=== PATIENT | female | born 1955 | race Caucasian/White ===

== ENCOUNTER 2016-11-09 08:40 | Emergency (ER) | payer MEDICARE ==
[2016-11-09] MEDS ORDERED: Sodium Chloride 0.9% 1000 ML 1,000 ML IV STA (09:06)
[2016-11-09] MEDS ORDERED: Zofran 4 MG/2 ML VIAL IV ONE (09:14)
--- NOTE | 2016-11-09 09:23 | ERPHSYRPT ---
- History of Present Illness Time Seen by Provider: 11/09/16 09:03 Source: patient Exam Limitations: no limitations Patient Subjective Stated Complaint: pt co nausea, cough procuductive yellow, runny nose,headache for one week now, dizzy at times. pt is able to drink and eat Triage Nursing Assessment: pt arrived alert and in no distress, resp easy, skin w/d Physician History: This is a 61-year-old white female with history of chronic back pain CVA TIA diabetes COPD emphysema depression She arrives with complaint of a nausea vomiting symptoms for one week sore throat cough productive of yellow sputum intermittent headache no fevers. Past medical history includes chronic back pain, CVA, TIA, diabetes, COPD, emphysema, depression Past surgical history includes appendectomy, cholecystectomy, , hysterectomy Social history positive tobacco use Timing/Duration: week(s) (symptoms for a week) Severity: moderate Modifying Factors: Improves With: nothing Associated Symptoms: nausea, vomiting, cough, headaches, No abdominal pain, No shortness of breath, No heartburn, No diaphoresis, No chills, No chest pain, No fever, No loss of appetite, No malaise, No rash, No syncope, No seizure, No weakness Allergies/Adverse Reactions: citalopram hydrobromide [From Celexa] Allergy (Mild, Verified 11/09/16 09:03) Hives escitalopram oxalate [From Lexapro] Allergy (Mild, Verified 11/09/16 09:03) Hives morphine Allergy (Mild, Verified 11/09/16 09:03) itching N&V Sulfa (Sulfonamide Antibiotics) [Sulfa(Sulfonamide Antibiotics)] Allergy (Mild, Verified 11/09/16 09:03) Hives codeine [Codeine] Allergy (Unknown, Verified 11/09/16 09:03) Home Medications: Aspirin/Dipyridamole [Aggrenox Capsules] 1 tab PO BID 03/28/12 [History] Levothyroxine Sodium [Synthroid] 50 mcg PO DAILY 03/28/12 [History] Loratadine [Claritin] 1 tab PO DAILY 03/28/12 [History] Omeprazole 20 MG [Prilosec 20 mg] 40 mg PO DAILY 03/29/12 [History] Desvenlafaxine Succinate [Pristiq ER] 50 mg PO HS 05/06/15 [History] Diazepam [Valium] 5 mg PO TID 05/06/15 [History] Oxybutynin Chloride [Ditropan Xl] 5 mg PO DAILY 05/06/15 [History] Albuterol Common Canister [Proventil Common Canister] 2 puff IH QID [History] Ezetimibe 10 mg [Zetia 10 MG] 10 mg PO DAILY 12/06/15 [History] Quetiapine Fumarate [Seroquel] 300 mg PO HS 12/06/15 [History] Albuterol 2.5 mg/3 ml Neb [Proventil 2.5 mg/3 ml Neb] 1 neb IH TID [History] Cyclobenzaprine HCl 10 mg [Flexeril 10 MG] 10 mg PO DAILY 03/13/16 [ History] Fluticasone/Salmeterol Disc [Advair 250-50 Diskus 14 Dose] 1 puff IH BID 03/13/16 [History] Gemfibrozil 600 mg [Lopid 600 mg] 600 mg PO BID 03/13/16 [History] Linagliptin [Tradjenta] 5 mg PO DAILY 03/13/16 [History] Metformin HCl 1000 mg [Glucophage 1000 MG] 1,000 mg PO BID 03/13/16 [History] Methyl Salicylate/Menthol [Pain Relieving Rub Cream] 1 applic TOP QID 03/13/16 [ History] Morphine Sulfate Cr 15 mg [Ms Contin 15 MG] 15 mg PO BID 03/13/16 [History ] Pioglitazone 30 mg [Actos 30 MG] 30 mg PO DAILY 03/13/16 [History] Fenofibrate,Micronized 145 mg* [Tricor 145 MG] 145 mg DAILY 11/09/16 [History ] Hx Tetanus, Diphtheria Vaccination/Date Given: Yes Hx Influenza Vaccination/Date Given: Yes Hx Pneumococcal Vaccination/Date Given: Yes - Review of Systems Constitutional: No Fever, No Chills Eyes: No Symptoms, No Discharge, No Eye Pain, No Eye Redness, No Itchy, No Photophobia, No Tearing, No Vision Changes, No Double Vision Ears, Nose, & Throat: Nose Congestion, Sinus Drainage, Throat Pain, No Ear Pain , No Ear Discharge, No Hearing Changes, No Tinnitus, No Nose Pain, No Nose Discharge, No Epistaxis, No Mouth Pain, No Mouth Swelling, No Loose Teeth, No Throat Swelling, No Hoarse, No Painful Swallowing, No Snoring, No Stridor Respiratory: Cough, No Cyanosis, No Dyspnea, No Dyspnea on Exertion (ACEVEDO), No Stridor, No Wheezing Cardiac: No Chest Pain, No Edema, No Syncope Abdominal/Gastrointestinal: Nausea, Vomiting, Diarrhea, No Abdominal Pain, No Constipation, No Hematemesis, No Hematochezia, No Melena, No Dysphagia, No Appetite Changes Genitourinary Symptoms: No Dysuria Musculoskeletal: No Back Pain, No Neck Pain Skin: No Rash Neurological: Dizziness, Headache, No Focal Weakness, No Gait Changes, No Irritability, No Lethargy, No Paralysis, No Parasthesia, No Seizure, No Sensory Changes, No Speech Changes, No Tics, No Tremors, No Vertigo Psychological: No Symptoms Endocrine: No Symptoms All Other Systems: Reviewed and Negative - Past Medical History Pertinent Past Medical History: No Neurological History: TIA ENT History: No Pertinent History Cardiac History: No Pertinent History Respiratory History: COPD, Emphysema Endocrine Medical History: Diabetes Type II Musculoskeletal History: No Pertinent History GI Medical History: GERD History: Other Psycho-Social History: Anxiety, Depression Female Reproductive Disorders: No Pertinent History Other Medical History: CHRONIC LBP, CHRONIC SINUSITIS, DEPRESSION, ANXIETY - Past Surgical History Past Surgical History: Yes Neuro Surgical History: No Pertinent History Cardiac: No Pertinent History Respiratory: No Pertinent History Gastrointestinal: Appendectomy, Cholecystectomy Genitourinary: No Pertinent History Musculoskeletal: No Pertinent History Female Surgical History: Section, Hysterectomy Other Surgical History: appy, - Social History Smoking Status: Current some day smoker How long have you smoked: 1/4 Exposure to second hand smoke: Yes Alcohol Use: None Drug Use: none Patient Lives Alone: No Significant Family History: diabetes, hypertension - Female History Hx Last Menstrual Period: post Hx Now: No - Nursing Vital Signs Nursing Vital Signs: Initial Vital Signs Temperature 97.5 F Temperature Source Oral Pulse Rate 84 Respiratory Rate 16 Blood Pressure [] 118/72 Pain Intensity 0 - Physical Exam General Appearance: no apparent distress, alert Eye Exam: PERRL/EOMI, eyes nml inspection Ears, Nose, Throat Exam: normal ENT inspection, TMs normal, pharynx normal, moist mucous membranes Neck Exam: normal inspection, non-tender, supple, full range of motion Respiratory Exam: normal breath sounds, lungs clear, No respiratory distress Cardiovascular Exam: regular rate/rhythm, normal heart sounds, normal peripheral pulses Gastrointestinal/Abdomen Exam: soft, normal bowel sounds, No tenderness, No mass Back Exam: normal inspection, normal range of motion, No CVA tenderness, No vertebral tenderness Extremity Exam: normal inspection, normal range of motion, pelvis stable Neurologic Exam: alert, oriented x 3, cooperative, normal mood/affect, nml cerebellar function, nml station & gait, sensation nml, No motor deficits Skin Exam: normal color, warm, dry, No rash SpO2 Interpretation: normal SpO2: 127 Oxygen Delivery: Room Air - Course Nursing assessment & vital signs reviewed: Yes EKG Interpreted by Me: RATE (82 bpm), Sinus Rhythm, Other (EKG: Normal sinus rhythm, 82 bpm, no acute ST or T wave changes, normal axis) - Radiology Exams Chest X-ray Interpretation: Discussed w/ radiologist, Other (chest x-ray, new subtle left base infiltrate/atelectasis/ effusion, remaining right lung and heart normal, stable left base calcified granulloma, osteopenia, degenerative changes , and mild thoracic kyphoplasty) Ordered Tests: Active Orders 24 hr Category Date Time Status Accucheck STAT Care 11/09/16 09:07 Active IV Insertion STAT Care 11/09/16 09:06 Active Orthostatic Vital Signs STAT Care 11/09/16 09:07 Active CHEST 1 VIEW (PORTABLE) Stat Exams 11/09/16 10:29 Completed CBC W DIFF Stat Lab 11/09/16 09:22 Completed CMP Stat Lab 11/09/16 09:22 Completed CULTURE, THROAT Stat Lab 11/09/16 09:22 Received STREP SCREEN-BETA A Stat Lab 11/09/16 09:22 Completed Medication Summary Generic Name Dose Route Start Last Admin Trade Name Freq PRN Reason Stop Dose Admin Ceftriaxone Sodium/Dextrose 50 mls @ 100 mls/hr 11/09/16 11:01 Rocephin 1 Gm-D5w 50 Ml Bag IV 11/09/16 11:30 STAT ONE Discontinued Medications Generic Name Dose Route Start Last Admin Trade Name Judy PRN Reason Stop Dose Admin Sodium Chloride 1,000 mls @ 999 mls/hr 11/09/16 09:06 11/09/16 09:39 Sodium Chloride 0.9% 1000 Ml IV 11/09/16 10:06 999 mls/hr .Q1H1M STA Administration Sodium Chloride Confirm 11/09/16 09:24 Sodium Chloride 0.9% 1000 Ml Administered 11/09/16 09:25 Dose 1,000 mls @ ud .ROUTE .STK-MED ONE Ondansetron HCl 4 mg 11/09/16 09:14 11/09/16 09:40 Zofran 4 Mg/2 Ml Vial IV 11/09/16 09:15 4 mg STAT ONE Administration Ondansetron HCl Confirm 11/09/16 09:24 Zofran 4 Mg/2 Ml Vial Administered 11/09/16 09:25 Dose 4 mg .ROUTE .STK-MED ONE Lab/Rad Data: Laboratory Result Diagrams 11/09/16 09:22 11/09/16 09:22 Laboratory Results 11/09/16 11/09/16 11/09/16 Range/Units 09:22 09:22 09:22 WBC 8.4 (4.0-10.5) K/mm3 RBC 4.53 (4.1-5.4) M/mm3 Hgb 13.4 (12.0-16.0) gm/dl Hct 41.5 (35-47) % MCV 91.6 (78-100) fl MCH 29.6 (26-32) pg MCHC 32.3 (32-36) g/dl RDW 12.9 (11.5-14.0) % Plt Count 101 L (150-450) K/mm3 MPV 12.0 H (6-9.5) fl Gran % 65.7 (36.0-66.0) % Lymphocytes % 26.2 (24.0-44.0) % Monocytes % 6.1 (0.0-12.0) % Eosinophils % 1.8 (0.00-5.0) % Basophils % 0.2 (0.0-0.4) % Basophils # 0.02 (0-0.4) Sodium 143 (136-145) mEq/L Potassium 3.4 L (3.5-5.1) mEq/L Chloride 105 (98-107) mEq/L Carbon Dioxide 30.6 (21-32) mEq/L Anion Gap 10.4 (5-15) MEQ/L BUN 5 L (9-20) mg/dL Creatinine 0.64 (0.55-1.30) mg/dl Estimated GFR > 60 ML/MIN Glucose 187 H (70-110) MG/DL Calcium 8.6 (8.5-10.1) mg/dL Total Bilirubin 0.2 (0.2-1.0) mg/dL AST 34 (15-37) U/L ALT 58 (12-78) U/L Alkaline Phosphatase 87 (46-116) U/L Serum Total Protein 6.6 (6.4-8.2) gm/dL Albumin 3.2 L (3.4-5.0) g/dL Streptococcus Screen NEGATIVE (Negative) - Progress Progress: improved Progress Note: 11/09/16 11:02 Patient's chest x-ray remarkable for a new subtle left base infiltrate/ atelectasis/effusion. Remaining right lung and heart normal. There is stable left base calcified granuloma, osteopenia, degenerative changes , and mid thoracic kyphoplasty. Patient really does not appear to be in acute distress. Will give Rocephin 1 g IV. Plan home on Zithromax Phenergan, Lomotil. - Departure Time of Disposition: 11:03 Departure Disposition: Home Clinical Impression: Vomiting Qualifiers: Vomiting type: unspecified Vomiting Intractability: non-intractable Nausea presence: with nausea Qualified Code(s): R11.2 - Nausea with vomiting, unspecified Diarrhea Qualifiers: Diarrhea type: unspecified type Qualified Code(s): R19.7 - Diarrhea, unspecified Pneumonia Qualifiers: Pneumonia type: due to unspecified organism Laterality: left Lung location: lower lobe of lung Qualified Code(s): J18.1 - Lobar pneumonia, unspecified organism Condition: Fair Critical Care Time: No Instructions: Pneumonia -- Adult, Diarrhea and Traveler's Diarrhea -- Adult, Vomiting -- Adult Additional Instructions: Return home. Zithromax Z-LISANDRO as directed. Lomotil one orally 4 times a day as needed for loose stools #12. Phenergan 25 mg one orally every 4-6 hours as needed for nausea and vomiting. Follow-up with your family doctor. Return for acute distress or for severe symptoms. Prescriptions: Azithromycin 250 mg [Zithromax 250 MG TABLET] 0 mg PO ZPACK #6 tablet Diphenoxylate HCl/Atropine [Lomotil] 1 tab PO QIDPRN PRN #12 tablet PRN Reason: Diarrhea Promethazine HCl 25 mg [Phenergan 25 mg] 25 mg PO Q4-6HPRN PRN #12 tablet PRN Reason: nausea and vomiting
[2016-11-09] MEDS ORDERED: Zofran 4 MG/2 ML VIAL ONE (09:24)
[2016-11-09] MEDS ORDERED: Sodium Chloride 0.9% 1000 ML 1,000 ML ONE (09:24)
[2016-11-09 09:32] LABS: Mean Cell Volume 91.6 fl (78-100); Red Blood Count 4.53 M/mm3 (4.1-5.4); White Blood Count 8.4 K/mm3 (4.0-10.5)
[2016-11-09 09:33] LABS: BASOPHIL % 0.2 % (0.0-0.4); Eosinophil % 1.8 % (0.00-5.0); Granulocytes % 65.7 % (36.0-66.0); Lymphocytes % 26.2 % (24.0-44.0); Mean Corpuscular Hemoglobin 29.6 pg (26-32); Monocytes % 6.1 % (0.0-12.0); Platelet Count 101 K/mm3 (150-450); Red Cell Distribution Width 12.9 % (11.5-14.0)
[2016-11-09 09:55] LABS: ALBUMIN 3.2 g/dL (3.4-5.0); ALKALINE PHOSPHATASE 87 U/L (46-116); ANION GAP 10.4 MEQ/L (5-15); BILIRUBIN,TOTAL 0.2 mg/dL (0.2-1.0); BLOOD UREA NITROGEN 5 mg/dL (9-20); CHLORIDE 105 mEq/L (98-107); Carbon Dioxide 30.6 mEq/L (21-32); Glucose 187 MG/DL (70-110); Potassium 3.4 mEq/L (3.5-5.1); SGOT/AST 34 U/L (15-37); SGPT/ALT 58 U/L (12-78); SODIUM 143 mEq/L (136-145); Total Protein 6.6 gm/dL (6.4-8.2)
--- NOTE | 2016-11-09 10:50 | XRAY ---
Indication: Cough. Comparison: March 13, 2016 Portable chest demonstrates new subtle left base infiltrate/atelectasis/effusion. Remaining right lung and heart normal. Stable left base calcified granuloma, osteopenia, degenerative changes, and mid thoracic kyphoplasty.
[2016-11-09] MEDS ORDERED: ROCEPHIN 1 Gm-D5w 50 ml Bag** 50 ML IV ONE ×2 (11:01→11:08)
[2016-11-09 12:04] VITALS: BP 123/76; PULSE 88; O2SAT 90
== END 2016-11-09 12:04 | disposition home or self-care (01) ==
LOC: ED 08:40
DX: R11.2 Nausea with vomiting, unspecified (principal); R19.7 Diarrhea, unspecified; J18.1 Lobar pneumonia, unspecified organism; E11.9 Type 2 diabetes mellitus without complications; I10 Essential (primary) hypertension
CPT/HCPCS: 36000; 36415; 71010; 80053; 82962; 85025; 87070; 87430; 93005; 96374; 99283; J0696; J2405

== ENCOUNTER 2016-11-23 15:38 | Emergency (ER) | payer MEDICAID, MEDICARE ==
[2016-11-23] MEDS ORDERED: DUONEB 0.5-3 MG/3 ml Neb IH ONE ×2 (15:56→16:08)
[2016-11-23] MEDS ORDERED: solu-MEDROL 125 MG IV ONE (15:59)
[2016-11-23] MEDS ORDERED: TYLENOL 325 MG PO ONE (16:00)
--- NOTE | 2016-11-23 16:02 | ERPHSYRPT ---
- History of Present Illness Time Seen by Provider: 11/23/16 15:56 Source: patient Patient Subjective Stated Complaint: pt co cough, sob, and pain with deep breath since 11/09/16, was dx with pnuemonia, has finished antibotic and feels like shes not any better Triage Nursing Assessment: pt alert, resp easy, pt able to walk in without difficulty, no edema noted, skin w/d Physician History: CC: cough Hx: 61 y/o patient of Dr Sandra Christian with hx of COPD. She had a pneumonia in September. She is a smoker. She has increased shortness of breath and coughing. No fever. She has some phlegm. She is worried she has return of pneumonia. Timing/Duration: day(s) (few) Cough Quality/Degree: moderate Allergies/Adverse Reactions: citalopram hydrobromide [From Celexa] Allergy (Mild, Verified 11/23/16 15:49) Hives escitalopram oxalate [From Lexapro] Allergy (Mild, Verified 11/23/16 15:49) Hives morphine Allergy (Mild, Verified 11/23/16 15:49) itching N&V Sulfa (Sulfonamide Antibiotics) [Sulfa(Sulfonamide Antibiotics)] Allergy (Mild, Verified 11/23/16 15:49) Hives codeine [Codeine] Allergy (Unknown, Verified 11/23/16 15:49) Home Medications: Aspirin/Dipyridamole [Aggrenox Capsules] 1 tab PO BID 03/28/12 [History] Levothyroxine Sodium [Synthroid] 50 mcg PO DAILY 03/28/12 [History] Loratadine [Claritin] 1 tab PO DAILY 03/28/12 [History] Omeprazole 20 MG [Prilosec 20 mg] 40 mg PO DAILY 03/29/12 [History] Desvenlafaxine Succinate [Pristiq ER] 50 mg PO HS 05/06/15 [History] Diazepam [Valium] 5 mg PO TID 05/06/15 [History] Oxybutynin Chloride [Ditropan Xl] 5 mg PO DAILY 05/06/15 [History] Albuterol Common Canister [Proventil Common Canister] 2 puff IH QID [History] Ezetimibe 10 mg [Zetia 10 MG] 10 mg PO DAILY 12/06/15 [History] Quetiapine Fumarate [Seroquel] 300 mg PO HS 12/06/15 [History] Albuterol 2.5 mg/3 ml Neb [Proventil 2.5 mg/3 ml Neb] 1 neb IH TID [History] Cyclobenzaprine HCl 10 mg [Cyclobenzaprine 10 MG] 10 mg PO DAILY 03/13/16 [History] Fluticasone/Salmeterol Disc [Advair 250-50 Diskus 14 Dose] 1 puff IH BID 03/13/16 [History] Gemfibrozil 600 mg [Lopid 600 mg] 600 mg PO BID 03/13/16 [History] Linagliptin [Tradjenta] 5 mg PO DAILY 03/13/16 [History] Metformin HCl 1000 mg [Glucophage 1000 MG] 1,000 mg PO BID 03/13/16 [History] Methyl Salicylate/Menthol [Pain Relieving Rub Cream] 1 applic TOP QID 03/13/16 [ History] Morphine Sulfate Cr 15 mg [Ms Contin 15 MG] 15 mg PO BID 03/13/16 [History ] Pioglitazone 30 mg [Actos 30 MG] 30 mg PO DAILY 03/13/16 [History] Fenofibrate,Micronized 145 mg* [Tricor 145 MG] 145 mg DAILY 11/09/16 [History ] Hx Tetanus, Diphtheria Vaccination/Date Given: Yes Hx Influenza Vaccination/Date Given: Yes Hx Pneumococcal Vaccination/Date Given: Yes Immunizations Up to Date: Yes - Review of Systems Constitutional: Malaise, No Fever, No Chills Eyes: No Symptoms Ears, Nose, & Throat: Nose Congestion Respiratory: Cough, Wheezing Cardiac: No Chest Pain Abdominal/Gastrointestinal: No Abdominal Pain, No Nausea, No Vomiting, No Diarrhea Skin: No Rash Neurological: No Headache All Other Systems: Reviewed and Negative - Past Medical History Pertinent Past Medical History: No Neurological History: TIA ENT History: No Pertinent History Cardiac History: No Pertinent History Respiratory History: COPD, Emphysema Endocrine Medical History: Diabetes Type II Musculoskeletal History: No Pertinent History GI Medical History: GERD History: Other Psycho-Social History: Anxiety, Depression Female Reproductive Disorders: No Pertinent History Other Medical History: CHRONIC LBP, CHRONIC SINUSITIS, DEPRESSION, ANXIETY - Past Surgical History Past Surgical History: Yes Neuro Surgical History: No Pertinent History Cardiac: No Pertinent History Respiratory: No Pertinent History Gastrointestinal: Appendectomy, Cholecystectomy Genitourinary: No Pertinent History Musculoskeletal: No Pertinent History Female Surgical History: Section, Hysterectomy Other Surgical History: appy, - Social History Smoking Status: Current some day smoker How long have you smoked: 1/4 Exposure to second hand smoke: Yes Alcohol Use: None Drug Use: none Patient Lives Alone: No Significant Family History: diabetes, hypertension - Female History Hx Last Menstrual Period: post Hx Now: No - Nursing Vital Signs Nursing Vital Signs: Initial Vital Signs Temperature 97.9 F Temperature Source Oral Pulse Rate 96 Respiratory Rate 18 Blood Pressure [Left Arm] 146/81 Pain Intensity 5 - Physical Exam General Appearance: alert Eye Exam: PERRL/EOMI Ears, Nose, Throat Exam: normal ENT inspection, moist mucous membranes Neck Exam: normal inspection, non-tender, supple Respiratory Exam: diminished breath sounds, wheezing Cardiovascular Exam: regular rate/rhythm, No murmur Gastrointestinal/Abdomen Exam: soft, No tenderness, No distention Extremity Exam: normal inspection, normal range of motion, No calf tenderness Neurologic Exam: alert, oriented x 3, cooperative, sensation nml, No motor deficits Skin Exam: warm, dry, No rash SpO2 Interpretation: normal SpO2: 97 Oxygen Delivery: Room Air - Course Nursing assessment & vital signs reviewed: Yes - Radiology Exams cxr X-ray Interpretation: Discussed w/ radiologist, No Pneumonia Ordered Tests: Active Orders 24 hr Category Date Time Status IV Insertion STAT Care 11/23/16 15:56 Active Pulse Oximetry (ED) STAT Care 11/23/16 15:56 Active CHEST 2 VIEWS (PA AND LAT) Stat Exams 11/23/16 15:56 Completed BLOOD CULTURE Stat Lab 11/23/16 16:30 Ordered CBC W DIFF Stat Lab 11/23/16 16:15 Completed CMP Stat Lab 11/23/16 15:56 Completed Lactic Acid Urgent Lab 11/23/16 16:18 Completed VENOUS BLOOD GAS Urgent Lab 11/23/16 16:18 Completed Respiratory Nebulizer STAT RT 11/23/16 15:56 Active Medication Summary Discontinued Medications Generic Name Dose Route Start Last Admin Trade Name Judy PRIsha Reason Stop Dose Admin Acetaminophen 650 mg 11/23/16 16:00 11/23/16 16:14 Tylenol 325 Mg PO 11/23/16 16:01 650 mg STAT ONE Administration Acetaminophen Confirm 11/23/16 16:13 Tylenol 325 Mg Administered 11/23/16 16:14 Dose 650 mg .ROUTE .STK-MED ONE Albuterol/Ipratropium 3 ml 11/23/16 15:56 11/23/16 16:11 Duoneb 0.5-3 Mg/3 Ml Neb IH 11/23/16 15:57 3 ml STAT ONE Administration Albuterol/Ipratropium Confirm 11/23/16 16:08 Duoneb 0.5-3 Mg/3 Ml Neb Administered 11/23/16 16:09 Dose 3 ml IH .STK-MED ONE Methylprednisolone Sodium Succinate 125 mg 11/23/16 15:59 11/23/16 16:14 Solu-Medrol 125 Mg IV 11/23/16 16:00 125 mg STAT ONE Administration Methylprednisolone Sodium Succinate Confirm 11/23/16 16:13 Solu-Medrol 125 Mg Administered 11/23/16 16:14 Dose 125 mg .ROUTE .STK-MED ONE Lab/Rad Data: Laboratory Result Diagrams 11/23/16 16:15 11/23/16 15:56 Laboratory Results 11/23/16 11/23/16 11/23/16 Range/Units 16:18 16:15 15:56 WBC 8.1 (4.0-10.5) K/mm3 RBC 5.18 (4.1-5.4) M/mm3 Hgb 15.4 (12.0-16.0) gm/dl Hct 46.2 (35-47) % MCV 89.2 (78-100) fl MCH 29.7 (26-32) pg MCHC 33.3 (32-36) g/dl RDW 13.5 (11.5-14.0) % Plt Count 153 (150-450) K/mm3 MPV 11.5 H (6-9.5) fl Gran % 57.1 (36.0-66.0) % Lymphocytes % 34.2 (24.0-44.0) % Monocytes % 7.4 (0.0-12.0) % Eosinophils % 1.1 (0.00-5.0) % Basophils % 0.2 (0.0-0.4) % Basophils # 0.02 (0-0.4) VBG pH 7.44 H (7.32-7.42) VBG pCO2 at Pat Temp 40 L (42-55) mm/Hg VBG pO2 at Pat Temp 39 (25-40) mm/Hg VBG HCO3 27.2 (22-28) meq/L VBG O2 Sat (Augustina) 78.5 L (95-100) VBG Base Excess 2.8 H (-2.0-2.0) VBG Hemoglobin 15.7 VBG Carboxyhemoglobin 7.3 H* (0.0-6.9) % T HGB POC Potassium 4.0 (3.5-5.1) Sodium 139 (136-145) mEq/L Potassium 3.8 (3.5-5.1) mEq/L Chloride 102 (98-107) mEq/L Carbon Dioxide 24.3 (21-32) mEq/L Anion Gap 16.0 H (5-15) MEQ/L BUN 11 (9-20) mg/dL Creatinine 0.73 (0.55-1.30) mg/dl Estimated GFR > 60 ML/MIN Glucose 173 H (70-110) MG/DL Lactic Acid 1.7 (0.4-2.0) Calcium 9.2 (8.5-10.1) mg/dL Total Bilirubin 0.4 (0.2-1.0) mg/dL AST 89 H (15-37) U/L ALT 69 (12-78) U/L Alkaline Phosphatase 80 (46-116) U/L Serum Total Protein 7.8 (6.4-8.2) gm/dL Albumin 3.8 (3.4-5.0) g/dL - Progress Progress Note: 11/23/16 17:06 Testing is reassuring. She is on home oxygen. RA saturation here 86% so placed on her normal 2 L. Will Rx prednisone and doxy. Will release with instructions. Counseled pt/family regarding: lab results, diagnosis, need for follow-up, rad results, smoking cessation - Departure Time of Disposition: :06 Departure Disposition: Home Clinical Impression: COPD with exacerbation Condition: Stable Critical Care Time: No Referrals: CRISTHIAN CHRISTIAN [Primary Care Provider] - Instructions: Chronic Obstructive Pulmonary Disease, Bronchitis Additional Instructions: Rx doxycycline. Rx prednisone. Use your oxygen and nebs as already directed. Follow up this week with Dr Christian. Return for trouble breathing or concerns. Prescriptions: Doxycycline Hyclate 100 mg [Vibramycin 100 MG] 1 tab PO BID #20 tab Prednisone 20 mg [Deltasone 20 mg] 2 tab PO DAILY #10 tablet
[2016-11-23] MEDS ORDERED: TYLENOL 325 MG ONE (16:13)
[2016-11-23] MEDS ORDERED: solu-MEDROL 125 MG ONE (16:13)
[2016-11-23 16:20] LABS: Lactic Acid 1.7 (0.4-2.0); VBG BASE EXCESS 2.8 (-2.0-2.0); VBG CARBOXYHEMOGLOBIN 7.3 % T HGB (0.0-6.9); VBG HCO3- 27.2 meq/L (22-28); VBG HEMOGLOBIN 15.7; VBG O2 SATURATION 78.5 (95-100); VBG pH 7.44 (7.32-7.42)
[2016-11-23 16:24] LABS: BASOPHIL % 0.2 % (0.0-0.4); Eosinophil % 1.1 % (0.00-5.0); Granulocytes % 57.1 % (36.0-66.0); Lymphocytes % 34.2 % (24.0-44.0); Mean Cell Volume 89.2 fl (78-100); Mean Corpuscular Hemoglobin 29.7 pg (26-32); Mean Platelet Volume 11.5 fl (6-9.5); Monocytes % 7.4 % (0.0-12.0); Platelet Count 153 K/mm3 (150-450); Red Blood Count 5.18 M/mm3 (4.1-5.4); Red Cell Distribution Width 13.5 % (11.5-14.0); White Blood Count 8.1 K/mm3 (4.0-10.5)
--- NOTE | 2016-11-23 16:39 | XRAY ---
Indication: Cough and congestion. Comparison: November 09, 2016 PA/lateral chest again hyperinflated and now clear with stable lingular calcified granuloma. Heart is not enlarged. No new/acute cardiopulmonary findings. Impression: Nonacute hyperinflated chest.
[2016-11-23 16:46] LABS: ALBUMIN 3.8 g/dL (3.4-5.0); ALKALINE PHOSPHATASE 80 U/L (46-116); BILIRUBIN,TOTAL 0.4 mg/dL (0.2-1.0); BLOOD UREA NITROGEN 11 mg/dL (9-20); CHLORIDE 102 mEq/L (98-107); Carbon Dioxide 24.3 mEq/L (21-32); Glucose 173 MG/DL (70-110); Potassium 3.8 mEq/L (3.5-5.1); SGOT/AST 89 U/L (15-37); SGPT/ALT 69 U/L (12-78); SODIUM 139 mEq/L (136-145); Total Protein 7.8 gm/dL (6.4-8.2)
[2016-11-23 17:23] VITALS: BP 140/68; PULSE 78; O2SAT 98
== END 2016-11-23 17:23 | disposition home or self-care (01) ==
LOC: ED 15:38
DX: J44.1 Chronic obstructive pulmonary disease with (acute) exacerbation (principal); Z87.01 Personal history of pneumonia (recurrent); R06.02 Shortness of breath; R05 Cough; E11.9 Type 2 diabetes mellitus without complications; Z79.84 Long term (current) use of oral hypoglycemic drugs; Z79.899 Other long term (current) drug therapy
CPT/HCPCS: 36000; 36415; 71020; 80053; 82805; 83605; 85025; 87040; 87631; 94640; 96374; 99283; 99285; J2930

== ENCOUNTER 2017-01-20 16:46 | Observation (INO) | payer MEDICARE ==
[2017-01-20] MEDS ORDERED: Zofran 4 MG/2 ML VIAL IV PRN (17:10)
[2017-01-20] MEDS ORDERED: IMODIUM 2 MG PO PRN (17:11)
[2017-01-20] MEDS ORDERED: PROTONIX 40 MG IV IV SCH (17:30)
[2017-01-20 17:40] LABS: Mean Corpuscular Hemoglobin 30.2 pg (26-32); Mean Platelet Volume 11.9 fl (6-9.5); Platelet Count 172 K/mm3 (150-450)
[2017-01-20] MEDS: ROCEPHIN 1 Gm-D5w 50 ml Bag** 1 G/50 ML IVPB IV SCH (17:56)
[2017-01-20] MEDS ORDERED: PHENERGAN 25 MG PO ONE (17:59)
[2017-01-20 18:02] LABS: ALBUMIN 3.7 g/dL (3.4-5.0); ALKALINE PHOSPHATASE 90 U/L (46-116); ANION GAP 16.4 MEQ/L (5-15); BILIRUBIN,TOTAL 0.4 mg/dL (0.2-1.0); BLOOD UREA NITROGEN 11 mg/dL (9-20); CHLORIDE 105 mEq/L (98-107); Carbon Dioxide 24.2 mEq/L (21-32); Glucose 306 MG/DL (70-110); Potassium 3.4 mEq/L (3.5-5.1); SGOT/AST 136 U/L (15-37); SGPT/ALT 84 U/L (12-78); SODIUM 142 mEq/L (136-145); Total Protein 7.6 gm/dL (6.4-8.2)
[2017-01-20] MEDS: Sodium Chloride 0.9% 1000 ML 1,000 ML IV SCH (18:06)
[2017-01-20 18:14] LABS: TROPONIN < 0.017 ng/ml (0.000-0.056)
[2017-01-20] MEDS: TYLENOL 325 MG PO PRN (20:14)
[2017-01-20] MEDS: Valium 5 MG PO SCH (21:35)
[2017-01-20] MEDS: ZOCOR 20MG PO SCH (21:35)
[2017-01-20] MEDS: Ms Contin 15 MG PO SCH (21:35)
[2017-01-20] MEDS: AGGRENOX PO SCH (21:36)
[2017-01-20] MEDS: Seroquel 100 MG PO SCH (21:36)
[2017-01-20] MEDS: CLARITIN 10 MG PO SCH (21:37)
[2017-01-20] MEDS ORDERED: Voltaren GEL TOP SCH (22:00)
[2017-01-20] MEDS: NovoLOG Insulin SQ PRN (22:34)
[2017-01-21] MEDS: Sodium Chloride 0.9% 1000 ML 1,000 ML IV SCH (04:27)
[2017-01-21 04:43] LABS: ADD URINE CULTURE? NO (NO); COMPLETE URINE MICROSCOPIC? NO; Collection Type CLEAN CATCH; Ph 5.5 (5-6)
[2017-01-21] MEDS: TYLENOL 325 MG PO PRN (04:47)
[2017-01-21] MEDS ORDERED: PHENERGAN 25 MG PO PRN (07:03)
--- NOTE | 2017-01-21 08:34 | XRAY ---
Indication: Cough. URI. Comparison: November 23, 2016. PA/lateral chest again hyperinflated with lingular calcified granuloma. No focal infiltrate, consolidation, or large effusion. Heart is not enlarged. Vascularity normal. Bony thorax intact again with mild osteopenia, degenerative changes, and previous T7 kyphoplasty. Impression: Stable nonacute chest with chronic features.
--- NOTE | 2017-01-21 08:54 | PCM.NOTE ---
Date and Time: 01/21/17 0852 Subjective Assessment: doing ok, c/o abdominal pain and cough but is improving, denies any fever - Review of Systems Constitutional: No Fever, No Chills Eyes: No Symptoms Ears, Nose, & Throat: No Symptoms Respiratory: Cough, No Short Of Breath Cardiac: No Chest Pain, No Edema, No Syncope Abdominal/Gastrointestinal: Abdominal Pain, Diarrhea, No Nausea, No Vomiting Genitourinary Symptoms: No Dysuria Musculoskeletal: No Back Pain, No Neck Pain Skin: No Rash Neurological: No Dizziness, No Focal Weakness, No Sensory Changes Psychological: No Symptoms Endocrine: No Symptoms Hematologic/Lymphatic: No Symptoms Immunological/Allergic: No Symptoms Objective Exam General Appearance: no apparent distress, alert Neurologic Exam: alert, oriented x 3, cooperative, normal mood/affect, nml cerebellar function, sensation nml, No motor deficits Skin Exam: normal color, warm, dry Eye Exam: PERRL, EOMI, eyes nml inspection Ears, Nose, Throat Exam: normal ENT inspection, pharynx normal, moist mucous membranes Neck Exam: normal inspection, non-tender, supple, full range of motion Respiratory Exam: normal breath sounds, lungs clear, No respiratory distress Cardiovascular Exam: regular rate/rhythm, normal heart sounds Gastrointestinal/Abdomen Exam: soft, No tenderness, No mass Extremity Exam: normal inspection, normal range of motion Back Exam: normal inspection, normal range of motion, No CVA tenderness, No vertebral tenderness Pelvic Exam: deferred Rectal Exam: deferred OBJECTIVE DATA Vital Signs: Vital Signs - 24 hr Temp Pulse Resp BP Pulse Ox 01/21/17 07:47 97.6 F 85 20 131/70 93 L 01/21/17 04:00 97.8 F 81 20 123/72 95 01/21/17 00:00 98.6 F 104 H 20 140/73 96 01/20/17 20:00 98.0 F 98 H 21 135/65 97 01/20/17 17:46 98.3 F 105 H 20 162/80 97 01/20/17 16:54 98.3 F 105 H 20 162/80 97 Pain Assessment - Last Documented Pain Intensity 0 Pain Scale Used 0-10 Pain Scale Intake and Output: Intake & Output 01/18/17 01/19/17 01/20/17 01/21/17 11:59 11:59 11:59 11:59 Intake Total 1828 Output Total 1400 Balance 428 Weight 65.317 kg Lab Results: Accuchecks Accucheck Value: 192 Accucheck Value: 298 Lab Results-Last 24 Hours 01/20/17 01/20/17 01/20/17 Range/Units 17:28 17:28 17:28 WBC 9.0 (4.0-10.5) K/mm3 RBC 4.90 (4.1-5.4) M/mm3 Hgb 14.8 (12.0-16.0) gm/dl Hct 43.1 (35-47) % MCV 88.0 (78-100) fl MCH 30.2 (26-32) pg MCHC 34.3 (32-36) g/dl RDW 13.0 (11.5-14.0) % Plt Count 172 (150-450) K/mm3 MPV 11.9 H (6-9.5) fl Sodium 142 (136-145) mEq/L Potassium 3.4 L (3.5-5.1) mEq/L Chloride 105 (98-107) mEq/L Carbon Dioxide 24.2 (21-32) mEq/L Anion Gap 16.4 H (5-15) MEQ/L BUN 11 (9-20) mg/dL Creatinine 0.82 (0.55-1.30) mg/dl Estimated GFR > 60 ML/MIN Glucose 306 H (70-110) MG/DL Hemoglobin A1c (4.5-6.2) Calcium 9.1 (8.5-10.1) mg/dL Total Bilirubin 0.4 (0.2-1.0) mg/dL AST 136 H (15-37) U/L ALT 84 H (12-78) U/L Alkaline Phosphatase 90 (46-116) U/L Troponin I < 0.017 (0.000-0.056) ng/ml Serum Total Protein 7.6 (6.4-8.2) gm/dL Albumin 3.7 (3.4-5.0) g/dL Ur Collection Type Urine Color (YELLOW) Urine Appearance (CLEAR) Urine pH (5-6) Ur Specific [place] (1.005-1.025) Urine Protein (Negative) Urine Glucose (UA) (NEGATIVE) mg/dL Urine Ketones (NEGATIVE) Urine Nitrite (NEGATIVE) Urine Bilirubin (NEGATIVE) Urine Urobilinogen (0-1) mg/dL Urine WBC (Auto) (NEGATIVE) Urine RBC (Auto) (0-5) Jossue/ul Influenza Type A Ag NEGATIVE (NEGATIVE) Influenza Type B Ag NEGATIVE (NEGATIVE) RSV (PCR) NEGATIVE (Negative) Specimen Received 01/20/17 01/21/17 Range/Units 17:28 04:38 WBC (4.0-10.5) K/mm3 RBC (4.1-5.4) M/mm3 Hgb (12.0-16.0) gm/dl Hct (35-47) % MCV (78-100) fl MCH (26-32) pg MCHC (32-36) g/dl RDW (11.5-14.0) % Plt Count (150-450) K/mm3 MPV (6-9.5) fl Sodium (136-145) mEq/L Potassium (3.5-5.1) mEq/L Chloride (98-107) mEq/L Carbon Dioxide (21-32) mEq/L Anion Gap (5-15) MEQ/L BUN (9-20) mg/dL Creatinine (0.55-1.30) mg/dl Estimated GFR ML/MIN Glucose (70-110) MG/DL Hemoglobin A1c 9.9 H (4.5-6.2) Calcium (8.5-10.1) mg/dL Total Bilirubin (0.2-1.0) mg/dL AST (15-37) U/L ALT (12-78) U/L Alkaline Phosphatase (46-116) U/L Troponin I (0.000-0.056) ng/ml Serum Total Protein (6.4-8.2) gm/dL Albumin (3.4-5.0) g/dL Ur Collection Type CLEAN CATCH Urine Color YELLOW (YELLOW) Urine Appearance CLEAR (CLEAR) Urine pH 5.5 (5-6) Ur Specific [place] 1.015 (1.005-1.025) Urine Protein NEGATIVE (Negative) Urine Glucose (UA) 500 (NEGATIVE) mg/dL Urine Ketones NEGATIVE (NEGATIVE) Urine Nitrite NEGATIVE (NEGATIVE) Urine Bilirubin NEGATIVE (NEGATIVE) Urine Urobilinogen 0.2 (0-1) mg/dL Urine WBC (Auto) NEGATIVE (NEGATIVE) Urine RBC (Auto) NEGATIVE (0-5) Jossue/ul Influenza Type A Ag (NEGATIVE) Influenza Type B Ag (NEGATIVE) RSV (PCR) (Negative) Specimen Received 01/21/17:0430 Radiology Exams: Radiology Procedures Category Date Time Status CHEST 2 VIEWS (PA AND LAT) Urgent Exams 01/20/17 17:15 Completed Assessment/Plan (1) Acute bronchitis Current Visit: Yes Status: Acute Qualifiers: Bronchitis organism: unspecified organism Qualified Code(s): J20.9 - Acute bronchitis, unspecified Assessment & Plan: continue bronchodilaters, IV antibiotics Code(s): J20.9 - ACUTE BRONCHITIS, UNSPECIFIED (2) Colitis Current Visit: Yes Status: Acute Assessment & Plan: continue IV fluids, diet advance as tolerated Code(s): K52.9 - NONINFECTIVE GASTROENTERITIS AND COLITIS, UNSPECIFIED
[2017-01-21] MEDS: AGGRENOX PO SCH ×2 (09:48→22:59)
[2017-01-21] MEDS: Tricor 145 MG PO SCH (09:49)
[2017-01-21] MEDS: Valium 5 MG PO SCH ×3 (09:49→22:59)
[2017-01-21] MEDS: Protonix 40MG Tablet PO SCH (09:49)
[2017-01-21] MEDS: Zetia 10 MG PO SCH (09:49)
[2017-01-21] MEDS: Ms Contin 15 MG PO SCH ×2 (09:49→22:59)
[2017-01-21] MEDS: PRISTIQ ER PO SCH (09:49)
[2017-01-21] MEDS: SYNTHROID 50 MCG PO SCH (09:49)
[2017-01-21] MEDS ORDERED: ADVAIR 250-50 DISKUS 14 DOSE IH SCH (10:00)
[2017-01-21] MEDS ORDERED: FLUZONE QUAD 2016-2017 SYRINGE 36MO-64YO IM ONE (10:00)
[2017-01-21] MEDS: Advair Hfa 115/21 Common canister IH SCH ×2 (13:00→19:33)
[2017-01-21] MEDS: NovoLOG Insulin SQ PRN ×2 (16:49→23:08)
[2017-01-21] MEDS: ROCEPHIN 1 Gm-D5w 50 ml Bag** 1 G/50 ML IVPB IV SCH (16:50)
[2017-01-21] MEDS ORDERED: PROVENTIL 2.5 MG/3 ML NEB IH PRN (17:44)
[2017-01-21] MEDS ORDERED: PROVENTIL COMMON CANISTER IH PRN (17:49)
[2017-01-21] MEDS: CLARITIN 10 MG PO SCH (22:59)
[2017-01-21] MEDS: Seroquel 100 MG PO SCH (22:59)
[2017-01-21] MEDS: ZOCOR 20MG PO SCH (22:59)
[2017-01-22] MEDS: Sodium Chloride 0.9% 1000 ML 1,000 ML IV SCH (00:46)
[2017-01-22] MEDS: Advair Hfa 115/21 Common canister IH SCH (07:16)
[2017-01-22 07:43] VITALS: BP 123/60; PULSE 85; O2SAT 93
[2017-01-22] MEDS: PRISTIQ ER PO SCH (08:26)
[2017-01-22] MEDS: AGGRENOX PO SCH (08:26)
[2017-01-22] MEDS: Ms Contin 15 MG PO SCH (08:26)
[2017-01-22] MEDS: Tricor 145 MG PO SCH (08:26)
[2017-01-22] MEDS: NovoLOG Insulin SQ PRN (08:26)
[2017-01-22] MEDS: Valium 5 MG PO SCH (08:26)
[2017-01-22] MEDS: Protonix 40MG Tablet PO SCH (08:26)
[2017-01-22] MEDS: SYNTHROID 50 MCG PO SCH (08:26)
[2017-01-22] MEDS: Zetia 10 MG PO SCH (08:26)
[2017-01-22] MEDS: PROVENTIL 2.5 MG/3 ML NEB IH SCH (10:25)
[2017-01-22] MEDS: PROVENTIL COMMON CANISTER IH SCH (10:26)
== END 2017-01-22 10:50 | disposition home or self-care (01) ==
LOC: MED SURG 16:46
PROVIDERS: ADMIT General Practice; ATTEND General Practice
DX: J20.9 Acute bronchitis, unspecified (principal); K52.9 Noninfective gastroenteritis and colitis, unspecified; J44.9 Chronic obstructive pulmonary disease, unspecified; F41.8 Other specified anxiety disorders; K21.9 Gastro-esophageal reflux disease without esophagitis; E03.9 Hypothyroidism, unspecified; E11.65 Type 2 diabetes mellitus with hyperglycemia; G89.4 Chronic pain syndrome; J45.909 Unspecified asthma, uncomplicated; Z79.899 Other long term (current) drug therapy; Z23 Encounter for immunization
CPT/HCPCS: 36415; 71020; 80053; 81002; 82962; 83036; 84484; 85027; 87040; 87631; 90686; 93005; 94640; 94760; G0008; G0378; J0696; J2405; A9270-GY

== ENCOUNTER 2018-11-30 07:26 | Emergency (ER) | payer MEDICARE ==
[2018-11-30 07:42] VITALS: O2SAT 98
--- NOTE | 2018-11-30 07:54 | ERPHSYRPT ---
- History of Present Illness Time Seen by Provider: 11/30/18 07:40 Source: patient Exam Limitations: no limitations Patient Subjective Stated Complaint: tripped over dog and fell in the bathroom and injured left wrist/hand Triage Nursing Assessment: Pt c/o of left wrist/hand pain due to tripping and falling in her bathroom, wrist and hand are swollen and bruising, tingling in fingers, able to move fingers, rates pain 7/10, normal pulses felt, doesn't appear to be in any distress Physician History: 63 y/o right handed white female presents with left wrist pain. pt fell onto left wrist last night. pt tripped over dog. no head or neck injury. Occurred: yesterday Method of Injury: fell Quality: constant, aching Severity of Pain-Max: mild Severity of Pain-Current: mild Extremities Pain Location: wrist: left Modifying Factors: Improves With: movement Associated Symptoms: none Allergies/Adverse Reactions: citalopram hydrobromide [From Celexa] Allergy (Mild, Verified 11/30/18 07:41) Hives escitalopram oxalate [From Lexapro] Allergy (Mild, Verified 11/30/18 07:41) Hives morphine Allergy (Mild, Verified 11/30/18 07:41) itching N&V Allergy to IV only Sulfa (Sulfonamide Antibiotics) [Sulfa(Sulfonamide Antibiotics)] Allergy (Mild, Verified 11/30/18 07:41) Hives codeine [Codeine] Allergy (Unknown, Verified 11/30/18 07:41) hallucinations Home Medications: Loratadine [Claritin] 10 mg PO HS 03/28/12 [History] Desvenlafaxine Succinate [Pristiq ER] 50 mg PO DAILY 05/06/15 [History] Diazepam [Valium] 5 mg PO TID 05/06/15 [History] Albuterol Common Canister [Proventil Common Canister] 2 puff IH QID [History] Fluticasone/Salmeterol Disc [Advair 250-50 Diskus 14 Dose] 1 puff IH BID 03/13/16 [History] Gabapentin [Neurontin] 600 mg PO QID 02/21/18 [History] Oxybutynin [Oxytrol] 1 each PO DAILY 02/21/18 [History] Pioglitazone 30 mg [Actos 30 MG] 30 mg PO DAILY 11/30/18 [History] glyBURIDE [Glyburide] 2.5 mg PO DAILY 11/30/18 [History] Hx Tetanus, Diphtheria Vaccination/Date Given: Yes Hx Influenza Vaccination/Date Given: Yes Hx Pneumococcal Vaccination/Date Given: Yes - Review of Systems Constitutional: No Symptoms Eyes: No Symptoms Ears, Nose, & Throat: No Symptoms Respiratory: No Symptoms Cardiac: No Symptoms Abdominal/Gastrointestinal: No Symptoms Genitourinary Symptoms: No Symptoms Musculoskeletal: Fall, Injury, Joint Pain (left wrist), Joint Swelling (left wrist) Skin: No Symptoms Neurological: No Symptoms Psychological: No Symptoms Endocrine: No Symptoms Hematologic/Lymphatic: No Symptoms Immunological/Allergic: No Symptoms All Other Systems: Reviewed and Negative - Past Medical History Pertinent Past Medical History: Yes Neurological History: TIA ENT History: No Pertinent History Cardiac History: No Pertinent History Respiratory History: COPD, Emphysema Endocrine Medical History: Diabetes Type II Musculoskeletal History: No Pertinent History GI Medical History: GERD History: Other Psycho-Social History: Anxiety, Depression Female Reproductive Disorders: No Pertinent History Other Medical History: CHRONIC LBP, CHRONIC SINUSITIS, DEPRESSION, ANXIETY - Past Surgical History Past Surgical History: Yes Neuro Surgical History: No Pertinent History Cardiac: No Pertinent History Respiratory: No Pertinent History Gastrointestinal: Appendectomy, Cholecystectomy Genitourinary: No Pertinent History Musculoskeletal: No Pertinent History Female Surgical History: Section, Hysterectomy Other Surgical History: c section x3 - Social History Smoking Status: Current every day smoker How long have you smoked: 47 years Exposure to second hand smoke: Yes Alcohol Use: None Drug Use: none Patient Lives Alone: No Significant Family History: diabetes, hypertension - Female History Hx Now: No - Nursing Vital Signs Nursing Vital Signs: Initial Vital Signs Temperature 98.7 F 11/30/18 07:32 Pulse Rate 91 H 11/30/18 07:32 Respiratory Rate 16 11/30/18 07:32 Blood Pressure 167/84 11/30/18 07:32 O2 Sat by Pulse Oximetry 98 11/30/18 07:32 Pain Scale Pain Intensity 7 - Physical Exam General Appearance: no apparent distress, alert, anxiety Eyes, Ears, Nose, Throat Exam: normal ENT inspection, moist mucous membranes Neck Exam: normal inspection, non-tender, supple, full range of motion Cardiovascular/Respiratory Exam: chest non-tender Abdominal Exam: non-tender Back Exam: normal inspection, normal range of motion, No CVA tenderness, No vertebral tenderness Shoulder Exam: normal inspection, non-tender, no evidence of injury, normal ROM Elbow/Forearm Exam: normal inspection, non-tender, no evidence of injury, normal ROM Wrist Exam: soft tissue tenderness, swelling (left) Hand Exam: normal inspection, non-tender, no evidence of injury, normal ROM Neuro/Tendon Exam: normal sensation, normal motor functions, normal tendon functions Mental Status Exam: alert, oriented x 3, cooperative Skin Exam: normal color, warm SpO2 Interpretation: normal SpO2: 98 O2 Delivery: Room Air Procedures - Splinting Location of Splint: Left, Wrist Type of Splint: Orthoglass Short Arm Splint Splint Applied By: ED Nurse Pre-Proc Neuro Vasc Exam: normal Post-Proc Neuro Vasc Exam: neurovascular intact - Course Nursing assessment & vital signs reviewed: Yes Ordered Tests: Active Orders 24 hr Category Date Time Status WRIST (MIN 3 VIEWS) Stat Exams 11/30/18 07:56 Completed - Progress Progress: improved Progress Note: 11/30/18 08:56 xray left wrist-nondisplaced cortical fx distal radius ant and post Counseled pt/family regarding: diagnosis, need for follow-up, rad results - Departure Time of Disposition: 08:57 Departure Disposition: Home Clinical Impression: Fracture of left distal radius Condition: Stable Critical Care Time: No Referrals: CRISTHIAN CHRISTIAN [Primary Care Provider] - Additional Instructions: ice pack to area 3 times daily for 2 days. follow up today with orthopedic surgeon for further management. Prescriptions: Hydrocodone/APAP 5-325 Tab^^^ [[place] 5-325 Tablet^^^] 1 tab PO Q8H PRN PRN #9 tablet MDD 3 PRN Reason: Pain
--- NOTE | 2018-11-30 08:53 | XRAY ---
Indication: Pain following fall. Comparison: None 3 views of the left wrist demonstrates nondisplaced cortical fractures involving the distal radius anteriorly and posteriorly. Elsewhere osteopenia, tiny lunate bone island, old 5th metacarpal fracture, and mild degenerative changes base of the 1st metacarpal.
[2018-11-30] MEDS ORDERED: NORCO 5/325 MG PO ONE (09:10)
[2018-11-30] MEDS ORDERED: NORCO 5/325 MG ONE (09:11)
[2018-11-30 09:19] VITALS: BP 178/96; PULSE 92
== END 2018-11-30 09:26 | disposition home or self-care (01) ==
LOC: ED 07:26
DX: S52.592A Other fractures of lower end of left radius, initial encounter for closed fracture (principal); W01.0XXA Fall on same level from slipping, tripping and stumbling without subsequent striking against object, initial encounter; Z79.899 Other long term (current) drug therapy
CPT/HCPCS: 29126; 73110; 99284; A9270-GY

== ENCOUNTER 2018-12-07 07:52 | Day surgery (SDC) | payer MEDICARE ==
[2018-12-07] MEDS ORDERED: Xylocaine 1% Vial 30 ML PF IJ ONE (07:53)
[2018-12-07] MEDS ORDERED: Depo-Medrol 40 MG/ML IM ONE (07:53)
[2018-12-07] MEDS ORDERED: Ketamine HCl 50 MG/ML IJ ONE (07:53)
[2018-12-07] MEDS ORDERED: DIPRIVAN 200 MG/20 ML IV ONE (07:53)
[2018-12-07] MEDS ORDERED: Marcaine 0.5% SDV 10 ML IJ ONE (07:53)
--- NOTE | 2018-12-07 11:48 | XRAY ---
Indication: Right hip injection. Intraoperative fluoroscopy was provided for 7 seconds. Single digital spot image submitted for interpretation demonstrates needle tip projecting over lateral femur neck. Small amount of contrast injected for needle tip placement. Correlate with intraoperative findings/report.
--- NOTE | 2018-12-07 11:57 | XRAY ---
7 seconds fluoroscopy time in surgery for left hip injection.
--- NOTE | 2018-12-07 12:07 | XRAY ---
7 seconds fluoroscopy time in surgery for right hip injection.
[2018-12-07] MEDS ORDERED: Lactated Ringers 1,000 ML IV ONE (14:25)
== END 2018-12-07 09:45 | disposition home or self-care (01) ==
LOC: SDC-PAIN 07:52
PROVIDERS: ATTEND Psychiatry & Neurology Pain Medicine
DX: M16.0 Bilateral primary osteoarthritis of hip (principal); M25.551 Pain in right hip; E11.9 Type 2 diabetes mellitus without complications; J44.9 Chronic obstructive pulmonary disease, unspecified; E03.9 Hypothyroidism, unspecified; G47.30 Sleep apnea, unspecified; Z79.899 Other long term (current) drug therapy
CPT/HCPCS: 20611; 73501; 77002; 82962; J1030; J2001; J2704; Q9966

== ENCOUNTER 2019-01-04 09:27 | Day surgery (SDC) | payer MEDICARE ==
[2019-01-04] MEDS ORDERED: Xylocaine-Mpf 2% 5 Ml Vial IJ ONE (09:28)
[2019-01-04] MEDS ORDERED: Ketamine HCl 50 MG/ML IJ ONE (09:28)
[2019-01-04] MEDS ORDERED: LIDOCAINE HCL 2% 100 MG/5 ML IJ ONE (09:28)
[2019-01-04] MEDS ORDERED: DIPRIVAN 200 MG/20 ML IV ONE (09:28)
[2019-01-04] MEDS ORDERED: Depo-Medrol 40 MG/ML IM ONE (09:28)
[2019-01-04] MEDS ORDERED: Xylocaine 1% Vial 30 ML PF IJ ONE (09:28)
[2019-01-04] MEDS ORDERED: Lactated Ringers 1,000 ML IV ONE (14:24)
--- NOTE | 2019-01-04 16:12 | XRAY ---
Indication: Bilateral L3-S1 MBB. Intraoperative fluoroscopy was provided for 6 seconds. Single digital spot image submitted for interpretation demonstrates posterior needle tips in the expected region of the left and right L3-S1 nerve roots. Correlate with intraoperative findings/report.
--- NOTE | 2019-01-04 16:15 | XRAY ---
6 seconds of fluoroscopy was used in surgery for bilateral L3-L4, L4-L5, L5-S1 MBB.
== END 2019-01-04 11:24 | disposition home or self-care (01) ==
LOC: SDC-PAIN 09:27
PROVIDERS: ATTEND Psychiatry & Neurology Pain Medicine
DX: M47.816 Spondylosis without myelopathy or radiculopathy, lumbar region (principal); E11.9 Type 2 diabetes mellitus without complications; J44.9 Chronic obstructive pulmonary disease, unspecified; E03.9 Hypothyroidism, unspecified; G47.30 Sleep apnea, unspecified; K21.9 Gastro-esophageal reflux disease without esophagitis; Z79.899 Other long term (current) drug therapy
CPT/HCPCS: 64493; 64494; 64495; 72020; 77003; 82962; 99100; J1030; J2001; J2704

== ENCOUNTER 2019-02-08 08:56 | Day surgery (SDC) | payer MEDICARE ==
[2019-02-08] MEDS ORDERED: Depo-Medrol 40 MG/ML IM ONE (08:57)
[2019-02-08] MEDS ORDERED: DIPRIVAN 200 MG/20 ML IV ONE (08:57)
[2019-02-08] MEDS ORDERED: Ketamine HCl 50 MG/ML IV ONE (08:57)
[2019-02-08] MEDS ORDERED: Xylocaine-Mpf 2 ML IJ ONE (08:57)
[2019-02-08] MEDS ORDERED: Sodium Chloride 0.9(Preservative Free) 10 ML IJ ONE (08:57)
--- NOTE | 2019-02-08 13:59 | XRAY ---
Indication: Right L4-S1 DARÍO. Intraoperative fluoroscopy was provided for 30 seconds. 2 digital spot images submitted for interpretation demonstrates posterior needle tips in the expected region of the right L4 and L5 nerve roots. Small amount of contrast injected for needle tip placement. Correlate with intraoperative findings/report.
[2019-02-08] MEDS ORDERED: Lactated Ringers 1,000 ML IV ONE (15:37)
== END 2019-02-08 10:45 | disposition home or self-care (01) ==
LOC: SDC-PAIN 08:56
PROVIDERS: ATTEND Psychiatry & Neurology Pain Medicine
DX: M54.16 Radiculopathy, lumbar region (principal); Z79.899 Other long term (current) drug therapy; E11.9 Type 2 diabetes mellitus without complications; J44.9 Chronic obstructive pulmonary disease, unspecified; G47.30 Sleep apnea, unspecified; E03.9 Hypothyroidism, unspecified; K21.9 Gastro-esophageal reflux disease without esophagitis; F32.9 Major depressive disorder, single episode, unspecified
CPT/HCPCS: 64483; 64484; 72020; 77003; 82962; J1030; J2704; Q9966

== ENCOUNTER 2019-03-01 07:33 | Day surgery (SDC) | payer MEDICARE ==
[2019-03-01] MEDS ORDERED: Marcaine 0.5% SDV 10 ML IJ ONE (07:34)
[2019-03-01] MEDS ORDERED: DIPRIVAN 200 MG/20 ML IV ONE (07:34)
[2019-03-01] MEDS ORDERED: Ketamine HCl 50 MG/ML IJ ONE (07:34)
[2019-03-01] MEDS ORDERED: Depo-Medrol 40 MG/ML IM ONE (07:34)
--- NOTE | 2019-03-01 11:41 | XRAY ---
Indication: Bilateral L3-S1 MBB. Intraoperative fluoroscopy was provided for 8 seconds. Single digital spot image submitted for interpretation demonstrates posterior needle tips projecting over the expected course of the left and right L3-S1 nerve roots. Correlate with intraoperative finding/report.
--- NOTE | 2019-03-01 11:53 | XRAY ---
8 seconds fluoroscopy time in surgery for bilateral L3-S1 MBB.
[2019-03-01] MEDS ORDERED: Lactated Ringers 1,000 ML IV ONE (12:44)
== END 2019-03-01 10:56 | disposition home or self-care (01) ==
LOC: SDC-PAIN 07:33
PROVIDERS: ATTEND Psychiatry & Neurology Pain Medicine
DX: M47.816 Spondylosis without myelopathy or radiculopathy, lumbar region (principal); J44.9 Chronic obstructive pulmonary disease, unspecified; E11.9 Type 2 diabetes mellitus without complications; E03.9 Hypothyroidism, unspecified; K21.9 Gastro-esophageal reflux disease without esophagitis; Z79.899 Other long term (current) drug therapy; F32.9 Major depressive disorder, single episode, unspecified
CPT/HCPCS: 64493; 64494; 64495; 72020; 77002; 82962; J1030; J2704

== ENCOUNTER 2019-03-08 21:38 | Emergency (ER) | payer MEDICARE ==
[2019-03-08] MEDS ORDERED: XYLOCAINE 1% HCL 20 ML MDV IJ ONE (21:43)
[2019-03-08] MEDS ORDERED: Adacel Vial IM ONE ×2 (21:46→22:12)
[2019-03-08] MEDS ORDERED: NORCO 5/325 MG PO ONE ×2 (21:47→23:18)
--- NOTE | 2019-03-08 21:52 | ERPHSYRPT ---
- History of Present Illness Time Seen by Provider: 03/08/19 21:43 Source: patient Exam Limitations: no limitations Physician History: Pt states, she was walking out side, where her daughter was mowing the lawn, accidentally stepped to close and it cut her left 1st and 2nd toes. She denies fall, other injury. Occurred: just prior to arrival Quality: constant Severity of Pain-Max: severe Severity of Pain-Current: severe Lower Extremities Pain: 1st toe: right (laceration), 2nd toe: right (laceration) Modifying Factors: Improves With: immobilization, movement Associated Symptoms: none Allergies/Adverse Reactions: citalopram hydrobromide [From Celexa] Allergy (Mild, Verified 03/08/19 21:43) Hives escitalopram oxalate [From Lexapro] Allergy (Mild, Verified 03/08/19 21:43) Hives morphine Allergy (Mild, Verified 03/08/19 21:43) itching N&V Allergy to IV only Sulfa (Sulfonamide Antibiotics) [Sulfa(Sulfonamide Antibiotics)] Allergy (Mild, Verified 03/08/19 21:43) Hives codeine [Codeine] Allergy (Unknown, Verified 03/08/19 21:43) hallucinations Home Medications: Loratadine [Claritin] 10 mg PO HS 03/28/12 [History] Desvenlafaxine Succinate [Pristiq ER] 50 mg PO DAILY 05/06/15 [History] Diazepam [Valium] 5 mg PO TID 05/06/15 [History] Albuterol Common Canister [Proventil Common Canister] 2 puff IH QID [History] Fluticasone/Salmeterol Disc [Advair 250-50 Diskus 14 Dose] 1 puff IH BID 03/13/16 [History] Gabapentin [Neurontin] 600 mg PO QID 02/21/18 [History] Oxybutynin [Oxytrol] 1 each PO DAILY 02/21/18 [History] Pioglitazone 30 mg [Actos 30 MG] 30 mg PO DAILY 11/30/18 [History] glyBURIDE [Glyburide] 2.5 mg PO DAILY 11/30/18 [History] Hx Tetanus, Diphtheria Vaccination/Date Given: Yes Hx Influenza Vaccination/Date Given: Yes Hx Pneumococcal Vaccination/Date Given: Yes - Review of Systems Constitutional: No Symptoms Cardiac: No Symptoms Musculoskeletal: Other (complex laceration to right 1st and 2nd toes) All Other Systems: Reviewed and Negative - Past Medical History Pertinent Past Medical History: Yes Neurological History: TIA ENT History: No Pertinent History Cardiac History: No Pertinent History Respiratory History: COPD, Emphysema Endocrine Medical History: Diabetes Type II Musculoskeletal History: No Pertinent History GI Medical History: GERD History: Other Psycho-Social History: Anxiety, Depression Female Reproductive Disorders: No Pertinent History Other Medical History: CHRONIC LBP, CHRONIC SINUSITIS, DEPRESSION, ANXIETY - Past Surgical History Past Surgical History: Yes Neuro Surgical History: No Pertinent History Cardiac: No Pertinent History Respiratory: No Pertinent History Gastrointestinal: Appendectomy, Cholecystectomy Genitourinary: No Pertinent History Musculoskeletal: No Pertinent History Female Surgical History: Section, Hysterectomy Other Surgical History: c section x3 - Social History Smoking Status: Current every day smoker How long have you smoked: 47 years Exposure to second hand smoke: Yes Alcohol Use: None Drug Use: none Patient Lives Alone: No Significant Family History: diabetes, hypertension - Nursing Vital Signs Nursing Vital Signs: Initial Vital Signs Temperature 98.5 F 03/08/19 21:45 Pulse Rate 115 H 03/08/19 21:45 Respiratory Rate 22 03/08/19 21:45 Blood Pressure 179/102 03/08/19 21:45 O2 Sat by Pulse Oximetry 96 03/08/19 21:45 Pain Scale Pain Intensity 10 - Physical Exam General Appearance: no apparent distress Eyes, Ears, Nose, Throat Exam: moist mucous membranes Neck Exam: normal inspection, non-tender Cardiovascular/Respiratory Exam: chest non-tender, normal breath sounds, regular rate/rhythm Gastrointestinal/Abdominal Exam: non-tender, soft Back Exam: normal inspection Hips Exam: bilateral: non-tender Foot Exam: left foot: other (1st toe: tip and plantar aspect: 3 cm complex, thin flap ( 5-6 mm wide) laceration with the stem of the flap is to the lateral aspect of the plantar toe, 2nd toe: 1 cm deep, transverse laceration to the plantar aspect of the toe, no severe bleeding or deformity.) Neuro/Tendon Exam: normal motor functions Mental Status Exam: alert, oriented x 3, cooperative Skin Exam: normal color, warm, dry SpO2 Interpretation: normal O2 Delivery: Room Air Procedures - Laceration/Wound Repair Left Toe Wound Location: Left Wound Length (cm): 3 Wound's Depth, Shape: into muscle, irregular, flap, contused tissue Wound Explored: heavily contaminated Irrigated: Yes Santaiclens Prep: No Anesthesia: digital block, 1% Lidocaine Volume Anesthetic (ccs): 9 Wound Debrided: moderate Wound Repaired With: sutures Suture Size/Type: 4-0, 3-0, ethilon Number of Sutures: 14 Layer Closure?: No Sterile Dressing Applied?: Yes Splint Applied?: No Sling Applied?: No Progress: 03/08/19 23:08 7X 3.0 Ethilon and 4x 4.0 Ethilon placed to the great toe wound and 1x3.0 and 2x4.0 Ethilon to the 2nd toe wound, the 1st toe laceration was not possible to completely close, due to severe tissue damage, had to debride extensively, bleeding not noted due to debridement due to poor circulation to the toes. - Course Nursing assessment & vital signs reviewed: Yes - Radiology Exams Left Foot X-ray Interpretation: Interpreted by me, Other (1 st toe end phalanx nondisplaced fracture to the base, 2nd toe in intact.) Ordered Tests: Active Orders 24 hr Category Date Time Status Wound Care STAT Care 03/08/19 21:43 Active FOOT (MINIMUM 3 VIEWS) Stat Exams 03/08/19 21:46 Taken Medication Summary Discontinued Medications Generic Name Dose Route Start Last Admin Trade Name Saleemq PRN Reason Stop Dose Admin Hydrocodone Bitart/Acetaminophen 1 tab 03/08/19 21:47 03/08/19 22:15 [place] 5/325 Mg PO 03/08/19 21:48 1 tab STAT ONE Administration Hydrocodone Bitart/Acetaminophen Confirm 03/08/19 22:12 [place] 5/325 Mg Administered 03/08/19 22:13 Dose 1 tab .ROUTE .STK-MED ONE Hydrocodone Bitart/Acetaminophen 1 tab 03/08/19 23:18 [place] 5/325 Mg PO 03/08/19 23:19 STAT ONE Cephalexin HCl 500 mg 03/08/19 22:07 03/08/19 22:16 Keflex 500 Mg PO 03/08/19 22:08 500 mg STAT ONE Administration Cephalexin HCl Confirm 03/08/19 22:11 Keflex 500 Mg Administered 03/08/19 22:12 Dose 500 mg .ROUTE .STK-MED ONE Diphtheria/Tetanus/Acell Pertussis 0.5 ml 03/08/19 21:46 03/08/19 22:18 Adacel Vial IM 03/08/19 21:47 0.5 ml .ONCE ONE Administration Diphtheria/Tetanus/Acell Pertussis Confirm 03/08/19 22:12 Adacel Vial Administered 03/08/19 22:13 Dose 0.5 ml IM .STK-MED ONE Lidocaine HCl 5 ml 03/08/19 21:43 03/08/19 22:19 Xylocaine 1% Hcl 20 Ml Mdv IJ 03/08/19 21:44 5 ml STAT ONE Administration Lidocaine HCl Confirm 03/08/19 22:12 Xylocaine 1% Hcl 20 Ml Mdv Administered 03/08/19 22:13 Dose 1 ml .ROUTE .STK-MED ONE - Progress Progress: improved Progress Note: 03/08/19 23:12 Pt tolerated suturing well, stable, we discussed out X ray findings, she was started on PO Keflex, and given [place] for pain, provided with Postop Shoe, discharged to rest with elevated leg, change dressing daily and cleanse wound with antiseptic solutions, return after 2 days to recheck wound, suture removal after 10 days. Counseled pt/family regarding: diagnosis, need for follow-up, rad results - Departure Departure Disposition: Home Clinical Impression: Toe laceration with complication Toe fracture, left Qualifiers: Encounter type: initial encounter Toe: great toe Fracture type: open Phalanx: distal Fracture alignment: nondisplaced Qualified Code(s): S92.425B - Nondisplaced fracture of distal phalanx of left great toe, initial encounter for open fracture Condition: Stable Critical Care Time: No Referrals: CRISTHIAN CHRISTIAN [Primary Care Provider] - Instructions: Wound Care (DC), Foot Fracture (DC), Laceration Repair With Stitches (DC) Additional Instructions: Rest with elevated leg, change dressing and cleanse wound daily with antiseptic solutions, return after 2 days to recheck wound or follow up with your physician in 2 days removal of the sutures after 10 days, return if severe pain , swelling, purulent discoloration of the toe or fever> 101 F! Prescriptions: Hydrocodone/APAP 5-325 Tab^^^ [[place] 5-325 Tablet^^^] 1 tab PO Q6HPRN PRN #10 tablet MDD 6 PRN Reason: Pain Cephalexin Mh 500 mg [Keflex 500 mg] 500 mg PO Q6H 10 Days #40 capsule
[2019-03-08] MEDS ORDERED: KEFLEX 500 MG PO ONE (22:07)
[2019-03-08] MEDS ORDERED: KEFLEX 500 MG ONE (22:11)
[2019-03-08] MEDS ORDERED: NORCO 5/325 MG ONE ×3 (22:12→23:25)
[2019-03-08] MEDS ORDERED: XYLOCAINE 1% HCL 20 ML MDV ONE (22:12)
[2019-03-08 23:43] VITALS: BP 130/88; PULSE 90; O2SAT 97
--- NOTE | 2019-03-09 08:47 | XRAY ---
Indication: 1st/2nd toe laceration. Comparison: None 3 nonweightbearing views of the left foot demonstrates distal 1st/2nd toe laceration and nondisplaced distal 1st phalanx fracture with intra-articular extension. Elsewhere osteopenia, mild 1st IP degenerative changes, and small posterior heel spur. No other bony, articular, or soft tissue abnormalities.
== END 2019-03-08 23:45 | disposition home or self-care (01) ==
LOC: ED 21:38
DX: S91.112A Laceration without foreign body of left great toe without damage to nail, initial encounter (principal); S92.425B Nondisplaced fracture of distal phalanx of left great toe, initial encounter for open fracture; W31.89XA Contact with other specified machinery, initial encounter; Y93.01 Activity, walking, marching and hiking; Y92.096 Garden or yard of other non-institutional residence as the place of occurrence of the external cause; S91.115A Laceration without foreign body of left lesser toe(s) without damage to nail, initial encounter
CPT/HCPCS: 12001; 13132; 73630; 90471; 90715; 96372; 99284; A9270-GY

== ENCOUNTER 2019-03-10 13:47 | Inpatient (IN) | payer MEDICARE ==
[2019-03-10] MEDS ORDERED: PEROXIDE 3% ONE (14:10)
--- NOTE | 2019-03-10 14:17 | ERPHSYRPT ---
- History of Present Illness Time Seen by Provider: 03/10/19 14:00 Source: patient Exam Limitations: no limitations Patient Subjective Stated Complaint: cut left foot/toes Wednesday evening and came in today for a wound check due to unable to get into family doc Triage Nursing Assessment: Pt brought into the ER by a wheel chair, here to check wound on left foot that was stitched up in our ER on Wednesday night, second toe red, third toe black/blue, stitches in big toe and second toe Physician History: 63 y/o diabetic white female who continues to smoke cigarettes, presents with left foot 1st, 2nd, and 3rd toe laceration site pain. occurred 2 days ago lawnmower accident. here for follow up wound check. pt was placed on keflex and given rx for pain medication. pt states she cannot take morphine but may take other intravenous narcotics. Method of Injury: other (lawnmowing accident) Occurred: days ago (2) Quality: aching, throbbing Severity of Pain-Max: moderate Severity of Pain-Current: moderate Lower Extremities Pain: foot: left, 1st toe: left, 2nd toe: left, 3rd toe: left Modifying Factors: Improves With: movement Associated Symptoms: other (hurts to bearweight) Allergies/Adverse Reactions: citalopram hydrobromide [From Celexa] Allergy (Mild, Verified 03/10/19 14:01) Hives escitalopram oxalate [From Lexapro] Allergy (Mild, Verified 03/10/19 14:01) Hives morphine Allergy (Mild, Verified 03/10/19 14:01) itching N&V Allergy to IV only Sulfa (Sulfonamide Antibiotics) [Sulfa(Sulfonamide Antibiotics)] Allergy (Mild, Verified 03/10/19 14:01) Hives codeine [Codeine] Allergy (Unknown, Verified 03/10/19 14:01) hallucinations Home Medications: Loratadine [Claritin] 10 mg PO HS 03/28/12 [History] Desvenlafaxine Succinate [Pristiq ER] 50 mg PO DAILY 05/06/15 [History] Diazepam [Valium] 5 mg PO TID 05/06/15 [History] Albuterol Common Canister [Proventil Common Canister] 2 puff IH QID [History] Fluticasone/Salmeterol Disc [Advair 250-50 Diskus 14 Dose] 1 puff IH BID 03/13/16 [History] Gabapentin [Neurontin] 600 mg PO QID 02/21/18 [History] Oxybutynin [Oxytrol] 1 each PO DAILY 02/21/18 [History] Pioglitazone 30 mg [Actos 30 MG] 30 mg PO DAILY 11/30/18 [History] glyBURIDE [Glyburide] 2.5 mg PO DAILY 11/30/18 [History] Hx Tetanus, Diphtheria Vaccination/Date Given: Yes Hx Influenza Vaccination/Date Given: Yes Hx Pneumococcal Vaccination/Date Given: Yes - Review of Systems Constitutional: No Symptoms Eyes: No Symptoms Ears, Nose, & Throat: No Symptoms Respiratory: No Symptoms Cardiac: No Symptoms Abdominal/Gastrointestinal: Constipation Genitourinary Symptoms: No Symptoms Musculoskeletal: Joint Redness, Joint Pain, Joint Swelling Skin: Cellulitis (left foot) Neurological: No Symptoms Psychological: No Symptoms Endocrine: No Symptoms Hematologic/Lymphatic: No Symptoms Immunological/Allergic: No Symptoms All Other Systems: Reviewed and Negative - Past Medical History Pertinent Past Medical History: Yes Neurological History: TIA ENT History: No Pertinent History Cardiac History: No Pertinent History Respiratory History: COPD, Emphysema Endocrine Medical History: Diabetes Type II Musculoskeletal History: No Pertinent History GI Medical History: GERD History: Other Psycho-Social History: Anxiety, Depression Female Reproductive Disorders: No Pertinent History Other Medical History: CHRONIC LBP, CHRONIC SINUSITIS, DEPRESSION, ANXIETY - Past Surgical History Past Surgical History: Yes Neuro Surgical History: No Pertinent History Cardiac: No Pertinent History Respiratory: No Pertinent History Gastrointestinal: Appendectomy, Cholecystectomy Genitourinary: No Pertinent History Musculoskeletal: No Pertinent History Female Surgical History: Section, Hysterectomy Other Surgical History: c section x3 - Social History Smoking Status: Current every day smoker How long have you smoked: 47 years Exposure to second hand smoke: Yes Alcohol Use: None Drug Use: none Patient Lives Alone: No Significant Family History: diabetes, hypertension - Female History Hx Now: No - Nursing Vital Signs Nursing Vital Signs: Initial Vital Signs Temperature 98.9 F 03/10/19 13:53 Pulse Rate 124 H 03/10/19 13:53 Blood Pressure 128/87 03/10/19 13:53 O2 Sat by Pulse Oximetry 94 L 03/10/19 13:53 Pain Scale Pain Intensity 8 - Physical Exam General Appearance: mild distress, alert, anxiety Eyes, Ears, Nose, Throat Exam: normal ENT inspection, moist mucous membranes Neck Exam: normal inspection, non-tender, supple, full range of motion Cardiovascular/Respiratory Exam: chest non-tender Gastrointestinal/Abdominal Exam: non-tender Back Exam: normal inspection, normal range of motion, No CVA tenderness, No vertebral tenderness Hips Exam: bilateral: non-tender, normal inspection, normal range of motion, no evidence of injury Legs Exam: bilateral leg: non-tender, normal inspection, normal range of motion , no evidence of injury Knees Exam: bilateral knee: non-tender, normal inspection, normal range of motion, no evidence of injury Ankle Exam: bilateral ankle: non-tender, normal inspection, normal range of motion, no evidence of injury Foot Exam: bilateral foot: bone tenderness, limited range of motion (secondary to pain), pain, soft tissue tenderness, swelling Neuro/Tendon Exam: responds to pain, no evidence tendon injury Mental Status Exam: alert, oriented x 3, cooperative Skin Exam: warm, laceration, other (cellulitis) SpO2 Interpretation: borderline oxygenation SpO2: 94 O2 Delivery: Room Air - Course Nursing assessment & vital signs reviewed: Yes Ordered Tests: Active Orders 24 hr Category Date Time Status IV Insertion STAT Care 03/10/19 14:24 Active CBC W DIFF Stat Lab 03/10/19 14:46 Received CMP Stat Lab 03/10/19 14:46 Received Transfer Order Routine Transfer 03/10/19 Ordered Medication Summary Generic Name Dose Route Start Last Admin Trade Name Freq PRN Reason Stop Dose Admin Ceftriaxone Sodium/Dextrose 1 g in 50 mls @ 100 mls/hr 03/10/19 14:33 Rocephin 1 Gm-D5w 50 Ml Bag IV 03/10/19 15:02 STAT STA Discontinued Medications Generic Name Dose Route Start Last Admin Trade Name Freq PRN Reason Stop Dose Admin Ciprofloxacin Confirm 03/10/19 14:22 Cipro 500 Mg Administered 03/10/19 14:23 Dose 500 mg .ROUTE .STK-MED ONE Ciprofloxacin 500 mg 03/10/19 14:28 Cipro 500 Mg PO 03/10/19 14:29 STAT ONE Hydrogen Peroxide Confirm 03/10/19 14:10 Peroxide 3% Administered 03/10/19 14:11 Dose 237 ml .ROUTE .STK-MED ONE Ceftriaxone Sodium/Dextrose Confirm 03/10/19 14:22 Rocephin 1 Gm-D5w 50 Ml Bag Administered 03/10/19 14:23 Dose 1 g in 50 mls @ ud IV .STK-MED ONE Meperidine HCl 25 mg 03/10/19 14:26 Demerol 75 Mg IV 03/10/19 14:27 STAT ONE Meperidine HCl Confirm 03/10/19 14:37 Demerol 50 Mg Administered 03/10/19 14:38 Dose 50 mg .ROUTE .STK-MED ONE Ondansetron HCl 4 mg 03/10/19 14:24 Zofran 4 Mg/2 Ml Vial IV 03/10/19 14:25 STAT ONE Ondansetron HCl Confirm 03/10/19 14:36 Zofran 4 Mg/2 Ml Vial Administered 03/10/19 14:37 Dose 4 mg .ROUTE .STK-MED ONE - Progress Progress: pain not gone completely Progress Note: 03/10/19 14:[address] nuñez. i reviewed pt hx and condition. he accepts pt for observation. Counseled pt/family regarding: lab results, diagnosis - Departure Departure Disposition: Observation Clinical Impression: Cellulitis of left foot Condition: Stable Critical Care Time: No Referrals: CRISTHIAN CHRISTIAN [Primary Care Provider] -
[2019-03-10] MEDS ORDERED: ROCEPHIN 1 Gm-D5w 50 ml Bag** 1 G/50 ML IVPB IV ONE (14:22)
[2019-03-10] MEDS ORDERED: Cipro 500 MG ONE (14:22)
[2019-03-10] MEDS ORDERED: Zofran 4 MG/2 ML VIAL IV ONE (14:24)
[2019-03-10] MEDS ORDERED: DEMEROL 75 MG IV ONE (14:26)
[2019-03-10] MEDS ORDERED: Cipro 500 MG PO ONE (14:28)
[2019-03-10] MEDS ORDERED: ROCEPHIN 1 Gm-D5w 50 ml Bag** 1 G/50 ML IVPB IV STA (14:33)
[2019-03-10] MEDS ORDERED: Zofran 4 MG/2 ML VIAL ONE (14:36)
[2019-03-10] MEDS ORDERED: DEMEROL 50 MG ONE (14:37)
[2019-03-10 15:02] LABS: BASOPHIL % 0.3 % (0.0-0.4); Basophil (Absolute #) 0.04 (0-0.4); Eosinophil % 1.4 % (0.00-5.0); Eosinophil (Absolute #) 0.17 (0-0.5); Granulocyte Absolute (ANC) 7.91 (1.4-6.9); Granulocytes % 65.2 % (36.0-66.0); Hematocrit 47.8 % (35-47); Hemoglobin 15.8 gm/dl (12.0-16.0); Lymphocyte (Absolute #) 2.92 (1.0-4.6); Mean Cell Volume 92.1 fl (78-100); Mean Corpuscular Hemoglobin 30.4 pg (26-32); Mean Corpuscular Hgb Concent. 33.1 g/dl (32-36); Mean Platelet Volume 12.6 fl (6-9.5); Monocyte (Absolute #) 1.11 (0.0-1.3); Monocytes % 9.1 % (0.0-12.0); Platelet Count 124 K/mm3 (150-450); Red Blood Count 5.19 M/mm3 (4.1-5.4); Red Cell Distribution Width 13.2 % (11.5-14.0); White Blood Count 12.2 K/mm3 (4.0-10.5)
[2019-03-10 15:05] LABS: ALBUMIN 4.4 g/dL (3.5-5.0); ALKALINE PHOSPHATASE 128 U/L (38-126); ANION GAP 17.5 MEQ/L (5-15); BLOOD UREA NITROGEN 15 mg/dL (7-17); CHLORIDE 97 mmol/L (98-107); Calcium 9.8 mg/dL (8.4-10.2); Carbon Dioxide 26 mmol/L (22-30); Creatinine 1 0.54 mg/dL (0.52-1.04); Glucose 465 mg/dL (74-106); Potassium 4.3 mmol/L (3.5-5.1); SGOT/AST 36 U/L (14-36); SGPT/ALT 84 U/L (0-35); SODIUM 137 mmol/L (137-145); Total Protein 8.2 g/dL (6.3-8.2)
[2019-03-10] MEDS ORDERED: Ativan 2 MG/1 ML VIAL IV PRN (15:10)
[2019-03-10] MEDS ORDERED: Hydromorphone 1 mg/ml Ampule IV PRN (15:10)
[2019-03-10] MEDS ORDERED: Sodium Chloride 0.9% 1000 ML 1,000 ML IV SCH (15:10)
[2019-03-10] MEDS ORDERED: TYLENOL 325 MG PO PRN (15:10)
[2019-03-10] MEDS ORDERED: Dilaudid 4 MG Tab PO PRN (16:50)
[2019-03-10] MEDS ORDERED: PHARMACY DOSING REQUIRED: VANCOMYCIN IV ONE (16:53)
[2019-03-10] MEDS ORDERED: PHARMACY DOSING REQUEST MC ONE (16:54)
[2019-03-10] MEDS: NovoLOG Insulin SQ PRN (17:01)
[2019-03-10] MEDS: ENOXAPARIN SODIUM SQ SCH (17:01)
[2019-03-10] MEDS ORDERED: PROVENTIL COMMON CANISTER IH PRN (17:12)
[2019-03-10] MEDS ORDERED: Valium 5 MG PO PRN (17:20)
[2019-03-10] MEDS ORDERED: NON-FORMULARY ITEM (Hydrocodone/Apap 5-325 Tab^^^ 1 TAB) PO PRN (17:20)
[2019-03-10] MEDS: NEURONTIN 300 MG PO SCH ×2 (17:38→21:36)
[2019-03-10] MEDS: VANCOCIN 500 MG VIAL*** 500 MG in Sodium Chloride 100ML MINI-BAG PLUS 100 ML IV SCH (17:38)
[2019-03-10] MEDS: Advair Hfa 115/21 Common canister IH SCH (19:12)
[2019-03-10] MEDS: NORCO 5/325 MG PO PRN (19:41)
[2019-03-10] MEDS: Cyclobenzaprine 10 MG PO SCH (21:36)
[2019-03-10] MEDS: DOXEPIN HCL PO SCH (21:36)
[2019-03-10] MEDS: Ditropan XL 5 MG PO SCH (21:37)
[2019-03-11] MEDS: VANCOCIN 500 MG VIAL*** 500 MG in Sodium Chloride 100ML MINI-BAG PLUS 100 ML IV SCH ×3 (02:48→17:21)
[2019-03-11 05:53] LABS: BASOPHIL % 0.1 % (0.0-0.4); Basophil (Absolute #) 0.01 (0-0.4); Eosinophil % 0.9 % (0.00-5.0); Eosinophil (Absolute #) 0.07 (0-0.5); Granulocyte Absolute (ANC) 4.97 (1.4-6.9); Granulocytes % 61.7 % (36.0-66.0); Hematocrit 40.5 % (35-47); Hemoglobin 13.2 gm/dl (12.0-16.0); Lymphocyte (Absolute #) 2.17 (1.0-4.6); Lymphocytes % 26.9 % (24.0-44.0); Mean Cell Volume 93.8 fl (78-100); Mean Corpuscular Hemoglobin 30.6 pg (26-32); Mean Corpuscular Hgb Concent. 32.6 g/dl (32-36); Mean Platelet Volume 12.3 fl (6-9.5); Monocyte (Absolute #) 0.84 (0.0-1.3); Monocytes % 10.4 % (0.0-12.0); Platelet Count 114 K/mm3 (150-450); Red Blood Count 4.32 M/mm3 (4.1-5.4); Red Cell Distribution Width 12.9 % (11.5-14.0); White Blood Count 8.1 K/mm3 (4.0-10.5)
[2019-03-11 06:38] LABS: ANION GAP 14.8 MEQ/L (5-15); BLOOD UREA NITROGEN 18 mg/dL (7-17); CHLORIDE 96 mmol/L (98-107); Calcium 9.4 mg/dL (8.4-10.2); Carbon Dioxide 28 mmol/L (22-30); Creatinine 1 0.66 mg/dL (0.52-1.04); Glucose 466 mg/dL (74-106); Potassium 4.5 mmol/L (3.5-5.1); SODIUM 135 mmol/L (137-145)
[2019-03-11] MEDS: Advair Hfa 115/21 Common canister IH SCH ×2 (07:50→19:18)
[2019-03-11] MEDS: Micronase 5 MG PO SCH (08:02)
[2019-03-11] MEDS: NORCO 5/325 MG PO PRN (08:05)
[2019-03-11] MEDS: NovoLOG Insulin SQ PRN ×3 (08:06→16:22)
[2019-03-11] MEDS: ROCEPHIN 2 Gm-D5w 50ML BAG** 2 G/50 ML IVPB IV SCH (09:44)
[2019-03-11] MEDS: ENOXAPARIN SODIUM SQ SCH (09:45)
[2019-03-11] MEDS: Actos 30 MG PO SCH (09:45)
[2019-03-11] MEDS: Protonix 40MG Tablet PO SCH (09:46)
[2019-03-11] MEDS: PRISTIQ ER PO SCH (09:46)
[2019-03-11] MEDS: NEURONTIN 300 MG PO SCH ×4 (09:46→21:28)
[2019-03-11] MEDS: Zocor 10MG PO SCH (09:46)
[2019-03-11] MEDS: SYNTHROID 25 MCG PO SCH (09:46)
[2019-03-11] MEDS: Miralax Powder 17GM PACKET PO SCH (09:52)
[2019-03-11] MEDS ORDERED: DESVENLAFAXINE SUCCINATE 100 MG PO SCH (10:00)
[2019-03-11] MEDS ORDERED: ROCEPHIN 1 Gm-D5w 50 ml Bag** 1 G/50 ML IVPB IV SCH (10:00)
[2019-03-11] MEDS ORDERED: NON-FORMULARY ITEM (Esomeprazole Magnesium [Nexium] 40 MG) PO SCH (10:00)
[2019-03-11] MEDS: Dilaudid 4 MG Tab PO PRN ×2 (10:27→16:29)
[2019-03-11] MEDS: Zofran 4 MG/2 ML VIAL IV PRN (16:22)
[2019-03-11] MEDS: Ditropan XL 5 MG PO SCH (21:21)
[2019-03-11] MEDS: Cyclobenzaprine 10 MG PO SCH (21:27)
[2019-03-11] MEDS: DOXEPIN HCL PO SCH (21:28)
[2019-03-12 00:42] LABS: A-aADO2 77; ABG HEMOGLOBIN 13.7; ABG POTASSIUM 4.2 (3.5-5.1); ARTERIAL BLD GAS O2 SATURATION 94.4 % (95-100); ARTERIAL BLOOD GAS BASE EXCESS 1.6 (-2.0-2.0); ARTERIAL BLOOD GAS FIO2 36 %; ARTERIAL BLOOD GAS PO2 80 mmHg (75-100); ARTERIAL BLOOD GAS pH 7.21 (7.35-7.45); CARBOXYHEMOGLOBIN 1.1 % THgb (0.0-6.9); HGB O2 SAT 93.4 g/dF (94-100); paO2 pAO1 0.51
[2019-03-12 00:43] LABS: ARTERIAL BLOOD GAS PCO2 80 mmHg (35-45)
[2019-03-12] MEDS: VANCOCIN 500 MG VIAL*** 500 MG in Sodium Chloride 100ML MINI-BAG PLUS 100 ML IV SCH ×2 (03:25→10:59)
[2019-03-12] MEDS: Zofran 4 MG/2 ML VIAL IV PRN (05:41)
[2019-03-12 05:54] LABS: Hemoglobin 12.9 gm/dl (12.0-16.0); Mean Cell Volume 96.2 fl (78-100); Mean Corpuscular Hemoglobin 30.3 pg (26-32); Mean Corpuscular Hgb Concent. 31.5 g/dl (32-36); Mean Platelet Volume 12.1 fl (6-9.5); Platelet Count 130 K/mm3 (150-450); Red Blood Count 4.26 M/mm3 (4.1-5.4); Red Cell Distribution Width 13.1 % (11.5-14.0); White Blood Count 10.7 K/mm3 (4.0-10.5)
[2019-03-12 06:09] LABS: Appearance SLIGHTLY CLOUDY (CLEAR); Bilirubin NEGATIVE (NEGATIVE); Blood NEGATIVE Ery/ul (0-5); Epithelial Cells RARE /HPF (FEW); Glucose >=500 mg/dL (NEGATIVE); Hyaline Casts 0-2 /LPF (0-2); Ketones NEGATIVE (NEGATIVE); Leukocyte Esterase NEGATIVE (NEGATIVE); Mucus SLIGHT /HPF (NEGATIVE); Nitrite NEGATIVE (NEGATIVE); Protein,Urine Dip NEGATIVE (Negative); Specific Gravity 1.032 (1.005-1.025); Urobilinogen NEGATIVE mg/dL (0-1)
[2019-03-12 06:23] LABS: ANION GAP 12.6 MEQ/L (5-15); BLOOD UREA NITROGEN 23 mg/dL (7-17); CHLORIDE 98 mmol/L (98-107); Calcium 9.9 mg/dL (8.4-10.2); Carbon Dioxide 31 mmol/L (22-30); Creatinine 1 0.61 mg/dL (0.52-1.04); Glucose 360 mg/dL (74-106); SODIUM 137 mmol/L (137-145)
[2019-03-12] MEDS: NovoLOG Insulin SQ PRN ×4 (07:51→22:55)
[2019-03-12] MEDS: Micronase 5 MG PO SCH (07:51)
[2019-03-12] MEDS: NORCO 5/325 MG PO PRN ×3 (08:05→17:03)
[2019-03-12 09:09] LABS: Basophilic Stippling 1+; Lymphocytes 23 % (24-44); Monocyte 5 % (0.0-12.0); Neutrophils 72 % (36.0-66.0); Total Cells Counted 100
[2019-03-12 09:10] LABS: Platelet Estimate NORMAL (NORMAL); Polychromasia 1+
[2019-03-12] MEDS: Advair Hfa 115/21 Common canister IH SCH ×2 (09:20→20:42)
[2019-03-12] MEDS: Miralax Powder 17GM PACKET PO SCH (09:21)
[2019-03-12] MEDS: ROCEPHIN 2 Gm-D5w 50ML BAG** 2 G/50 ML IVPB IV SCH (09:21)
[2019-03-12] MEDS: ENOXAPARIN SODIUM SQ SCH (09:22)
[2019-03-12] MEDS: PRISTIQ ER PO SCH (09:22)
[2019-03-12] MEDS: SYNTHROID 25 MCG PO SCH (09:22)
[2019-03-12] MEDS: Protonix 40MG Tablet PO SCH (09:23)
[2019-03-12] MEDS: Actos 30 MG PO SCH (09:23)
[2019-03-12] MEDS: Zocor 10MG PO SCH (09:23)
[2019-03-12] MEDS: NEURONTIN 300 MG PO SCH ×4 (09:23→22:54)
[2019-03-12] MEDS ORDERED: TROUGH DRUG LEVELS IJ ONE (09:30)
[2019-03-12] MEDS: TORAdol 30 mg Injection IV PRN (10:31)
[2019-03-12] MEDS: DOXEPIN HCL PO SCH (22:54)
[2019-03-12] MEDS: Ditropan XL 5 MG PO SCH (22:54)
[2019-03-12] MEDS: Cyclobenzaprine 10 MG PO SCH (22:55)
[2019-03-12] MEDS: VANCOCIN 1 GM VIAL*** 1 GM in Sodium Chloride 0.9% 250 ML 250 ML IV SCH (22:57)
[2019-03-13] MEDS: TORAdol 30 mg Injection IV PRN (04:38)
[2019-03-13] MEDS: Sodium Chloride 0.9% 10 ML FLUSH Syringe IV SCH ×3 (04:38→21:24)
[2019-03-13] MEDS: Micronase 5 MG PO SCH (08:49)
[2019-03-13] MEDS: Advair Hfa 115/21 Common canister IH SCH ×2 (08:55→20:05)
[2019-03-13] MEDS: ROCEPHIN 2 Gm-D5w 50ML BAG** 2 G/50 ML IVPB IV SCH (09:49)
[2019-03-13] MEDS: Miralax Powder 17GM PACKET PO SCH (09:58)
[2019-03-13] MEDS: ENOXAPARIN SODIUM SQ SCH (09:59)
[2019-03-13] MEDS: NEURONTIN 300 MG PO SCH ×4 (10:04→21:23)
[2019-03-13] MEDS: SYNTHROID 25 MCG PO SCH (10:04)
[2019-03-13] MEDS: Protonix 40MG Tablet PO SCH (10:05)
[2019-03-13] MEDS: Actos 30 MG PO SCH (10:05)
[2019-03-13] MEDS: Zocor 10MG PO SCH (10:05)
[2019-03-13] MEDS: PRISTIQ ER PO SCH (10:05)
[2019-03-13] MEDS: VANCOCIN 1 GM VIAL*** 1 GM in Sodium Chloride 0.9% 250 ML 250 ML IV SCH ×2 (10:29→21:26)
--- NOTE | 2019-03-13 12:16 | PCM.NOTE ---
Date and Time: 03/13/19 1210 Subjective Assessment: Pt having pain in the L toes, 4-6/10. Otherwise denies pain. Mallika po well. - Review of Systems Constitutional: No Fever Musculoskeletal: Injury Objective Exam General Appearance: no apparent distress, alert Neurologic Exam: oriented x 3, cooperative Skin Exam: normal color, warm, dry, No rash Wound Assessment: L great toe with V shaped wound, sutured, at distal aspect. Color is good. No active bleeding and no exudate. L 2nd toe with scabbing distally. There is some purple discoloration to the toe throughout. No active bleeding and no exudate. L 3rd toe with purple discoloration throughout. No wound. Eye Exam: eyes nml inspection Ears, Nose, Throat Exam: moist mucous membranes Respiratory Exam: normal breath sounds, lungs clear, No crackles/rales, No rhonchi, No wheezing Cardiovascular Exam: regular rate/rhythm, normal heart sounds, No murmur Gastrointestinal/Abdomen Exam: soft, normal bowel sounds, No tenderness OBJECTIVE DATA Vital Signs: Vital Signs - 24 hr Temp Pulse Resp BP Pulse Ox 03/13/19 11:27 78 18 92 L 03/13/19 08:00 98.3 F 85 16 110/59 95 03/13/19 04:10 98.7 F 87 20 113/56 97 03/13/19 00:15 98.6 F 91 H 20 120/57 96 03/12/19 20:43 85 20 94 L 03/12/19 20:00 98.4 F 95 H 20 130/63 95 03/12/19 16:00 98.1 F 89 20 125/63 95 Oxygen-Last 24 hours O2 Percentage 2 Liters = 28% O2 Percentage 2 Liters = 28% O2 Percentage 2 Liters = 28% O2 Percentage 2 Liters = 28% O2 Percentage 4 Liters = 36% Pain Assessment - Last Documented Pain Intensity 6 Pain Scale Used [facility] Intake and Output: Intake & Output 03/11/19 03/12/19 03/13/19 03/14/19 11:59 11:59 11:59 11:59 Intake Total 1880 1360 800 Output Total 5276 798 4478 Balance 130 1060 -350 Weight 66.5 kg 69.9 kg Lab Results: Accuchecks Date 03/13/19 Date 03/12/19 Time 07:30 Time 16:08 Accucheck Value: 153 Accucheck Value: 318 Accucheck Value: 314 Assessment/Plan (1) Cellulitis of left foot Current Visit: Yes Status: Acute Assessment & Plan: On day #4 of vancomycin and rocephin (2g IV daily). On toradol and norco 5/325 for pain medication. I asked which medications she was oversedated on initially , because her pain is still only moderately well controlled. She apparently had gotten Ativan, demerol 25mg, and dilaudid 2mg q6h. She is alert and oriented. Will increase her norco from 5/325 to 7.5/325 I think without any danger of increased somnolence. Code(s): L03.116 - CELLULITIS OF LEFT LOWER LIMB (2) Toe laceration with complication Current Visit: No Status: Acute Code(s): S91.119A - LACERATION W/O FB OF UNSP TOE W/O DAMAGE TO NAIL, INIT (3) Toe fracture, left Current Visit: No Status: Acute Qualifiers: Encounter type: subsequent encounter Toe: great toe Fracture type: open Phalanx: distal Fracture alignment: nondisplaced Fracture healing: with routine healing Qualified Code(s): S92.425D - Nondisplaced fracture of distal phalanx of left great toe, subsequent encounter for fracture with routine healing Assessment & Plan: Discussed risk of osteomyelitis with open fx. Code(s): S92.912A - UNSP FRACTURE OF LEFT TOE(S), INIT FOR CLOS FX (4) COPD (chronic obstructive pulmonary disease) Current Visit: Yes Status: Chronic Qualifiers: COPD type: unspecified COPD Qualified Code(s): J44.9 - Chronic obstructive pulmonary disease, unspecified Assessment & Plan: stable here. 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 Code(s): E11.9 - TYPE 2 DIABETES MELLITUS WITHOUT COMPLICATIONS (6) DVT prophylaxis Current Visit: Yes Status: Acute Assessment & Plan: On lovenox 30mg SQ daily. Code(s): Z29.9 - ENCOUNTER FOR PROPHYLACTIC MEASURES, UNSPECIFIED
[2019-03-13] MEDS: NovoLOG Insulin SQ PRN ×3 (12:41→21:27)
[2019-03-13] MEDS: NORCO 7.5/325 MG TAB PO PRN (17:25)
[2019-03-13] MEDS: DOXEPIN HCL PO SCH (21:23)
[2019-03-13] MEDS: Cyclobenzaprine 10 MG PO SCH (21:23)
[2019-03-13] MEDS: Ditropan XL 5 MG PO SCH (21:23)
[2019-03-14] MEDS: NORCO 7.5/325 MG TAB PO PRN (04:41)
[2019-03-14 05:53] LABS: BASOPHIL % 0.4 % (0.0-0.4); Basophil (Absolute #) 0.02 (0-0.4); Eosinophil % 1.1 % (0.00-5.0); Eosinophil (Absolute #) 0.06 (0-0.5); Granulocyte Absolute (ANC) 3.51 (1.4-6.9); Granulocytes % 63.5 % (36.0-66.0); Hematocrit 37.2 % (35-47); Hemoglobin 11.6 gm/dl (12.0-16.0); Lymphocyte (Absolute #) 1.44 (1.0-4.6); Lymphocytes % 26.1 % (24.0-44.0); Mean Cell Volume 96.1 fl (78-100); Mean Corpuscular Hgb Concent. 31.2 g/dl (32-36); Mean Platelet Volume 11.7 fl (6-9.5); Monocyte (Absolute #) 0.49 (0.0-1.3); Monocytes % 8.9 % (0.0-12.0); Platelet Count 124 K/mm3 (150-450); Red Blood Count 3.87 M/mm3 (4.1-5.4); Red Cell Distribution Width 13.2 % (11.5-14.0); White Blood Count 5.5 K/mm3 (4.0-10.5)
[2019-03-14 05:55] LABS: Mean Corpuscular Hemoglobin 29.9 pg (26-32)
[2019-03-14 06:03] LABS: ANION GAP 10.4 MEQ/L (5-15); BLOOD UREA NITROGEN 12 mg/dL (7-17); CHLORIDE 101 mmol/L (98-107); Carbon Dioxide 33 mmol/L (22-30); Creatinine 1 0.44 mg/dL (0.52-1.04); Glucose 211 mg/dL (74-106); Potassium 4.4 mmol/L (3.5-5.1); SODIUM 139 mmol/L (137-145)
[2019-03-14] MEDS ORDERED: Colace 100 MG PO PRN (07:37)
[2019-03-14] MEDS: Advair Hfa 115/21 Common canister IH SCH (07:40)
[2019-03-14 07:43] VITALS: BP 102/62
--- NOTE | 2019-03-14 07:55 | HP ---
CHIEF COMPLAINT: Cellulitis in the left foot status post laceration of toes from lawnmower injury with osseous repair and diabetes mellitus type 2. HISTORY OF PRESENT ILLNESS: The patient is a 63 year-old white female who apparently had injury from a lawnmower accident. She got a little too close to the lawnmower her daughter was driving and sustained a laceration of her great toe and second toe of the left foot. The lacerations had been repaired in the emergency room. She came back in for a wound check in the emergency room and was found to have cellulitis with lymphangitis with red streaks going up the foot. She was felt the need to be admitted to the hospital for IV antibiotic treatment. PAST MEDICAL HISTORY: Otherwise significant for diabetes mellitus type 2, gastroesophageal reflux disease, previous transient ischemic attack, depression, anxiety. PAST SURGICAL HISTORY: The patient previously had appendectomy, cholecystectomy, hysterectomy, section x3. HOME MEDICATIONS: Claritin 10 mg a day, Pristiq Extended Release 50 mg a day, diazepam 5 mg t.i.d., Proventil PRN, inhalers, fluticasone, Salmeterol 250/50 Discus 1 puff b.i.d., Neurontin 600 mg four times a day, oxybutynin 5 mg a day, Lactose 30 mg a day, Glyburide 2.5 mg a day. ALLERGIES: SULFA, IV DYE, CODEINE, CITALOPRAM, LEXAPRO, MORPHINE. SOCIAL HISTORY: The patient is also still a smoker. PHYSICAL EXAMINATION: The patient's vital signs on admission showed a temperature 98.9F, pulse 124, blood pressure 128/87. O2 saturation 94%. HEENT: Normocephalic, atraumatic. Pupils equal round reactive to light. Extraocular movements intact. Oropharynx is pink and moist. NECK: Supple without lymphadenopathy, thyromegaly or JVD. CHEST: Clear to auscultation. HEART: Regular rate and rhythm without murmurs, rubs or gallops. ABDOMEN: Soft. No palpable masses. EXTREMITIES: Without cyanosis, clubbing or edema. She does have the laceration with stitches in the left toe with bruising over the third toe. Stitches in the first and second with red streaks up the dorsum of the foot. There is no cyanosis, clubbing or edema otherwise present. NEUROLOGIC: The patient is alert and oriented x3. LAB DATA AND TESTS: White blood cell count 12,200, hemoglobin 15.8, PLT count 124,000. Metabolic panel sugar 465, BUN 15, creatinine 0.54. Electrolytes were normal. Liver enzymes were normal. ASSESSMENT: A patient with cellulitis of the foot secondary to laceration, diabetes mellitus. She has been admitted for IV Rocephin and Vancomycin. At this time she has been admitted with the foot being elevated otherwise and sliding scale coverage for her diabetes.
[2019-03-14] MEDS: NovoLOG Insulin SQ PRN (08:04)
[2019-03-14 08:19] VITALS: PULSE 78; O2SAT 98
[2019-03-14] MEDS: ROCEPHIN 2 Gm-D5w 50ML BAG** 2 G/50 ML IVPB IV SCH (09:30)
[2019-03-14] MEDS: Miralax Powder 17GM PACKET PO SCH (09:38)
[2019-03-14] MEDS: ENOXAPARIN SODIUM SQ SCH (09:39)
[2019-03-14] MEDS: Actos 30 MG PO SCH (09:40)
[2019-03-14] MEDS: Micronase 5 MG PO SCH (09:40)
[2019-03-14] MEDS: NEURONTIN 300 MG PO SCH (09:41)
[2019-03-14] MEDS: Protonix 40MG Tablet PO SCH (09:41)
[2019-03-14] MEDS: PRISTIQ ER PO SCH (09:41)
[2019-03-14] MEDS: Zocor 10MG PO SCH (09:41)
[2019-03-14] MEDS: SYNTHROID 25 MCG PO SCH (09:41)
[2019-03-14] MEDS: VANCOCIN 1 GM VIAL*** 1 GM in Sodium Chloride 0.9% 250 ML 250 ML IV SCH (10:12)
== END 2019-03-14 11:00 | disposition swing bed (61) | DRG 603 ==
LOC: ED 13:47 → MED SURG 15:06 → OBSVTOIN 03-11 15:06 → MED SURG 03-11 20:42
PROVIDERS: ADMIT Family Medicine; ATTEND Family Medicine
DX: L03.032 Cellulitis of left toe (principal); S91.112D Laceration without foreign body of left great toe without damage to nail, subsequent encounter; S91.115D Laceration without foreign body of left lesser toe(s) without damage to nail, subsequent encounter; S92.425D Nondisplaced fracture of distal phalanx of left great toe, subsequent encounter for fracture with routine healing; E11.9 Type 2 diabetes mellitus without complications; J44.9 Chronic obstructive pulmonary disease, unspecified; Z79.899 Other long term (current) drug therapy; Z79.01 Long term (current) use of anticoagulants; F17.200 Nicotine dependence, unspecified, uncomplicated
CPT/HCPCS: 36000; 36415; 36600; 80048; 80053; 80202; 81001; 82375; 82803; 82962; 83036; 83605; 85025; 87040; 93268; 94002; 94003; 94640; 94760; 94762; 96365; 96374; 96375; 99285; G0378; J0696; J1650; J1885; J2175; J2405; J3370; A9270-GY

== ENCOUNTER 2019-03-14 09:42 | Inpatient (IN) | payer MEDICARE ==
[2019-03-14] MEDS ORDERED: TYLENOL 325 MG PO PRN (11:06)
[2019-03-14] MEDS ORDERED: TORAdol 30 mg Injection IV PRN (11:06)
[2019-03-14] MEDS ORDERED: PROVENTIL COMMON CANISTER IH PRN (11:06)
[2019-03-14] MEDS ORDERED: Aplisol ID ONE (11:06)
[2019-03-14] MEDS ORDERED: Valium 5 MG PO PRN (11:06)
[2019-03-14] MEDS ORDERED: Zofran 4 MG/2 ML VIAL IV PRN (11:06)
[2019-03-14] MEDS: NovoLOG Insulin SQ PRN ×2 (12:17→21:27)
[2019-03-14] MEDS: NEURONTIN 300 MG PO SCH ×3 (13:58→21:27)
[2019-03-14] MEDS: Sodium Chloride 0.9% 10 ML FLUSH Syringe IV SCH ×2 (14:07→21:27)
[2019-03-14] MEDS: NORCO 7.5/325 MG TAB PO PRN ×2 (17:24→21:25)
[2019-03-14] MEDS: Advair Hfa 115/21 Common canister IH SCH (20:28)
[2019-03-14] MEDS: DOXEPIN HCL PO SCH (21:25)
[2019-03-14] MEDS: Ditropan XL 5 MG PO SCH (21:25)
[2019-03-14] MEDS: Cyclobenzaprine 10 MG PO SCH (21:25)
[2019-03-14] MEDS: VANCOCIN 1 GM VIAL*** 1 GM in Sodium Chloride 0.9% 250 ML 250 ML IV SCH (21:27)
[2019-03-15] MEDS: NovoLOG Insulin SQ PRN ×4 (00:33→21:59)
[2019-03-15] MEDS: Advair Hfa 115/21 Common canister IH SCH ×2 (06:48→20:13)
[2019-03-15] MEDS: Sodium Chloride 0.9% 10 ML FLUSH Syringe IV SCH ×3 (07:01→21:59)
[2019-03-15] MEDS: NORCO 7.5/325 MG TAB PO PRN ×2 (08:01→22:17)
[2019-03-15] MEDS: Micronase 5 MG PO SCH (08:02)
[2019-03-15] MEDS: Zocor 10MG PO SCH (09:49)
[2019-03-15] MEDS: PRISTIQ ER PO SCH (09:49)
[2019-03-15] MEDS: Miralax Powder 17GM PACKET PO SCH (09:49)
[2019-03-15] MEDS: ROCEPHIN 2 Gm-D5w 50ML BAG** 2 G/50 ML IVPB IV SCH (09:49)
[2019-03-15] MEDS: Actos 30 MG PO SCH (09:49)
[2019-03-15] MEDS: SYNTHROID 25 MCG PO SCH (09:50)
[2019-03-15] MEDS: Protonix 40MG Tablet PO SCH (09:50)
[2019-03-15] MEDS: NEURONTIN 300 MG PO SCH ×4 (09:50→21:58)
[2019-03-15] MEDS: ENOXAPARIN SODIUM SQ SCH (09:50)
[2019-03-15] MEDS ORDERED: Aplisol ID SCH (10:00)
[2019-03-15] MEDS ORDERED: DULCOLAX 5 MG PO ONE (10:30)
[2019-03-15] MEDS: VANCOCIN 1 GM VIAL*** 1 GM in Sodium Chloride 0.9% 250 ML 250 ML IV SCH (10:50)
[2019-03-15] MEDS: DOXEPIN HCL PO SCH (21:57)
[2019-03-15] MEDS: Cyclobenzaprine 10 MG PO SCH (21:57)
[2019-03-15] MEDS: Ditropan XL 5 MG PO SCH (21:58)
[2019-03-15] MEDS: VANCOCIN 1 GM VIAL*** 1.25 GM in Sodium Chloride 0.9% 250 ML 250 ML IV SCH (21:58)
[2019-03-15] MEDS: Colace 100 MG PO PRN (22:18)
[2019-03-16] MEDS: Sodium Chloride 0.9% 10 ML FLUSH Syringe IV SCH ×3 (05:29→20:12)
[2019-03-16] MEDS: Advair Hfa 115/21 Common canister IH SCH ×2 (07:10→19:43)
[2019-03-16] MEDS: Micronase 5 MG PO SCH (07:54)
[2019-03-16] MEDS: NORCO 7.5/325 MG TAB PO PRN ×3 (07:54→20:12)
[2019-03-16] MEDS: Protonix 40MG Tablet PO SCH (10:49)
[2019-03-16] MEDS: NEURONTIN 300 MG PO SCH ×4 (10:49→21:15)
[2019-03-16] MEDS: PRISTIQ ER PO SCH (10:49)
[2019-03-16] MEDS: Zocor 10MG PO SCH (10:49)
[2019-03-16] MEDS: SYNTHROID 25 MCG PO SCH (10:49)
[2019-03-16] MEDS: Actos 30 MG PO SCH (10:49)
[2019-03-16] MEDS: Miralax Powder 17GM PACKET PO SCH (10:51)
[2019-03-16] MEDS: ROCEPHIN 2 Gm-D5w 50ML BAG** 2 G/50 ML IVPB IV SCH (10:54)
[2019-03-16] MEDS: ENOXAPARIN SODIUM SQ SCH (11:05)
[2019-03-16] MEDS: NovoLOG Insulin SQ PRN ×3 (11:40→21:20)
[2019-03-16] MEDS: VANCOCIN 1 GM VIAL*** 1.25 GM in Sodium Chloride 0.9% 250 ML 250 ML IV SCH ×2 (11:45→21:15)
[2019-03-16] MEDS: Ditropan XL 5 MG PO SCH (21:15)
[2019-03-16] MEDS: Cyclobenzaprine 10 MG PO SCH (21:15)
[2019-03-16] MEDS: DOXEPIN HCL PO SCH (21:15)
[2019-03-17] MEDS: NORCO 7.5/325 MG TAB PO PRN ×5 (00:12→20:41)
[2019-03-17] MEDS: Sodium Chloride 0.9% 10 ML FLUSH Syringe IV SCH ×3 (04:38→20:46)
[2019-03-17] MEDS: Micronase 5 MG PO SCH (08:21)
[2019-03-17] MEDS: NovoLOG Insulin SQ PRN ×4 (08:22→22:46)
[2019-03-17] MEDS: Miralax Powder 17GM PACKET PO SCH (09:38)
[2019-03-17] MEDS: NEURONTIN 300 MG PO SCH ×4 (09:39→22:46)
[2019-03-17] MEDS: SYNTHROID 25 MCG PO SCH (09:39)
[2019-03-17] MEDS: PRISTIQ ER PO SCH (09:39)
[2019-03-17] MEDS: Actos 30 MG PO SCH (09:39)
[2019-03-17] MEDS: Protonix 40MG Tablet PO SCH (09:39)
[2019-03-17] MEDS: Zocor 10MG PO SCH (09:39)
[2019-03-17] MEDS: ROCEPHIN 2 Gm-D5w 50ML BAG** 2 G/50 ML IVPB IV SCH (09:40)
[2019-03-17] MEDS: ENOXAPARIN SODIUM SQ SCH (09:51)
[2019-03-17] MEDS: Colace 100 MG PO PRN (09:55)
[2019-03-17] MEDS: VANCOCIN 1 GM VIAL*** 1.25 GM in Sodium Chloride 0.9% 250 ML 250 ML IV SCH ×2 (10:23→22:46)
[2019-03-17] MEDS: Advair Hfa 115/21 Common canister IH SCH (19:37)
[2019-03-17] MEDS: Ditropan XL 5 MG PO SCH (22:46)
[2019-03-17] MEDS: DOXEPIN HCL PO SCH (22:46)
[2019-03-17] MEDS: Cyclobenzaprine 10 MG PO SCH (22:46)
[2019-03-18] MEDS: NORCO 7.5/325 MG TAB PO PRN ×5 (00:49→21:23)
[2019-03-18] MEDS ORDERED: DIFLUCAN PO ONE (01:22)
[2019-03-18] MEDS ORDERED: Diflucan 100 MG ONE (01:24)
[2019-03-18] MEDS: Sodium Chloride 0.9% 10 ML FLUSH Syringe IV SCH ×3 (05:25→21:24)
[2019-03-18] MEDS ORDERED: Diflucan 100 MG PO SCH (07:45)
[2019-03-18] MEDS: Advair Hfa 115/21 Common canister IH SCH ×3 (08:57→20:47)
[2019-03-18] MEDS: ROCEPHIN 2 Gm-D5w 50ML BAG** 2 G/50 ML IVPB IV SCH (09:02)
[2019-03-18] MEDS: NEURONTIN 300 MG PO SCH ×4 (09:02→21:20)
[2019-03-18] MEDS: Miralax Powder 17GM PACKET PO SCH (09:02)
[2019-03-18] MEDS: SYNTHROID 25 MCG PO SCH (09:03)
[2019-03-18] MEDS: Protonix 40MG Tablet PO SCH (09:03)
[2019-03-18] MEDS: ENOXAPARIN SODIUM SQ SCH (09:03)
[2019-03-18] MEDS: Zocor 10MG PO SCH (09:03)
[2019-03-18] MEDS: PRISTIQ ER PO SCH (09:03)
[2019-03-18] MEDS: Micronase 5 MG PO SCH (09:03)
[2019-03-18] MEDS: Colace 100 MG PO PRN (09:03)
[2019-03-18] MEDS: Actos 30 MG PO SCH (09:03)
[2019-03-18] MEDS: VANCOCIN 1 GM VIAL*** 1.25 GM in Sodium Chloride 0.9% 250 ML 250 ML IV SCH ×2 (09:21→21:25)
[2019-03-18] MEDS: NovoLOG Insulin SQ PRN ×2 (12:28→21:21)
[2019-03-18] MEDS ORDERED: Dulcolax 10 MG SUPP PR ONE (12:37)
[2019-03-18] MEDS ORDERED: CITROMA 296 ML PO ONE (13:15)
[2019-03-18] MEDS: Cyclobenzaprine 10 MG PO SCH (21:18)
[2019-03-18] MEDS: Ditropan XL 5 MG PO SCH (21:19)
[2019-03-18] MEDS: DOXEPIN HCL PO SCH (21:20)
[2019-03-19] MEDS: NORCO 7.5/325 MG TAB PO PRN ×4 (01:53→20:52)
[2019-03-19] MEDS: NovoLOG Insulin SQ PRN ×2 (07:36→16:35)
[2019-03-19] MEDS: Micronase 5 MG PO SCH (07:36)
[2019-03-19] MEDS: Advair Hfa 115/21 Common canister IH SCH ×2 (07:56→18:58)
[2019-03-19] MEDS: Miralax Powder 17GM PACKET PO SCH (09:38)
[2019-03-19] MEDS: ENOXAPARIN SODIUM SQ SCH (09:39)
[2019-03-19] MEDS: Protonix 40MG Tablet PO SCH (09:40)
[2019-03-19] MEDS: NEURONTIN 300 MG PO SCH ×4 (09:40→21:50)
[2019-03-19] MEDS: PRISTIQ ER PO SCH (09:40)
[2019-03-19] MEDS: Actos 30 MG PO SCH (09:40)
[2019-03-19] MEDS: SYNTHROID 25 MCG PO SCH (09:41)
[2019-03-19] MEDS: ROCEPHIN 2 Gm-D5w 50ML BAG** 2 G/50 ML IVPB IV SCH (09:41)
[2019-03-19] MEDS: Zocor 10MG PO SCH (09:41)
[2019-03-19] MEDS: VANCOCIN 1 GM VIAL*** 1.25 GM in Sodium Chloride 0.9% 250 ML 250 ML IV SCH ×2 (10:45→21:50)
[2019-03-19] MEDS: Sodium Chloride 0.9% 10 ML FLUSH Syringe IV SCH ×3 (12:40→21:50)
--- NOTE | 2019-03-19 14:31 | PCM.NOTE ---
Date and Time: 03/19/19 1427 Subjective Assessment: She c/o not having BM x 8d; when I went to see her however she says she had just had a small BM. She has taken miralax, colace, an enema, dulcolax, and mag citrate. Mallika po fine. no fever. Foot pain controlled with meds. - Review of Systems Constitutional: No Fever Abdominal/Gastrointestinal: Constipation Musculoskeletal: Injury Objective Exam General Appearance: no apparent distress, alert, obese Neurologic Exam: oriented x 3, cooperative Skin Exam: normal color, warm, dry, No rash Wound Assessment: L foot wtih very mild erythema distally. first two digits are wrapped. 3rd digit without discoloration. Respiratory Exam: normal breath sounds, lungs clear, No crackles/rales, No rhonchi, No wheezing Cardiovascular Exam: regular rate/rhythm, normal heart sounds, No murmur Gastrointestinal/Abdomen Exam: soft, normal bowel sounds, No tenderness, No distention, No mass, No guarding, No rebound OBJECTIVE DATA Vital Signs: Vital Signs - 24 hr Temp Pulse Resp BP Pulse Ox 03/19/19 07:56 80 18 90 L 03/19/19 07:00 98.4 F 82 18 122/58 90 L 03/18/19 20:48 77 18 93 L 03/18/19 19:59 98.5 F 81 18 108/54 94 L Pain Assessment - Last Documented Pain Intensity 8 Pain Scale Used 0-10 Pain Scale Intake and Output: Intake & Output 03/17/19 03/18/19 03/19/19 03/20/19 11:59 11:59 11:59 11:59 Intake Total 2100 2587 960 Output Total 3075 900 800 Balance -975 1687 160 Weight 69 kg Lab Results: Accuchecks Date 03/19/19 Date 03/19/19 Date 03/18/19 Date 03/18/19 Time 12:42 Time 07:30 Time 21:00 Time 16:34 Accucheck Value: 176 Accucheck Value: 290 Accucheck Value: 248 Accucheck Value: 133 Radiology Exams: Radiology Procedures Category Date Time Status KUB Routine Exams 03/19/19 10:49 Taken Assessment/Plan (1) Constipation Current Visit: Yes Status: Acute Qualifiers: Constipation type: slow transit constipation Qualified Code(s): K59.01 - Slow transit constipation Assessment & Plan: Will give more miralax today and start senna scheduled. Code(s): K59.00 - CONSTIPATION, UNSPECIFIED (2) Cellulitis of left foot Current Visit: No Status: Acute Assessment & Plan: on IV abd and pain meds. The foot and surrounding tissue look improved to me. Await PT to remove wrap tomorrow. Code(s): L03.116 - CELLULITIS OF LEFT LOWER LIMB (3) Toe fracture, left Current Visit: No Status: Acute Qualifiers: Encounter type: subsequent encounter Toe: great toe Fracture type: open Phalanx: unspecified phalanx Fracture alignment: nondisplaced Fracture healing: with routine healing Qualified Code(s): S92.405D - Nondisplaced unspecified fracture of left great toe, subsequent encounter for fracture with routine healing Code(s): S92.912A - UNSP FRACTURE OF LEFT TOE(S), INIT FOR CLOS FX
[2019-03-19] MEDS ORDERED: Miralax Powder 17GM PACKET PO ONE (15:00)
[2019-03-19] MEDS: Colace 100 MG PO PRN (15:34)
--- NOTE | 2019-03-19 20:11 | XRAY ---
Indication: Abdominal pain. Bloating and constipation. Comparison: None KUB demonstrates moderate diffuse scattered colonic fecal debris throughout. No focal bowel dilatation or free air. Cholecystectomy clips, hepatic/splenic calcified granulomas, and mild vascular calcifications. Osseous structures intact with mild osteopenia, mild multilevel degenerative spondylosis, and mild right hip degenerative arthropathy. Impression: Fecal stasis. Chronic bony findings. Comment: Preliminary interpretation was made by [facility]. No discrepancy.
[2019-03-19] MEDS: Cyclobenzaprine 10 MG PO SCH (21:49)
[2019-03-19] MEDS: Ditropan XL 5 MG PO SCH (21:49)
[2019-03-19] MEDS: DOXEPIN HCL PO SCH (21:49)
[2019-03-20] MEDS: NORCO 7.5/325 MG TAB PO PRN ×5 (01:21→21:46)
[2019-03-20] MEDS: NovoLOG Insulin SQ PRN ×4 (06:13→23:09)
[2019-03-20] MEDS: Sodium Chloride 0.9% 10 ML FLUSH Syringe IV SCH ×3 (06:25→21:45)
[2019-03-20] MEDS: Advair Hfa 115/21 Common canister IH SCH ×2 (06:53→19:31)
[2019-03-20] MEDS: Colace 100 MG PO PRN (08:13)
[2019-03-20] MEDS: ENOXAPARIN SODIUM SQ SCH (08:13)
[2019-03-20] MEDS: Miralax Powder 17GM PACKET PO SCH (08:13)
[2019-03-20] MEDS: Protonix 40MG Tablet PO SCH (08:14)
[2019-03-20] MEDS: SENOKOT 8.6 MG PO SCH (08:14)
[2019-03-20] MEDS: NEURONTIN 300 MG PO SCH ×4 (08:14→21:45)
[2019-03-20] MEDS: Actos 30 MG PO SCH (08:14)
[2019-03-20] MEDS: Micronase 5 MG PO SCH (08:14)
[2019-03-20] MEDS: PRISTIQ ER PO SCH (08:14)
[2019-03-20] MEDS: Zocor 10MG PO SCH (08:14)
[2019-03-20] MEDS: SYNTHROID 25 MCG PO SCH (08:14)
[2019-03-20] MEDS: ROCEPHIN 2 Gm-D5w 50ML BAG** 2 G/50 ML IVPB IV SCH (08:15)
[2019-03-20] MEDS ORDERED: TROUGH DRUG LEVELS IJ ONE (09:30)
[2019-03-20] MEDS: VANCOCIN 1 GM VIAL*** 1.25 GM in Sodium Chloride 0.9% 250 ML 250 ML IV SCH ×2 (10:24→21:46)
[2019-03-20] MEDS: Cyclobenzaprine 10 MG PO SCH (21:39)
[2019-03-20] MEDS: DOXEPIN HCL PO SCH (21:44)
[2019-03-20] MEDS: Ditropan XL 5 MG PO SCH (22:23)
[2019-03-21] MEDS: NORCO 7.5/325 MG TAB PO PRN ×5 (02:42→21:15)
[2019-03-21] MEDS: Sodium Chloride 0.9% 10 ML FLUSH Syringe IV SCH ×3 (05:17→21:15)
[2019-03-21] MEDS: Advair Hfa 115/21 Common canister IH SCH ×2 (07:27→19:25)
[2019-03-21] MEDS: Micronase 5 MG PO SCH (07:58)
[2019-03-21] MEDS: NovoLOG Insulin SQ PRN ×3 (07:59→21:27)
--- NOTE | 2019-03-21 08:25 | PCM.NOTE ---
Date and Time: 03/20/19 1200 Subjective Assessment: Patient states her injured foot/toes only hurt when the pain med wears off,"not bad". Has been walking with surgery boot on, Nursing says she was up alot this weekend and goes outside to smoke.PT is here to tend to her wound. We discussed the regular Pepsi that she drinks all day needs to be replaced with water and a low sugar beverage and she knows the sugar and smoking will impede her foot injury from healing. - Review of Systems Constitutional: Other (no new symptoms), No Fever, No Chills Objective Exam General Appearance: no apparent distress, alert Neurologic Exam: alert, oriented x 3, cooperative Wound Assessment: left great toe red and edematous 1st MTP joint and distally,wound dehisced, stringy tissue debrided by wound care PT and culture of deep tissue taken. 2nd toe appears to be healing without inflammation,sutures in place. Respiratory Exam: diminished breath sounds, other (Overnight Oximetery reviewed - O2 desats mid 80s and Respiratory walked patient with O2 sats droping to 87. Continuous O2 qualified.) OBJECTIVE DATA Vital Signs: Vital Signs - 24 hr Temp Pulse Resp BP Pulse Ox 03/21/19 07:28 94 L 03/21/19 07:00 97.7 F 64 16 98/56 95 03/20/19 19:31 82 20 92 L 03/20/19 19:00 97.4 F 84 20 115/58 94 L Pain Assessment - Last Documented Pain Intensity 7 Pain Scale Used 0-10 Pain Scale Intake and Output: Intake & Output 03/18/19 03/19/19 03/20/19 03/21/19 11:59 11:59 11:59 11:59 Intake Total 2587 923 973 3371 Output Total 900 800 Balance 1687 324 425 9340 Weight 69 kg 73.5 kg Lab Results: Accuchecks Date 03/20/19 Date 03/20/19 Date 03/20/19 Time 21:00 Time 16:30 Time 11:30 Accucheck Value: 316 Accucheck Value: 124 Accucheck Value: 211 Lab Results-Last 24 Hours 03/20/19 Range/Units 09:30 Vancomycin Trough 13.49 (10-20) ug/mL Radiology Exams: Radiology Procedures Category Date Time Status KUB Routine Exams 03/19/19 10:49 Completed Multi-Disciplinary Progress Notes: Multi-Disciplinary Progress Notes 03/20/19 14:37 Physical Therapy Note by Vesna Weston SEE WOUND PICTURE DOCUMENTATION IN HARD CHART THIS DATE AFTER SUTURE REMOVAL AND MECHANICAL DEBRIDEMENT OF LEFT GREAT TOE. Initialized on 03/20/19 14:37 - END OF NOTE 03/20/19 11:35 Case Management Note by Romelia Davey Pt. chose [facility] [place] for home O2. S/W Cristy at [facility] [place] re: home O2 set up when patient is ready to go home, but did not fax any information b/c patient is not going home today. Will cont. to follow. Initialized on 03/20/19 11:35 - END OF NOTE 03/20/19 10:04 Respiratory Note by Beth Gill ROOM AIR RESTING SPO2 92%. ROOM AIR AMBULATION SPO2 DEC TO 87%. PLACED ON N/C 2LPM SPO2 INC TO 94% DURING AMBULATION. ROOM AIR RESTING ON N/C 2LPM 95%. 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
[2019-03-21] MEDS: ENOXAPARIN SODIUM SQ SCH (09:40)
[2019-03-21] MEDS: ROCEPHIN 2 Gm-D5w 50ML BAG** 2 G/50 ML IVPB IV SCH (09:40)
[2019-03-21] MEDS: Protonix 40MG Tablet PO SCH (09:41)
[2019-03-21] MEDS: PRISTIQ ER PO SCH (09:41)
[2019-03-21] MEDS: SYNTHROID 25 MCG PO SCH (09:41)
[2019-03-21] MEDS: Zocor 10MG PO SCH (09:41)
[2019-03-21] MEDS: NEURONTIN 300 MG PO SCH ×4 (09:41→21:14)
[2019-03-21] MEDS: SENOKOT 8.6 MG PO SCH (09:41)
[2019-03-21] MEDS: Actos 30 MG PO SCH (09:41)
[2019-03-21] MEDS: Miralax Powder 17GM PACKET PO SCH (09:42)
[2019-03-21] MEDS ORDERED: DIFLUCAN PO ONE (10:00)
[2019-03-21] MEDS: VANCOCIN 1 GM VIAL*** 1.25 GM in Sodium Chloride 0.9% 250 ML 250 ML IV SCH ×2 (10:25→21:15)
[2019-03-21] MEDS: Cyclobenzaprine 10 MG PO SCH (21:12)
[2019-03-21] MEDS: Ditropan XL 5 MG PO SCH (21:12)
[2019-03-21] MEDS: DOXEPIN HCL PO SCH (21:32)
[2019-03-22] MEDS: NORCO 7.5/325 MG TAB PO PRN ×6 (01:21→21:47)
[2019-03-22] MEDS: Sodium Chloride 0.9% 10 ML FLUSH Syringe IV SCH ×3 (05:11→21:48)
[2019-03-22] MEDS: Advair Hfa 115/21 Common canister IH SCH ×2 (06:47→20:18)
[2019-03-22] MEDS: Micronase 5 MG PO SCH (08:18)
[2019-03-22] MEDS: Zocor 10MG PO SCH (09:45)
[2019-03-22] MEDS: Protonix 40MG Tablet PO SCH (09:45)
[2019-03-22] MEDS: Actos 30 MG PO SCH (09:45)
[2019-03-22] MEDS: SENOKOT 8.6 MG PO SCH (09:45)
[2019-03-22] MEDS: ROCEPHIN 2 Gm-D5w 50ML BAG** 2 G/50 ML IVPB IV SCH (09:45)
[2019-03-22] MEDS: PRISTIQ ER PO SCH (09:46)
[2019-03-22] MEDS: ENOXAPARIN SODIUM SQ SCH (09:46)
[2019-03-22] MEDS: SYNTHROID 25 MCG PO SCH (09:46)
[2019-03-22] MEDS: NEURONTIN 300 MG PO SCH ×4 (09:46→21:47)
[2019-03-22] MEDS: Miralax Powder 17GM PACKET PO SCH (09:47)
[2019-03-22] MEDS: VANCOCIN 1 GM VIAL*** 1.25 GM in Sodium Chloride 0.9% 250 ML 250 ML IV SCH ×2 (10:36→21:47)
[2019-03-22] MEDS: NovoLOG Insulin SQ PRN ×3 (11:33→21:48)
[2019-03-22] MEDS: DOXEPIN HCL PO SCH (21:47)
[2019-03-22] MEDS: Cyclobenzaprine 10 MG PO SCH (21:47)
[2019-03-22] MEDS: Ditropan XL 5 MG PO SCH (21:47)
[2019-03-23] MEDS: NORCO 7.5/325 MG TAB PO PRN ×4 (03:49→20:51)
[2019-03-23] MEDS: Sodium Chloride 0.9% 10 ML FLUSH Syringe IV SCH ×3 (03:50→22:39)
[2019-03-23] MEDS: Advair Hfa 115/21 Common canister IH SCH ×2 (07:06→19:46)
[2019-03-23] MEDS: Micronase 5 MG PO SCH (08:34)
[2019-03-23] MEDS: NovoLOG Insulin SQ PRN ×3 (10:00→22:39)
[2019-03-23] MEDS: ENOXAPARIN SODIUM SQ SCH (10:27)
[2019-03-23] MEDS: NEURONTIN 300 MG PO SCH ×4 (10:27→22:39)
[2019-03-23] MEDS: Miralax Powder 17GM PACKET PO SCH (10:27)
[2019-03-23] MEDS: Actos 30 MG PO SCH (10:27)
[2019-03-23] MEDS: SENOKOT 8.6 MG PO SCH (10:28)
[2019-03-23] MEDS: SYNTHROID 25 MCG PO SCH (10:28)
[2019-03-23] MEDS: Protonix 40MG Tablet PO SCH (10:28)
[2019-03-23] MEDS: PRISTIQ ER PO SCH (10:28)
[2019-03-23] MEDS: Zocor 10MG PO SCH (10:28)
[2019-03-23] MEDS: VANCOCIN 1 GM VIAL*** 1.25 GM in Sodium Chloride 0.9% 250 ML 250 ML IV SCH ×2 (10:31→22:37)
[2019-03-23] MEDS ORDERED: ADVAIR 250-50 DISKUS 14 DOSE IH SCH (19:00)
[2019-03-23] MEDS: Ditropan XL 5 MG PO SCH (22:38)
[2019-03-23] MEDS: Cyclobenzaprine 10 MG PO SCH (22:38)
[2019-03-23] MEDS: DOXEPIN HCL PO SCH (22:38)
[2019-03-24] MEDS: NORCO 7.5/325 MG TAB PO PRN ×4 (00:59→20:34)
[2019-03-24] MEDS: Sodium Chloride 0.9% 10 ML FLUSH Syringe IV SCH ×3 (05:29→22:17)
[2019-03-24] MEDS: Advair Hfa 115/21 Common canister IH SCH ×2 (07:08→20:03)
[2019-03-24] MEDS: Actos 30 MG PO SCH (09:09)
[2019-03-24] MEDS: Miralax Powder 17GM PACKET PO SCH (09:09)
[2019-03-24] MEDS: Protonix 40MG Tablet PO SCH (09:09)
[2019-03-24] MEDS: SYNTHROID 25 MCG PO SCH (09:09)
[2019-03-24] MEDS: PRISTIQ ER PO SCH (09:09)
[2019-03-24] MEDS: NEURONTIN 300 MG PO SCH ×4 (09:10→22:17)
[2019-03-24] MEDS: SENOKOT 8.6 MG PO SCH (09:10)
[2019-03-24] MEDS: NovoLOG Insulin SQ PRN ×3 (09:10→22:17)
[2019-03-24] MEDS: Zocor 10MG PO SCH (09:10)
[2019-03-24] MEDS: VANCOCIN 1 GM VIAL*** 1.25 GM in Sodium Chloride 0.9% 250 ML 250 ML IV SCH ×2 (09:10→22:17)
[2019-03-24] MEDS: ENOXAPARIN SODIUM SQ SCH (09:10)
[2019-03-24] MEDS: Micronase 5 MG PO SCH (09:10)
[2019-03-24] MEDS: Cyclobenzaprine 10 MG PO SCH (22:15)
[2019-03-24] MEDS: DOXEPIN HCL PO SCH (22:16)
[2019-03-24] MEDS: Ditropan XL 5 MG PO SCH (22:16)
[2019-03-25] MEDS: NORCO 7.5/325 MG TAB PO PRN ×5 (00:44→21:03)
[2019-03-25] MEDS: Sodium Chloride 0.9% 10 ML FLUSH Syringe IV SCH ×3 (06:10→21:03)
[2019-03-25] MEDS: NovoLOG Insulin SQ PRN ×3 (08:21→22:52)
[2019-03-25] MEDS: Micronase 5 MG PO SCH (08:21)
[2019-03-25] MEDS: SENOKOT 8.6 MG PO SCH (09:01)
[2019-03-25] MEDS: PRISTIQ ER PO SCH (09:01)
[2019-03-25] MEDS: Actos 30 MG PO SCH (09:01)
[2019-03-25] MEDS: Protonix 40MG Tablet PO SCH (09:01)
[2019-03-25] MEDS: NEURONTIN 300 MG PO SCH ×4 (09:01→21:03)
[2019-03-25] MEDS: SYNTHROID 25 MCG PO SCH (09:01)
[2019-03-25] MEDS: VANCOCIN 1 GM VIAL*** 1.25 GM in Sodium Chloride 0.9% 250 ML 250 ML IV SCH ×3 (09:02→22:20)
[2019-03-25] MEDS: ENOXAPARIN SODIUM SQ SCH (09:02)
[2019-03-25] MEDS: Zocor 10MG PO SCH (09:02)
[2019-03-25] MEDS: Miralax Powder 17GM PACKET PO SCH (09:09)
[2019-03-25] MEDS: Advair Hfa 115/21 Common canister IH SCH ×2 (09:30→21:04)
[2019-03-25] MEDS: Cyclobenzaprine 10 MG PO SCH (21:01)
[2019-03-25] MEDS: Ditropan XL 5 MG PO SCH (21:02)
[2019-03-25] MEDS: DOXEPIN HCL PO SCH (21:03)
[2019-03-26] MEDS: NORCO 7.5/325 MG TAB PO PRN ×4 (05:52→21:20)
[2019-03-26] MEDS: Sodium Chloride 0.9% 10 ML FLUSH Syringe IV SCH ×3 (06:01→21:20)
[2019-03-26] MEDS: Micronase 5 MG PO SCH (08:21)
[2019-03-26] MEDS: Protonix 40MG Tablet PO SCH (08:29)
[2019-03-26] MEDS: Miralax Powder 17GM PACKET PO SCH (08:29)
[2019-03-26] MEDS: ENOXAPARIN SODIUM SQ SCH (08:29)
[2019-03-26] MEDS: Actos 30 MG PO SCH (08:29)
[2019-03-26] MEDS: Zocor 10MG PO SCH (08:30)
[2019-03-26] MEDS: SENOKOT 8.6 MG PO SCH (08:30)
[2019-03-26] MEDS: PRISTIQ ER PO SCH (08:30)
[2019-03-26] MEDS: SYNTHROID 25 MCG PO SCH (08:30)
[2019-03-26] MEDS: NEURONTIN 300 MG PO SCH ×4 (08:30→21:18)
[2019-03-26] MEDS: VANCOCIN 1 GM VIAL*** 1.25 GM in Sodium Chloride 0.9% 250 ML 250 ML IV SCH ×2 (08:54→21:20)
[2019-03-26] MEDS: Advair Hfa 115/21 Common canister IH SCH ×2 (09:31→19:46)
[2019-03-26] MEDS ORDERED: Aplisol ID SCH (10:00)
[2019-03-26] MEDS: NovoLOG Insulin SQ PRN ×2 (11:23→21:20)
[2019-03-26] MEDS: Cyclobenzaprine 10 MG PO SCH (21:18)
[2019-03-26] MEDS: DOXEPIN HCL PO SCH (21:18)
[2019-03-26] MEDS: Ditropan XL 5 MG PO SCH (21:18)
[2019-03-27] MEDS: NORCO 7.5/325 MG TAB PO PRN ×4 (02:20→21:45)
[2019-03-27] MEDS: Sodium Chloride 0.9% 10 ML FLUSH Syringe IV SCH ×2 (06:48→17:11)
[2019-03-27] MEDS: Advair Hfa 115/21 Common canister IH SCH ×2 (06:48→19:30)
[2019-03-27] MEDS: Micronase 5 MG PO SCH (08:15)
[2019-03-27] MEDS: PRISTIQ ER PO SCH (11:50)
[2019-03-27] MEDS: Actos 30 MG PO SCH (11:50)
[2019-03-27] MEDS: Miralax Powder 17GM PACKET PO SCH (11:50)
[2019-03-27] MEDS: SYNTHROID 25 MCG PO SCH (11:51)
[2019-03-27] MEDS: SENOKOT 8.6 MG PO SCH (11:51)
[2019-03-27] MEDS: Zocor 10MG PO SCH (11:51)
[2019-03-27] MEDS: Protonix 40MG Tablet PO SCH (11:51)
[2019-03-27] MEDS: ENOXAPARIN SODIUM SQ SCH (11:51)
[2019-03-27] MEDS: NEURONTIN 300 MG PO SCH ×4 (11:51→21:46)
[2019-03-27] MEDS: VANCOCIN 1 GM VIAL*** 1.25 GM in Sodium Chloride 0.9% 250 ML 250 ML IV SCH (11:59)
[2019-03-27] MEDS: NovoLOG Insulin SQ PRN (17:11)
[2019-03-27] MEDS: DOXEPIN HCL PO SCH (21:45)
[2019-03-27] MEDS: Ditropan XL 5 MG PO SCH (21:46)
[2019-03-27] MEDS: Cyclobenzaprine 10 MG PO SCH (21:46)
[2019-03-28] MEDS: NORCO 7.5/325 MG TAB PO PRN ×3 (03:00→21:52)
[2019-03-28] MEDS: Sodium Chloride 0.9% 10 ML FLUSH Syringe IV SCH ×3 (07:00→21:50)
[2019-03-28] MEDS: VANCOCIN 1 GM VIAL*** 1.25 GM in Sodium Chloride 0.9% 250 ML 250 ML IV SCH ×3 (07:44→21:49)
[2019-03-28] MEDS: Micronase 5 MG PO SCH (07:52)
[2019-03-28] MEDS: NEURONTIN 300 MG PO SCH ×4 (09:48→21:49)
[2019-03-28] MEDS: Protonix 40MG Tablet PO SCH (09:48)
[2019-03-28] MEDS: SENOKOT 8.6 MG PO SCH (09:48)
[2019-03-28] MEDS: Miralax Powder 17GM PACKET PO SCH (09:48)
[2019-03-28] MEDS: Actos 30 MG PO SCH (09:49)
[2019-03-28] MEDS: Zocor 10MG PO SCH (09:49)
[2019-03-28] MEDS: GARAMYCIN TOP SCH (09:49)
[2019-03-28] MEDS: PRISTIQ ER PO SCH (09:49)
[2019-03-28] MEDS: SYNTHROID 25 MCG PO SCH (09:49)
[2019-03-28] MEDS: ENOXAPARIN SODIUM SQ SCH (09:50)
[2019-03-28 10:05] LABS: ANION GAP 12.8 MEQ/L (5-15); BLOOD UREA NITROGEN 18 mg/dL (7-17); CHLORIDE 101 mmol/L (98-107); Calcium 9.5 mg/dL (8.4-10.2); Carbon Dioxide 30 mmol/L (22-30); Creatinine 1 0.66 mg/dL (0.52-1.04); Glucose 252 mg/dL (74-106); Potassium 3.8 mmol/L (3.5-5.1); SODIUM 139 mmol/L (137-145)
[2019-03-28] MEDS: NovoLOG Insulin SQ PRN ×2 (11:48→21:50)
[2019-03-28] MEDS: Advair Hfa 115/21 Common canister IH SCH (19:55)
[2019-03-28] MEDS: Ditropan XL 5 MG PO SCH (21:49)
[2019-03-28] MEDS: Cyclobenzaprine 10 MG PO SCH (21:49)
[2019-03-28] MEDS: DOXEPIN HCL PO SCH (21:50)
[2019-03-29] MEDS: NORCO 7.5/325 MG TAB PO PRN ×2 (03:53→09:30)
[2019-03-29] MEDS: Sodium Chloride 0.9% 10 ML FLUSH Syringe IV SCH (05:35)
[2019-03-29] MEDS: Advair Hfa 115/21 Common canister IH SCH (07:06)
[2019-03-29 07:33] VITALS: PULSE 73; O2SAT 91
[2019-03-29 08:18] VITALS: BP 136/67
[2019-03-29] MEDS: Zocor 10MG PO SCH (09:27)
[2019-03-29] MEDS: NEURONTIN 300 MG PO SCH (09:27)
[2019-03-29] MEDS: Miralax Powder 17GM PACKET PO SCH (09:27)
[2019-03-29] MEDS: SYNTHROID 25 MCG PO SCH (09:27)
[2019-03-29] MEDS: ENOXAPARIN SODIUM SQ SCH (09:27)
[2019-03-29] MEDS: PRISTIQ ER PO SCH (09:27)
[2019-03-29] MEDS: Micronase 5 MG PO SCH (09:27)
[2019-03-29] MEDS: SENOKOT 8.6 MG PO SCH (09:27)
[2019-03-29] MEDS: Protonix 40MG Tablet PO SCH (09:27)
[2019-03-29] MEDS: Actos 30 MG PO SCH (09:27)
[2019-03-29] MEDS: GARAMYCIN TOP SCH (09:28)
[2019-03-29] MEDS: VANCOCIN 1 GM VIAL*** 1.25 GM in Sodium Chloride 0.9% 250 ML 250 ML IV SCH (09:29)
--- NOTE | 2019-03-29 14:31 | DS ---
DISCHARGE DIAGNOSIS: 1. LACERATION OF THE GREAT AND SECOND TOES OF THE LEFT FOOT DUE TO LAWNMOWER ACCIDENT AND CELLULITIS. BRIEF HISTORY: The patient is a 63 y/o WF who reports that she was approached near her daughter who was using a lawnmower that doesn't have a guard on it and she had an injury, laceration to her great and second toes. The patient is known diabetic and does smoke and got into trouble with cellulitis. The stitching appeared to be intact. She was however having red streaks up the foot. She was admitted to the hospital for IV antibiotics. The cellulitis appeared to be slowly improving. The patient has been able to quit smoking during her stay. However, at the end of the regular hospital stay, the patient was felt to need IV antibiotics, particularly Vancomycin twice daily and was felt that this was too burdensome to be done as an outpatient. The patient had physical therapy consultation. We also ended up sending her to Dr. Carpio, a floorleader in [place], for further suggestions as the patient eventually ended up having the stitches slough off as the tissue became necrotic and left her with large deficits in the area of the base and tip of the great toe as well as the second toe. So, at this point, she is to continue to receive IV Rocephin daily and Vancomycin bid. The patient now is felt to be ready for discharge home. We are going to give a trial of oral antibiotics at this point and Bactrim bid. Dr. Carpio ordered a topical gentamicin and antibiotic ointment. She is to continue to receive wound care management daily and we will allow her to go home with follow-up in my office in the next 4 days. She is to return immediately if she has any evidence of redness, swelling, or pain increasing in the foot. We realized and have discussed with the patient that this will be a long process and it will likely be weeks if not months before the toe will heal in.
== END 2019-03-29 12:43 | disposition home or self-care (01) | DRG 603 ==
LOC: MED SURG 11:01
PROVIDERS: ADMIT General Practice; ATTEND Family Medicine
DX: L03.116 Cellulitis of left lower limb (principal); S92.402D Displaced unspecified fracture of left great toe, subsequent encounter for fracture with routine healing; S91.112D Laceration without foreign body of left great toe without damage to nail, subsequent encounter; S91.115D Laceration without foreign body of left lesser toe(s) without damage to nail, subsequent encounter; K59.00 Constipation, unspecified; E11.65 Type 2 diabetes mellitus with hyperglycemia; R09.02 Hypoxemia; F17.200 Nicotine dependence, unspecified, uncomplicated; Z86.73 Personal history of transient ischemic attack (TIA), and cerebral infarction without residual deficits; Z79.899 Other long term (current) drug therapy
CPT/HCPCS: 36415; 74018; 80048; 80202; 82962; 87070; 87077; 87186; 94640; 94760; 94762; J0696; J1650; J3370; A9270-GY

== ENCOUNTER 2019-07-03 19:48 | Emergency (ER) | payer MEDICARE ==
[2019-07-03] MEDS ORDERED: XYLOCAINE 1% HCL 20 ML MDV ONE ×2 (20:09→21:34)
[2019-07-03] MEDS ORDERED: Rocephin 1000 MG INJ IM ONE (21:03)
[2019-07-03] MEDS ORDERED: DEMEROL 25MG SYRINGE IM ONE (21:03)
[2019-07-03] MEDS ORDERED: ZOFRAN ODT 4 MG PO ONE (21:04)
[2019-07-03] MEDS ORDERED: Rocephin 1000 MG INJ ONE (21:14)
[2019-07-03] MEDS ORDERED: DEMEROL 25MG SYRINGE ONE (21:16)
[2019-07-03 21:17] VITALS: PULSE 96; O2SAT 95
[2019-07-03] MEDS ORDERED: ZOFRAN ODT 4 MG ONE (21:17)
[2019-07-03] MEDS ORDERED: BACIGUENT PACKET ONE (21:23)
--- NOTE | 2019-07-03 21:36 | ERPHSYRPT ---
- History of Present Illness Time Seen by Provider: 07/03/19 20:05 Source: patient, family Exam Limitations: clinical condition Patient Subjective Stated Complaint: Dog bite Triage Nursing Assessment: Patient ambulated into ED and transferred self to bed. Patient A+O X 3. Patient states she was mauled by a stray dog. Daughter pulled into patient's home and found her on the ground with face covered in blood. Patient's face covered in blood with multiple lacerations to face and neck. Patient complains of constant pain 10/10. Physician History: 64 y/o white female presents with laceration on and about her neck, scalp and face from a dog bite. pt was trying to protect her dog from a stray dog. dog ran off. never had seen that dog before. pts tetanus status is utd. no loc. pt is allergic to morphine, but not to demerol, dilaudid or norco. Method of Injury: other (dog bites to face, neck and scalp) Occurred: just prior to arrival Where Injury Occurred: home Loss of Consciousness: no loss of consciousness Pain Location: head, face, neck Severity of Pain-Max: moderate Severity of Pain-Current: moderate Associated Symptoms: denies symptoms Allergies/Adverse Reactions: citalopram hydrobromide [From Celexa] Allergy (Mild, Verified 07/03/19 20:02) Hives escitalopram oxalate [From Lexapro] Allergy (Mild, Verified 07/03/19 20:02) Hives morphine Allergy (Mild, Verified 07/03/19 20:02) itching N&V Allergy to IV only Sulfa (Sulfonamide Antibiotics) [Sulfa(Sulfonamide Antibiotics)] Allergy (Mild, Verified 07/03/19 20:02) Hives codeine [Codeine] Allergy (Unknown, Verified 07/03/19 20:02) hallucinations Home Medications: Diazepam [Valium] 5 mg PO TIDPRN PRN 05/06/15 [History] Albuterol Common Canister [Proventil Common Canister] 2 puff IH QIDPRN PRN 05/15/15 [History] Fluticasone/Salmeterol Disc [Advair 250-50 Diskus 14 Dose] 2 puff IH BID 03/13/16 [History] Gabapentin [Neurontin] 600 mg PO QID 02/21/18 [History] Pioglitazone 30 mg [Actos 30 MG] 30 mg PO DAILY 11/30/18 [History] Cyclobenzaprine HCl 10 mg [Cyclobenzaprine 10 MG] 5 mg PO HS 03/10/19 [ History] Desvenlafaxine Succinate [Desvenlafaxine Succinate ER] 100 mg PO DAILY 03/10/19 [History] Doxepin HCl 50 mg PO HS 03/10/19 [History] Esomeprazole Magnesium [Nexium] 40 mg PO DAILY 03/10/19 [History] Levothyroxine Sodium 25 Mcg [Synthroid 25 Mcg] 25 mcg PO DAILY 03/10/19 [ History] Oxybutynin Chloride [Oxybutynin Chloride ER] 5 mg PO HS 03/10/19 [History] Rosuvastatin Calcium 5 mg PO QAM 03/10/19 [History] glyBURIDE [Glyburide] 5 mg PO QA 03/10/19 [History] Hx Tetanus, Diphtheria Vaccination/Date Given: Yes Hx Influenza Vaccination/Date Given: Yes Hx Pneumococcal Vaccination/Date Given: Yes - Review of Systems Constitutional: No Symptoms Eyes: No Symptoms Ears, Nose, & Throat: No Symptoms Respiratory: No Symptoms Cardiac: No Symptoms Abdominal/Gastrointestinal: No Symptoms Genitourinary Symptoms: No Symptoms Musculoskeletal: No Symptoms Skin: Other (multiple abrasions and lacerations about the neck, face and scalp ) Neurological: No Symptoms Psychological: No Symptoms Endocrine: No Symptoms Hematologic/Lymphatic: No Symptoms Immunological/Allergic: No Symptoms All Other Systems: Reviewed and Negative - Past Medical History Pertinent Past Medical History: Yes Neurological History: TIA ENT History: No Pertinent History Cardiac History: No Pertinent History Respiratory History: COPD, Emphysema Endocrine Medical History: Diabetes Type II, Hypothyroidism Musculoskeletal History: No Pertinent History GI Medical History: GERD History: Other Psycho-Social History: Anxiety, Depression Female Reproductive Disorders: No Pertinent History Other Medical History: CHRONIC LBP, CHRONIC SINUSITIS, DEPRESSION, ANXIETY - Past Surgical History Past Surgical History: Yes Neuro Surgical History: No Pertinent History Cardiac: No Pertinent History Respiratory: No Pertinent History Gastrointestinal: Appendectomy, Cholecystectomy Genitourinary: No Pertinent History Musculoskeletal: No Pertinent History Female Surgical History: Section, Hysterectomy Other Surgical History: c section x3 - Social History Smoking Status: Current every day smoker How long have you smoked: "Since 17" Exposure to second hand smoke: Yes Alcohol Use: None Drug Use: none Patient Lives Alone: No Significant Family History: diabetes, hypertension - Female History Hx Now: No Physical Exam - Nursing Vital Signs Nursing Vital Signs: Initial Vital Signs Temperature 98.0 F 07/03/19 20:02 Pulse Rate 94 H 07/03/19 20:02 Respiratory Rate 20 07/03/19 20:02 Blood Pressure 150/87 07/03/19 20:02 O2 Sat by Pulse Oximetry 98 07/03/19 20:02 Pain Scale Pain Intensity 10 - [place] Coma Score Best Eye Response ([place]): (4) open spontaneously Best Verbal Response ([place]): (5) oriented Best Motor Response ([place]): (6) obeys commands [place] Total: 15 - Physical Exam General Appearance: mild distress, alert, anxiety Head Injury: ecchymosis, lacerations (multiple facial, neck and right scalp lacerations dog bites), swelling, tenderness ENT Exam: airway nml, oral injury (mid lower lip lac 0.5cm) Neck Exam: supple, trachea midline, full range of motion, normal alignment Respiratory/Chest Exam: chest tenderness, normal breath sounds, No respiratory distress Cardiovascular Exam: normal heart sounds, regular rate/rhythm, murmur Gastrointestinal Exam: soft, normal bowel sounds, No tenderness Extremity Exam: normal inspection, normal range of motion, pelvis stable Neurologic Exam: alert, oriented x 3, 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 0.5cm lac right lower scalp) SpO2 Interpretation: borderline oxygenation SpO2: 95 O2 Delivery: Room Air Procedures - Laceration/Wound Repair Face Wound Location: face (including lower lip), neck Wound's Depth, Shape: superficial, irregular, stellate, into subcut Wound Explored: to base Irrigated: Yes Hibiclens Prep: Yes Anesthesia: 1% Lidocaine Volume Anesthetic (ccs): 18 Wound Repaired With: sutures Suture Size/Type: 5-0 (prolene), 4-0 (vicryl), prolene, nylon Number of Sutures: 28 (includes 3 vicryl lip sutures. 2 scalp raul) Progress: 07/03/19 21:41 pt marcial well. - Course Nursing assessment & vital signs reviewed: Yes Ordered Tests: Medication Summary Discontinued Medications Generic Name Dose Route Start Last Admin Trade Name Judy PRN Reason Stop Dose Admin Bacitracin Zinc Confirm 07/03/19 21:23 Baciguent Packet Administered 07/03/19 21:24 Dose 1 gm .ROUTE .STK-MED ONE Ceftriaxone Sodium 1,000 mg 07/03/19 21:03 Rocephin 1000 Mg Inj IM 07/03/19 21:04 STAT ONE Ceftriaxone Sodium Confirm 07/03/19 21:14 Rocephin 1000 Mg Inj Administered 07/03/19 21:15 Dose 1,000 mg .ROUTE .STK-MED ONE Lidocaine HCl Confirm 07/03/19 20:09 Xylocaine 1% Hcl 20 Ml Mdv Administered 07/03/19 20:10 Dose 20 ml .ROUTE .STK-MED ONE Meperidine HCl 12.5 mg 07/03/19 21:03 Demerol 25mg Syringe IM 07/03/19 21:04 STAT ONE Meperidine HCl Confirm 07/03/19 21:16 Demerol 25mg Syringe Administered 07/03/19 21:17 Dose 25 mg .ROUTE .STK-MED ONE Ondansetron HCl 4 mg 07/03/19 21:04 Zofran Odt 4 Mg PO 07/03/19 21:05 STAT ONE Ondansetron HCl Confirm 07/03/19 21:17 Zofran Odt 4 Mg Administered 07/03/19 21:18 Dose 4 mg .ROUTE .STK-MED ONE - Progress Progress: improved Counseled pt/family regarding: diagnosis, need for follow-up - Departure Departure Disposition: Home Clinical Impression: Facial laceration, Lip laceration, Scalp laceration, Laceration of neck Condition: Stable Critical Care Time: No Referrals: CRISTHIAN CHRISTIAN [Primary Care Provider] - Additional Instructions: ice packe to all sites. hold plavix. restart plavix on Wednesday07/05/19. keep dry for 24 hours. after 24 hours wash daily and apply antibiotic ointment. suture and staple removal in 7 days. lip sutures are dissolvable and will fall out on their own. call health department tomorrow to determine if dog has been caught. if not you may need to return to ED for rabies vaccine. Prescriptions: Hydrocodone/APAP 5/325 [[place] 5/325 mg] 1 each PO Q6H PRN PRN #10 tablet MDD 4 PRN Reason: Pain Amoxicillin/Potassium Clav [Augmentin 500-125 Tablet] 1 each PO Q8H #21 tablet
[2019-07-03] MEDS ORDERED: BACIGUENT PACKET TP ONE (21:51)
[2019-07-03 22:00] VITALS: BP 144/99
[2019-07-03] MEDS ORDERED: NORCO 5/325 MG PO ONE (22:05)
[2019-07-03] MEDS ORDERED: NORCO 5/325 MG ONE (22:08)
== END 2019-07-03 22:25 | disposition home or self-care (01) ==
LOC: ED 19:48
DX: S01.511A Laceration without foreign body of lip, initial encounter (principal); W54.0XXA Bitten by dog, initial encounter; S01.01XA Laceration without foreign body of scalp, initial encounter; S11.91XA Laceration without foreign body of unspecified part of neck, initial encounter; S10.91XA Abrasion of unspecified part of neck, initial encounter
CPT/HCPCS: 12002; 12011; 12013; 96372; 99284; J0696; J2175; Q0162; A9270-GY

== ENCOUNTER 2019-12-30 22:00 | Emergency (ER) | payer MEDICARE ==
[2019-12-30] MEDS ORDERED: Sodium Chloride 0.9% 1000 ML 1,000 ML IV SCH (22:30)
[2019-12-30] MEDS ORDERED: Sodium Chloride 0.9% 1000 ML 1,000 ML ONE (23:11)
[2019-12-30] MEDS ORDERED: ROCEPHIN 1 Gm-D5w 50 ml Bag** 1 G/50 ML IVPB IV STA (23:25)
--- NOTE | 2019-12-30 23:25 | ERPHSYRPT ---
- History of Present Illness Time Seen by Provider: 12/30/19 23:22 Source: patient, family Exam Limitations: no limitations Patient Subjective Stated Complaint: pt states that she has sorethroat chest heaviness headache, pt states that family members have had the flu, pt denies fever, pt states that it has been going on for 3 days, pt states symptoms increased today Triage Nursing Assessment: pt ambulated into the er, pt is axo x3, hypertension , tachycardic, wheezes present in posterior lower lobes, dry hacking cough, dy mucus membranes, left ear red, tonsils red and inflammed, c/o 10/ pain to chest from coughing Physician History: pt complains of cough recently and pain associated with this cough but also sore throat, swallowing OK in ER Timing/Duration: day(s) Cough Quality/Degree: dry cough Possible Cause: occasional episodes, illness exposure Modifying Factors: Improves With: albuterol inhaler, coughing, deep breath Associated Symptoms: fever, chest pain/soreness, earache, muscle aches, shortness of breath, sore throat, wheezing Allergies/Adverse Reactions: hydromorphone Allergy (Severe, Verified 12/30/19 22:33) Difficulty Breathing citalopram hydrobromide [From Celexa] Allergy (Mild, Verified 12/30/19 22:33) Hives escitalopram oxalate [From Lexapro] Allergy (Mild, Verified 12/30/19 22:33) Hives morphine Allergy (Mild, Verified 12/30/19 22:33) itching N&V Allergy to IV only Sulfa (Sulfonamide Antibiotics) [Sulfa(Sulfonamide Antibiotics)] Allergy (Mild, Verified 12/30/19 22:33) Hives codeine [Codeine] Allergy (Unknown, Verified 12/30/19 22:33) hallucinations Home Medications: Diazepam [Valium] 5 mg PO TIDPRN PRN 05/06/15 [History] Fluticasone/Salmeterol Disc [Advair 250-50 Diskus 14 Dose] 2 puff IH BID 03/13/16 [History] Gabapentin [Neurontin] 600 mg PO QID 02/21/18 [History] Pioglitazone 30 mg [Actos 30 MG] 30 mg PO DAILY 11/30/18 [History] Desvenlafaxine Succinate [Desvenlafaxine Succinate ER] 100 mg PO DAILY 03/10/19 [History] Doxepin HCl 50 mg PO HS 03/10/19 [History] Esomeprazole Magnesium [Nexium] 40 mg PO DAILY 03/10/19 [History] Levothyroxine Sodium 25 Mcg [Synthroid 25 Mcg] 25 mcg PO DAILY 03/10/19 [ History] Oxybutynin Chloride [Oxybutynin Chloride ER] 5 mg PO HS 03/10/19 [History] Rosuvastatin Calcium 5 mg PO QAM 03/10/19 [History] Clopidogrel Bisulfate [Plavix] 75 mg PO DAILY 12/30/19 [History] Desvenlafaxine Succinate [Pristiq] 100 mg PO DAILY 12/30/19 [History] Hx Tetanus, Diphtheria Vaccination/Date Given: Yes Hx Influenza Vaccination/Date Given: No Hx Pneumococcal Vaccination/Date Given: No - Review of Systems Constitutional: Fever, No Chills Eyes: No Symptoms Ears, Nose, & Throat: No Symptoms Respiratory: Cough, Dyspnea Cardiac: No Edema, No Syncope Abdominal/Gastrointestinal: No Abdominal Pain, No Nausea, No Vomiting, No Diarrhea Genitourinary Symptoms: No Dysuria Musculoskeletal: No Back Pain, No Neck Pain Skin: No Rash Neurological: No Dizziness, No Focal Weakness, No Sensory Changes Psychological: No Symptoms Endocrine: No Symptoms All Other Systems: Reviewed and Negative - Past Medical History Pertinent Past Medical History: Yes Neurological History: Peripheral Neuropathy, TIA ENT History: No Pertinent History Cardiac History: High Cholesterol Respiratory History: Asthma, COPD, Emphysema Endocrine Medical History: Diabetes Type II, Hypothyroidism Musculoskeletal History: No Pertinent History GI Medical History: GERD History: Other Psycho-Social History: Anxiety, Depression Female Reproductive Disorders: No Pertinent History Other Medical History: CHRONIC LBP, CHRONIC SINUSITIS, DEPRESSION, ANXIETY - Past Surgical History Past Surgical History: Yes Neuro Surgical History: No Pertinent History Cardiac: No Pertinent History Respiratory: No Pertinent History Gastrointestinal: Appendectomy, Cholecystectomy Genitourinary: No Pertinent History Musculoskeletal: No Pertinent History Female Surgical History: Section, Hysterectomy Other Surgical History: c section x3 - Social History Smoking Status: Current every day smoker How long have you smoked: "Since 17" Exposure to second hand smoke: Yes Alcohol Use: None Drug Use: none Patient Lives Alone: No Significant Family History: diabetes, hypertension - Nursing Vital Signs Nursing Vital Signs: Initial Vital Signs Temperature 97.9 F 12/30/19 22:14 Pulse Rate 116 H 12/30/19 22:14 Respiratory Rate 28 H 12/30/19 22:14 Blood Pressure 155/101 12/30/19 22:14 O2 Sat by Pulse Oximetry 97 12/30/19 22:14 Pain Scale Pain Intensity 10 - Physical Exam General Appearance: no apparent distress, alert Eye Exam: PERRL/EOMI, eyes nml inspection Ears, Nose, Throat Exam: normal ENT inspection, pharynx normal, moist mucous membranes, TM abnormal (R), TM abnormal (L), pharyngeal erythema Neck Exam: normal inspection, non-tender, supple, full range of motion Respiratory Exam: normal breath sounds, wheezing, No respiratory distress Cardiovascular Exam: regular rate/rhythm, normal heart sounds Gastrointestinal/Abdomen Exam: soft, No tenderness Back Exam: normal inspection, No CVA tenderness, No vertebral tenderness Extremity Exam: normal inspection, normal range of motion Neurologic Exam: alert, oriented x 3, cooperative, normal mood/affect, sensation nml, No motor deficits Skin Exam: normal color, warm, dry, No rash Lymphatic Exam: No adenopathy SpO2: 97 - Course Nursing assessment & vital signs reviewed: Yes EKG Interpreted by Me: Sinus Tach, Non-specific ST Changes - Radiology Exams Chest X-ray Interpretation: Reviewed by me, Other (strandy interstital infiltrates and vertebral filler) Ordered Tests: Active Orders 24 hr Category Date Time Status Repossession Agent STAT Care 12/30/19 22:25 Active EKG-ER Only STAT Care 12/30/19 22:23 Active IV Insertion STAT Care 12/30/19 22:23 Active Pulse Oximetry (ED) STAT Care 12/30/19 22:23 Active CHEST 2 VIEWS (PA AND LAT) Stat Exams 12/30/19 22:24 Taken CBC W DIFF Stat Lab 12/30/19 23:31 Completed CMP Stat Lab 12/30/19 23:31 Completed Lactic Acid Stat Lab 12/30/19 23:36 Completed Lactic Acid Stat Lab 12/31/19 00:45 Ordered Lactic Acid Stat Lab 12/31/19 01:41 Completed TROPONIN Q3H Lab 12/30/19 23:31 Completed TROPONIN Q3H Lab 12/31/19 02:08 Received TROPONIN Q3H Lab 12/31/19 04:30 Ordered TROPONIN Q3H Lab 12/31/19 07:30 Ordered TROPONIN Q3H Lab 12/31/19 10:30 Ordered Medication Summary Generic Name Dose Route Start Last Admin Trade Name Judy PRN Reason Stop Dose Admin Sodium Chloride 1,000 mls @ 100 mls/hr 12/30/19 22:30 12/31/19 01:13 Sodium Chloride 0.9% 1000 Ml IV 01/29/20 22:29 Infused .Q10H KRISTYN Infusion Discontinued Medications Generic Name Dose Route Start Last Admin Trade Name Judy PRN Reason Stop Dose Admin Ceftriaxone Sodium/Dextrose 1 g in 50 mls @ 100 mls/hr 12/30/19 23:25 00:38 Rocephin 1 Gm-D5w 50 Ml Bag IV 12/30/19 23:54 Infused STAT STA Infusion Ceftriaxone Sodium/Dextrose Confirm 12/30/19 23:32 Rocephin 1 Gm-D5w 50 Ml Bag Administered 12/30/19 23:33 Dose 1 g in 50 mls @ ud IV .STK-MED ONE Sodium Chloride 1,000 mls @ 999 mls/hr 12/30/19 23:54 12/31/19 01:11 Sodium Chloride 0.9% 1000 Ml IV 12/31/19 00:54 Infused .Q1H1M STA Infusion Lab/Rad Data: Laboratory Result Diagrams 12/30/19 23:31 12/30/19 23:31 Laboratory Results 12/31/19 12/30/19 12/30/19 Range/Units 01:41 23:36 23:31 WBC (4.0-10.5) K/mm3 RBC (4.1-5.4) M/mm3 Hgb (12.0-16.0) gm/dl Hct (35-47) % MCV (78-100) fl MCH (26-32) pg MCHC (32-36) g/dl RDW (11.5-14.0) % Plt Count (150-450) K/mm3 MPV (7.5-11.0) fl Gran % (36.0-66.0) % Eos # (Auto) (0-0.5) Absolute Lymphs (auto) (1.0-4.6) Absolute Monos (auto) (0.0-1.3) Lymphocytes % (24.0-44.0) % Monocytes % (0.0-12.0) % Eosinophils % (0.00-5.0) % Basophils % (0.0-0.4) % Absolute Granulocytes (1.4-6.9) Basophils # (0-0.4) Sodium (137-145) mmol/L Potassium (3.5-5.1) mmol/L Chloride (98-107) mmol/L Carbon Dioxide (22-30) mmol/L Anion Gap (5-15) MEQ/L BUN (7-17) mg/dL Creatinine (0.52-1.04) mg/dL Estimated GFR ML/MIN Glucose (74-106) mg/dL Lactic Acid 2.2 H 3.0 H (0.4-2.0) Calcium (8.4-10.2) mg/dL Total Bilirubin (0.2-1.3) mg/dL AST (14-36) U/L ALT (0-35) U/L Alkaline Phosphatase (38-126) U/L Troponin I < 0.012 (0.000-0.034) ng/mL Serum Total Protein (6.3-8.2) g/dL Albumin (3.5-5.0) g/dL Influenza Type A Ag (NEGATIVE) Influenza Type B Ag (NEGATIVE) RSV (PCR) (Negative) Group A Strep Antibody (NEGATIVE) 12/30/19 12/30/19 12/30/19 Range/Units 23:31 23:31 22:53 WBC 7.0 (4.0-10.5) K/mm3 RBC 5.19 (4.1-5.4) M/mm3 Hgb 15.6 (12.0-16.0) gm/dl Hct 46.2 (35-47) % MCV 89.0 (78-100) fl MCH 30.1 (26-32) pg MCHC 33.8 (32-36) g/dl RDW 13.1 (11.5-14.0) % Plt Count 108 L (150-450) K/mm3 MPV 13.1 H (7.5-11.0) fl Gran % 55.0 (36.0-66.0) % Eos # (Auto) 0.08 (0-0.5) Absolute Lymphs (auto) 2.54 (1.0-4.6) Absolute Monos (auto) 0.51 (0.0-1.3) Lymphocytes % 36.3 (24.0-44.0) % Monocytes % 7.3 (0.0-12.0) % Eosinophils % 1.1 (0.00-5.0) % Basophils % 0.3 (0.0-0.4) % Absolute Granulocytes 3.84 (1.4-6.9) Basophils # 0.02 (0-0.4) Sodium 138 (137-145) mmol/L Potassium 3.9 (3.5-5.1) mmol/L Chloride 101 (98-107) mmol/L Carbon Dioxide 28 (22-30) mmol/L Anion Gap 12.4 (5-15) MEQ/L BUN 11 (7-17) mg/dL Creatinine 0.64 (0.52-1.04) mg/dL Estimated GFR > 60.0 ML/MIN Glucose 373 H (74-106) mg/dL Lactic Acid (0.4-2.0) Calcium 9.8 (8.4-10.2) mg/dL Total Bilirubin 0.50 (0.2-1.3) mg/dL AST 55 H (14-36) U/L ALT 53 H (0-35) U/L Alkaline Phosphatase 121 (38-126) U/L Troponin I (0.000-0.034) ng/mL Serum Total Protein 7.9 (6.3-8.2) g/dL Albumin 4.4 (3.5-5.0) g/dL Influenza Type A Ag NEGATIVE (NEGATIVE) Influenza Type B Ag NEGATIVE (NEGATIVE) RSV (PCR) NEGATIVE (Negative) Group A Strep Antibody NEGATIVE (NEGATIVE) - Progress Progress: improved, re-examined Air Movement: good Progress Note: 12/31/19 01:50 waiting for repeat lactate after rehydration 12/31/19 02:10 lacatate near normal after initial hydration. pain was associated only with cough and now resolved pt is feeling better and wishes DC with outpt Tx and f/u PCP 12/31/19 02:18 Blood Culture(s) Obtained: No Antibiotics given: Yes Counseled pt/family regarding: lab results, diagnosis, need for follow-up, rad results - Departure Departure Disposition: Home Clinical Impression: Pharyngitis, Otitis media, Pneumonitis, DM2 (diabetes mellitus, type 2) Condition: Good Critical Care Time: No Referrals: ZEE MEDINA [Primary Care Provider] - Instructions: Sore Throat, Adult (DC), Dehydration, Adult (DC), Pneumonitis (DC ), Pneumonia, Adult (DC), Ear Infections (Otitis Media) (DC) Additional Instructions: we will place you on antibiotics for early/walking pneumonia; followup with your Dr for recheck, and return meantime if not improving or any further symptoms of concern such as vomiting, short of breath or chest pain;
[2019-12-30 23:29] LABS: INFLUENZA A NEGATIVE (NEGATIVE); INFLUENZA B NEGATIVE (NEGATIVE); RESPIRATORY SYNCTIAL VIRUS NEGATIVE (Negative)
[2019-12-30 23:30] LABS: Group A Strep NEGATIVE (NEGATIVE)
[2019-12-30 23:30] LABS: Absolute Neutrophil Ct (ANC) 3.84 (1.4-6.9); BASOPHIL % 0.3 % (0.0-0.4); Basophil (Absolute #) 0.02 (0-0.4); Eosinophil % 1.1 % (0.00-5.0); Eosinophil (Absolute #) 0.08 (0-0.5); Hematocrit 46.2 % (35-47); Hemoglobin 15.6 gm/dl (12.0-16.0); Lymphocyte (Absolute #) 2.54 (1.0-4.6); Lymphocytes % 36.3 % (24.0-44.0); Mean Corpuscular Hemoglobin 30.1 pg (26-32); Mean Corpuscular Hgb Concent. 33.8 g/dl (32-36); Mean Platelet Volume 13.1 fl (7.5-11.0); Monocyte (Absolute #) 0.51 (0.0-1.3); Monocytes % 7.3 % (0.0-12.0); Platelet Count 108 K/mm3 (150-450); Red Blood Count 5.19 M/mm3 (4.1-5.4); Red Cell Distribution Width 13.1 % (11.5-14.0)
[2019-12-30] MEDS ORDERED: ROCEPHIN 1 Gm-D5w 50 ml Bag** 1 G/50 ML IVPB IV ONE (23:32)
[2019-12-30 23:41] LABS: ALBUMIN 4.4 g/dL (3.5-5.0); ALKALINE PHOSPHATASE 121 U/L (38-126); ANION GAP 12.4 MEQ/L (5-15); BLOOD UREA NITROGEN 11 mg/dL (7-17); CHLORIDE 101 mmol/L (98-107); Calcium 9.8 mg/dL (8.4-10.2); Carbon Dioxide 28 mmol/L (22-30); Creatinine 1 0.64 mg/dL (0.52-1.04); Glucose 373 mg/dL (74-106); Potassium 3.9 mmol/L (3.5-5.1); SGOT/AST 55 U/L (14-36); SGPT/ALT 53 U/L (0-35); SODIUM 138 mmol/L (137-145); Total Protein 7.9 g/dL (6.3-8.2)
[2019-12-30] MEDS ORDERED: Sodium Chloride 0.9% 1000 ML 1,000 ML IV STA (23:54)
[2019-12-31] MEDS ORDERED: Sodium Chloride 0.9% 1000 ML 1,000 ML ONE (00:21)
[2019-12-31 02:20] VITALS: BP 137/84; PULSE 107
[2019-12-31 02:32] VITALS: O2SAT 99
--- NOTE | 2019-12-31 08:25 | XRAY ---
Indication: Cough. Comparison: September 28, 2018. PA/lateral chest unchanged again hyperinflated and clear with incidental lingula/splenic calcified granulomas. Heart is not enlarged. Bony thorax intact again with mild osteopenia, degenerative changes, and T7 kyphoplasty. No new/acute findings.
== END 2019-12-31 02:38 | disposition home or self-care (01) ==
LOC: ED 22:00
DX: J02.9 Acute pharyngitis, unspecified (principal); H66.90 Otitis media, unspecified, unspecified ear; J18.9 Pneumonia, unspecified organism; E11.9 Type 2 diabetes mellitus without complications; G62.9 Polyneuropathy, unspecified; Z86.73 Personal history of transient ischemic attack (TIA), and cerebral infarction without residual deficits; E78.00 Pure hypercholesterolemia, unspecified; E03.9 Hypothyroidism, unspecified; K21.9 Gastro-esophageal reflux disease without esophagitis; F41.9 Anxiety disorder, unspecified; F32.9 Major depressive disorder, single episode, unspecified; Z72.0 Tobacco use; Z79.899 Other long term (current) drug therapy
CPT/HCPCS: 36000; 36415; 71046; 80053; 83605; 84484; 85025; 87631; 87651; 93005; 93041; 94760; 96360; 96361; 96365; 99285; J0696

== ENCOUNTER 2020-01-08 22:02 | Observation (INO) | payer MEDICARE ==
[2020-01-08] MEDS ORDERED: Sodium Chloride 0.9% 1000 ML 1,000 ML IV STA ×2 (22:32→22:40)
[2020-01-08] MEDS ORDERED: Zofran 4 MG/2 ML VIAL IV ONE (22:32)
[2020-01-08] MEDS ORDERED: Sodium Chloride 0.9% 1000 ML 1,000 ML ONE ×2 (22:33→23:57)
[2020-01-08] MEDS ORDERED: Sodium Chloride 0.9% 500 ML 500 ML IV ONE (22:40)
[2020-01-08] MEDS ORDERED: NOVOLIN R INSULIN (FOR DRIPS)** 100 UNITS in Sodium Chloride 0.9% 100 ML IVPB 100 ML IV SCH (22:45)
[2020-01-08] MEDS ORDERED: HUMULIN R ONE (22:46)
[2020-01-08] MEDS ORDERED: Sodium Chloride 0.9% 100 ML IVPB 100 ML IV ONE (22:46)
[2020-01-08] MEDS ORDERED: Zofran 4 MG/2 ML VIAL ONE (22:46)
[2020-01-08 22:48] LABS: Absolute Neutrophil Ct (ANC) 5.33 (1.4-6.9); BASOPHIL % 0.2 % (0.0-0.4); Basophil (Absolute #) 0.02 (0-0.4); Eosinophil % 0.1 % (0.00-5.0); Eosinophil (Absolute #) 0.01 (0-0.5); Hematocrit 50.8 % (35-47); Hemoglobin 15.9 gm/dl (12.0-16.0); Lymphocyte (Absolute #) 2.85 (1.0-4.6); Lymphocytes % 31.7 % (24.0-44.0); Mean Cell Volume 95.5 fl (78-100); Mean Corpuscular Hemoglobin 29.9 pg (26-32); Mean Corpuscular Hgb Concent. 31.3 g/dl (32-36); Mean Platelet Volume 12.9 fl (7.5-11.0); Monocyte (Absolute #) 0.79 (0.0-1.3); Monocytes % 8.8 % (0.0-12.0); Neutrophil % 59.2 % (36.0-66.0); Platelet Count 130 K/mm3 (150-450); Red Blood Count 5.32 M/mm3 (4.1-5.4)
[2020-01-08 22:53] LABS: Lactic Acid 8.6 (0.4-2.0); VBG BASE EXCESS -1.1 (-2.0-2.0); VBG HCO3- 25.3 meq/L (22-28); VBG PCO2 48 mm/Hg (42-55); VBG PO2 41 mm/Hg (25-40); VBG POTASSIUM 4.1 (3.5-5.1); VBG pH 7.33 (7.32-7.42)
[2020-01-08 22:59] LABS: ALBUMIN 4.7 g/dL (3.5-5.0); ALKALINE PHOSPHATASE 129 U/L (38-126); ANION GAP 22.2 MEQ/L (5-15); BLOOD UREA NITROGEN 18 mg/dL (7-17); CHLORIDE 91 mmol/L (98-107); Calcium 10.4 mg/dL (8.4-10.2); Carbon Dioxide 24 mmol/L (22-30); Creatinine 1 0.69 mg/dL (0.52-1.04); Potassium 3.9 mmol/L (3.5-5.1); SGOT/AST 32 U/L (14-36); SODIUM 133 mmol/L (137-145); Total Protein 8.2 g/dL (6.3-8.2)
[2020-01-08 23:05] LABS: Appearance CLEAR (CLEAR); Bilirubin NEGATIVE (NEGATIVE); Blood NEGATIVE Ery/ul (0-5); Glucose >=500 mg/dL (NEGATIVE); Ketones NEGATIVE (NEGATIVE); Leukocyte Esterase NEGATIVE (NEGATIVE); Nitrite NEGATIVE (NEGATIVE); Protein,Urine Dip NEGATIVE (Negative); Specific Gravity 1.028 (1.005-1.025); Urobilinogen NEGATIVE mg/dL (0-1)
[2020-01-08 23:06] LABS: SGPT/ALT 40 U/L (0-35)
[2020-01-08 23:12] LABS: Glucose 1022 mg/dL (74-106)
[2020-01-09 00:21] LABS: ANION GAP 14.6 MEQ/L (5-15); BLOOD UREA NITROGEN 16 mg/dL (7-17); CHLORIDE 101 mmol/L (98-107); Carbon Dioxide 30 mmol/L (22-30); SODIUM 142 mmol/L (137-145)
[2020-01-09 00:33] LABS: Glucose 610 mg/dL (74-106)
--- NOTE | 2020-01-09 00:39 | ERPHSYRPT ---
- History of Present Illness Time Seen by Provider: 01/08/20 22:44 Source: patient Exam Limitations: no limitations Patient Subjective Stated Complaint: pt states that she woke up from a nap today not feeling right, pt states that she took her blood sugar and it read high, pt states she has been drinking juice all day, pt states that she is on prednisone and antibiotic for pneumonia, pt states that she was dizzy and felt drunk when walking Triage Nursing Assessment: pt ambulated into the er, pt is axo, hypertensive, tachycardic, hyperglycemic, blood glucose reads hi, orthos lying 166/79 117, sitting 156/91 116, standing 140/77 115, dry cough present, noncompliant with diabetes medication Physician History: Is a 64-year-old female known diabetic who presents with blurred vision dizziness. Of rather sudden onset this evening just prior to arrival seen and diagnosed with pneumonia 2 weeks ago was started on the Augmentin was later given some prednisone. She however did not continue to take her diabetic medicines primarily Actos CVA COPD type 2 diabetes and hypothyroidism Timing/Duration: today Severity: moderate Modifying Factors: Improves With: nothing Associated Symptoms: denies symptoms Allergies/Adverse Reactions: hydromorphone Allergy (Severe, Verified 01/08/20 22:24) Difficulty Breathing citalopram hydrobromide [From Celexa] Allergy (Mild, Verified 01/08/20 22:24) Hives escitalopram oxalate [From Lexapro] Allergy (Mild, Verified 01/08/20 22:24) Hives morphine Allergy (Mild, Verified 01/08/20 22:24) itching N&V Allergy to IV only Sulfa (Sulfonamide Antibiotics) [Sulfa(Sulfonamide Antibiotics)] Allergy (Mild, Verified 01/08/20 22:24) Hives codeine [Codeine] Allergy (Unknown, Verified 01/08/20 22:24) hallucinations Home Medications: Diazepam [Valium] 5 mg PO TIDPRN PRN 05/06/15 [History] Gabapentin [Neurontin] 600 mg PO QID 02/21/18 [History] Pioglitazone 30 mg [Actos 30 MG] 30 mg PO DAILY 11/30/18 [History] Doxepin HCl 100 mg PO HS 03/10/19 [History] Esomeprazole Magnesium [Nexium] 40 mg PO DAILY 03/10/19 [History] Levothyroxine Sodium 25 Mcg [Synthroid 25 Mcg] 25 mcg PO DAILY 03/10/19 [ History] Rosuvastatin Calcium 5 mg PO QAM 03/10/19 [History] Clopidogrel Bisulfate [Plavix] 75 mg PO DAILY 12/30/19 [History] Desvenlafaxine Succinate [Pristiq] 100 mg PO DAILY 12/30/19 [History] Diazepam 5 mg PO DAILY 01/08/20 [History] Hx Tetanus, Diphtheria Vaccination/Date Given: Yes Hx Influenza Vaccination/Date Given: No Hx Pneumococcal Vaccination/Date Given: No Travel Risk - International Travel Have you traveled outside of the country in past 3 weeks: No Have you or anyone close to you been diagnosed with or: No Do your reside in a community with a known COVID-19 case?: No - Coronavirus Screening Has patient experienced Coronavirus symptoms: No - Review of Systems Constitutional: Weakness, No Fever, No Chills Eyes: Vision Changes Ears, Nose, & Throat: No Symptoms Respiratory: No Cough, No Dyspnea Cardiac: No Chest Pain, No Edema, No Syncope Abdominal/Gastrointestinal: No Abdominal Pain, No Nausea, No Vomiting, No Diarrhea Genitourinary Symptoms: No Dysuria Musculoskeletal: No Back Pain, No Neck Pain Skin: No Rash Neurological: No Dizziness, No Focal Weakness, No Sensory Changes Psychological: No Symptoms Endocrine: No Symptoms All Other Systems: Reviewed and Negative - Past Medical History Pertinent Past Medical History: Yes Neurological History: Peripheral Neuropathy, TIA ENT History: No Pertinent History Cardiac History: High Cholesterol Respiratory History: Asthma, COPD, Emphysema Endocrine Medical History: Diabetes Type II, Hypothyroidism Musculoskeletal History: No Pertinent History GI Medical History: GERD History: Other Psycho-Social History: Anxiety, Depression Female Reproductive Disorders: No Pertinent History Other Medical History: CHRONIC LBP, CHRONIC SINUSITIS, DEPRESSION, ANXIETY - Past Surgical History Past Surgical History: Yes Neuro Surgical History: No Pertinent History Cardiac: No Pertinent History Respiratory: No Pertinent History Gastrointestinal: Appendectomy, Cholecystectomy Genitourinary: No Pertinent History Musculoskeletal: No Pertinent History Female Surgical History: Section, Hysterectomy Other Surgical History: c section x3 - Social History Smoking Status: Current every day smoker How long have you smoked: "Since 17" Exposure to second hand smoke: Yes Alcohol Use: None Drug Use: marijuana Patient Lives Alone: No Significant Family History: diabetes, hypertension - Female History Hx Now: No - Nursing Vital Signs Nursing Vital Signs: Initial Vital Signs Temperature 97.6 F 01/08/20 22:10 Pulse Rate 117 H 01/08/20 22:10 Respiratory Rate 23 01/08/20 22:10 Blood Pressure 166/79 01/08/20 22:10 O2 Sat by Pulse Oximetry 98 01/08/20 22:10 Pain Scale Pain Intensity 0 - Physical Exam General Appearance: mild distress, alert Eye Exam: PERRL/EOMI, eyes nml inspection Ears, Nose, Throat Exam: normal ENT inspection, TMs normal, pharynx normal, moist mucous membranes Neck Exam: normal inspection, non-tender, supple, full range of motion Respiratory Exam: normal breath sounds, lungs clear, No respiratory distress Cardiovascular Exam: regular rate/rhythm, normal heart sounds, normal peripheral pulses Gastrointestinal/Abdomen Exam: soft, normal bowel sounds, No tenderness, No mass Back Exam: normal inspection, normal range of motion, No CVA tenderness, No vertebral tenderness Extremity Exam: normal inspection, normal range of motion, pelvis stable Neurologic Exam: alert, oriented x 3, cooperative, normal mood/affect, nml cerebellar function, nml station & gait, sensation nml, No motor deficits Skin Exam: normal color, warm, dry, No rash Lymphatic Exam: No adenopathy SpO2: 99 - Course Nursing assessment & vital signs reviewed: Yes EKG Interpreted by Me: RATE (102), Sinus Tach, NORMAL AXIS, NORMAL INTERVALS, NORMAL QRS, Non-specific ST Changes - Radiology Exams Chest X-ray Interpretation: Interpreted by me, Negative Ordered Tests: Active Orders 24 hr Category Date Time Status EKG-ER Only STAT Care 01/08/20 22:32 Active IV Insertion STAT Care 01/08/20 22:32 Active CHEST 1 VIEW (PORTABLE) Stat Exams 01/08/20 22:32 Taken BLOOD CULTURE Stat Lab 01/08/20 22:34 Received BMP Stat Lab 01/08/20 00:05 Completed CBC W DIFF Stat Lab 01/08/20 22:34 Completed CMP Stat Lab 01/08/20 22:34 Completed CULTURE,URINE Stat Lab 01/08/20 22:47 Received Lactic Acid Stat Lab 01/08/20 23:56 Completed Lactic Acid Urgent Lab 01/08/20 22:32 Completed MAGNESIUM Stat Lab 01/08/20 22:34 Completed UA W/RFX UR CULTURE Stat Lab 01/08/20 22:47 Completed VENOUS BLOOD GAS Urgent Lab 01/08/20 22:32 Completed Medication Summary Generic Name Dose Route Start Last Admin Trade Name Judy PRN Reason Stop Dose Admin Insulin Human Regular 100 101 mls @ 0 mls/hr 01/08/20 22:45 01/08/20 22:57 units/ Sodium Chloride IV 02/07/20 22:44 6.5 mls/hr .Q0M KRITSYN 6.5 mls/hr Administration Protocol Per Protocol Discontinued Medications Generic Name Dose Route Start Last Admin Trade Name Judy PRN Reason Stop Dose Admin Sodium Chloride Confirm 01/08/20 22:33 Sodium Chloride 0.9% 1000 Ml Administered 01/08/20 22:34 Dose 1,000 mls @ ud .ROUTE .STK-MED ONE Sodium Chloride 1,000 mls @ 999 mls/hr 01/08/20 22:32 01/09/20 00:34 Sodium Chloride 0.9% 1000 Ml IV 01/08/20 23:32 Infused .Q1H1M STA Infusion Sodium Chloride 1,000 mls @ 999 mls/hr 01/08/20 22:40 01/09/20 00:06 Sodium Chloride 0.9% 1000 Ml IV 01/08/20 23:40 999 mls/hr .Q1H1M STA Administration Sodium Chloride 500 mls @ 500 mls/hr 01/08/20 22:40 Sodium Chloride 0.9% 500 Ml IV 01/08/20 23:39 .Q1H ONE Sodium Chloride Confirm 01/08/20 22:46 Sodium Chloride 0.9% 100 Ml Ivpb Administered 01/08/20 22:47 Dose 100 mls @ ud IV .STK-MED ONE Sodium Chloride Confirm 01/08/20 23:57 Sodium Chloride 0.9% 1000 Ml Administered 01/08/20 23:58 Dose 1,000 mls @ ud .ROUTE .STK-MED ONE Insulin Human Regular Confirm 01/08/20 22:46 Humulin R Administered 01/08/20 22:47 Dose 100 unit .ROUTE .STK-MED ONE Ondansetron HCl 4 mg 01/08/20 22:32 01/08/20 22:49 Zofran 4 Mg/2 Ml Vial IV 01/08/20 22:33 4 mg STAT ONE Administration Ondansetron HCl Confirm 01/08/20 22:46 Zofran 4 Mg/2 Ml Vial Administered 01/08/20 22:47 Dose 4 mg .ROUTE .STK-MED ONE Lab/Rad Data: Laboratory Result Diagrams 01/08/20 22:34 01/08/20 22:34 Laboratory Results 01/08/20 01/08/20 01/08/20 Range/Units 23:56 22:47 22:34 WBC (4.0-10.5) K/mm3 RBC (4.1-5.4) M/mm3 Hgb (12.0-16.0) gm/dl Hct (35-47) % MCV (78-100) fl MCH (26-32) pg MCHC (32-36) g/dl RDW (11.5-14.0) % Plt Count (150-450) K/mm3 MPV (7.5-11.0) fl Gran % (36.0-66.0) % Eos # (Auto) (0-0.5) Absolute Lymphs (auto) (1.0-4.6) Absolute Monos (auto) (0.0-1.3) Lymphocytes % (24.0-44.0) % Monocytes % (0.0-12.0) % Eosinophils % (0.00-5.0) % Basophils % (0.0-0.4) % Absolute Granulocytes (1.4-6.9) Basophils # (0-0.4) pO2/FiO2 Ratio % VBG pH (7.32-7.42) VBG pCO2 at Pat Temp (42-55) mm/Hg VBG pO2 at Pat Temp (25-40) mm/Hg VBG HCO3 (22-28) meq/L VBG Base Excess (-2.0-2.0) POC Potassium (3.5-5.1) Sodium 133 L D (137-145) mmol/L Potassium 3.9 (3.5-5.1) mmol/L Chloride 91 L (98-107) mmol/L Carbon Dioxide 24 (22-30) mmol/L Anion Gap 22.2 H (5-15) MEQ/L BUN 18 H (7-17) mg/dL Creatinine 0.69 (0.52-1.04) mg/dL Estimated GFR > 60.0 ML/MIN Glucose 1022 H* (74-106) mg/dL Lactic Acid 3.9 H (0.4-2.0) Calcium 10.4 H (8.4-10.2) mg/dL Magnesium 2.0 (1.6-2.3) mg/dL Total Bilirubin 0.60 (0.2-1.3) mg/dL AST 32 (14-36) U/L ALT 40 H (0-35) U/L Alkaline Phosphatase 129 H (38-126) U/L Serum Total Protein 8.2 (6.3-8.2) g/dL Albumin 4.7 (3.5-5.0) g/dL Urine Color STRAW (YELLOW) Urine Appearance CLEAR (CLEAR) Urine pH 6.0 (5-6) Ur Specific [place] 1.028 (1.005-1.025) Urine Protein NEGATIVE (Negative) Urine Ketones NEGATIVE (NEGATIVE) Urine Blood NEGATIVE (0-5) Jossue/ul Urine Nitrite NEGATIVE (NEGATIVE) Urine Bilirubin NEGATIVE (NEGATIVE) Urine Urobilinogen NEGATIVE (0-1) mg/dL Ur Leukocyte Esterase NEGATIVE (NEGATIVE) Urine WBC (Auto) NONE (0-5) /HPF Urine RBC (Auto) NONE (0-2) /HPF U Epithel Cells (Auto) NONE (FEW) /HPF Urine Culture Reflexed NO (NO) Urine Glucose >=500 (NEGATIVE) mg/dL 01/08/20 01/08/20 01/08/20 Range/Units 22:34 22:32 00:05 WBC 9.0 (4.0-10.5) K/mm3 RBC 5.32 (4.1-5.4) M/mm3 Hgb 15.9 (12.0-16.0) gm/dl Hct 50.8 H (35-47) % MCV 95.5 (78-100) fl MCH 29.9 (26-32) pg MCHC 31.3 L (32-36) g/dl RDW 13.0 (11.5-14.0) % Plt Count 130 L (150-450) K/mm3 MPV 12.9 H (7.5-11.0) fl Gran % 59.2 (36.0-66.0) % Eos # (Auto) 0.01 (0-0.5) Absolute Lymphs (auto) 2.85 (1.0-4.6) Absolute Monos (auto) 0.79 (0.0-1.3) Lymphocytes % 31.7 (24.0-44.0) % Monocytes % 8.8 (0.0-12.0) % Eosinophils % 0.1 (0.00-5.0) % Basophils % 0.2 (0.0-0.4) % Absolute Granulocytes 5.33 (1.4-6.9) Basophils # 0.02 (0-0.4) pO2/FiO2 Ratio 21.0 % VBG pH 7.33 (7.32-7.42) VBG pCO2 at Pat Temp 48 (42-55) mm/Hg VBG pO2 at Pat Temp 41 H (25-40) mm/Hg VBG HCO3 25.3 (22-28) meq/L VBG Base Excess -1.1 (-2.0-2.0) POC Potassium 4.1 (3.5-5.1) Sodium 142 (137-145) mmol/L Potassium 4.0 (3.5-5.1) mmol/L Chloride 101 (98-107) mmol/L Carbon Dioxide 30 (22-30) mmol/L Anion Gap 14.6 (5-15) MEQ/L BUN 16 (7-17) mg/dL Creatinine 0.60 (0.52-1.04) mg/dL Estimated GFR > 60.0 ML/MIN Glucose 610 H* (74-106) mg/dL Lactic Acid 8.6 H (0.4-2.0) Calcium 10.0 (8.4-10.2) mg/dL Magnesium (1.6-2.3) mg/dL Total Bilirubin (0.2-1.3) mg/dL AST (14-36) U/L ALT (0-35) U/L Alkaline Phosphatase (38-126) U/L Serum Total Protein (6.3-8.2) g/dL Albumin (3.5-5.0) g/dL Urine Color (YELLOW) Urine Appearance (CLEAR) Urine pH (5-6) Ur Specific [place] (1.005-1.025) Urine Protein (Negative) Urine Ketones (NEGATIVE) Urine Blood (0-5) Jossue/ul Urine Nitrite (NEGATIVE) Urine Bilirubin (NEGATIVE) Urine Urobilinogen (0-1) mg/dL Ur Leukocyte Esterase (NEGATIVE) Urine WBC (Auto) (0-5) /HPF Urine RBC (Auto) (0-2) /HPF U Epithel Cells (Auto) (FEW) /HPF Urine Culture Reflexed (NO) Urine Glucose (NEGATIVE) mg/dL - Progress Progress: improved - Departure Departure Disposition: In-patient Admission Clinical Impression: (Ruled Out): Hyperosmolar hyperglycemic coma due to diabetes mellitus without ketoacidosis Condition: Serious Critical Care Time: Yes Critical Care Time(excluding separately billable procedures): Critical 75-104 mins Referrals: ZEE MEDINA [Primary Care Provider] -
[2020-01-09] MEDS: Sodium Chloride 0.9% 1000 ML 1,000 ML IV SCH ×2 (01:00→01:14)
[2020-01-09] MEDS ORDERED: Sodium Chloride 0.9% 500 ML 500 ML IV ONE ×2 (01:12→02:27)
[2020-01-09 04:26] LABS: ALBUMIN 3.5 g/dL (3.5-5.0); ALKALINE PHOSPHATASE 85 U/L (38-126); ANION GAP 12.2 MEQ/L (5-15); BLOOD UREA NITROGEN 13 mg/dL (7-17); CHLORIDE 106 mmol/L (98-107); Calcium 8.6 mg/dL (8.4-10.2); Carbon Dioxide 26 mmol/L (22-30); Direct Bilirubin 0.2 mg/dL (0.0-0.4); Glucose 298 mg/dL (74-106); MAGNESIUM 1.6 mg/dL (1.6-2.3); PHOSPHOROUS 2.9 mg/dL (2.5-4.5); Potassium 4.4 mmol/L (3.5-5.1); SGOT/AST 30 U/L (14-36); SGPT/ALT 28 U/L (0-35); SODIUM 139 mmol/L (137-145); Total Protein 6.3 g/dL (6.3-8.2)
[2020-01-09 04:38] LABS: Hematocrit 40.6 % (35-47); Hemoglobin 13.9 gm/dl (12.0-16.0); Mean Cell Volume 88.6 fl (78-100); Mean Corpuscular Hemoglobin 30.3 pg (26-32); Mean Corpuscular Hgb Concent. 34.2 g/dl (32-36); Mean Platelet Volume 12.6 fl (7.5-11.0); Platelet Count 111 K/mm3 (150-450); Red Blood Count 4.58 M/mm3 (4.1-5.4); Red Cell Distribution Width 12.8 % (11.5-14.0); White Blood Count 8.8 K/mm3 (4.0-10.5)
[2020-01-09] MEDS ORDERED: Sodium Chloride 0.9% 500 ML 500 ML IV SCH (05:30)
[2020-01-09 07:45] VITALS: PULSE 81
[2020-01-09 07:55] VITALS: BP 108/63; O2SAT 94
[2020-01-09] MEDS ORDERED: Ventolin Hfa MDI IH PRN (09:00)
--- NOTE | 2020-01-09 09:00 | XRAY ---
Indication: DKA. Comparison: December 30, 2019. Portable chest again demonstrates normal heart and lungs. Bony thorax intact again with mild osteopenia, degenerative changes, and T7 kyphoplasty. No new/acute findings.
[2020-01-09] MEDS: HUMALOG SQ PRN ×3 (09:12→12:05)
[2020-01-09] MEDS ORDERED: VENTOLIN COMMON CANISTER IH PRN (09:18)
[2020-01-09] MEDS: NEURONTIN 300 MG PO SCH ×2 (09:29→12:05)
[2020-01-09] MEDS ORDERED: FLUZONE HIGH-DOSE 2019-20 SYR IM ONE (09:46)
[2020-01-09] MEDS ORDERED: Valium 5 MG PO SCH (10:00)
[2020-01-09] MEDS ORDERED: Protonix 40MG Tablet PO SCH (10:00)
[2020-01-09] MEDS ORDERED: Actos 30 MG PO SCH (10:00)
[2020-01-09] MEDS ORDERED: SYNTHROID 25 MCG PO SCH (10:00)
[2020-01-09] MEDS ORDERED: Zocor 10MG PO SCH (10:00)
[2020-01-09] MEDS ORDERED: PRISTIQ ER PO SCH (10:00)
[2020-01-09] MEDS ORDERED: NON-FORMULARY ITEM (Esomeprazole Magnesium [Nexium] 40 MG) PO SCH (10:00)
[2020-01-09] MEDS ORDERED: PLAVIX 75 MG Tablet PO SCH (10:00)
--- NOTE | 2020-01-09 11:18 | SSS ---
DISCHARGE DIAGNOSIS: DIABETIC HYPEROSMOLAR STATE. HISTORY: The patient is a 64 year-old white female who had been hospitalized recently for exacerbation of chronic obstructive pulmonary disease and had been on steroid medication. The patient reports that at home she began having problems with blurriness and real wobbly when she stood up and blurred vision. She therefore presented herself to the emergency room where she was found to be mildly orthostatic. On evaluation of her labs, the blood sugar was greater than 1,000. The patient has diabetes mellitus type 2. She has never had diabetic ketoacidosis. PAST MEDICAL HISTORY: The patient's medical history is otherwise significant for anxiety, depression, hyperlipidemia and hypothyroid. PAST SURGICAL HISTORY: Consistent with having had cholecystectomy, sections and hysterectomy. HOME MEDICATIONS: Currently include diazepam 5 mg t.i.d. PRN for anxiety, gabapentin 600 mg four times a day for diabetic neuropathy, Actos 30 mg a day, doxepin 100 mg at night, Nexium 40 mg a day, Synthroid 25 mcg daily, rosuvastatin 5 mg a day, Plavix 75 mg a day, Pristiq 100 mg a day. ALLERGIES: HYDROMORPHONE. CITALOPRAM. ESCITALOPRAM. MORPHINE. SULFA. CODEINE. PHYSICAL EXAMINATION: The patient's vital signs on admission showed her temperature to be 97.6F, pulse 117, respiratory rate 22 and blood pressure 166/79. O2 saturation 98%. HEENT: Normocephalic, atraumatic. Pupils equal round reactive to light. Extraocular movements intact. Oropharynx is dry. NECK: Supple without lymphadenopathy, thyromegaly or JVD. CHEST: Clear to auscultation. HEART: Regular rate and rhythm. ABDOMEN: Soft. No palpable masses. EXTREMITIES: Without cyanosis, clubbing or edema. NEUROLOGIC: The patient is alert and oriented x3. LAB DATA AND TESTS: Laboratory studies from the emergency room showed venous blood gas 7.33. White count was 9,000, hemoglobin 15.9, PLT count 130,000. Her sugar was 1,022. BUN 18, creatinine 0.69, sodium 133, potassium 3.9. Liver enzymes were minimally elevated. Anion gap 22.2. UA was normal other than greater than 500 glucose. Lactic acid initially was reported to me at 8 although I do not see it on the chart record and her repeat was down to 3.9 after 3 liters of fluids. The patient's EKG was essentially normal. No acute changes were noted. HOSPITAL COURSE: The patient was placed in the ICU on insulin drip. By the next morning, her sugars were down to 124 on Accu-Chek at bedside. Her electrolytes were normal. Her liver enzymes were normal. CBC was normal. The patient was allowed to have an 1800 calorie ADA diet. On discussion with the patient, she admitted to not having checked her sugars for the past several months. She was instructed to go home and check her sugars at least twice a day and we will check hemoglobin A1C and adjust her diabetic medications as appropriate. We will see her in follow up in the office in the next week hopefully with those sugars in hand as the patient has been quite reluctant to check her sugars at this point.
[2020-01-09] MEDS ORDERED: Glucophage 500 MG PO ONE (12:07)
[2020-01-09] MEDS ORDERED: DOXEPIN HCL PO SCH (22:00)
[2020-01-09] MEDS ORDERED: Ditropan XL 5 MG PO SCH (22:00)
[2020-01-10] MEDS ORDERED: FLUZONE HIGH-DOSE 2019-20 SYR IM ONE (10:00)
== END 2020-01-09 12:55 | disposition home or self-care (01) ==
LOC: ED 22:02 → INTOOBSV 01-09 01:09 → ICU 01-09 01:09
PROVIDERS: ADMIT Family Medicine; ATTEND Family Medicine
DX: E11.00 Type 2 diabetes mellitus with hyperosmolarity without nonketotic hyperglycemic-hyperosmolar coma (NKHHC) (principal); E78.5 Hyperlipidemia, unspecified; E03.9 Hypothyroidism, unspecified; Z79.01 Long term (current) use of anticoagulants; Z79.899 Other long term (current) drug therapy
CPT/HCPCS: 36000; 36415; 71045; 80048; 80053; 80076; 81001; 82805; 82947; 82962; 83036; 83605; 83735; 84100; 85025; 85027; 87040; 87086; 93005; 93041; 93268; 96360; 96361; 96372; 96374; 99285; 99291; 99292; G0378; 90662; J1815; J1817; J2405; A9270-GY

== ENCOUNTER 2020-03-06 07:43 | Day surgery (SDC) | payer MEDICARE ==
[2020-03-06] MEDS ORDERED: Depo-Medrol 40 MG/ML IM ONE (07:44)
[2020-03-06] MEDS ORDERED: Marcaine 0.5% SDV 10 ML IJ ONE (07:44)
[2020-03-06] MEDS ORDERED: Ketamine HCl 50 MG/ML ONE (09:39)
[2020-03-06] MEDS ORDERED: DIPRIVAN 200 MG/20 ML IV ONE (09:39)
[2020-03-06] MEDS ORDERED: Lactated Ringers 1,000 ML IV ONE (15:16)
--- NOTE | 2020-03-06 16:30 | XRAY ---
7 seconds fluoroscopy time in surgery for right intra-articular hip injection.
--- NOTE | 2020-03-09 18:45 | XRAY ---
Indication: Right hip injection. Intraoperative fluoroscopy was provided for 7 seconds. A single AP digital spot image demonstrates the needle tip to be located at the lateral margin of the base of the right humeral head within the joint space. Some contrast media has been injected into the joint. Correlate with intraoperative findings/report.
== END 2020-03-06 10:05 | disposition home or self-care (01) ==
LOC: SDC-PAIN 07:43
PROVIDERS: ATTEND Psychiatry & Neurology Pain Medicine
DX: M16.11 Unilateral primary osteoarthritis, right hip (principal); E11.9 Type 2 diabetes mellitus without complications; J44.9 Chronic obstructive pulmonary disease, unspecified; G47.30 Sleep apnea, unspecified; E03.9 Hypothyroidism, unspecified; Z86.73 Personal history of transient ischemic attack (TIA), and cerebral infarction without residual deficits; Z79.899 Other long term (current) drug therapy
CPT/HCPCS: 20610; 73501; 77002; 82962; J1030; J2704; Q9966

== ENCOUNTER 2020-04-10 08:32 | Day surgery (SDC) | payer MEDICARE ==
[2020-04-10] MEDS ORDERED: DIPRIVAN 200 MG/20 ML IV ONE (08:33)
[2020-04-10] MEDS ORDERED: Depo-Medrol 40 MG/ML IM ONE (08:33)
[2020-04-10] MEDS ORDERED: Ketamine HCl 50 MG/ML IV ONE (08:33)
[2020-04-10] MEDS ORDERED: Marcaine 0.5% SDV 10 ML IM ONE (08:33)
--- NOTE | 2020-04-10 11:00 | XRAY ---
Indication: Bilateral L3-S1 MBB. Intraoperative fluoroscopy was provided for 7 seconds. Single digital spot image submitted for interpretation demonstrates posterior needle tips projecting over the expected course of the left and right L3-S1 nerve roots. Correlate with intraoperative findings/report.
--- NOTE | 2020-04-10 11:52 | XRAY ---
7 seconds fluoroscopy time in surgery for bilateral L3-S1 MBB.
[2020-04-10] MEDS ORDERED: Lactated Ringers 1,000 ML IV ONE (14:53)
== END 2020-04-10 10:16 | disposition home or self-care (01) ==
LOC: SDC-PAIN 08:32
PROVIDERS: ATTEND Psychiatry & Neurology Pain Medicine
DX: M47.816 Spondylosis without myelopathy or radiculopathy, lumbar region (principal); J44.9 Chronic obstructive pulmonary disease, unspecified; E11.9 Type 2 diabetes mellitus without complications; E03.9 Hypothyroidism, unspecified; K21.9 Gastro-esophageal reflux disease without esophagitis; G47.30 Sleep apnea, unspecified; Z79.899 Other long term (current) drug therapy
CPT/HCPCS: 64493; 64494; 64495; 72020; 77002; 82962; J1030; J2704

== ENCOUNTER 2020-05-15 10:11 | Day surgery (SDC) | payer MEDICARE ==
[2020-05-15] MEDS ORDERED: Depo-Medrol 40 MG/ML IM ONE (10:12)
[2020-05-15] MEDS ORDERED: Xylocaine 1% Vial 30 ML PF IJ ONE (10:12)
[2020-05-15] MEDS ORDERED: BUPIVACAINE 0.5% VIAL IJ ONE (10:12)
[2020-05-15] MEDS ORDERED: DIPRIVAN 200 MG/20 ML IV ONE (11:05)
[2020-05-15] MEDS ORDERED: Ketamine HCl 50 MG/ML ONE (11:05)
--- NOTE | 2020-05-15 13:02 | XRAY ---
Indication: Right L3-S1 RFA. Intraoperative fluoroscopy was provided for 23 seconds. 3 digital spot images submitted for interpretation demonstrates posterior needle tips projecting over the expected right L3-S1 nerve roots. Correlate with intraoperative findings/report.
--- NOTE | 2020-05-15 13:04 | XRAY ---
23 seconds of fluoroscopy was used in surgery for a right L3-L4, L4-L5, and L5-S1 RFA.
[2020-05-15] MEDS ORDERED: Lactated Ringers 1,000 ML IV ONE (14:34)
== END 2020-05-15 11:50 | disposition home or self-care (01) ==
LOC: SDC-PAIN 10:11
PROVIDERS: ATTEND Psychiatry & Neurology Pain Medicine
DX: M47.816 Spondylosis without myelopathy or radiculopathy, lumbar region (principal); E11.9 Type 2 diabetes mellitus without complications; J44.9 Chronic obstructive pulmonary disease, unspecified; G47.30 Sleep apnea, unspecified; E03.9 Hypothyroidism, unspecified; K21.9 Gastro-esophageal reflux disease without esophagitis; F41.9 Anxiety disorder, unspecified; Z86.73 Personal history of transient ischemic attack (TIA), and cerebral infarction without residual deficits
CPT/HCPCS: 64635; 64636; 72100; 77002; 82962; J1030; J2001; J2704

== ENCOUNTER 2020-06-05 07:57 | Day surgery (SDC) | payer MEDICARE ==
[2020-06-05] MEDS ORDERED: Depo-Medrol 40 MG/ML IM ONE (07:58)
[2020-06-05] MEDS ORDERED: BUPIVACAINE 0.5% VIAL IJ ONE (07:58)
[2020-06-05] MEDS ORDERED: Ketamine HCl 50 MG/ML ONE (09:32)
[2020-06-05] MEDS ORDERED: DIPRIVAN 200 MG/20 ML IV ONE (09:32)
--- NOTE | 2020-06-05 11:05 | XRAY ---
Indication: Right SI joint injection. Intraoperative fluoroscopy was provided for 9 seconds. 2 digital spot images submitted for interpretation demonstrates posterior needle tip projecting over the inferior right SI joint. Correlate with intraoperative findings/report.
--- NOTE | 2020-06-05 12:32 | XRAY ---
9 seconds fluoroscopy time in surgery for right SI joint injection.
[2020-06-05] MEDS ORDERED: Lactated Ringers 1,000 ML IV ONE (14:24)
== END 2020-06-05 10:00 | disposition home or self-care (01) ==
LOC: SDC-PAIN 07:57
PROVIDERS: ATTEND Psychiatry & Neurology Pain Medicine
DX: M46.1 Sacroiliitis, not elsewhere classified (principal); E11.9 Type 2 diabetes mellitus without complications; J44.9 Chronic obstructive pulmonary disease, unspecified; E03.9 Hypothyroidism, unspecified; G47.30 Sleep apnea, unspecified; F41.8 Other specified anxiety disorders; Z79.899 Other long term (current) drug therapy; Z86.73 Personal history of transient ischemic attack (TIA), and cerebral infarction without residual deficits
CPT/HCPCS: 27096; 72020; 77002; 82962; J1030; J2704; G0260

== ENCOUNTER 2020-07-03 08:52 | Day surgery (SDC) | payer MEDICARE ==
[~2020-07-03 08:52] MED LIST: DIPRIVAN 200 MG/20 ML IV ONE; Ketamine HCl 50 MG/ML ONE
[2020-07-03] MEDS ORDERED: Depo-Medrol 40 MG/ML IM ONE (08:53)
[2020-07-03] MEDS ORDERED: BUPIVACAINE 0.5% VIAL IJ ONE (08:53)
[2020-07-03] MEDS ORDERED: Xylocaine 1% Vial 30 ML PF IJ ONE (08:53)
--- NOTE | 2020-07-03 13:27 | XRAY ---
Indication: Left L3-S1 RFA. Intraoperative fluoroscopy was provided for 32 seconds. 3 digital spot images submitted for interpretation demonstrates posterior needle tips projecting over the expected left L3-S1 nerve roots. Correlate with intraoperative findings/report.
--- NOTE | 2020-07-03 14:06 | XRAY ---
32 seconds of fluoroscopy was used in surgery for a left L3-L4, L4-L5, and L5-S1 RFA.
[2020-07-03] MEDS ORDERED: Lactated Ringers 1,000 ML IV ONE (15:49)
== END 2020-07-03 11:28 | disposition home or self-care (01) ==
LOC: SDC-PAIN 08:52
PROVIDERS: ATTEND Psychiatry & Neurology Pain Medicine
DX: M47.816 Spondylosis without myelopathy or radiculopathy, lumbar region (principal); E11.9 Type 2 diabetes mellitus without complications; J44.9 Chronic obstructive pulmonary disease, unspecified; E03.9 Hypothyroidism, unspecified; G47.30 Sleep apnea, unspecified; F41.9 Anxiety disorder, unspecified; K21.9 Gastro-esophageal reflux disease without esophagitis; Z79.899 Other long term (current) drug therapy
CPT/HCPCS: 64635; 64636; 72100; 77002; 82962; J1030; J2001; J2704

== ENCOUNTER 2020-07-17 08:09 | Day surgery (SDC) | payer MEDICARE ==
[2020-07-17] MEDS ORDERED: Lactated Ringers 1,000 ML IV ONE (08:10)
[2020-07-17] MEDS ORDERED: Depo-Medrol 40 MG/ML IM ONE (08:10)
[2020-07-17] MEDS ORDERED: BUPIVACAINE 0.5% VIAL IJ ONE (08:10)
[2020-07-17] MEDS ORDERED: Xylocaine 1% Vial 30 ML PF IJ ONE (08:10)
[2020-07-17] MEDS ORDERED: D50W 50 ml Abboject IV ONE (09:22)
--- NOTE | 2020-07-17 10:46 | XRAY ---
Indication: Left hip injection. Intraoperative fluoroscopy was provided for 7 seconds. Single digital spot image submitted for interpretation demonstrates needle tip just lateral to the left femur neck. Small amount of contrast injected for needle tip placement. Correlate with intraoperative findings/report.
--- NOTE | 2020-07-17 10:46 | XRAY ---
10 seconds fluoroscopy time in surgery for right intra-articular hip injection.
--- NOTE | 2020-07-17 10:46 | XRAY ---
Indication: Right hip injection. Intraoperative fluoroscopy was provided for 10 seconds. Single digital spot image submitted for interpretation demonstrates needle tip just lateral to the right femur neck. Small amount of contrast injected for needle tip placement. Correlate with intraoperative findings/report.
--- NOTE | 2020-07-17 10:56 | XRAY ---
7 seconds fluoroscopy time in surgery for left intra-articular hip injection.
== END 2020-07-17 10:27 | disposition home or self-care (01) ==
LOC: SDC-PAIN 08:09
PROVIDERS: ATTEND Psychiatry & Neurology Pain Medicine
DX: M16.0 Bilateral primary osteoarthritis of hip (principal); J44.9 Chronic obstructive pulmonary disease, unspecified; E11.9 Type 2 diabetes mellitus without complications; E03.9 Hypothyroidism, unspecified; G47.30 Sleep apnea, unspecified; K21.9 Gastro-esophageal reflux disease without esophagitis; F41.8 Other specified anxiety disorders; Z79.899 Other long term (current) drug therapy
CPT/HCPCS: 20610; 36415; 73501; 77002; 82947; 82962; J1030; J2001; J2704; Q9966

== ENCOUNTER 2020-07-22 05:52 | Day surgery (SDC) | payer MEDICARE ==
[~2020-07-22 05:52] MED LIST changes: -Ketamine HCl 50 MG/ML ONE; +Lactated Ringers 1,000 ML IV ONE
[2020-07-22] MEDS ORDERED: Lactated Ringers 1,000 ML IV SCH (06:30)
[2020-07-22] MEDS ORDERED: D50W 50ML Vial IV ONE (07:21)
[2020-07-22] MEDS ORDERED: D50W 50 ml Abboject IV ONE (07:22)
[2020-07-22] MEDS ORDERED: D50W 50 ml Abboject IV PRN (07:45)
[2020-07-22 09:26] VITALS: BP 145/83; PULSE 91; O2SAT 98
--- NOTE | 2020-07-22 15:40 | OP ---
SURGERY DATE/TIME: 07/22/2020 0755 PREOPERATIVE DIAGNOSIS: Screening exam. POSTOPERATIVE DIAGNOSIS: Small polyps in the sigmoid, transverse and descending colon. PROCEDURE: Colonoscopy with cold forceps biopsy. SURGEON: Dr. Camp. ANESTHESIA: MAC. Medications given by anesthesia department. HISTORY: The patient is a 65 year old white female presenting now for her first colonoscopy for screening purposes. She was appraised of the risks of the procedure including the risk of perforation, phlebitis, untoward reaction to medication, bleeding and missed lesions. The patient verbalized her understanding and desired to have the procedure performed. DESCRIPTION OF PROCEDURE: The patient was given the medications by the anesthesia department. She had continuous pulse oximetry, ECG monitoring, intermittent blood pressure monitoring and tidal CO2 monitoring during the examination. She was placed in the left lateral decubitus position. A digital rectal examination was performed and revealed normal anal sphincter tone and no masses. The flexible Olympus pediatric colonoscope was used to intubate the rectum. A view of the colon was developed sequentially to the cecum which was obscured by liquid stool. There were noted to be small polyps measuring approximately 0.75 cm in size, sessile, in the sigmoid descending and transverse colons. These were biopsied using cold biopsy technique with forceps. The patient had what was noted to be liquid stool pretty much throughout the colon obscuring at least 20% of the colon. The scope was removed from the patient who tolerated the procedure well and was sent back to OP recovery in good condition.
== END 2020-07-22 09:36 | disposition home or self-care (01) ==
LOC: SDC 05:52
PROVIDERS: ATTEND Family Medicine
DX: Z12.11 Encounter for screening for malignant neoplasm of colon (principal); D12.5 Benign neoplasm of sigmoid colon; D12.3 Benign neoplasm of transverse colon; E11.9 Type 2 diabetes mellitus without complications; E03.9 Hypothyroidism, unspecified; Z79.899 Other long term (current) drug therapy
CPT/HCPCS: 82962; 88305; J2704

== ENCOUNTER 2020-09-03 08:46 | Day surgery (SDC) | payer MEDICARE ==
[~2020-09-03 08:46] MED LIST changes: +Ak-Dilate OPHTHALMIC*** 1.065 ML, Cyclogyl 1% OPHTH SOL 5 ML 1.065 ML, GATIFLOXACIN 0.5... OP ONE; +BETADINE 5% OPHTHALMIC 30 ML OP ONE; -DIPRIVAN 200 MG/20 ML IV ONE; -Lactated Ringers 1,000 ML IV ONE; +Lactated Ringers 1,000 ML IV SCH; +NON-FORMULARY ITEM IJ ONE; +TETRACAINE 0.5% STERI-UNIT SOL OP ONE; +cefUROXime sodium 0.005 GM in Sodium Chloride Flush 30 ML*** 0.5 ML IJ SCH
[2020-09-03] MEDS ORDERED: Lactated Ringers 1,000 ML IV ONE (08:51)
[2020-09-03] MEDS ORDERED: ACETAZOLAMIDE 250 MG TABLET PO ONE (09:00)
[2020-09-03] MEDS ORDERED: Zofran 4 MG/2 ML VIAL IV PRN (09:00)
[2020-09-03 09:37] LABS: INR 1.14 (0.8-3.0); PROTIME 12.9 SECONDS (9.95-12.35)
[2020-09-03] MEDS: TETRACAINE 0.5% STERI-UNIT SOL OP ONE ×2 (09:37→10:19)
[2020-09-03] MEDS ORDERED: DIPRIVAN 200 MG/20 ML IV ONE ×2 (10:41→11:01)
[2020-09-03] MEDS ORDERED: Epinephrine Preservative Free 1 MG/ML INTRAOP ONE (11:00)
[2020-09-03] MEDS ORDERED: LIDOCAINE HCL 1% 50 MG/5 ML VL PF IJ ONE (11:00)
[2020-09-03 11:42] VITALS: O2SAT 96
[2020-09-03 12:00] VITALS: BP 148/75; PULSE 88
--- NOTE | 2020-09-04 11:44 | OP ---
DATE/TIME OF OPERATION: 09/03/2020 1141 TIME DICTATED: 1321 PREOPERATIVE DIAGNOSIS: Senile cataract of left eye. POSTOPERATIVE DIAGNOSIS: Senile cataract of left eye. SURGEON: Kenneth Mahoney MD AUDIO OPERATOR: None. OPERATION: Cataract extraction of left eye with an intraocular lens implant. STANDARD COMPLEX__X___ ANESTHESIA: MAC. ___X__ Monitored anesthesia care in combination with topical and intra-cameral anesthesia (because of the established specific risk of reflux, arrhythmias, or an anxiety attack associated with ocular manipulation as well as difficulty of the vegetable packer to manage such potentially catastrophic events while simultaneously attempting to complete the surgical procedure, it was deemed necessary for the patient's safety to have an anesthesiologist or a nurse guest relations associate present during the procedure whenever possible. The anesthesiologist or the nurse guest relations associate was utilized to monitor and regulate the intravenous sedation of the patient, so the patient was cooperative, relaxed, and comfortable). Topical anesthesia using Tetracaine eye drops together with intra cameral anesthesia using Lidocaine 1% MPF. The nurse was utilized to monitor the patient. ANESTHESIA PROVIDER: Justyn Agarwal CRNA. COMPLICATIONS: None. BLOOD LOSS: None. INDICATIONS: The patient is undergoing cataract surgery in the hopes of eliminating the visual complaints and difficulty. PROCEDURE: After arriving at the facility's outpatient surgery area, an IV was started; the patient was given 5 mg of p.o. Versed. (If an anesthesia provider was not monitoring the patient) The patient was then given topical anesthetic Tetracaine eye drops. A cotton pellet was soaked into a solution of a combination of Zymaxid 0.5%, Reji-Synephrine 2.5% and Ocufen (other drops might have been substituted referenced in the patient's record). The pellet was inserted by the RN into the lower conjunctival cul-de-sac with a sterile forceps and left for 20 minutes. The pellet was then removed by the RN with a sterile forceps before taking the patient to the operating room. The preoperative area nurse identified the patient and marked the correct eye to be operated on. I identified the correct eye to be operated on and marked it appropriately in the outpatient surgery area. The patient was then taken into the operating room. Tetracaine eye drops were installed again in the correct eye. The eyelids and the lashes and the lid margins were scrubbed with Betadine solution. One drop of the diluted Betadine solution was placed in the conjunctival cul-de-sac for 45 seconds and then was irrigated. A drop of Tetracaine Gel was placed in the conjunctival cul-de-sac. The patient's forehead was taped to secure it during the procedure. The patient was monitored. The patient was then draped in the usual way for this procedure. An eye speculum was used to separate the eyelids. The eye was then fixated and a temporal 2.5 mm incision was made in the clear cornea temporally at the limbus. Through the incision, 0.25 cc of 1% non-preserved lidocaine was injected into the anterior chamber for intracameral anesthesia. The anterior chamber was then filled with viscoelastic. ___X__The pupil was small. I felt that it would be safer to mechanically dilate the pupil. A Malyugin ring was used at this point which dilated the pupil. That was removed at the end of the procedure prior to aspiration of the viscoelastic from the anterior chamber and posterior to the intraocular lens implant. The cataract had a great amount of cortical changes. That rendered seeing the anterior capsule difficult for a safe performance of an anterior capsulotomy. I injected an air bubble into the anterior chamber. I then injected 1 ML of vision blue solution into the anterior chamber. The vision blue solution was irrigated from the anterior chamber after 30 seconds. The anterior capsule was stained which facilitated performing the anterior capsulotomy safely. After that was completed, a cystotome was introduced into the anterior chamber and a round anterior capsulotomy was performed. The capsule was removed by a forceps. Hydrodissection was next carried utilizing a 25-gauge cannula and balanced salt solution to delineate the cortical material from the capsule and the nucleus from the cortical material. The nucleus was rotated freely into the capsular bag with no difficulty. The phaco tip of the [employer] Phacoemulsifier was introduced into the anterior chamber and two grooves were made into the nucleus 90 degrees apart. Using two spatulas resulted into the nucleus being fractured into four quadrants. The phaco tip was then used to remove each quadrant of the nucleus. Viscoelastic was used during this process to protect the corneal endothelium. Once the entire nucleus was removed, the phaco tip then was removed and the irrigation tip was introduced into the eye and the cortex was removed. The posterior capsule was polished. It was noticed that there was a tear into the posterior capsule with few vitreous strands into the pupil plan. An anterior vitrectomy was performed. A 26.00 diopter, [id number], posterior chamber lens implant, was inspected and found to be grossly normal. The implant was inserted into the implant injector cartridge; Viscoelastic again was introduced into the anterior chamber, which filled the capsular bag. The implant injector's cartridge tip was placed at the limbal wound and the posterior chamber implant was released into the capsular bag and rotated appropriately. The implant was found to be into the capsular bag and it was centered. __X__ 0.2 ml of Tri-Moxi was introduced via 27 gauge cannula into the vitreous cavity through the ciliary processes. Viscoelastic was aspirated from the anterior chamber and posterior to the intraocular lens implant from the capsular bag using the irrigating tip. The anterior chamber was irrigated and filled with 5 cc antibiotic solution (500 cc of BSS plus 2 ml of Fortaz 100 mg/ml) ( if patient was not allergic to the medication). The lips of the corneal incision were hydrated using BSS solution. The anterior chamber was checked and found to be water tight. One drop each of antibiotic, steroid and NSAID drops (refer to chart for drops used) were placed in the conjunctival cul-de-sac of the operated eye. Patient tolerated the procedure quite well and left the operating room in satisfactory condition. DISCHARGE SUMMARY: The patient was released in stable condition. The patient and those with the patient were given an instruction sheet as of how to care for the eye after surgery as well as counseling on any abnormal laboratory studies by the postoperative RN. The patient was also given an appointment card for follow-up in the office and is to call immediately for any difficulties including but not limited to pain in the eye, decreased vision, discharge from the eye, headache and or fever. DISCHARGE DIAGNOSIS: Pseudophakia of left eye.
== END 2020-09-03 12:00 | disposition home or self-care (01) ==
LOC: SDC 08:46
PROVIDERS: ATTEND Ophthalmology
DX: H25.812 Combined forms of age-related cataract, left eye (principal); E11.9 Type 2 diabetes mellitus without complications; E78.00 Pure hypercholesterolemia, unspecified; I51.9 Heart disease, unspecified; E07.9 Disorder of thyroid, unspecified; K21.9 Gastro-esophageal reflux disease without esophagitis; Z79.01 Long term (current) use of anticoagulants; Z79.899 Other long term (current) drug therapy; I10 Essential (primary) hypertension
CPT/HCPCS: 36415; 66982; 82947; 85610; C1780; J0171; J2001; J2704; A9270-GY

== ENCOUNTER 2020-10-01 07:02 | Day surgery (SDC) | payer MEDICARE ==
[~2020-10-01 07:02] MED LIST changes: +Lactated Ringers 1,000 ML IV ONE
[2020-10-01 07:41] LABS: INR 1.18 (0.8-3.0); PROTIME 13.4 SECONDS (9.95-12.35)
[2020-10-01] MEDS ORDERED: Xopenex 1.25 MG/0.5 ML UD NEBULE IH ONE ×2 (07:59→08:03)
[2020-10-01] MEDS ORDERED: Sodium Chloride 3 ML UD NEBULES IH ONE (07:59)
[2020-10-01] MEDS ORDERED: Sodium Chloride 3 ML UD NEBULES IH SCH (08:15)
[2020-10-01] MEDS ORDERED: Zofran 4 MG/2 ML VIAL IV PRN (09:00)
[2020-10-01] MEDS ORDERED: DIPRIVAN 200 MG/20 ML IV ONE ×2 (09:42→10:01)
[2020-10-01] MEDS ORDERED: Epinephrine Preservative Free 1 MG/ML INTRAOP ONE (10:00)
[2020-10-01] MEDS ORDERED: LIDOCAINE HCL 1% 50 MG/5 ML VL PF IJ ONE (10:00)
[2020-10-01] MEDS ORDERED: Lactated Ringers 1,000 ML IV ONE (10:00)
[2020-10-01] MEDS ORDERED: PHENYLEPHRINE HCL ONE (10:04)
[2020-10-01 10:47] VITALS: O2SAT 95
[2020-10-01 11:18] VITALS: BP 155/74; PULSE 100
--- NOTE | 2020-10-01 12:16 | OP ---
DATE/TIME OF OPERATION: 10/01/2020 TIME DICTATED: PREOPERATIVE DIAGNOSIS: Senile cataract of right eye. POSTOPERATIVE DIAGNOSIS: Senile cataract of right eye. SURGEON: Kenneth Mahoney MD SCALE ASSEMBLY SET UP WORKER: None. OPERATION: Cataract extraction of right eye with an intraocular lens implant. STANDARD COMPLEX ANESTHESIA: MAC. Monitored anesthesia care in combination with topical and intra-cameral anesthesia (because of the established specific risk of reflux, arrhythmias, or an anxiety attack associated with ocular manipulation as well as difficulty of the roller shop supervisor to manage such potentially catastrophic events while simultaneously attempting to complete the surgical procedure, it was deemed necessary for the patient's safety to have an anesthesiologist or a nurse fire tender present during the procedure whenever possible. The anesthesiologist or the nurse fire tender was utilized to monitor and regulate the intravenous sedation of the patient, so the patient was cooperative, relaxed, and comfortable). Topical anesthesia using Tetracaine eye drops together with intra cameral anesthesia using Lidocaine 1% MPF. The nurse was utilized to monitor the patient. ANESTHESIA PROVIDER: Justyn Agarwal CRNA. COMPLICATIONS: None. BLOOD LOSS: None. INDICATIONS: The patient is undergoing cataract surgery in the hopes of eliminating the visual complaints and difficulty. PROCEDURE: After arriving at the facility's outpatient surgery area, an IV was started; the patient was given 5 mg of p.o. Versed. (If an anesthesia provider was not monitoring the patient) The patient was then given topical anesthetic Tetracaine eye drops. A cotton pellet was soaked into a solution of a combination of Zymaxid 0.5%, Reji-Synephrine 2.5% and Ocufen (other drops might have been substituted referenced in the patient's record). The pellet was inserted by the RN into the lower conjunctival cul-de-sac with a sterile forceps and left for 20 minutes. The pellet was then removed by the RN with a sterile forceps before taking the patient to the operating room. The preoperative area nurse identified the patient and marked the correct eye to be operated on. I identified the correct eye to be operated on and marked it appropriately in the outpatient surgery area. The patient was then taken into the operating room. Tetracaine eye drops were installed again in the correct eye. The eyelids and the lashes and the lid margins were scrubbed with Betadine solution. One drop of the diluted Betadine solution was placed in the conjunctival cul-de-sac for 45 seconds and then was irrigated. A drop of Tetracaine Gel was placed in the conjunctival cul-de-sac. The patient's forehead was taped to secure it during the procedure. The patient was monitored. The patient was then draped in the usual way for this procedure. An eye speculum was used to separate the eyelids. The eye was then fixated and a temporal 2.5 mm incision was made in the clear cornea temporally at the limbus. Through the incision, 0.25 cc of 1% non-preserved lidocaine was injected into the anterior chamber for intracameral anesthesia. The anterior chamber was then filled with viscoelastic. The pupil was small. I felt that it would be safer to mechanically dilate the pupil. A Malyugin ring was used at this point which dilated the pupil. That was removed at the end of the procedure prior to aspiration of the viscoelastic from the anterior chamber and posterior to the intraocular lens implant. The cataract had a great amount of cortical changes. That rendered seeing the anterior capsule difficult for a safe performance of an anterior capsulotomy. I injected an air bubble into the anterior chamber. I then injected 1 ML of vision blue solution into the anterior chamber. The vision blue solution was irrigated from the anterior chamber after 30 seconds. The anterior capsule was stained which facilitated performing the anterior capsulotomy safely. After that was completed, a cystotome was introduced into the anterior chamber and a round anterior capsulotomy was performed. The capsule was removed by a forceps. Hydrodissection was next carried utilizing a 25-gauge cannula and balanced salt solution to delineate the cortical material from the capsule and the nucleus from the cortical material. The nucleus was rotated freely into the capsular bag with no difficulty. The phaco tip of the [employer] Phacoemulsifier was introduced into the anterior chamber and two grooves were made into the nucleus 90 degrees apart. Using two spatulas resulted into the nucleus being fractured into four quadrants. The phaco tip was then used to remove each quadrant of the nucleus. Viscoelastic was used during this process to protect the corneal endothelium. Once the entire nucleus was removed, the phaco tip then was removed and the irrigation tip was introduced into the eye and the cortex was removed. The posterior capsule was polished. It was noticed that there was a tear into the posterior capsule with few vitreous strands into the pupil plan. An anterior vitrectomy was performed. A diopter, [id number], posterior chamber lens implant, was inspected and found to be grossly normal. The implant was inserted into the implant injector cartridge; Viscoelastic again was introduced into the anterior chamber, which filled the capsular bag. The implant injector's cartridge tip was placed at the limbal wound and the posterior chamber implant was released into the capsular bag and rotated appropriately. The implant was found to be into the capsular bag and it was centered. 0.2 ml of Tri-Moxi was introduced via 27 gauge cannula into the vitreous cavity through the ciliary processes. Viscoelastic was aspirated from the anterior chamber and posterior to the intraocular lens implant from the capsular bag using the irrigating tip. The anterior chamber was irrigated and filled with 5 cc antibiotic solution (500 cc of BSS plus 2 ml of Fortaz 100 mg/ml) ( if patient was not allergic to the medication). The lips of the corneal incision were hydrated using BSS solution. The anterior chamber was checked and found to be water tight. One drop each of antibiotic, steroid and NSAID drops (refer to chart for drops used) were placed in the conjunctival cul-de-sac of the operated eye. Patient tolerated the procedure quite well and left the operating room in satisfactory condition. DISCHARGE SUMMARY: The patient was released in stable condition. The patient and those with the patient were given an instruction sheet as of how to care for the eye after surgery as well as counseling on any abnormal laboratory studies by the postoperative RN. The patient was also given an appointment card for follow-up in the office and is to call immediately for any difficulties including but not limited to pain in the eye, decreased vision, discharge from the eye, headache and or fever. DISCHARGE DIAGNOSIS: Pseudophakia of right eye.
== END 2020-10-01 11:10 | disposition home or self-care (01) ==
LOC: SDC 07:02
PROVIDERS: ATTEND Ophthalmology
DX: H25.811 Combined forms of age-related cataract, right eye (principal); E11.9 Type 2 diabetes mellitus without complications; E07.9 Disorder of thyroid, unspecified; I51.9 Heart disease, unspecified; E78.00 Pure hypercholesterolemia, unspecified; F41.9 Anxiety disorder, unspecified; Z79.899 Other long term (current) drug therapy
CPT/HCPCS: 36415; 66982; 82947; 85610; 94640; C1780; J0171; J2001; J2370; J2704; A9270-GY

== ENCOUNTER 2021-02-26 10:52 | Day surgery (SDC) | payer MEDICARE ==
[2021-02-26] MEDS ORDERED: BUPIVACAINE 0.5% VIAL IJ ONE (10:53)
[2021-02-26] MEDS ORDERED: Depo-Medrol 40 MG/ML IM ONE (10:53)
[2021-02-26] MEDS ORDERED: Lactated Ringers 1,000 ML IV ONE (16:26)
--- NOTE | 2021-02-26 17:39 | XRAY ---
18 seconds fluoroscopy time in surgery for intra-articular injection of the right hip.
--- NOTE | 2021-02-26 17:39 | XRAY ---
10 seconds fluoroscopy time in surgery for right SI joint injection.
== END 2021-02-26 12:55 | disposition home or self-care (01) ==
LOC: SDC-PAIN 10:52
PROVIDERS: ATTEND Psychiatry & Neurology Pain Medicine
DX: M46.1 Sacroiliitis, not elsewhere classified (principal); E11.9 Type 2 diabetes mellitus without complications; J44.9 Chronic obstructive pulmonary disease, unspecified; E03.9 Hypothyroidism, unspecified; K21.9 Gastro-esophageal reflux disease without esophagitis; G47.30 Sleep apnea, unspecified; Z79.899 Other long term (current) drug therapy; M16.11 Unilateral primary osteoarthritis, right hip
CPT/HCPCS: 20610; 27096; 72020; 73501; 77002; 82947; G0260; J1030; Q9966

== ENCOUNTER 2021-05-31 00:32 | Emergency (ER) | payer MEDICARE ==
--- NOTE | 2021-05-31 01:13 | ERPHSYRPT ---
- History of Present Illness Source: patient Exam Limitations: no limitations Occurred: just prior to arrival Reason for Fall: tripped Injuries/Pain Location: pelvis (Right hip) Loss of Consciousness: no loss of consciousness Quality: aching Severity of Pain-Max: moderate Severity of Pain-Current: moderate Modifying Factors: Improves With: movement Associated Symptoms (Fall): trouble walking, other (Right hip pain) Hx Tetanus, Diphtheria Vaccination/Date Given: Yes Hx Influenza Vaccination/Date Given: No Hx Pneumococcal Vaccination/Date Given: No - History of Present Illness Time Seen by Provider: 05/31/21 01:13 Physician History: This is a 66-year-old female who is diabetic and has chronic pain issues including chronic low back pain. She also has chronic hip pain. Dr. Medina is her primary care physician. Patient is diabetic and hypothyroid. Patient did not hit her head. Patient presents to the emergency department after a fall tripping on the step and falling 3 steps down. She fell on her right hip. She did not injure her head. She has no complains of neck pain or back pain. (BLAYNE MUJICA) Allergies/Adverse Reactions: hydromorphone Allergy (Severe, Verified 05/31/21 01:21) Difficulty Breathing citalopram hydrobromide [From Celexa] Allergy (Mild, Verified 05/31/21 01:21) Hives escitalopram oxalate [From Lexapro] Allergy (Mild, Verified 05/31/21 01:21) Hives morphine Allergy (Mild, Verified 05/31/21 01:21) itching N&V Allergy to IV only Sulfa (Sulfonamide Antibiotics) [Sulfa(Sulfonamide Antibiotics)] Allergy (Mild, Verified 05/31/21 01:21) Hives codeine [Codeine] Allergy (Unknown, Verified 05/31/21 01:21) hallucinations Home Medications: Gabapentin [Neurontin] 600 mg PO QID 02/21/18 [History] Pioglitazone 30 mg [Actos 30 MG] 30 mg PO DAILY 11/30/18 [History] Doxepin HCl 100 mg PO HS 03/10/19 [History] Esomeprazole Magnesium [Nexium] 40 mg PO DAILY 03/10/19 [History] Levothyroxine Sodium 25 Mcg [Synthroid 25 Mcg] 25 mcg PO DAILY 03/10/19 [History] Rosuvastatin Calcium 5 mg PO QAM 03/10/19 [History] Clopidogrel Bisulfate [Plavix] 75 mg PO DAILY 12/30/19 [History] Desvenlafaxine Succinate [Pristiq] 100 mg PO DAILY 12/30/19 [History] Diazepam 5 mg PO TID 01/08/20 [History] Albuterol Sulfate [Proair Hfa] 8.5 gm IH Q12H PRN PRN 01/09/20 [History] Oxybutynin Chloride Xl 5 mg [Ditropan XL 5 MG] 5 mg PO QHS 01/09/20 [History] Glyburide 5 mg [Micronase 5 MG] 5 mg PO BID 07/05/20 [History] Metformin HCl 500 mg [Glucophage 500 MG] 1,000 mg PO BIDWM 07/05/20 [History] Travel Risk - International Travel Have you traveled outside of the country in past 3 weeks: No - Coronavirus Screening Are you exhibiting any of the following symptoms?: No Close contact with a COVID-19 positive Pt in past 14-21 Days: No - Review of Systems Constitutional: No Symptoms Eyes: No Symptoms Ears, Nose, & Throat: No Symptoms Respiratory: No Symptoms, Stridor Abdominal/Gastrointestinal: No Symptoms Genitourinary Symptoms: No Symptoms Musculoskeletal: Fall, Injury (Right hip) Skin: No Symptoms Neurological: No Symptoms Psychological: No Symptoms Endocrine: No Symptoms Hematologic/Lymphatic: No Symptoms Immunological/Allergic: No Symptoms All Other Systems: Reviewed and Negative - Past Medical History Pertinent Past Medical History: Yes Neurological History: Peripheral Neuropathy, TIA ENT History: Cataracts Cardiac History: Deep Vein Thrombosis, High Cholesterol Respiratory History: Asthma, COPD, Emphysema Endocrine Medical History: Diabetes Type II, Hypothyroidism Musculoskeletal History: No Pertinent History GI Medical History: GERD History: Other Psycho-Social History: Anxiety, Depression Female Reproductive Disorders: No Pertinent History Other Medical History: CHRONIC LBP, CHRONIC SINUSITIS, DEPRESSION, ANXIETY. bladder urgency - Past Surgical History Past Surgical History: Yes Neuro Surgical History: No Pertinent History Cardiac: No Pertinent History Respiratory: No Pertinent History Gastrointestinal: Appendectomy, Cholecystectomy Genitourinary: No Pertinent History Musculoskeletal: No Pertinent History Female Surgical History: Section, Hysterectomy Other Surgical History: c section x3 - Social History Smoking Status: Never smoker How long have you smoked: 40 yrs Exposure to second hand smoke: No Alcohol Use: None Drug Use: none Patient Lives Alone: No Significant Family History: diabetes, hypertension - [place] Coma Score Best Eye Response ([place]): (4) open spontaneously Best Verbal Response ([place]): (5) oriented Best Motor Response ([place]): (6) obeys commands [place] Total: 15 - Physical Exam General Appearance: no apparent distress, alert, anxiety Head Injury: no evidence of injury Eye Exam: PERRL/EOMI, eyes nml inspection ENT Exam: airway nml, nml ext.inspection Neck Exam: supple, trachea midline, full range of motion, normal alignment, normal inspection Respiratory/Chest Exam: normal breath sounds, No chest tenderness, No respiratory distress, No ecchymosis, No crepitus Cardiovascular Exam: normal heart sounds, regular rate/rhythm Gastrointestinal Exam: soft, normal bowel sounds, No tenderness Rectal Exam: not done Back Exam: normal inspection, normal range of motion, No CVA tenderness, No vertebral tenderness Extremity Exam: capillary refill <3 sec, pelvis stable, tenderness (Right hip), No deformities Neurologic Exam: alert, oriented x 3, cooperative, animal eviscerator II-XII nml as tested, normal mood/affect, sensation nml Skin Exam: normal color, warm, dry SpO2 Interpretation: normal O2 Delivery: Room Air - Nursing Vital Signs Nursing Vital Signs: Initial Vital Signs Temperature 97.8 F 05/31/21 01:22 Pulse Rate 100 H 05/31/21 01:22 Respiratory Rate 22 05/31/21 01:22 Blood Pressure 172/90 05/31/21 01:22 O2 Sat by Pulse Oximetry 93 L 05/31/21 01:22 Pain Scale Pain Intensity 5 - Course Nursing assessment & vital signs reviewed: Yes Ordered Tests: Active Orders 24 hr Category Date Time Status Oxygen-ED Only Nasal Cannula 3 lpm Care 05/31/21 08:14 Active HIP UNI (2V) INCL PEL IF DONE Stat Exams 05/31/21 01:28 Completed CBC W DIFF Stat Lab 05/31/21 06:14 Completed CMP Stat Lab 05/31/21 06:14 Completed PT INR [PROTIME WITH INR] Stat Lab 05/31/21 06:30 Completed Medication Summary Generic Name Dose Route Start Last Admin Trade Name Freq PRN Reason Stop Dose Admin Sodium Chloride 1,000 mls @ 100 mls/hr 05/31/21 08:30 05/31/21 08:30 Sodium Chloride 0.9% 1000 Ml IV 06/30/21 08:29 100 mls/hr .Q10H KRISTYN Administration Discontinued Medications Generic Name Dose Route Start Last Admin Trade Name Judy PRN Reason Stop Dose Admin Meperidine HCl 25 mg 05/31/21 03:46 05/31/21 03:53 Demerol 25mg Syringe IM 05/31/21 03:47 25 mg STAT ONE Administration Meperidine HCl Confirm 05/31/21 03:51 Demerol 25mg Syringe Administered 05/31/21 03:52 Dose 25 mg .ROUTE .STK-MED ONE Meperidine HCl Confirm 05/31/21 08:28 Demerol 25mg Syringe Administered 05/31/21 08:29 Dose 25 mg .ROUTE .STK-MED ONE Ondansetron HCl 4 mg 05/31/21 03:46 05/31/21 03:52 Zofran Odt 4 Mg PO 05/31/21 03:47 4 mg STAT ONE Administration Ondansetron HCl Confirm 05/31/21 03:51 Zofran Odt 4 Mg Administered 05/31/21 03:52 Dose 4 mg .ROUTE .STK-MED ONE Lab/Rad Data: Laboratory Result Diagrams 05/31/21 06:14 05/31/21 06:14 Laboratory Results 05/31/21 05/31/21 05/31/21 Range/Units 06:30 06:14 06:14 WBC 14.7 H (4.0-10.5) K/mm3 RBC 4.04 L (4.1-5.4) M/mm3 Hgb 11.9 L (12.0-16.0) gm/dl Hct 38.0 (35-47) % MCV 94.1 (78-100) fl MCH 29.5 (26-32) pg MCHC 31.3 L (32-36) g/dl RDW 13.7 (11.5-14.0) % Plt Count 156 (150-450) K/mm3 MPV 12.0 H (7.5-11.0) fl Gran % 82.8 H (36.0-66.0) % Eos # (Auto) 0.01 (0-0.5) Absolute Lymphs (auto) 1.56 (1.0-4.6) Absolute Monos (auto) 0.94 (0.0-1.3) Lymphocytes % 10.6 L (24.0-44.0) % Monocytes % 6.4 (0.0-12.0) % Eosinophils % 0.1 (0.00-5.0) % Basophils % 0.1 (0.0-0.4) % Absolute Granulocytes 12.22 H (1.4-6.9) Basophils # 0.01 (0-0.4) PT 12.9 H (9.4-12.5) SECONDS INR 1.09 (0.8-3.0) Sodium 139 (137-145) mmol/L Potassium 3.9 (3.5-5.1) mmol/L Chloride 100 (98-107) mmol/L Carbon Dioxide 30 (22-30) mmol/L Anion Gap 11.6 (5-15) MEQ/L BUN 18 H (7-17) mg/dL Creatinine 0.52 (0.52-1.04) mg/dL Estimated GFR > 60.0 ML/MIN Glucose 226 H (74-106) mg/dL Calcium 9.4 (8.4-10.2) mg/dL Total Bilirubin 0.40 (0.2-1.3) mg/dL AST 28 (14-36) U/L ALT 21 (0-35) U/L Alkaline Phosphatase 59 (38-126) U/L Serum Total Protein 7.2 (6.3-8.2) g/dL Albumin 4.2 (3.5-5.0) g/dL - Progress Progress: improved, pain not gone completely Counseled pt/family regarding: lab results, diagnosis, need for follow-up, rad results - Progress Progress Note: 05/31/21 06:42 X-ray right hip shows a slightly angulated right intertrochanteric right hip fracture 05/31/21 06:42 This patient is signed out to Dr. French at shift change. He will make the final disposition. (BLAYNE MUJICA) 05/31/21 08:41 66 years old female is checked out to me at shift change from Dr. Mujica with pending transfer to [place] for intertrochanteric fracture right hip with some displacement. Patient has intact distal neurovascular on my evaluation, still complaining of pain and is given another dose of Demerol. Discussed with Dr. Alberto from [place], reviewed history, imaging findings, agreed with transfer. Plan discussed with patient who understand and agrees with it as currently [facility] is not accepting any transfers. (NIDIA FRENCH) - Departure Departure Disposition: Transfer Critical Care Time: No - Departure Clinical Impression: Closed right hip fracture Qualifiers: Encounter type: initial encounter Qualified Code(s): S72.001A - Fracture of unspecified part of neck of right femur, initial encounter for closed fracture Fall Qualifiers: Encounter type: initial encounter Qualified Code(s): W19.XXXA - Unspecified fall, initial encounter Condition: Stable Referrals: ZEE MEDINA [Primary Care Provider] -
[2021-05-31] MEDS ORDERED: ZOFRAN ODT 4 MG PO ONE (03:46)
[2021-05-31] MEDS ORDERED: DEMEROL 25MG SYRINGE IM ONE (03:46)
[2021-05-31] MEDS ORDERED: DEMEROL 25MG SYRINGE ONE ×3 (03:51→09:20)
[2021-05-31] MEDS ORDERED: ZOFRAN ODT 4 MG ONE (03:51)
--- NOTE | 2021-05-31 06:12 | XRAY ---
Indication: Pain following fall. Comparison: None AP pelvis and 2 view right hip demonstrates mildly displaced/angulated right intertrochanteric fracture. Elsewhere osteopenia, mild bilateral hip degenerative arthropathy, mild bilateral lumbosacral junction degenerative facet hypertrophy, and mild scattered vascular calcifications. No other bony, articular, or soft tissue abnormalities.
[2021-05-31 06:15] LABS: Absolute Neutrophil Ct (ANC) 12.22 (1.4-6.9); BASOPHIL % 0.1 % (0.0-0.4); Basophil (Absolute #) 0.01 (0-0.4); Eosinophil % 0.1 % (0.00-5.0); Eosinophil (Absolute #) 0.01 (0-0.5); Hemoglobin 11.9 gm/dl (12.0-16.0); Lymphocyte (Absolute #) 1.56 (1.0-4.6); Lymphocytes % 10.6 % (24.0-44.0); Mean Cell Volume 94.1 fl (78-100); Mean Corpuscular Hemoglobin 29.5 pg (26-32); Mean Corpuscular Hgb Concent. 31.3 g/dl (32-36); Monocyte (Absolute #) 0.94 (0.0-1.3); Monocytes % 6.4 % (0.0-12.0); Neutrophil % 82.8 % (36.0-66.0); Platelet Count 156 K/mm3 (150-450); Red Blood Count 4.04 M/mm3 (4.1-5.4); Red Cell Distribution Width 13.7 % (11.5-14.0); White Blood Count 14.7 K/mm3 (4.0-10.5)
[2021-05-31 06:29] LABS: ALBUMIN 4.2 g/dL (3.5-5.0); ALKALINE PHOSPHATASE 59 U/L (38-126); ANION GAP 11.6 MEQ/L (5-15); BLOOD UREA NITROGEN 18 mg/dL (7-17); CHLORIDE 100 mmol/L (98-107); Calcium 9.4 mg/dL (8.4-10.2); Carbon Dioxide 30 mmol/L (22-30); Creatinine 1 0.52 mg/dL (0.52-1.04); EST GLOMERULAR FILTRATION RATE > 60.0 ML/MIN; Glucose 226 mg/dL (74-106); Potassium 3.9 mmol/L (3.5-5.1); SGOT/AST 28 U/L (14-36); SGPT/ALT 21 U/L (0-35); SODIUM 139 mmol/L (137-145); Total Protein 7.2 g/dL (6.3-8.2)
[2021-05-31 06:41] LABS: INR 1.09 (0.8-3.0); PROTIME 12.9 SECONDS (9.4-12.5)
[2021-05-31] MEDS ORDERED: Sodium Chloride 0.9% 1000 ML 1,000 ML ONE (08:28)
[2021-05-31] MEDS ORDERED: Sodium Chloride 0.9% 1000 ML 1,000 ML IV SCH (08:30)
[2021-05-31] MEDS ORDERED: DEMEROL 25MG SYRINGE IV ONE ×2 (08:54→09:19)
[2021-05-31 09:11] VITALS: BP 144/70; O2SAT 98
[2021-05-31 09:43] LABS: Appearance SLIGHTLY CLOUDY (CLEAR); Bilirubin NEGATIVE (NEGATIVE); Glucose 150 mg/dL (NEGATIVE); Ketones NEGATIVE (NEGATIVE); Leukocyte Esterase SMALL (NEGATIVE); Nitrite POSITIVE (NEGATIVE); Protein,Urine Dip 30 (Negative); Specific Gravity 1.023 (1.005-1.025); Urobilinogen 4 mg/dL (0-1)
[2021-05-31 09:44] LABS: Bacteria FEW /HPF (NEGATIVE); Blood SMALL Ery/ul (0-5); Epithelial Cells RARE /HPF (FEW); RBC 26-50 /HPF (0-2)
[2021-05-31 09:48] VITALS: PULSE 107
== END 2021-05-31 09:45 | disposition short-term general hospital (02) ==
LOC: ED 00:32
DX: S72.001A Fracture of unspecified part of neck of right femur, initial encounter for closed fracture (principal); M25.551 Pain in right hip; M54.5 Low back pain; E03.9 Hypothyroidism, unspecified; E11.9 Type 2 diabetes mellitus without complications; W01.10XA Fall on same level from slipping, tripping and stumbling with subsequent striking against unspecified object, initial encounter; Y93.01 Activity, walking, marching and hiking; Y92.9 Unspecified place or not applicable; Z79.899 Other long term (current) drug therapy; Z86.718 Personal history of other venous thrombosis and embolism; R00.0 Tachycardia, unspecified
CPT/HCPCS: 36000; 36415; 51702; 73502; 80053; 81001; 85025; 85610; 87077; 87086; 87186; 93005; 96360; 96372; 96374; 96376; 99285; J2175; Q0162

== ENCOUNTER 2021-08-31 13:59 | Emergency (ER) | payer MEDICARE ==
[2021-08-31] MEDS ORDERED: DECADRON 10MG INJ. IV ONE (14:30)
--- NOTE | 2021-08-31 14:52 | ERPHSYRPT ---
- History of Present Illness Time Seen by Provider: 08/31/21 14:01 Source: patient Exam Limitations: no limitations Patient Subjective Stated Complaint: pt here for possible covid, she was exposed last week, co chills , cough, sob and wheezing Triage Nursing Assessment: pt alert, walked in, resp easy, face mask in place, has dry cough, Physician History: 66 years old female with history of COPD, hypertension, hyperlipidemia, diabetes mellitus presented in the ER with chief complaint of increasing nonproductive cough with shortness of breath. Also having increased wheezing with difficulty taking a deep breath. Shortness of breath gets worse with activity and some improvement with resting. Also having subjective feeling of fever and chills. Received 1 dose of Covid vaccine. Positive exposure to Covid 19 and grandson last week. Timing/Duration: day(s) (2), gradual onset, worse Activities at Onset: activity Severity of Dyspnea-Max: moderate Severity of Dyspnea-Current: moderate Possible Cause: illness exposure Modifying Factors: Improves With: albuterol nebulizer. Worsens With: activity, coughing, deep breath Associated Symptoms: cough, chest pain/discomfort, wheezing, painful breathing, tightness, No productive cough Allergies/Adverse Reactions: hydromorphone Allergy (Severe, Verified 05/31/21 01:21) Difficulty Breathing citalopram hydrobromide [From Celexa] Allergy (Mild, Verified 05/31/21 01:21) Hives escitalopram oxalate [From Lexapro] Allergy (Mild, Verified 05/31/21 01:21) Hives morphine Allergy (Mild, Verified 05/31/21 01:21) itching N&V Allergy to IV only Sulfa (Sulfonamide Antibiotics) [Sulfa(Sulfonamide Antibiotics)] Allergy (Mild, Verified 05/31/21 01:21) Hives codeine [Codeine] Allergy (Unknown, Verified 05/31/21 01:21) hallucinations Home Medications: Gabapentin [Neurontin] 600 mg PO QID 02/21/18 [History] Pioglitazone 30 mg [Actos 30 MG] 30 mg PO DAILY 11/30/18 [History] Doxepin HCl 100 mg PO HS 03/10/19 [History] Esomeprazole Magnesium [Nexium] 40 mg PO DAILY 03/10/19 [History] Levothyroxine Sodium 25 Mcg [Synthroid 25 Mcg] 25 mcg PO DAILY 03/10/19 [History] Rosuvastatin Calcium 5 mg PO QAM 03/10/19 [History] Clopidogrel Bisulfate [Plavix] 75 mg PO DAILY 12/30/19 [History] Desvenlafaxine Succinate [Pristiq] 100 mg PO DAILY 12/30/19 [History] Diazepam 5 mg PO TID 01/08/20 [History] Albuterol Sulfate [Proair Hfa] 8.5 gm IH Q12H PRN PRN 01/09/20 [History] Oxybutynin Chloride Xl 5 mg [Ditropan XL 5 MG] 5 mg PO QHS 01/09/20 [History] Glyburide 5 mg [Micronase 5 MG] 5 mg PO BID 07/05/20 [History] Metformin HCl 500 mg [Glucophage 500 MG] 1,000 mg PO BIDWM 07/05/20 [History] Hx Tetanus, Diphtheria Vaccination/Date Given: Yes Hx Influenza Vaccination/Date Given: No Hx Pneumococcal Vaccination/Date Given: No Immunizations Up to Date: Yes Travel Risk - International Travel Have you traveled outside of the country in past 3 weeks: No - Coronavirus Screening Are you exhibiting any of the following symptoms?: Yes Symptoms: Cough: New Onset, Shortness of Breath Close contact with a COVID-19 positive Pt in past 14-21 Days: Yes - Vaccine Status Have you recieved a Covid-19 vaccination: Yes Pharmacy Operations Manager: Moderna - Vaccination Dates Date of 2cond Vaccination (if applicable): n/a - Review of Systems Constitutional: Fever, Chills, Fatigue, Weakness Eyes: No Symptoms Ears, Nose, & Throat: Nose Congestion Respiratory: Cough, Dyspnea, Dyspnea on Exertion (ACEVEDO), Wheezing Cardiac: Chest Pain Abdominal/Gastrointestinal: No Symptoms Genitourinary Symptoms: No Symptoms Musculoskeletal: Myalgias Skin: No Symptoms Neurological: Headache Psychological: No Symptoms Endocrine: No Symptoms Hematologic/Lymphatic: No Symptoms Immunological/Allergic: No Symptoms - Past Medical History Pertinent Past Medical History: Yes Neurological History: Peripheral Neuropathy, TIA ENT History: Cataracts Cardiac History: Deep Vein Thrombosis, High Cholesterol Respiratory History: Asthma, COPD, Emphysema Endocrine Medical History: Diabetes Type II, Hypothyroidism Musculoskeletal History: No Pertinent History GI Medical History: GERD History: Other Psycho-Social History: Anxiety, Depression Female Reproductive Disorders: No Pertinent History Other Medical History: CHRONIC LBP, CHRONIC SINUSITIS, DEPRESSION, ANXIETY. bladder urgency - Past Surgical History Past Surgical History: Yes Neuro Surgical History: No Pertinent History Cardiac: No Pertinent History Respiratory: No Pertinent History Gastrointestinal: Appendectomy, Cholecystectomy Genitourinary: No Pertinent History Musculoskeletal: No Pertinent History Female Surgical History: Section, Hysterectomy Other Surgical History: c section x3 - Social History Smoking Status: Never smoker How long have you smoked: 40 yrs Exposure to second hand smoke: No Alcohol Use: None Drug Use: none Patient Lives Alone: No Significant Family History: diabetes, hypertension - Female History Hx Last Menstrual Period: psot - Nursing Vital Signs Nursing Vital Signs: Initial Vital Signs Temperature 99.5 F 08/31/21 14:19 Pulse Rate 118 H 08/31/21 14:19 Respiratory Rate 20 08/31/21 14:19 Blood Pressure 129/84 08/31/21 14:19 O2 Sat by Pulse Oximetry 96 08/31/21 14:19 Pain Scale Pain Intensity 5 - Physical Exam General Appearance: no apparent distress, alert Eye Exam: PERRL/EOMI, eyes nml inspection Ears, Nose, Throat Exam: hearing grossly normal, pharyngeal erythema Neck Exam: normal inspection, supple, full range of motion Respiratory Exam: rhonchi, wheezing Cardiovascular/Chest Exam: normal heart sounds, tachycardia Abdominal/Gastrointestinal Exam: soft, normal bowel sounds, No tenderness Extremity Exam: non-tender, normal range of motion Neurologic Exam: alert, oriented x 3, cooperative Skin Exam: normal color SpO2 Interpretation: normal SpO2: 94 O2 Delivery: Room Air - Course EKG Interpreted by Me: RATE ([id number]), Sinus Tach, NORMAL AXIS, NORMAL INTERVALS, Q- wave (Anteroseptal) Ordered Tests: Active Orders 24 hr Category Date Time Status Correctional Supervisor Lieutenant STAT Care 08/31/21 14:30 Active EKG-ER Only STAT Care 08/31/21 14:29 Active IV Insertion STAT Care 08/31/21 14:29 Active Oxygen-ED Only Nasal Cannula 2 lpm Care 08/31/21 14:29 Active CHEST 1 VIEW (PORTABLE) Stat Exams 08/31/21 14:53 Taken CHEST WITH CONTRAST [CT] Stat Exams 08/31/21 16:20 Taken BLOOD CULTURE Stat Lab 08/31/21 14:50 Received CBC W DIFF Stat Lab 08/31/21 14:20 Completed CMP Stat Lab 08/31/21 14:20 Completed CULTURE,URINE Stat Lab 08/31/21 14:39 Received D-DIMER QUANTITATIVE Stat Lab 08/31/21 14:20 Completed Lactic Acid Stat Lab 08/31/21 14:58 Completed MAGNESIUM Stat Lab 08/31/21 14:20 Completed NT PRO BNP Stat Lab 08/31/21 14:20 Completed TROPONIN Q3H Lab 08/31/21 14:20 Completed TROPONIN Q3H Lab 08/31/21 17:32 Received TROPONIN Q3H Lab 08/31/21 20:30 Ordered TROPONIN Q3H Lab 08/31/21 23:30 Ordered TROPONIN Q3H Lab 09/01/21 02:30 Ordered UA W/RFX UR CULTURE Stat Lab 08/31/21 14:39 Completed Medication Summary Generic Name Dose Route Start Last Admin Trade Name Freq PRN Reason Stop Dose Admin Magnesium Sulfate/Dextrose 100 mls @ 100 mls/hr 08/31/21 15:30 08/31/21 17:05 Magnesium 1 Gm / 100 Ml D5w IV 08/31/21 17:29 100 mls/hr Q1H KRISTYN Administration Discontinued Medications Generic Name Dose Route Start Last Admin Trade Name Freq PRN Reason Stop Dose Admin Dexamethasone Sodium Phosphate 6 mg 08/31/21 14:30 08/31/21 14:56 Dexamethasone Sod Phosphate 10 Mg/Ml IV 08/31/21 14:31 6 mg STAT ONE Administration Dexamethasone Sodium Phosphate Confirm 08/31/21 14:54 Dexamethasone Sod Phosphate 10 Mg/Ml Administered 08/31/21 14:55 Dose 10 mg .ROUTE .STK-MED ONE Azithromycin 500 mg in 250 mls @ 250 mls/hr 08/31/21 15:32 08/31/21 17:48 Zithromax 500 Mg/ 250 Ml Nacl Premix IV 08/31/21 16:31 250 mls/hr STAT STA 250 mls/hr Administration Ceftriaxone Sodium/Dextrose 2 g in 50 mls @ 100 mls/hr 08/31/21 15:32 08/31/21 17:12 Rocephin 2 Gm-D5w 50ml Bag IV 08/31/21 16:01 Infused STAT STA Infusion Ceftriaxone Sodium/Dextrose Confirm 08/31/21 15:35 Rocephin 2 Gm-D5w 50ml Bag Administered 08/31/21 15:36 Dose 2 g in 50 mls @ ud IV .STK-MED ONE Sodium Chloride 500 mls @ 500 mls/hr 08/31/21 16:13 08/31/21 17:15 Sodium Chloride 0.9% 500 Ml IV 08/31/21 17:12 Infused .Q1H ONE Infusion Sodium Chloride Confirm 08/31/21 16:12 Sodium Chloride 0.9% 500 Ml Administered 08/31/21 16:13 Dose 500 mls @ ud IV .STK-MED ONE Azithromycin Confirm 08/31/21 17:47 Zithromax 500 Mg/ 250 Ml Nacl Premix Administered 08/31/21 17:48 Dose 500 mg in 250 mls @ ud IV .STK-MED ONE Lab/Rad Data: Laboratory Result Diagrams 08/31/21 14:20 08/31/21 14:20 Laboratory Results 08/31/21 08/31/21 08/31/21 Range/Units 14:58 14:39 14:20 WBC (4.0-10.5) K/mm3 RBC (4.1-5.4) M/mm3 Hgb (12.0-16.0) gm/dl Hct (35-47) % MCV (78-100) fl MCH (26-32) pg MCHC (32-36) g/dl RDW (11.5-14.0) % Plt Count (150-450) K/mm3 MPV (7.5-11.0) fl Gran % (36.0-66.0) % Eos # (Auto) (0-0.5) Absolute Lymphs (auto) (1.0-4.6) Absolute Monos (auto) (0.0-1.3) Lymphocytes % (24.0-44.0) % Monocytes % (0.0-12.0) % Eosinophils % (0.00-5.0) % Basophils % (0.0-0.4) % Absolute Granulocytes (1.4-6.9) Basophils # (0-0.4) D-Dimer (215-500) ng/mL Sodium (137-145) mmol/L Potassium (3.5-5.1) mmol/L Chloride (98-107) mmol/L Carbon Dioxide (22-30) mmol/L Anion Gap (5-15) MEQ/L BUN (7-17) mg/dL Creatinine (0.52-1.04) mg/dL Estimated GFR ML/MIN Glucose (74-106) mg/dL Lactic Acid 1.7 (0.4-2.0) Calcium (8.4-10.2) mg/dL Magnesium (1.6-2.3) mg/dL Total Bilirubin (0.2-1.3) mg/dL AST (14-36) U/L ALT (0-35) U/L Alkaline Phosphatase (38-126) U/L Troponin I < 0.012 (0.000-0.034) ng/mL NT-Pro-B Natriuret Pep (0-900) pg/mL Serum Total Protein (6.3-8.2) g/dL Albumin (3.5-5.0) g/dL Urine Color YELLOW (YELLOW) Urine Appearance SLIGHTLY CLOUDY (CLEAR) Urine pH 5.0 (5-6) Ur Specific [place] 1.008 (1.005-1.025) Urine Protein NEGATIVE (Negative) Urine Ketones NEGATIVE (NEGATIVE) Urine Blood SMALL (0-5) Jossue/ul Urine Nitrite POSITIVE (NEGATIVE) Urine Bilirubin NEGATIVE (NEGATIVE) Urine Urobilinogen NEGATIVE (0-1) mg/dL Ur Leukocyte Esterase SMALL (NEGATIVE) Urine WBC (Auto) 16-25 (0-5) /HPF Urine RBC (Auto) 0-2 (0-2) /HPF U Epithel Cells (Auto) NONE (FEW) /HPF Urine Bacteria (Auto) FEW (NEGATIVE) /HPF Urine Mucus (Auto) SLIGHT (NEGATIVE) /HPF Urine Culture Reflexed YES (NO) Urine Glucose NEGATIVE (NEGATIVE) mg/dL 08/31/21 08/31/21 08/31/21 Range/Units 14:20 14:20 14:20 WBC 5.8 (4.0-10.5) K/mm3 RBC 4.31 (4.1-5.4) M/mm3 Hgb 12.1 (12.0-16.0) gm/dl Hct 38.9 (35-47) % MCV 90.3 (78-100) fl MCH 28.1 (26-32) pg MCHC 31.1 L (32-36) g/dl RDW 14.8 H (11.5-14.0) % Plt Count 156 (150-450) K/mm3 MPV 11.7 H (7.5-11.0) fl Gran % 55.8 (36.0-66.0) % Eos # (Auto) 0.03 (0-0.5) Absolute Lymphs (auto) 1.74 (1.0-4.6) Absolute Monos (auto) 0.80 (0.0-1.3) Lymphocytes % 29.9 (24.0-44.0) % Monocytes % 13.8 H (0.0-12.0) % Eosinophils % 0.5 (0.00-5.0) % Basophils % 0.0 (0.0-0.4) % Absolute Granulocytes 3.24 (1.4-6.9) Basophils # 0 (0-0.4) D-Dimer 1452 H* (215-500) ng/mL Sodium 138 (137-145) mmol/L Potassium 3.9 (3.5-5.1) mmol/L Chloride 100 (98-107) mmol/L Carbon Dioxide 25 (22-30) mmol/L Anion Gap 16.6 H (5-15) MEQ/L BUN 13 (7-17) mg/dL Creatinine 0.69 (0.52-1.04) mg/dL Estimated GFR > 60.0 ML/MIN Glucose 77 (74-106) mg/dL Lactic Acid (0.4-2.0) Calcium 9.4 (8.4-10.2) mg/dL Magnesium 1.1 L (1.6-2.3) mg/dL Total Bilirubin 0.30 (0.2-1.3) mg/dL AST 64 H (14-36) U/L ALT 35 (0-35) U/L Alkaline Phosphatase 77 (38-126) U/L Troponin I (0.000-0.034) ng/mL NT-Pro-B Natriuret Pep 55.7 (0-900) pg/mL Serum Total Protein 8.0 (6.3-8.2) g/dL Albumin 4.6 (3.5-5.0) g/dL Urine Color (YELLOW) Urine Appearance (CLEAR) Urine pH (5-6) Ur Specific [place] (1.005-1.025) Urine Protein (Negative) Urine Ketones (NEGATIVE) Urine Blood (0-5) Jossue/ul Urine Nitrite (NEGATIVE) Urine Bilirubin (NEGATIVE) Urine Urobilinogen (0-1) mg/dL Ur Leukocyte Esterase (NEGATIVE) Urine WBC (Auto) (0-5) /HPF Urine RBC (Auto) (0-2) /HPF U Epithel Cells (Auto) (FEW) /HPF Urine Bacteria (Auto) (NEGATIVE) /HPF Urine Mucus (Auto) (NEGATIVE) /HPF Urine Culture Reflexed (NO) Urine Glucose (NEGATIVE) mg/dL - Progress Progress: re-examined Air Movement: good Progress Note: 08/31/21 17:47 66 years old is evaluated for worsening cough fever chills with some shortness of breath. Patient was mildly tachycardic but EKG did not show any acute ischemic changes. Negative troponins. She is given IV steroids and fluid bolus. Feeling better on reevaluation. Chest x-ray grossly negative reviewed by me, official report is pending. Has normal white count, grossly unremarkable chemistries except for hypomagnesium anemia and given IV replacement. Patient oxygen saturation is around 96% on room air resting and with ambulation is 94%. She is not tachypneic. Not in any distress at all. She does have questionable UTI, given a dose of Rocephin and Zithromax. Patient has a positive exposure to Covid. I will give her oral Decadron along with antibiotics to go home. Do not think patient needs to be admitted and is stable for discharge with outpatient follow-up. Discussed signs symptoms of worsening needing return to ER which she seems understanding. Blood Culture(s) Obtained: Yes Antibiotics given: Yes Counseled pt/family regarding: lab results, diagnosis, need for follow-up, rad results - Departure Departure Disposition: Home Clinical Impression: COPD with exacerbation, Viral syndrome, Hypomagnesemia Condition: Stable Critical Care Time: No Referrals: ZEE MEDINA [Primary Care Provider] - Follow up/PCP as directed (Call tomorrow for reevaluation in 1 to 2 days.) Instructions: Cough, Adult (DC), Coronavirus Disease 2019 (COVID-19) (DC) Additional Instructions: Use inhaler as needed. Take Tylenol as needed. Follow-up with primary care for reevaluation. Return to ER for worsening cough, shortness of breath, persistent high-grade fever chills etc. Follow contact/droplet precautions until your COVID-19 test is back. Prescriptions: Dexamethasone [Decadron] 6 mg PO DAILY #5 tablet Albuterol 8 gm Mdi Hfa [Ventolin Hfa MDI] 8 gm IH Q4H #1 inh Azithromycin 250 mg [Zithromax 250 MG TABLET] 250 mg PO ZPACK #6 tablet
[2021-08-31] MEDS ORDERED: DECADRON 10MG INJ. ONE (14:54)
[2021-08-31 15:01] LABS: Absolute Neutrophil Ct (ANC) 3.24 (1.4-6.9); Basophil (Absolute #) 0 (0-0.4); Eosinophil % 0.5 % (0.00-5.0); Eosinophil (Absolute #) 0.03 (0-0.5); Hematocrit 38.9 % (35-47); Hemoglobin 12.1 gm/dl (12.0-16.0); Lymphocyte (Absolute #) 1.74 (1.0-4.6); Lymphocytes % 29.9 % (24.0-44.0); Mean Cell Volume 90.3 fl (78-100); Mean Corpuscular Hemoglobin 28.1 pg (26-32); Mean Corpuscular Hgb Concent. 31.1 g/dl (32-36); Mean Platelet Volume 11.7 fl (7.5-11.0); Monocytes % 13.8 % (0.0-12.0); Neutrophil % 55.8 % (36.0-66.0); Platelet Count 156 K/mm3 (150-450); Red Blood Count 4.31 M/mm3 (4.1-5.4); Red Cell Distribution Width 14.8 % (11.5-14.0); White Blood Count 5.8 K/mm3 (4.0-10.5)
[2021-08-31 15:03] LABS: Appearance SLIGHTLY CLOUDY (CLEAR); Bacteria FEW /HPF (NEGATIVE); Bilirubin NEGATIVE (NEGATIVE); Blood SMALL Ery/ul (0-5); Glucose NEGATIVE (NEGATIVE); Ketones NEGATIVE (NEGATIVE); Leukocyte Esterase SMALL (NEGATIVE); Mucus SLIGHT /HPF (NEGATIVE); Nitrite POSITIVE (NEGATIVE); Protein,Urine Dip NEGATIVE (Negative); RBC 0-2 /HPF (0-2); Specific Gravity 1.008 (1.005-1.025); Urobilinogen NEGATIVE mg/dL (0-1)
[2021-08-31 15:25] LABS: ALBUMIN 4.6 g/dL (3.5-5.0); ALKALINE PHOSPHATASE 77 U/L (38-126); ANION GAP 16.6 MEQ/L (5-15); BLOOD UREA NITROGEN 13 mg/dL (7-17); CHLORIDE 100 mmol/L (98-107); Calcium 9.4 mg/dL (8.4-10.2); Carbon Dioxide 25 mmol/L (22-30); Creatinine 1 0.69 mg/dL (0.52-1.04); EST GLOMERULAR FILTRATION RATE > 60.0 ML/MIN; Glucose 77 mg/dL (74-106); NT PRO BNP 55.7 pg/mL (0-900); Potassium 3.9 mmol/L (3.5-5.1); SGOT/AST 64 U/L (14-36); SGPT/ALT 35 U/L (0-35); SODIUM 138 mmol/L (137-145)
[2021-08-31 15:28] LABS: MAGNESIUM 1.1 mg/dL (1.6-2.3)
[2021-08-31] MEDS ORDERED: ROCEPHIN 2 Gm-D5w 50ML BAG** 2 G/50 ML IVPB IV STA (15:32)
[2021-08-31] MEDS ORDERED: Zithromax 500 MG/ 250 ML NaCl Premix 500 MG/250 ML IVPB IV STA (15:32)
[2021-08-31] MEDS ORDERED: ROCEPHIN 2 Gm-D5w 50ML BAG** 2 G/50 ML IVPB IV ONE (15:35)
[2021-08-31] MEDS ORDERED: Magnesium 1 Gm / 100 Ml D5W*** 200 ML IV ONE (16:08)
[2021-08-31] MEDS: Magnesium 1 Gm / 100 Ml D5W*** 100 ML IV SCH ×2 (16:09→17:05)
[2021-08-31] MEDS ORDERED: Sodium Chloride 0.9% 500 ML 500 ML IV ONE ×2 (16:12→16:13)
[2021-08-31] MEDS ORDERED: Zithromax 500 MG/ 250 ML NaCl Premix 500 MG/250 ML IVPB IV ONE (17:47)
--- NOTE | 2021-08-31 19:13 | XRAY ---
Indication: Fever and cough. Suspect Covid 19. Comparison: January 08, 2020. Portable chest again hyperinflated with new left base subsegmental atelectasis and small calcified granuloma. Remaining heart and lungs are unremarkable. Bony thorax intact again with mild osteopenia and T7 kyphoplasty. Impression: Nonacute chest with chronic features.
--- NOTE | 2021-08-31 19:13 | XRAY ---
Indication: Short of breath. Elevated d-dimer. Suspect Covid 19. Multiple contiguous images obtained through the chest using 100 cc Isovue 370 contrast and PE protocol. Comparison: None There is good opacification of the pulmonary arteries to include the lobar and segmental branches. No pulmonary embolus. Heart not enlarged. Aorta minimally arteriosclerotic without aneurysm/dissection. Small left hilar calcified nodes. No pathologic mediastinal/hilar lymphadenopathy. Lungs demonstrates mild diffuse pulmonary emphysema and left lower lobe subsegmental atelectasis/scarring. Anatomic variant for azygos lobe. 1.1 cm left lower lobe and tiny right posterior gutter calcified granulomas. No suspicious pulmonary mass, infiltrate, or effusion. Bony thorax demonstrates osteopenia, minimal degenerative changes throughout the spine, and T7 kyphoplasty. Limited upper abdomen demonstrates 13.7 cm splenomegaly with calcified granulomas. 1.8 cm right renal cyst. Impression: 1. Negative pulmonary embolus. 2. Pulmonary emphysema, left lower lobe subsegmental atelectasis/scarring, chronic bony findings, right renal cyst, splenomegaly, and old granulomatous disease. Comment: Preliminary interpretation by [facility]. No critical discrepancy.
== END 2021-08-31 19:15 | disposition home or self-care (01) ==
LOC: ED 13:59
DX: J44.1 Chronic obstructive pulmonary disease with (acute) exacerbation (principal); R05.9 Cough, unspecified; R06.02 Shortness of breath; R07.1 Chest pain on breathing; Z79.01 Long term (current) use of anticoagulants; Z79.899 Other long term (current) drug therapy; B34.9 Viral infection, unspecified; E83.42 Hypomagnesemia; Z20.822 Contact with and (suspected) exposure to COVID-19
CPT/HCPCS: 36000; 36415; 71045; 71260; 80053; 81001; 83605; 83735; 83880; 84484; 85025; 85379; 87040; 87086; 93005; 93041; 96365; 96366; 96367; 96374; 99285; U0003; 87077; 87186; J0456; J0696; J1100; J3475

== ENCOUNTER 2021-09-23 14:45 | Emergency (ER) | payer MEDICARE ==
--- NOTE | 2021-09-23 15:01 | ERPHSYRPT ---
- History of Present Illness Time Seen by Provider: 09/23/21 14:55 Source: patient Exam Limitations: no limitations Patient Subjective Stated Complaint: PT states "I fell last wednesday and I hurt my back. I was on oxycodone and I ran out a couple days ago." Triage Nursing Assessment: PT presented alert and oriented X 3, skin wpd Pt ambulates with an upright steady gait, able to speak in clear fll sentenecs pt in no apparent respiratory distress. Physician History: This is a 66-year-old white female who has chronic low back pain and chronic hip pain as well as diabetes, asthma, COPD, peripheral neuropathy, TIAs, hyp othyroidism, elevated cholesterol and DVT (on Plavix) and presents with left rib pain and thoracic level spine pain after a fall that occurred 4 days ago. The patient ran out of her oxycodone 2 days ago. The pain is not improving. Patient denies chest pain other than the rib pain that is on the left posterior lateral region. She denies shortness of breath. She has no abdominal pain. She did not hit her head. She has no headache. She has no neck pain. She has no lower back pain today. Timing/Duration: week(s) (4), other (Not improving) Method of Injury: fall, lost balance Quality: aching Back Pain Location: T-spine Severity of Pain-Max: moderate Severity of Pain-Current: moderate Modifying Factors: Improves With: movement Associated Symptoms: No loss of bowel control, No problems urinating, No dizziness, No numbness in legs/feet, No tingling in legs/feet, No lower back pain Previous symptoms: same symptoms as today Allergies/Adverse Reactions: hydromorphone Allergy (Severe, Verified 05/31/21 01:21) Difficulty Breathing citalopram hydrobromide [From Celexa] Allergy (Mild, Verified 05/31/21 01:21) Hives escitalopram oxalate [From Lexapro] Allergy (Mild, Verified 05/31/21 01:21) Hives morphine Allergy (Mild, Verified 05/31/21 01:21) itching N&V Allergy to IV only Sulfa (Sulfonamide Antibiotics) [Sulfa(Sulfonamide Antibiotics)] Allergy (Mild, Verified 05/31/21 01:21) Hives codeine [Codeine] Allergy (Unknown, Verified 05/31/21 01:21) hallucinations Home Medications: Gabapentin [Neurontin] 600 mg PO QID 02/21/18 [History] Pioglitazone 30 mg [Actos 30 MG] 30 mg PO DAILY 11/30/18 [History] Doxepin HCl 100 mg PO HS 03/10/19 [History] Esomeprazole Magnesium [Nexium] 40 mg PO DAILY 03/10/19 [History] Levothyroxine Sodium 25 Mcg [Synthroid 25 Mcg] 25 mcg PO DAILY 03/10/19 [History] Rosuvastatin Calcium 5 mg PO QAM 03/10/19 [History] Clopidogrel Bisulfate [Plavix] 75 mg PO DAILY 12/30/19 [History] Desvenlafaxine Succinate [Pristiq] 100 mg PO DAILY 12/30/19 [History] diazePAM [Diazepam] 5 mg PO TID 01/08/20 [History] Albuterol Sulfate [Proair Hfa] 8.5 gm IH Q12H PRN PRN 01/09/20 [History] Oxybutynin Chloride Xl 5 mg [Ditropan XL 5 MG] 5 mg PO QHS 01/09/20 [History] Glyburide 5 mg [Micronase 5 MG] 5 mg PO BID 07/05/20 [History] Metformin HCl 500 mg [Glucophage 500 MG] 1,000 mg PO BIDWM 07/05/20 [History] Hx Tetanus, Diphtheria Vaccination/Date Given: Yes Hx Influenza Vaccination/Date Given: No Hx Pneumococcal Vaccination/Date Given: No Immunizations Up to Date: Yes Travel Risk - International Travel Have you traveled outside of the country in past 3 weeks: No - Coronavirus Screening Are you exhibiting any of the following symptoms?: No Close contact with a COVID-19 positive Pt in past 14-21 Days: No - Vaccine Status Have you recieved a Covid-19 vaccination: No Engine Cleaner: 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 - Vaccination Dates Date of 2cond Vaccination (if applicable): N/A - Review of Systems Constitutional: No Symptoms Eyes: No Symptoms Ears, Nose, & Throat: No Symptoms Respiratory: No Symptoms Cardiac: Orthopnea Abdominal/Gastrointestinal: No Symptoms Genitourinary Symptoms: No Symptoms Musculoskeletal: Back Pain, Fall Skin: No Symptoms (Thoracic level) Neurological: No Symptoms Psychological: No Symptoms Endocrine: No Symptoms Hematologic/Lymphatic: No Symptoms Immunological/Allergic: No Symptoms All Other Systems: Reviewed and Negative - Past Medical History Pertinent Past Medical History: Yes Neurological History: Peripheral Neuropathy, TIA ENT History: Cataracts Cardiac History: Deep Vein Thrombosis, High Cholesterol Respiratory History: Asthma, COPD, Emphysema Endocrine Medical History: Diabetes Type II, Hypothyroidism Musculoskeletal History: No Pertinent History GI Medical History: GERD History: Other Psycho-Social History: Anxiety, Depression Female Reproductive Disorders: No Pertinent History Other Medical History: CHRONIC LBP, CHRONIC SINUSITIS, DEPRESSION, ANXIETY. bladder urgency - Past Surgical History Past Surgical History: Yes Neuro Surgical History: No Pertinent History Cardiac: No Pertinent History Respiratory: No Pertinent History Gastrointestinal: Appendectomy, Cholecystectomy Genitourinary: No Pertinent History Musculoskeletal: No Pertinent History Female Surgical History: Section, Hysterectomy Other Surgical History: c section x3 - Social History Smoking Status: Never smoker How long have you smoked: 40 yrs Exposure to second hand smoke: No Alcohol Use: None Drug Use: none Patient Lives Alone: No Significant Family History: diabetes, hypertension - Female History Hx Now: No - Nursing Vital Signs Nursing Vital Signs: Initial Vital Signs Temperature 96.9 F 09/23/21 14:52 Pulse Rate 108 H 09/23/21 14:52 Respiratory Rate 20 09/23/21 14:52 Blood Pressure 147/97 09/23/21 14:52 O2 Sat by Pulse Oximetry 96 09/23/21 14:52 Pain Scale Pain Intensity [Back] 8 Pain Intensity 4 - Physical Exam General Appearance: no apparent distress, alert, anxiety Eye Exam: PERRL/EOMI, eyes nml inspection Ears, Nose, Throat Exam: normal ENT inspection, moist mucous membranes Neck Exam: normal inspection, non-tender, supple, full range of motion Respiratory Exam: normal breath sounds, lungs clear, airway intact, No chest tenderness, No respiratory distress Cardiovascular Exam: regular rate/rhythm, normal heart sounds, normal peripheral pulses Gastrointestinal Exam: No tenderness Pelvic Exam: not done Rectal Exam: not done Back Exam: normal inspection, normal range of motion, vertebral tenderness (Thoracic level) Extremity Exam: normal inspection, normal range of motion, pelvis stable Neurologic Exam: alert, oriented x 3, cooperative, life skills worker II-XII nml as tested, normal mood/affect, sensation nml Skin Exam: normal color, warm, dry Lymphatic Exam: No adenopathy SpO2 Interpretation: normal SpO2: 96 O2 Delivery: Room Air - Course Nursing assessment & vital signs reviewed: Yes Ordered Tests: Active Orders 24 hr Category Date Time Status RIBS UNILATERAL Stat Exams 09/23/21 15:01 Taken THORACIC SPINE (AP,LAT,SWIMM) Stat Exams 09/23/21 15:01 Taken - Progress Progress: unchanged, pain not gone completely Progress Note: 09/23/21 16:07 Left rib x-ray shows no acute rib fractures. Thoracic spine x-ray shows no acute thoracic spine fracture or subluxation. There are degenerative changes noted. Counseled pt/family regarding: diagnosis, need for follow-up, rad results - Departure Departure Disposition: Home Clinical Impression: Fall, Rib pain on left side, Thoracic spine pain Condition: Stable Critical Care Time: No Referrals: ZEE MEDINA [Primary Care Provider] - Follow up/PCP as directed Additional Instructions: Take your medication as prescribed. Call your primary care doctor tomorrow for further instructions and management. Prescriptions: Oxycodone HCl/Acetaminophen [Percocet 5-325 mg Tablet] 1 each PO Q12H PRN PRN #6 tablet MDD 2 PRN Reason: Moderate To Severe Pain
[2021-09-23 16:10] VITALS: BP 129/77; PULSE 99; O2SAT 96
--- NOTE | 2021-09-23 16:30 | XRAY ---
Indication: Pain following fall. Comparison: None AP/lateral thoracic spine demonstrates 12 rib-bearing segments in normal alignment with mild osteopenia, minimal multilevel endplate spurring, T7 kyphoplasty, left lung base discoid atelectasis/scarring, scattered vascular calcifications, and splenic/left lung calcified granulomas. No other bony, articular, or soft tissue abnormalities.
--- NOTE | 2021-09-23 16:35 | XRAY ---
Indication: Pain following fall. Comparison: None 2 view left ribs demonstrates osteopenia, mild left acromioclavicular degenerative arthropathy, T7 kyphoplasty, left lung base discoid atelectasis/scarring, splenic/left lung calcified granulomas, and scattered vascular calcifications. No other bony, articular, or soft tissue abnormalities.
== END 2021-09-23 16:22 | disposition home or self-care (01) ==
LOC: ED 14:45
DX: M54.6 Pain in thoracic spine (principal); R07.81 Pleurodynia; W19.XXXA Unspecified fall, initial encounter; G89.29 Other chronic pain; M54.50 Low back pain, unspecified; E78.5 Hyperlipidemia, unspecified; E11.42 Type 2 diabetes mellitus with diabetic polyneuropathy; Z79.84 Long term (current) use of oral hypoglycemic drugs; J44.9 Chronic obstructive pulmonary disease, unspecified; Z86.718 Personal history of other venous thrombosis and embolism; Z79.01 Long term (current) use of anticoagulants; Z79.891 Long term (current) use of opiate analgesic
CPT/HCPCS: 71100; 72072; 99283

== ENCOUNTER 2021-11-26 17:49 | Emergency (ER) | payer MEDICARE ==
[2021-11-26] MEDS ORDERED: TORAdol 30 mg Injection IM ONE (18:18)
[2021-11-26] MEDS ORDERED: TORAdol 30 mg Injection ONE (18:22)
--- NOTE | 2021-11-26 19:35 | ERPHSYRPT ---
- History of Present Illness Time Seen by Provider: 11/26/21 18:10 Source: patient Exam Limitations: no limitations Patient Subjective Stated Complaint: Patient is c/o lower back pain. She states that last , she went to pick her great, great, grandson up off of the floor and heard a pop in her back. She has been having pain since then that is intermittent but will not go away. She thought it would be better by now but decided to seek treatment tonight since it hasn't gone away. Denies any pain anywhere else. Triage Nursing Assessment: Patient brought back to ED in a wheelchair. She was able to transfer self from chair to bed slowly. Patient is alert and oriented and answering questions slowly. No skin abnormalities or swelling noted to lower back upon inspection. Physician History: Patient is a 66-year-old female presents to emergency department for evaluation of acute on chronic low back pain. Patient states that the picked up her gram child off the ground and felt a pop in her back. This occurred 6 days ago. Since then patient has been experiencing intermittent low back pain. Back pain described as an ache that is localized. No radiation. Patient has been treating her back pain with oxycodone however pain resolves and recurs. Patient is here because the symptoms have not completely resolved. No change in bowel bladder function. No fever. No recent back procedure. No saddle anesthesia. Symptoms are mild to moderate in intensity. Movement reproduces symptoms. Pain improved with rest. Patient voices no other complaints or concerns at this time. Timing/Duration: day(s) (6 days ago) Method of Injury: other (Lifting her grandchild off the floor) Quality: aching Back Pain Location: lumbar spine Severity of Pain-Max: moderate Severity of Pain-Current: mild Modifying Factors: Improves With: movement Associated Symptoms: No fever, No chills, No sweating, No urinary incontinence, No loss of bowel control, No constipation, No nausea, No vomiting, No problems urinating, No light-headedness, No dizziness, No numbness in legs/feet, No muscle spasms Previous symptoms: same symptoms as today Allergies/Adverse Reactions: hydromorphone Allergy (Severe, Verified 11/26/21 18:04) Difficulty Breathing citalopram hydrobromide [From Celexa] Allergy (Mild, Verified 11/26/21 18:04) Hives escitalopram oxalate [From Lexapro] Allergy (Mild, Verified 11/26/21 18:04) Hives morphine Allergy (Mild, Verified 11/26/21 18:04) itching N&V Allergy to IV only Sulfa (Sulfonamide Antibiotics) [Sulfa(Sulfonamide Antibiotics)] Allergy (Mild, Verified 11/26/21 18:04) Hives codeine [Codeine] Allergy (Unknown, Verified 11/26/21 18:04) hallucinations Home Medications: Gabapentin [Neurontin] 600 mg PO QID 02/21/18 [History] Pioglitazone 30 mg [Actos 30 MG] 30 mg PO DAILY 11/30/18 [History] Doxepin HCl 100 mg PO HS 03/10/19 [History] Esomeprazole Magnesium [Nexium] 40 mg PO DAILY 03/10/19 [History] Levothyroxine Sodium 25 Mcg [Synthroid 25 Mcg] 25 mcg PO DAILY 03/10/19 [History] Rosuvastatin Calcium 5 mg PO QAM 03/10/19 [History] Clopidogrel Bisulfate [Plavix] 75 mg PO DAILY 12/30/19 [History] Desvenlafaxine Succinate [Pristiq] 100 mg PO DAILY 12/30/19 [History] diazePAM [Diazepam] 5 mg PO TID 01/08/20 [History] Albuterol Sulfate [Proair Hfa] 8.5 gm IH Q12H PRN PRN 01/09/20 [History] Oxybutynin Chloride Xl 5 mg [Ditropan XL 5 MG] 5 mg PO QHS 01/09/20 [History] Glyburide 5 mg [Micronase 5 MG] 5 mg PO BID 07/05/20 [History] Metformin HCl 500 mg [Glucophage 500 MG] 1,000 mg PO BIDWM 07/05/20 [History] Hx Tetanus, Diphtheria Vaccination/Date Given: Yes (Maybe not tetanus) Hx Influenza Vaccination/Date Given: No Hx Pneumococcal Vaccination/Date Given: No Immunizations Up to Date: Yes Travel Risk - International Travel Have you traveled outside of the country in past 3 weeks: No - Coronavirus Screening Are you exhibiting any of the following symptoms?: No Close contact with a COVID-19 positive Pt in past 14-21 Days: No - Vaccine Status Have you recieved a Covid-19 vaccination: No 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 Cutter 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: 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 - Vaccination Dates Date of 2cond Vaccination (if applicable): N/A Comment: Only took first dose - Review of Systems Constitutional: No Symptoms, No Fever, No Chills Eyes: No Symptoms Ears, Nose, & Throat: No Symptoms Respiratory: No Symptoms, No Cough, No Dyspnea Cardiac: No Symptoms, No Chest Pain, No Edema, No Syncope Abdominal/Gastrointestinal: No Symptoms, No Abdominal Pain, No Nausea, No Vomiting, No Diarrhea Genitourinary Symptoms: No Symptoms, No Dysuria Musculoskeletal: No Symptoms, No Back Pain, No Neck Pain Skin: No Symptoms, No Rash Neurological: No Symptoms, No Dizziness, No Focal Weakness, No Sensory Changes Psychological: No Symptoms Endocrine: No Symptoms Hematologic/Lymphatic: No Symptoms Immunological/Allergic: No Symptoms All Other Systems: Reviewed and Negative - Past Medical History Pertinent Past Medical History: Yes Neurological History: Peripheral Neuropathy, TIA ENT History: Cataracts Cardiac History: Deep Vein Thrombosis, High Cholesterol Respiratory History: Asthma, COPD, Emphysema Endocrine Medical History: Diabetes Type II, Hypothyroidism Musculoskeletal History: Fractures GI Medical History: GERD History: Other Psycho-Social History: Anxiety, Depression Female Reproductive Disorders: No Pertinent History Other Medical History: CHRONIC LBP, CHRONIC SINUSITIS - Past Surgical History Past Surgical History: Yes Neuro Surgical History: No Pertinent History Cardiac: No Pertinent History Respiratory: No Pertinent History Gastrointestinal: Appendectomy, Cholecystectomy Genitourinary: No Pertinent History Musculoskeletal: Other Female Surgical History: Section, Hysterectomy Other Surgical History: Hip repair - Social History Smoking Status: Former smoker How long have you smoked: 40 yrs Exposure to second hand smoke: No Alcohol Use: None Drug Use: none Patient Lives Alone: No Significant Family History: diabetes, hypertension - Nursing Vital Signs Nursing Vital Signs: Initial Vital Signs Temperature 96.8 F 11/26/21 18:05 Pulse Rate 97 H 11/26/21 18:05 Respiratory Rate 20 11/26/21 18:05 Blood Pressure 159/83 11/26/21 18:05 O2 Sat by Pulse Oximetry 94 L 11/26/21 18:05 Pain Scale Pain Intensity [] 9 Pain Intensity 7 - Physical Exam General Appearance: no apparent distress, alert Eye Exam: PERRL/EOMI, eyes nml inspection Ears, Nose, Throat Exam: normal ENT inspection, TMs normal, pharynx normal Neck Exam: normal inspection, non-tender, supple, full range of motion, No meningismus, No midline tenderness Respiratory Exam: normal breath sounds, lungs clear, airway intact, No respiratory distress Cardiovascular Exam: regular rate/rhythm, normal heart sounds, normal peripheral pulses Gastrointestinal Exam: soft, normal bowel sounds, No tenderness, No mass Back Exam: other (Tenderness to palpation midline lumbar spine. Lumbar paraspinal musculatures appear to tense. Overlying soft tissue intact. No signs of trauma. 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 Remaining L-spine negative.) Ordered Tests: Active Orders 24 hr Category Date Time Status LUMBAR SPINE W/O [CT] Stat Exams 11/26/21 18:17 Taken CULTURE,URINE Stat Lab 11/26/21 19:39 Received UA W/RFX UR CULTURE Stat Lab 11/26/21 19:39 Completed Medication Summary Generic Name Dose Route Start Last Admin Trade Name Freq PRN Reason Stop Dose Admin Ceftriaxone Sodium 1,000 mg 11/26/21 20:08 Ceftriaxone Sodium 1000 Mg Inj Vial IM 11/26/21 20:09 STAT ONE Discontinued Medications Generic Name Dose Route Start Last Admin Trade Name Freq PRN Reason Stop Dose Admin Ketorolac Tromethamine 30 mg 11/26/21 18:18 11/26/21 18:23 Ketorolac Tromethamine 30 Mg/Ml Inj IM 11/26/21 18:19 30 mg STAT ONE Administration Ketorolac Tromethamine Confirm 11/26/21 18:22 Ketorolac Tromethamine 30 Mg/Ml Inj Administered 11/26/21 18:23 Dose 30 mg .ROUTE .[facility] ONE Lab/Rad Data: Laboratory Results 02/09/22 Range/Units 19:39 Urine Color YELLOW (YELLOW) Urine Appearance SLIGHTLY CLOUDY (CLEAR) Urine pH 7.0 (5-6) Ur Specific [place] 1.013 (1.005-1.025) Urine Protein NEGATIVE (Negative) Urine Ketones NEGATIVE (NEGATIVE) Urine Blood NEGATIVE (0-5) Jossue/ul Urine Nitrite POSITIVE (NEGATIVE) Urine Bilirubin NEGATIVE (NEGATIVE) Urine Urobilinogen NEGATIVE (0-1) mg/dL Ur Leukocyte Esterase LARGE (NEGATIVE) Urine WBC (Auto) >100 (0-5) /HPF Urine RBC (Auto) 6-10 (0-2) /HPF U Epithel Cells (Auto) RARE (FEW) /HPF Urine Bacteria (Auto) MODERATE (NEGATIVE) /HPF Urine Mucus (Auto) SLIGHT (NEGATIVE) /HPF Urine Culture Reflexed YES (NO) Urine Glucose NEGATIVE (NEGATIVE) mg/dL - Progress Progress: improved Progress Note: Patient reassessed. Back pain significantly improved. CT lumbar spine reveals new subacute to chronic appearing L3 superior endplate fracture. Patient referred to orthopedic clinic tomorrow. Patient agrees to follow-up with the Ortho clinic tomorrow as described. She voices no other complaints concerns at this time. States that she ready for discharge. No indication for further work-up. Will discharge patient. Portions of this note were created with voice recognition technology. There may be grammatical, spelling, punctuation or sound alike errors 11/26/21 19:36 Counseled pt/family regarding: diagnosis, need for follow-up, rad results - Departure Departure Disposition: Home Clinical Impression: Subacute to chronic L3 superior endplate, Lumbosacral strain, UTI (urinary tract infection) Condition: Stable Critical Care Time: No Referrals: ZEE MEDINA [Primary Care Provider] - Follow up/PCP as directed Additional Instructions: Discharge/Care Plan JOSÉ HAYWARD was seen on 11/26/21 in the Emergency Room. The patient was counseled regarding Diagnosis,Lab results, Imaging studies, need for follow up and when to return to the Emergency Room. Prescriptions given: Discharge Note I have spoken with the patient and/or caregivers. I have explained the patient's condition, diagnosis and treatment plan based on the information available to me at this time. I have answered the patient's and/or caregiver's questions and addressed any concerns. The patient and/or caregivers have as good understanding of the patient's diagnosis, condition and treatment plan as can be expected at this point. The vital signs have been stable. The patient's condition is stable and appropriate for discharge from the emergency department. The patient will pursue further outpatient evaluation with the primary care physician or other designated or consulting physician as outlined in the discharge instructions. The patient and/or caregivers are agreeable to this plan of care and follow-up instructions have been explained in detail. The patient and/or caregivers have received these instruction. The patient/and or caregivers are aware that any significant change in condition or worsening of symptoms should prompt an immediate return to this or the closest emergency department or call 911. Prescriptions: Cephalexin Mh 500 mg [Keflex 500 mg] 500 mg PO TID 7 Days #21 cap Outpatient Orders: Ortho Referral Time Frame: 1 Day, Facility: [facility], Location: ORTHO CLINIC
[2021-11-26 19:47] LABS: Appearance SLIGHTLY CLOUDY (CLEAR); Bacteria MODERATE /HPF (NEGATIVE); Bilirubin NEGATIVE (NEGATIVE); Blood NEGATIVE Ery/ul (0-5); Epithelial Cells RARE /HPF (FEW); Glucose NEGATIVE (NEGATIVE); Ketones NEGATIVE (NEGATIVE); Leukocyte Esterase LARGE (NEGATIVE); Mucus SLIGHT /HPF (NEGATIVE); Nitrite POSITIVE (NEGATIVE); Protein,Urine Dip NEGATIVE (Negative); Specific Gravity 1.013 (1.005-1.025); Urobilinogen NEGATIVE mg/dL (0-1); WBC >100 /HPF (0-5)
[2021-11-26] MEDS ORDERED: Rocephin 1000 MG INJ IM ONE (20:08)
[2021-11-26] MEDS ORDERED: XYLOCAINE 1% HCL 20 ML MDV ONE (20:13)
[2021-11-26] MEDS ORDERED: Rocephin 1000 MG INJ ONE (20:13)
[2021-11-26 20:23] VITALS: BP 149/90; PULSE 73; O2SAT 96
--- NOTE | 2021-11-27 08:41 | XRAY ---
Indication: Low back pain following lifting grandson 1 week ago. Multiple contiguous axial images obtained through the lumbar spine. Sagittal and coronal reformatted images obtained. Comparison: CT abdomen/pelvis February 08, 2017. Osseous structures remain demineralized consistent with patient's age. New finding subacute to chronic appearing L3 superior endplate fracture with approximately 25-50% height loss. No spinal canal or foraminal stenosis. Remaining levels negative for acute fracture, suspicious bony lesions, or spinal canal stenosis. Facets are symmetric. Sagittal and coronal reformatted images again demonstrate normal alignment with disc spaces preserved. Visualized noncontrasted soft tissues again demonstrate scattered vascular calcifications and small right upper renal cyst. Right kidney demonstrates 2 new nonobstructing punctate calculi. Impression: 1. Subacute to chronic appearing L3 superior endplate fracture. 2. Incidental osteopenia, scattered arteriosclerotic calcifications, right renal cyst, and nonobstructing right renal micro-calculi.
== END 2021-11-26 20:33 | disposition home or self-care (01) ==
LOC: ED 17:49
DX: S39.012A Strain of muscle, fascia and tendon of lower back, initial encounter (principal); X50.0XXA Overexertion from strenuous movement or load, initial encounter; Y93.F2 Activity, caregiving, lifting; N39.0 Urinary tract infection, site not specified; M48.56XA Collapsed vertebra, not elsewhere classified, lumbar region, initial encounter for fracture; M54.50 Low back pain, unspecified; G89.29 Other chronic pain; E11.42 Type 2 diabetes mellitus with diabetic polyneuropathy; Z79.84 Long term (current) use of oral hypoglycemic drugs; E78.5 Hyperlipidemia, unspecified; Z86.718 Personal history of other venous thrombosis and embolism; Z79.01 Long term (current) use of anticoagulants; Z86.73 Personal history of transient ischemic attack (TIA), and cerebral infarction without residual deficits; J43.9 Emphysema, unspecified; Z79.899 Other long term (current) drug therapy
CPT/HCPCS: 72131; 81001; 87077; 87086; 87186; 96372; 99284; J0696; J1885

== ENCOUNTER 2021-12-15 22:14 | Emergency (ER) | payer MEDICARE ==
[2021-12-15] MEDS ORDERED: D50W 50 ml Abboject IV ONE ×2 (22:39→22:40)
--- NOTE | 2021-12-15 22:39 | ERPHSYRPT ---
- History of Present Illness Time Seen by Provider: 12/15/21 22:30 Source: patient Exam Limitations: no limitations Physician History: This is a 66-year-old white female who is diabetic and states that she is taking the medicine as she is supposed to take it. Her blood sugar this evening was very low and she arrives to the emergency department with a blood sugar of 43. She has received juice and this increased her blood sugar level but it is decreasing relatively rapidly. Patient has not taken her p.m. dose of metformin. However, she takes glyburide in the morning as well as a morning dose of metformin. Timing/Duration: today Severity: moderate Associated Symptoms: denies symptoms Allergies/Adverse Reactions: hydromorphone Allergy (Severe, Verified 12/15/21 22:21) Difficulty Breathing citalopram hydrobromide [From Celexa] Allergy (Mild, Verified 12/15/21 22:21) Hives escitalopram oxalate [From Lexapro] Allergy (Mild, Verified 12/15/21 22:21) Hives morphine Allergy (Mild, Verified 12/15/21 22:21) itching N&V Allergy to IV only Sulfa (Sulfonamide Antibiotics) [Sulfa(Sulfonamide Antibiotics)] Allergy (Mild, Verified 12/15/21 22:21) Hives codeine [Codeine] Allergy (Unknown, Verified 12/15/21 22:21) hallucinations Home Medications: Gabapentin [Neurontin] 600 mg PO QID 02/21/18 [History] Pioglitazone 30 mg [Actos 30 MG] 30 mg PO DAILY 11/30/18 [History] Doxepin HCl 100 mg PO HS 03/10/19 [History] Esomeprazole Magnesium [Nexium] 40 mg PO DAILY 03/10/19 [History] Levothyroxine Sodium 25 Mcg [Synthroid 25 Mcg] 25 mcg PO DAILY 03/10/19 [History] Rosuvastatin Calcium 5 mg PO QAM 03/10/19 [History] Clopidogrel Bisulfate [Plavix] 75 mg PO DAILY 12/30/19 [History] Desvenlafaxine Succinate [Pristiq] 100 mg PO DAILY 12/30/19 [History] diazePAM [Diazepam] 5 mg PO TID 01/08/20 [History] Albuterol Sulfate [Proair Hfa] 8.5 gm IH Q12H PRN PRN 01/09/20 [History] Oxybutynin Chloride Xl 5 mg [Ditropan XL 5 MG] 5 mg PO QHS 01/09/20 [History] Glyburide 5 mg [Micronase 5 MG] 5 mg PO DAILY 07/05/20 [History] Metformin HCl 500 mg [Glucophage 500 MG] 1,000 mg PO BIDWM 07/05/20 [History] Hx Tetanus, Diphtheria Vaccination/Date Given: Yes (Maybe not tetanus) Hx Influenza Vaccination/Date Given: No Hx Pneumococcal Vaccination/Date Given: No Travel Risk - International Travel Have you traveled outside of the country in past 3 weeks: No - Coronavirus Screening Are you exhibiting any of the following symptoms?: No Close contact with a COVID-19 positive Pt in past 14-21 Days: No - Vaccine Status Have you recieved a Covid-19 vaccination: No Plastic Technician: 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 - Vaccination Dates Date of 2cond Vaccination (if applicable): N/A Comment: Only took first dose - Review of Systems Constitutional: No Symptoms Eyes: No Symptoms Ears, Nose, & Throat: No Symptoms Respiratory: No Symptoms Cardiac: No Symptoms Abdominal/Gastrointestinal: No Symptoms Genitourinary Symptoms: No Symptoms Musculoskeletal: No Symptoms Skin: No Symptoms Neurological: No Symptoms Psychological: No Symptoms Endocrine: No Symptoms Hematologic/Lymphatic: No Symptoms Immunological/Allergic: No Symptoms All Other Systems: Reviewed and Negative - Past Medical History Pertinent Past Medical History: Yes Neurological History: Peripheral Neuropathy, TIA ENT History: Cataracts Cardiac History: Deep Vein Thrombosis, High Cholesterol Respiratory History: Asthma, COPD, Emphysema Endocrine Medical History: Diabetes Type II, Hypothyroidism Musculoskeletal History: Fractures GI Medical History: GERD History: Other Psycho-Social History: Anxiety, Depression Female Reproductive Disorders: No Pertinent History Other Medical History: CHRONIC LBP, CHRONIC SINUSITIS - Past Surgical History Past Surgical History: Yes Neuro Surgical History: No Pertinent History Cardiac: No Pertinent History Respiratory: No Pertinent History Gastrointestinal: Appendectomy, Cholecystectomy Genitourinary: No Pertinent History Musculoskeletal: Other Female Surgical History: Section, Hysterectomy Other Surgical History: Hip repair - Social History Smoking Status: Former smoker How long have you smoked: 40 yrs Exposure to second hand smoke: No Alcohol Use: None Drug Use: none Patient Lives Alone: No Significant Family History: diabetes, hypertension - Nursing Vital Signs Nursing Vital Signs: Initial Vital Signs Temperature 97.2 F 12/15/21 22:25 Pulse Rate 89 12/15/21 22:25 Respiratory Rate 18 12/15/21 22:25 Blood Pressure 154/123 12/15/21 22:25 O2 Sat by Pulse Oximetry 97 12/15/21 22:25 Pain Scale Pain Intensity 0 - Physical Exam General Appearance: no apparent distress, alert, anxiety Eye Exam: PERRL/EOMI, eyes nml inspection Ears, Nose, Throat Exam: normal ENT inspection, moist mucous membranes Neck Exam: normal inspection, non-tender, supple, full range of motion Respiratory Exam: normal breath sounds, lungs clear, airway intact, No chest tenderness, No respiratory distress Cardiovascular Exam: regular rate/rhythm, normal heart sounds, normal peripheral pulses Gastrointestinal/Abdomen Exam: soft, normal bowel sounds, No tenderness Pelvic Exam: not done Rectal Exam: not done Back Exam: normal inspection, normal range of motion, No CVA tenderness, No vertebral tenderness Extremity Exam: normal inspection, normal range of motion, pelvis stable Neurologic Exam: alert, oriented x 3, cooperative, 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, normal mood/affect, nml cerebellar function, nml station & gait, sensation nml Skin Exam: normal color, warm, dry Lymphatic Exam: No adenopathy SpO2 Interpretation: normal O2 Delivery: Room Air - Course Nursing assessment & vital signs reviewed: Yes Ordered Tests: Active Orders 24 hr Category Date Time Status Dewatering Filtering Supervisor STAT Care 12/15/21 22:39 Active IV Insertion STAT Care 12/15/21 22:34 Active POCT Glucose Check STAT Care 12/15/21 22:34 Active CBC W DIFF Stat Lab 12/15/21 23:10 Completed CMP Stat Lab 12/15/21 23:10 Completed POCT GLUCOSE Stat Lab 12/15/21 22:30 Completed POCT GLUCOSE Stat Lab 12/15/21 22:47 Completed Medication Summary Discontinued Medications Generic Name Dose Route Start Last Admin Trade Name Freq PRN Reason Stop Dose Admin Dextrose 50 ml 12/15/21 22:39 12/15/21 22:41 Dextrose 50%-Water 50 Ml Abboject IV 12/15/21 22:40 50 ml STAT ONE Administration Dextrose Confirm 12/15/21 22:40 Dextrose 50%-Water 50 Ml Abboject Administered 12/15/21 22:41 Dose 50 ml IV .[facility] ONE Lab/Rad Data: Laboratory Result Diagrams 12/15/21 23:10 12/15/21 23:10 Laboratory Results 12/15/21 12/15/21 12/15/21 Range/Units 23:10 23:10 22:47 WBC 6.8 (4.0-10.5) K/mm3 RBC 4.25 (4.1-5.4) M/mm3 Hgb 12.4 (12.0-16.0) gm/dl Hct 40.2 (35-47) % MCV 94.6 (78-100) fl MCH 29.2 (26-32) pg MCHC 30.8 L (32-36) g/dl RDW 13.8 (11.5-14.0) % Plt Count 154 (150-450) K/mm3 MPV 10.9 (7.5-11.0) fl Gran % 71.0 H (36.0-66.0) % Eos # (Auto) 0.07 (0-0.5) Absolute Lymphs (auto) 1.33 (1.0-4.6) Absolute Monos (auto) 0.54 (0.0-1.3) Lymphocytes % 19.7 L (24.0-44.0) % Monocytes % 8.0 (0.0-12.0) % Eosinophils % 1.0 (0.00-5.0) % Basophils % 0.3 (0.0-0.4) % Absolute Granulocytes 4.79 (1.4-6.9) Basophils # 0.02 (0-0.4) Sodium 140 (137-145) mmol/L Potassium 4.0 (3.5-5.1) mmol/L Chloride 103 (98-107) mmol/L Carbon Dioxide 27 (22-30) mmol/L Anion Gap 13.7 (5-15) MEQ/L BUN 18 H (7-17) mg/dL Creatinine 0.98 (0.52-1.04) mg/dL Estimated GFR > 60.0 ML/MIN Glucose 160 H (74-106) mg/dL POC Glucometer 238 H (50 to 500) mg/dL Calcium 9.6 (8.4-10.2) mg/dL Total Bilirubin 0.30 (0.2-1.3) mg/dL AST 22 (14-36) U/L ALT 18 (0-35) U/L Alkaline Phosphatase 69 (38-126) U/L Serum Total Protein 7.3 (6.3-8.2) g/dL Albumin 4.2 (3.5-5.0) g/dL 12/15/21 Range/Units 22:30 WBC (4.0-10.5) K/mm3 RBC (4.1-5.4) M/mm3 Hgb (12.0-16.0) gm/dl Hct (35-47) % MCV (78-100) fl MCH (26-32) pg MCHC (32-36) g/dl RDW (11.5-14.0) % Plt Count (150-450) K/mm3 MPV (7.5-11.0) fl Gran % (36.0-66.0) % Eos # (Auto) (0-0.5) Absolute Lymphs (auto) (1.0-4.6) Absolute Monos (auto) (0.0-1.3) Lymphocytes % (24.0-44.0) % Monocytes % (0.0-12.0) % Eosinophils % (0.00-5.0) % Basophils % (0.0-0.4) % Absolute Granulocytes (1.4-6.9) Basophils # (0-0.4) Sodium (137-145) mmol/L Potassium (3.5-5.1) mmol/L Chloride (98-107) mmol/L Carbon Dioxide (22-30) mmol/L Anion Gap (5-15) MEQ/L BUN (7-17) mg/dL Creatinine (0.52-1.04) mg/dL Estimated GFR ML/MIN Glucose (74-106) mg/dL POC Glucometer 43 L* (50 to 500) mg/dL Calcium (8.4-10.2) mg/dL Total Bilirubin (0.2-1.3) mg/dL AST (14-36) U/L ALT (0-35) U/L Alkaline Phosphatase (38-126) U/L Serum Total Protein (6.3-8.2) g/dL Albumin (3.5-5.0) g/dL - Progress Progress: improved Progress Note: 12/15/21 23:[address] Jerome, the patient's primary care provider. He and I both did not feel the patient needed to be admitted into the hospital. His recommendation is to have the patient stop the glyburide medication altogether and to continue the Metformin dosing as prescribed. Discussed with : Naz Counseled pt/family regarding: lab results, diagnosis, need for follow-up - Departure Departure Disposition: Home Clinical Impression: Hypoglycemia Condition: Stable Critical Care Time: No Referrals: ZEE MEDINA [ACTIVE STAFF] - Follow up/PCP as directed Additional Instructions: Drink plenty of liquids. Hold your diabetic medication until you talk with your primary care doctor tomorrow morning. Do not take your diabetic medication until you talk to your doctor tomorrow morning.
[2021-12-15 23:13] LABS: Absolute Neutrophil Ct (ANC) 4.79 (1.4-6.9); Basophil (Absolute #) 0.02 (0-0.4); Eosinophil (Absolute #) 0.07 (0-0.5); Hematocrit 40.2 % (35-47); Hemoglobin 12.4 gm/dl (12.0-16.0); Lymphocyte (Absolute #) 1.33 (1.0-4.6); Lymphocytes % 19.7 % (24.0-44.0); Mean Cell Volume 94.6 fl (78-100); Mean Corpuscular Hemoglobin 29.2 pg (26-32); Mean Corpuscular Hgb Concent. 30.8 g/dl (32-36); Mean Platelet Volume 10.9 fl (7.5-11.0); Monocyte (Absolute #) 0.54 (0.0-1.3); Platelet Count 154 K/mm3 (150-450); Red Blood Count 4.25 M/mm3 (4.1-5.4); Red Cell Distribution Width 13.8 % (11.5-14.0); White Blood Count 6.8 K/mm3 (4.0-10.5)
[2021-12-15 23:26] LABS: ALBUMIN 4.2 g/dL (3.5-5.0); ALKALINE PHOSPHATASE 69 U/L (38-126); ANION GAP 13.7 MEQ/L (5-15); BLOOD UREA NITROGEN 18 mg/dL (7-17); CHLORIDE 103 mmol/L (98-107); Calcium 9.6 mg/dL (8.4-10.2); Carbon Dioxide 27 mmol/L (22-30); Creatinine 1 0.98 mg/dL (0.52-1.04); EST GLOMERULAR FILTRATION RATE > 60.0 ML/MIN; Glucose 160 mg/dL (74-106); SGOT/AST 22 U/L (14-36); SGPT/ALT 18 U/L (0-35); SODIUM 140 mmol/L (137-145); Total Protein 7.3 g/dL (6.3-8.2)
[2021-12-16 00:03] VITALS: O2SAT 94
[2021-12-16 00:04] VITALS: BP 123/78; PULSE 93
== END 2021-12-16 00:07 | disposition home or self-care (01) ==
LOC: ED 22:14
DX: E11.649 Type 2 diabetes mellitus with hypoglycemia without coma (principal); E11.42 Type 2 diabetes mellitus with diabetic polyneuropathy; Z79.84 Long term (current) use of oral hypoglycemic drugs; E78.5 Hyperlipidemia, unspecified; Z86.718 Personal history of other venous thrombosis and embolism; Z79.01 Long term (current) use of anticoagulants; J43.9 Emphysema, unspecified; J21.9 Acute bronchiolitis, unspecified
CPT/HCPCS: 36000; 36415; 80053; 82947; 85025; 93041; 96374; 99284

== ENCOUNTER 2022-06-17 11:41 | Day surgery (SDC) | payer MEDICARE | END 2022-06-17 12:05 | disposition home or self-care (01) | LOC: SDC-PAIN 11:41 | PROVIDERS: ATTEND Psychiatry & Neurology Pain Medicine | DX: Z53.8 Procedure and treatment not carried out for other reasons (principal); R73.9 Hyperglycemia, unspecified | CPT/HCPCS: 82947 ==

== ENCOUNTER 2022-07-29 06:05 | Day surgery (SDC) | payer MEDICARE ==
[2022-07-29] MEDS ORDERED: BUPIVACAINE 0.5% VIAL IJ ONE (06:06)
[2022-07-29] MEDS ORDERED: Depo-Medrol 40 MG/ML IM ONE (06:06)
[2022-07-29] MEDS ORDERED: DIPRIVAN 200 MG/20 ML IV ONE (08:05)
[2022-07-29] MEDS ORDERED: Lactated Ringers 1,000 ML IV ONE (08:56)
--- NOTE | 2022-07-29 09:59 | XRAY ---
Indication: Right SI joint and right hip injection. Intraoperative fluoroscopy was provided for 30 seconds. 4 digital spot images submitted for interpretation demonstrates posterior needle tip projecting over the right SI joint. Second needle tip lateral to the right femur neck with small amount of contrast injected for needle tip placement. Correlate with intraoperative findings/report. Incidental incompletely visualized proximal right femur orthopedic hardware.
--- NOTE | 2022-07-29 10:03 | XRAY ---
30 seconds of fluoroscopy was used in surgery for a right sacroiliac joint and right intra-articular hip injection.
== END 2022-07-29 08:50 | disposition home or self-care (01) ==
LOC: SDC-PAIN 06:05
PROVIDERS: ATTEND Psychiatry & Neurology Pain Medicine
DX: M46.1 Sacroiliitis, not elsewhere classified (principal); M16.11 Unilateral primary osteoarthritis, right hip; E11.9 Type 2 diabetes mellitus without complications; Z79.899 Other long term (current) drug therapy
CPT/HCPCS: 20610; 27096; 73501; 77002; 82947; J1030; J2704; Q9966; G0260

== ENCOUNTER 2022-12-10 16:38 | Emergency (ER) | payer MEDICARE ==
--- NOTE | 2022-12-10 16:48 | ERPHSYRPT ---
- History of Present Illness Time Seen by Provider: 12/10/22 16:48 Historian: patient Exam Limitations: no limitations Physician History: This is a 67-year-old white female patient of Dr. Reynolds who recently saw Dr. Cat (12/08/2022) her pain specialist for chronic pain conditions and presents today with a few day history of abdominal pain as well as nausea vomiting and diarrhea. Patient just finished treatment for urinary tract infection which was Macrobid. Patient has had an appendectomy, cholecystectomy and hysterectomy in the past. Patient has multiple medical problems including diabetes, hypertension, hyperlipidemia, gastroesophageal reflux disease, hyp othyroidism, peripheral neuropathy, TIAs, DVT, COPD, anxiety and depression and is on Plavix. Timing/Duration: day(s) (Last few days) Quality: aching Abdominal Pain Onset Location: generalized abdomen Pain Radiation: no radiation Severity of Pain-Max: moderate Severity of Pain-Current: moderate Modifying Factors: Improves With: vomiting Associated Symptoms: diarrhea, loss of appetite, nausea, vomiting, weakness Previous symptoms: no prior history Allergies/Adverse Reactions: hydromorphone Allergy (Severe, Verified 12/10/22 16:59) Difficulty Breathing citalopram hydrobromide [From Celexa] Allergy (Mild, Verified 12/10/22 16:59) Hives escitalopram oxalate [From Lexapro] Allergy (Mild, Verified 12/10/22 16:59) Hives morphine Allergy (Mild, Verified 12/10/22 16:59) itching N&V Allergy to IV only Sulfa (Sulfonamide Antibiotics) [Sulfa(Sulfonamide Antibiotics)] Allergy (Mild, Verified 12/10/22 16:59) Hives codeine [Codeine] Allergy (Unknown, Verified 12/10/22 16:59) hallucinations COVID-19 (SARS-CoV-2) vaccine, brian Allergy (Verified 12/10/22 17:08) Home Medications: Albuterol Sulfate [Proair Hfa] 8.5 gm IH Q12H PRN PRN 01/09/20 [History] Oxybutynin Chloride Xl 5 mg [Ditropan XL 5 MG] 5 mg PO QHS 01/09/20 [History] Metformin HCl 500 mg [Glucophage 500 MG] 1,000 mg PO BIDWM 07/05/20 [History] Empagliflozin [Jardiance] 1 ea DAILY 12/10/22 [History] Hydroxyzine HCl 25 mg [Atarax 25 mg] 25 mg PO DAILY 12/10/22 [History] lisinopriL [Lisinopril] 5 mg PO DAILY 12/10/22 [History] Hx Tetanus, Diphtheria Vaccination/Date Given: Yes (Maybe not tetanus) Hx Influenza Vaccination/Date Given: No Hx Pneumococcal Vaccination/Date Given: No Travel Risk - International Travel Have you traveled outside of the country in past 3 weeks: No - Coronavirus Screening Are you exhibiting any of the following symptoms?: Yes Symptoms: Vomiting/Diarrhea Close contact with a COVID-19 positive Pt in past 14-21 Days: No - Vaccine Status Have you recieved a Covid-19 vaccination: No Complaints Coordinator: Moderna - Vaccination Dates Date of 2cond Vaccination (if applicable): N/A Comment: Only took first dose - Review of Systems Constitutional: Weakness Eyes: No Symptoms Ears, Nose, & Throat: No Symptoms Respiratory: No Symptoms Abdominal/Gastrointestinal: Abdominal Pain, Nausea, Vomiting, Diarrhea, No Constipation Genitourinary Symptoms: No Symptoms Musculoskeletal: No Symptoms Skin: No Symptoms Neurological: No Symptoms Psychological: No Symptoms Endocrine: No Symptoms Hematologic/Lymphatic: No Symptoms Immunological/Allergic: No Symptoms All Other Systems: Reviewed and Negative - Past Medical History Pertinent Past Medical History: Yes Neurological History: Peripheral Neuropathy, TIA ENT History: Cataracts Cardiac History: Deep Vein Thrombosis, High Cholesterol Respiratory History: Asthma, COPD, Emphysema Endocrine Medical History: Diabetes Type II, Hypothyroidism Musculoskeletal History: Fractures GI Medical History: GERD History: Other Psycho-Social History: Anxiety, Depression Female Reproductive Disorders: No Pertinent History Other Medical History: CHRONIC LBP, CHRONIC SINUSITIS - Past Surgical History Past Surgical History: Yes Neuro Surgical History: No Pertinent History Cardiac: No Pertinent History Respiratory: No Pertinent History Gastrointestinal: Appendectomy, Cholecystectomy Genitourinary: No Pertinent History Musculoskeletal: Other Female Surgical History: Section, Hysterectomy Other Surgical History: Hip repair - Social History Smoking Status: Former smoker How long have you smoked: 40 yrs Exposure to second hand smoke: No Alcohol Use: None Drug Use: none Patient Lives Alone: No Significant Family History: diabetes, hypertension - Nursing Vital Signs Nursing Vital Signs: Initial Vital Signs Temperature 97.6 F 12/10/22 16:57 Pulse Rate 114 H 12/10/22 16:57 Respiratory Rate 18 12/10/22 16:57 Blood Pressure 142/88 12/10/22 16:57 O2 Sat by Pulse Oximetry 98 12/10/22 16:57 Pain Scale Pain Intensity 6 - Physical Exam General Appearance: mild distress, alert, anxiety, thin Eye Exam: PERRL/EOMI, eyes nml inspection Ears, Nose, Throat Exam: normal ENT inspection, moist mucous membranes Neck Exam: normal inspection, non-tender, supple, carotid bruit Respiratory Exam: normal breath sounds, lungs clear, airway intact, No chest tenderness, No respiratory distress Cardiovascular Exam: tachycardia Gastrointestinal/Abdomen Exam: soft, normal bowel sounds, tenderness (Mild diffuse to palpation), guarding (Mild diffuse to palpation), No rebound Pelvic Exam: not done Rectal Exam: not done Back Exam: normal inspection, normal range of motion, vertebral tenderness, No CVA tenderness Extremity Exam: normal inspection, normal range of motion, pelvis stable Neurologic Exam: alert, oriented x 3, cooperative, 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, normal mood/affect, nml cerebellar function, nml station & gait, sensation nml Skin Exam: normal color, warm, dry Lymphatic Exam: No adenopathy SpO2 Interpretation: normal O2 Delivery: Room Air - Course Nursing assessment & vital signs reviewed: Yes Ordered Tests: Active Orders 24 hr Category Date Time Status IV Insertion STAT Care 12/10/22 17:19 Active ABDOMEN AND PELVIS W/0 CONTRAS [CT] Stat Exams 12/10/22 17:20 Taken AMYLASE Stat Lab 12/10/22 17:45 Completed BLOOD CULTURE Stat Lab 12/10/22 17:45 Received BMP Stat Lab 12/10/22 20:18 Completed CBC W DIFF Stat Lab 12/10/22 17:45 Completed CMP Stat Lab 12/10/22 17:45 Completed CULTURE,URINE Stat Lab 12/10/22 17:26 Received LIPASE Stat Lab 12/10/22 17:45 Completed Lactic Acid Stat Lab 12/10/22 17:45 Completed Lactic Acid Stat Lab 12/10/22 19:49 Completed UA W/RFX UR CULTURE Stat Lab 12/10/22 17:26 Completed Medication Summary Discontinued Medications Generic Name Dose Route Start Last Admin Trade Name Freq PRN Reason Stop Dose Admin Fluconazole 150 mg 12/10/22 19:16 12/10/22 19:30 Fluconazole 100 Mg Tablet PO 12/10/22 19:17 150 mg ONCE ONE Administration Sodium Chloride 1,000 mls @ 999 mls/hr 12/10/22 17:19 12/10/22 18:51 Sodium Chloride 0.9% 1000 Ml IV 12/10/22 18:19 Infused .Q1H1M STA Infusion Sodium Chloride Confirm 12/10/22 17:49 Sodium Chloride 0.9% 1000 Ml Administered 12/10/22 17:50 Dose 1,000 mls @ ud .ROUTE .STK-MED ONE Sodium Chloride 1,000 mls @ 999 mls/hr 12/10/22 18:16 12/10/22 20:05 Sodium Chloride 0.9% 1000 Ml IV 12/10/22 19:16 Infused .Q1H1M STA Infusion Levofloxacin/Dextrose 500 mg in 100 mls @ 100 mls/hr 12/10/22 18:18 12/10/22 20:07 Levofloxacin 500mg/100ml D5w IV 12/10/22 19:17 Infused STAT STA Infusion Sodium Chloride Confirm 12/10/22 19:03 Sodium Chloride 0.9% 1000 Ml Administered 12/10/22 19:04 Dose 1,000 mls @ ud .ROUTE .STK-MED ONE Levofloxacin/Dextrose Confirm 12/10/22 19:05 Levofloxacin 500mg/100ml D5w Administered 12/10/22 19:06 Dose 500 mg in 100 mls @ ud IV .STK-MED ONE Ketorolac Tromethamine 30 mg 12/10/22 19:13 12/10/22 19:19 Ketorolac Tromethamine 30 Mg/Ml Inj IV 12/10/22 19:14 30 mg STAT ONE Administration Ketorolac Tromethamine Confirm 12/10/22 19:17 Ketorolac Tromethamine 30 Mg/Ml Inj Administered 12/10/22 19:18 Dose 30 mg .ROUTE .STK-MED ONE Metronidazole 500 mg 12/10/22 19:13 12/10/22 19:19 Metronidazole 500 Mg Tablet PO 12/10/22 19:14 500 mg STAT ONE Administration Metronidazole Confirm 12/10/22 19:17 Metronidazole 500 Mg Tablet Administered 12/10/22 19:18 Dose 500 mg .ROUTE .STK-MED ONE Ondansetron HCl 4 mg 12/10/22 17:19 12/10/22 17:52 Ondansetron Hcl 4 Mg/2 Ml Vial IV 12/10/22 17:20 4 mg STAT ONE Administration Ondansetron HCl Confirm 12/10/22 17:49 Ondansetron Hcl 4 Mg/2 Ml Vial Administered 12/10/22 17:50 Dose 4 mg .ROUTE .STK-MED ONE Lab/Rad Data: Laboratory Result Diagrams 12/10/22 17:45 12/10/22 20:18 Laboratory Results 12/10/22 12/10/22 12/10/22 Range/Units 20:18 19:49 17:45 WBC (4.0-10.5) x10^3/uL RBC (4.1-5.4) x10^6/uL Hgb (12.0-16.0) g/dL Hct (35-47) % MCV (78-100) fL MCH (26-32) pg MCHC (32-36) g/dL RDW (11.5-14.0) % Plt Count (150-450) x10^3/uL MPV (7.5-11.0) fL Gran % (36.0-66.0) % Immature Gran % (Auto) (0.00-0.4) % Nucleat RBC Rel Count (0.00-0.1) % Eos # (Auto) (0-0.5) x10^3/uL Immature Gran # (Auto) (0.00-0.03) x10^3u/L Absolute Lymphs (auto) (1.0-4.6) x10^3/uL Absolute Monos (auto) (0.0-1.3) x10^3/uL Absolute Nucleated RBC (0.00-0.01) x10^3u/L Lymphocytes % (24.0-44.0) % Monocytes % (0.0-12.0) % Eosinophils % (0.00-5.0) % Basophils % (0.0-0.4) % Absolute Granulocytes (1.4-6.9) x10^3/uL Basophils # (0-0.4) x10^3/uL Sodium 138 140 (137-145) mmol/L Potassium 4.6 4.8 (3.5-5.1) mmol/L Chloride 108 H 103 (98-107) mmol/L Carbon Dioxide 23 24 (22-30) mmol/L Anion Gap 11.5 17.5 H (5-15) MEQ/L BUN 24 H 28 H (7-17) mg/dL Creatinine 0.63 0.68 (0.52-1.04) mg/dL Estimated GFR > 60.0 > 60.0 ML/MIN Glucose 125 H 103 (74-106) mg/dL Lactic Acid 2.6 H (0.4-2.0) Calcium 8.5 D 10.5 H (8.4-10.2) mg/dL Total Bilirubin 0.40 (0.2-1.3) mg/dL AST 20 (14-36) U/L ALT 15 (0-35) U/L Alkaline Phosphatase 54 (38-126) U/L Serum Total Protein 8.3 H (6.3-8.2) g/dL Albumin 4.9 (3.5-5.0) g/dL Amylase 83 (30-110) U/L Lipase 202 (23-300) U/L Urine Color (Yellow) Urine Appearance (Clear) Urine pH (4.6-8.0) Ur Specific [place] (1.005-1.030) Urine Protein (Negative) Urine Glucose (UA) (Negative) mg/dL Urine Ketones (Negative) Urine Blood (Negative) Urine Nitrite (Negative) Urine Bilirubin (Negative) Urine Urobilinogen (0.2) mg/dL Ur Leukocyte Esterase (Negative) U Hyaline Cast (Auto) (0-2) /LPF Urine Microscopic RBC (0-5) /HPF Urine Microscopic WBC (0-5) /HPF Ur Epithelial Cells (None Seen) /HPF Urine Bacteria (None Seen) /HPF Urine Yeast (Budding) (None Seen) /HPF Urine Culture Reflexed (NO) Influenza Type A Ag (NEGATIVE) Influenza Type B Ag (NEGATIVE) RSV (PCR) (Negative) SARS-CoV-2 (PCR) (NEGATIVE) 12/10/22 12/10/22 12/10/22 Range/Units 17:45 17:45 17:26 WBC 8.9 (4.0-10.5) x10^3/uL RBC 4.74 (4.1-5.4) x10^6/uL Hgb 13.9 (12.0-16.0) g/dL Hct 43.1 (35-47) % MCV 90.9 (78-100) fL MCH 29.3 (26-32) pg MCHC 32.3 (32-36) g/dL RDW 12.0 (11.5-14.0) % Plt Count 177 (150-450) x10^3/uL MPV 11.1 H (7.5-11.0) fL Gran % 58.3 (36.0-66.0) % Immature Gran % (Auto) 0.3 (0.00-0.4) % Nucleat RBC Rel Count 0.0 (0.00-0.1) % Eos # (Auto) 0.12 (0-0.5) x10^3/uL Immature Gran # (Auto) 0.03 (0.00-0.03) x10^3u/L Absolute Lymphs (auto) 3.00 (1.0-4.6) x10^3/uL Absolute Monos (auto) 0.54 (0.0-1.3) x10^3/uL Absolute Nucleated RBC 0.00 (0.00-0.01) x10^3u/L Lymphocytes % 33.6 (24.0-44.0) % Monocytes % 6.1 (0.0-12.0) % Eosinophils % 1.3 (0.00-5.0) % Basophils % 0.4 (0.0-0.4) % Absolute Granulocytes 5.19 (1.4-6.9) x10^3/uL Basophils # 0.04 (0-0.4) x10^3/uL Sodium (137-145) mmol/L Potassium (3.5-5.1) mmol/L Chloride (98-107) mmol/L Carbon Dioxide (22-30) mmol/L Anion Gap (5-15) MEQ/L BUN (7-17) mg/dL Creatinine (0.52-1.04) mg/dL Estimated GFR ML/MIN Glucose (74-106) mg/dL Lactic Acid 2.9 H (0.4-2.0) Calcium (8.4-10.2) mg/dL Total Bilirubin (0.2-1.3) mg/dL AST (14-36) U/L ALT (0-35) U/L Alkaline Phosphatase (38-126) U/L Serum Total Protein (6.3-8.2) g/dL Albumin (3.5-5.0) g/dL Amylase (30-110) U/L Lipase (23-300) U/L Urine Color Yellow (Yellow) Urine Appearance Turbid A (Clear) Urine pH 5.5 (4.6-8.0) Ur Specific [place] >=1.030 A (1.005-1.030) Urine Protein 100 A (Negative) Urine Glucose (UA) >=1000 A (Negative) mg/dL Urine Ketones Trace A (Negative) Urine Blood Small A (Negative) Urine Nitrite Negative (Negative) Urine Bilirubin Negative (Negative) Urine Urobilinogen 0.2 (0.2) mg/dL Ur Leukocyte Esterase Moderate A (Negative) U Hyaline Cast (Auto) None Seen (0-2) /LPF Urine Microscopic RBC 0-2 (0-5) /HPF Urine Microscopic WBC >100 A (0-5) /HPF Ur Epithelial Cells Few (None Seen) /HPF Urine Bacteria Few A (None Seen) /HPF Urine Yeast (Budding) Few A (None Seen) /HPF Urine Culture Reflexed YES (NO) Influenza Type A Ag (NEGATIVE) Influenza Type B Ag (NEGATIVE) RSV (PCR) (Negative) SARS-CoV-2 (PCR) (NEGATIVE) 12/10/22 Range/Units 17:10 WBC (4.0-10.5) x10^3/uL RBC (4.1-5.4) x10^6/uL Hgb (12.0-16.0) g/dL Hct (35-47) % MCV (78-100) fL MCH (26-32) pg MCHC (32-36) g/dL RDW (11.5-14.0) % Plt Count (150-450) x10^3/uL MPV (7.5-11.0) fL Gran % (36.0-66.0) % Immature Gran % (Auto) (0.00-0.4) % Nucleat RBC Rel Count (0.00-0.1) % Eos # (Auto) (0-0.5) x10^3/uL Immature Gran # (Auto) (0.00-0.03) x10^3u/L Absolute Lymphs (auto) (1.0-4.6) x10^3/uL Absolute Monos (auto) (0.0-1.3) x10^3/uL Absolute Nucleated RBC (0.00-0.01) x10^3u/L Lymphocytes % (24.0-44.0) % Monocytes % (0.0-12.0) % Eosinophils % (0.00-5.0) % Basophils % (0.0-0.4) % Absolute Granulocytes (1.4-6.9) x10^3/uL Basophils # (0-0.4) x10^3/uL Sodium (137-145) mmol/L Potassium (3.5-5.1) mmol/L Chloride (98-107) mmol/L Carbon Dioxide (22-30) mmol/L Anion Gap (5-15) MEQ/L BUN (7-17) mg/dL Creatinine (0.52-1.04) mg/dL Estimated GFR ML/MIN Glucose (74-106) mg/dL Lactic Acid (0.4-2.0) Calcium (8.4-10.2) mg/dL Total Bilirubin (0.2-1.3) mg/dL AST (14-36) U/L ALT (0-35) U/L Alkaline Phosphatase (38-126) U/L Serum Total Protein (6.3-8.2) g/dL Albumin (3.5-5.0) g/dL Amylase (30-110) U/L Lipase (23-300) U/L Urine Color (Yellow) Urine Appearance (Clear) Urine pH (4.6-8.0) Ur Specific [place] (1.005-1.030) Urine Protein (Negative) Urine Glucose (UA) (Negative) mg/dL Urine Ketones (Negative) Urine Blood (Negative) Urine Nitrite (Negative) Urine Bilirubin (Negative) Urine Urobilinogen (0.2) mg/dL Ur Leukocyte Esterase (Negative) U Hyaline Cast (Auto) (0-2) /LPF Urine Microscopic RBC (0-5) /HPF Urine Microscopic WBC (0-5) /HPF Ur Epithelial Cells (None Seen) /HPF Urine Bacteria (None Seen) /HPF Urine Yeast (Budding) (None Seen) /HPF Urine Culture Reflexed (NO) Influenza Type A Ag NEGATIVE (NEGATIVE) Influenza Type B Ag NEGATIVE (NEGATIVE) RSV (PCR) NEGATIVE (Negative) SARS-CoV-2 (PCR) NEGATIVE (NEGATIVE) - Progress Progress: improved, re-examined Progress Note: 12/10/22 19:17 CAT scan of the abdomen pelvis shows no acute intra-abdominal or intra pelvic abnormality. This patient's medical issues of at least moderate complexity. Patient medical history, medication history and drug allergies were reviewed. The work-up was additionally based on patient complaint, history of present illness and the physical findings on examination. Patient takes oxycodone at home. The work-up included blood work, urinalysis, and CT scan of the abdomen pelvis. The work- up results were reviewed and discussed with the patient in detail. Intravenous fluids, intravenous pain medicine, intravenous antibiotics, oral antiemetics oral antibiotics and oral antifungal medication was used to treat the patient's symptoms and her diagnoses of urinary tract infection (bacterial and fungal), and diarrhea. She has not had a diarrheal stool since she has been here and therefore I am treating what I feel may be C. difficile colitis with Flagyl orally. The patient does have dehydration. We will provide her with a second liter of intravenous fluids and recheck a BMP as well as a second lactic acid level. If the lactic acid level and anion gap have improved (and they are close to normal at this time) and her symptoms have improved, we will discharge the patient home with a prescription for Cipro, Flagyl and Diflucan. Patient has oxycodone at home. This was discussed in detail the patient. In addition to the above discharge plan, patient will be placed on a clear liquid diet. Counseled pt/family regarding: lab results, diagnosis, need for follow-up, rad results Medical Desision Making - External Record(s) Reviewed Records reviewed as a part of evaluation & management: Discharge Summary - Discussion of managment Reviewed:: Test results Agreed on:: Treatment plan, need for follow-up - Diagnostic Testing Radiological Interpretation: Reviewed by , Teleradiologist Report - Risk of complications Low Risk: Low risk of morbidity from additional dx testing or treatment The pt has a mod risk of morbidity or mortality based on: Need for prescription drug management - Departure Departure Disposition: Home Clinical Impression: Vomiting and diarrhea, UTI (urinary tract infection), Dehydration, Colitis Condition: Stable Critical Care Time: No Referrals: KENDRA REYNOLDS MD [Primary Care Provider] - Follow up/PCP as directed Additional Instructions: Drink plenty of clear liquids. Do not advance her diet until you are tolerating clear liquids well. Monitor your blood sugar closely. Take your medications as prescribed. Follow-up with your primary care physician tomorrow, 12/11/2022 by phone to make arrangements for further evaluation and management. Prescriptions: Ciprofloxacin [Cipro 500 MG] 500 mg PO BID #14 tablet Metronidazole 500 mg [Flagyl 500 MG] 500 mg PO TID #21 tablet
[2022-12-10] MEDS ORDERED: Zofran 4 MG/2 ML VIAL IV ONE (17:19)
[2022-12-10] MEDS ORDERED: Sodium Chloride 0.9% 1000 ML 1,000 ML IV STA ×2 (17:19→18:16)
[2022-12-10] MEDS ORDERED: Zofran 4 MG/2 ML VIAL ONE (17:49)
[2022-12-10] MEDS ORDERED: Sodium Chloride 0.9% 1000 ML 1,000 ML ONE ×2 (17:49→19:03)
[2022-12-10 17:52] LABS: Absolute Neutrophil Ct (ANC) 5.19 x10^3/uL (1.4-6.9); BASOPHIL % 0.4 % (0.0-0.4); Basophil (Absolute #) 0.04 x10^3/uL (0-0.4); Eosinophil % 1.3 % (0.00-5.0); Eosinophil (Absolute #) 0.12 x10^3/uL (0-0.5); Hematocrit 43.1 % (35-47); Hemoglobin 13.9 g/dL (12.0-16.0); IMMATURE GRAN # 0.03 x10^3u/L (0.00-0.03); IMMATURE GRAN % 0.3 % (0.00-0.4); Lymphocytes % 33.6 % (24.0-44.0); Mean Cell Volume 90.9 fL (78-100); Mean Corpuscular Hemoglobin 29.3 pg (26-32); Mean Corpuscular Hgb Concent. 32.3 g/dL (32-36); Mean Platelet Volume 11.1 fL (7.5-11.0); Monocyte (Absolute #) 0.54 x10^3/uL (0.0-1.3); Monocytes % 6.1 % (0.0-12.0); Neutrophil % 58.3 % (36.0-66.0); Platelet Count 177 x10^3/uL (150-450); Red Blood Count 4.74 x10^6/uL (4.1-5.4); White Blood Count 8.9 x10^3/uL (4.0-10.5)
[2022-12-10 18:09] LABS: INFLUENZA A NEGATIVE (NEGATIVE); INFLUENZA B NEGATIVE (NEGATIVE); RESPIRATORY SYNCTIAL VIRUS NEGATIVE (Negative); SARS-CoV-2 Xpert Express NEGATIVE (NEGATIVE)
[2022-12-10 18:10] LABS: ALBUMIN 4.9 g/dL (3.5-5.0); ALKALINE PHOSPHATASE 54 U/L (38-126); AMYLASE 83 U/L (30-110); ANION GAP 17.5 MEQ/L (5-15); BLOOD UREA NITROGEN 28 mg/dL (7-17); CHLORIDE 103 mmol/L (98-107); Calcium 10.5 mg/dL (8.4-10.2); Carbon Dioxide 24 mmol/L (22-30); Creatinine 1 0.68 mg/dL (0.52-1.04); EST GLOMERULAR FILTRATION RATE > 60.0 ML/MIN; Glucose 103 mg/dL (74-106); LIPASE 202 U/L (23-300); Potassium 4.8 mmol/L (3.5-5.1); SGOT/AST 20 U/L (14-36); SGPT/ALT 15 U/L (0-35); SODIUM 140 mmol/L (137-145); Total Protein 8.3 g/dL (6.3-8.2)
[2022-12-10 18:11] LABS: Appearance Turbid (Clear); Bilirubin Negative (Negative); Blood Small (Negative); Epithelial Cells Few /HPF (None Seen); Glucose, Urine >=1000 mg/dL (Negative); Ketones Trace (Negative); Leukocyte Esterase Moderate (Negative); Nitrite Negative (Negative); Ph 5.5 (4.6-8.0); Protein,Urine Dip 100 (Negative); RBC 0-2 /HPF (0-5); Specific Gravity >=1.030 (1.005-1.030); Urobilinogen 0.2 mg/dL (0.2); WBC >100 /HPF (0-5)
[2022-12-10 18:12] LABS: ADD URINE CULTURE? YES (NO); Bacteria Few /HPF (None Seen); Budding Yeast Few /HPF (None Seen); Hyaline Casts None Seen /LPF (0-2)
[2022-12-10] MEDS ORDERED: Levofloxacin 500MG/100ML D5W 500 MG/100 ML BAG IV STA (18:18)
[2022-12-10] MEDS ORDERED: Levofloxacin 500MG/100ML D5W 500 MG/100 ML BAG IV ONE (19:05)
[2022-12-10] MEDS ORDERED: TORAdol 30 mg Injection IV ONE (19:13)
[2022-12-10] MEDS ORDERED: Flagyl 500 MG PO ONE (19:13)
[2022-12-10 19:15] VITALS: O2SAT 99
[2022-12-10] MEDS ORDERED: Diflucan 100 MG PO ONE (19:16)
[2022-12-10] MEDS ORDERED: TORAdol 30 mg Injection ONE (19:17)
[2022-12-10] MEDS ORDERED: Flagyl 500 MG ONE (19:17)
[2022-12-10 20:09] VITALS: PULSE 92
[2022-12-10 20:32] LABS: ANION GAP 11.5 MEQ/L (5-15); BLOOD UREA NITROGEN 24 mg/dL (7-17); CHLORIDE 108 mmol/L (98-107); Calcium 8.5 mg/dL (8.4-10.2); Carbon Dioxide 23 mmol/L (22-30); Creatinine 1 0.63 mg/dL (0.52-1.04); EST GLOMERULAR FILTRATION RATE > 60.0 ML/MIN; Glucose 125 mg/dL (74-106); Potassium 4.6 mmol/L (3.5-5.1); SODIUM 138 mmol/L (137-145)
[2022-12-10 20:42] VITALS: BP 111/71
--- NOTE | 2022-12-11 08:53 | XRAY ---
Indication: Pain and burning with urination. Vomiting and diarrhea. Multiple contiguous axial images obtained through the abdomen and pelvis without contrast. Comparison: February 08, 2017 Lung bases demonstrate stable small left base calcified granuloma. No infiltrate or effusion. New beam artifact from proximal right femur orthopedic fixation hardware. Noncontrasted stomach and bowel loops appear nonobstructed. Nonobstructing punctate calculus in each kidney. Again splenic calcified granulomas, cholecystectomy, and hysterectomy. No free fluid/air. Remaining liver, pancreas, spleen, adrenal glands, kidneys, ureters, and bladder are unremarkable for noncontrast exam. There remains moderate scattered vascular calcifications without AAA. Osseous structures again demonstrates osteopenia, minimal degenerative changes throughout the spine, and T11 Schmorl node. New remote appearing L3 superior endplate fracture with approximately 50% height loss. Impression: 1. Chronic findings including nonobstructed bilateral renal punctate calculus, arteriosclerotic disease, chronic bony findings, and old granulomatous disease. 2. Remaining CT abdomen/pelvis without contrast exam is negative.
== END 2022-12-10 20:45 | disposition home or self-care (01) ==
LOC: ED 16:38
DX: N39.0 Urinary tract infection, site not specified (principal); K52.9 Noninfective gastroenteritis and colitis, unspecified; R11.2 Nausea with vomiting, unspecified; E86.0 Dehydration; R10.84 Generalized abdominal pain; E11.42 Type 2 diabetes mellitus with diabetic polyneuropathy; I10 Essential (primary) hypertension; E78.5 Hyperlipidemia, unspecified; Z79.02 Long term (current) use of antithrombotics/antiplatelets; Z79.84 Long term (current) use of oral hypoglycemic drugs; Z79.899 Other long term (current) drug therapy; Z20.828 Contact with and (suspected) exposure to other viral communicable diseases
CPT/HCPCS: 0241U; 36000; 36415; 74176; 80048; 80053; 81001; 82150; 83605; 83690; 85025; 87040; 87086; 96365; 96374; 96375; 99284; J1885; J1956; J2405; A9270-GY

== ENCOUNTER 2022-12-25 15:46 | Emergency (ER) | payer MEDICARE ==
[2022-12-25 16:10] LABS: Appearance Turbid (Clear); Bacteria Moderate /HPF (None Seen); Bilirubin Negative (Negative); Blood Small (Negative); Epithelial Cells Moderate /HPF (None Seen); Glucose, Urine 500 mg/dL (Negative); Hyaline Casts NONE SEEN /LPF (0-2); Ketones Negative (Negative); Leukocyte Esterase Large (Negative); Nitrite Negative (Negative); Protein,Urine Dip 30 (Negative); Specific Gravity 1.015 (1.005-1.030); Urobilinogen 0.2 mg/dL (0.2); WBC >100 /HPF (0-5)
[2022-12-25 16:30] LABS: ADD URINE CULTURE? YES (NO); Budding Yeast Rare /HPF (None Seen)
[2022-12-25 16:37] LABS: ALBUMIN 4.5 g/dL (3.5-5.0); ALKALINE PHOSPHATASE 55 U/L (38-126); AMYLASE 68 U/L (30-110); ANION GAP 13.6 MEQ/L (5-15); BLOOD UREA NITROGEN 19 mg/dL (7-17); CHLORIDE 103 mmol/L (98-107); Calcium 9.8 mg/dL (8.4-10.2); Carbon Dioxide 27 mmol/L (22-30); Creatinine 1 0.59 mg/dL (0.52-1.04); EST GLOMERULAR FILTRATION RATE > 60.0 ML/MIN; Glucose 103 mg/dL (74-106); LIPASE 111 U/L (23-300); Potassium 4.1 mmol/L (3.5-5.1); SGOT/AST 25 U/L (14-36); SGPT/ALT 20 U/L (0-35); SODIUM 139 mmol/L (137-145); Total Protein 7.5 g/dL (6.3-8.2)
--- NOTE | 2022-12-25 17:43 | ERPHSYRPT ---
- History of Present Illness Time Seen by Provider: 12/25/22 16:10 Historian: patient Exam Limitations: no limitations Patient Subjective Stated Complaint: C/O frequent UTI with left lower abdominal pain Triage Nursing Assessment: Patient ambulated back to ER without difficulties. No SOB. Alert and oriented. No pain with abdominal palpation. Urine speciment provided; urine is cloudy. SKin tone normal. Physician History: Patient is a 67-year-old white female who presents with a complaint of chronic urinary tract infections which has been treated with at least 4 antibiotics in the past month. We have records of Cipro Flagyl Macrobid and Diflucan being used. She also now presents with a left lower quadrant pain she has chronic chills no fever or sweats she eats only Ensure and she has complaints of dysuria frequency urgency and occasional incontinence. Timing/Duration: week(s) (4) Activities at Onset: none Quality: pressure Abdominal Pain Onset Location: LLQ Pain Radiation: no radiation Severity of Pain-Max: moderate Severity of Pain-Current: mild Associated Symptoms: loss of appetite, nausea Previous symptoms: same symptoms as today Allergies/Adverse Reactions: hydromorphone Allergy (Severe, Verified 12/25/22 15:58) Difficulty Breathing citalopram hydrobromide [From Celexa] Allergy (Mild, Verified 12/25/22 15:58) Hives escitalopram oxalate [From Lexapro] Allergy (Mild, Verified 12/25/22 15:58) Hives morphine Allergy (Mild, Verified 12/25/22 15:58) itching N&V Allergy to IV only Sulfa (Sulfonamide Antibiotics) [Sulfa(Sulfonamide Antibiotics)] Allergy (Mild, Verified 12/25/22 15:58) Hives codeine [Codeine] Allergy (Unknown, Verified 12/25/22 15:58) hallucinations COVID-19 (SARS-CoV-2) vaccine, brian Allergy (Verified 12/25/22 15:58) Home Medications: Metformin HCl 500 mg [Glucophage 500 MG] 1,000 mg PO BIDWM 07/05/20 [History] lisinopriL [Lisinopril] 5 mg PO DAILY 12/10/22 [History] Oxycodone HCl/Acetaminophen [Percocet 5-325 mg Tablet] 1 each PO TID 12/25/22 [History] Hx Tetanus, Diphtheria Vaccination/Date Given: Yes (Maybe not tetanus) Hx Influenza Vaccination/Date Given: No Hx Pneumococcal Vaccination/Date Given: No Immunizations Up to Date: Yes Travel Risk - International Travel Have you traveled outside of the country in past 3 weeks: No - Coronavirus Screening Are you exhibiting any of the following symptoms?: No Close contact with a COVID-19 positive Pt in past 14-21 Days: No - Vaccine Status Have you recieved a Covid-19 vaccination: No Animal Cruelty Investigation Supervisor: Moderna - Vaccination Dates Date of 2cond Vaccination (if applicable): ? - Review of Systems Constitutional: No Fever, No Chills Eyes: No Symptoms Ears, Nose, & Throat: No Symptoms Respiratory: No Cough, No Dyspnea Cardiac: No Chest Pain, No Edema, No Syncope Abdominal/Gastrointestinal: Abdominal Pain, No Nausea, No Vomiting, No Diarrhea Genitourinary Symptoms: Dysuria, Frequency, Hesitancy, Incontinence, Urgency Musculoskeletal: No Back Pain, No Neck Pain Skin: No Rash Neurological: No Dizziness, No Focal Weakness, No Sensory Changes Psychological: No Symptoms Endocrine: No Symptoms All Other Systems: Reviewed and Negative - Past Medical History Pertinent Past Medical History: Yes Neurological History: Peripheral Neuropathy, TIA ENT History: Cataracts Cardiac History: Deep Vein Thrombosis, High Cholesterol, Hypertension Respiratory History: Asthma, COPD, Emphysema Endocrine Medical History: Diabetes Type II, Hypothyroidism Musculoskeletal History: Fractures GI Medical History: GERD History: Other Psycho-Social History: Anxiety, Depression Female Reproductive Disorders: No Pertinent History Other Medical History: CHRONIC LBP, CHRONIC SINUSITIS, overactive bladder - Past Surgical History Past Surgical History: Yes Neuro Surgical History: No Pertinent History Cardiac: No Pertinent History Respiratory: No Pertinent History Gastrointestinal: Appendectomy, Cholecystectomy Genitourinary: No Pertinent History Musculoskeletal: Other Female Surgical History: Section, Hysterectomy Other Surgical History: Hip repair - Social History Smoking Status: Former smoker How long have you smoked: 40 yrs Exposure to second hand smoke: No Alcohol Use: None Drug Use: none Patient Lives Alone: No Significant Family History: diabetes, hypertension - Nursing Vital Signs Nursing Vital Signs: Initial Vital Signs Temperature 97.7 F 12/25/22 15:58 Pulse Rate 109 H 12/25/22 15:58 Respiratory Rate 17 12/25/22 15:58 Blood Pressure 169/95 12/25/22 15:58 O2 Sat by Pulse Oximetry 100 12/25/22 15:58 Pain Scale Pain Intensity 6 - Physical Exam General Appearance: mild distress, alert Eye Exam: PERRL/EOMI, eyes nml inspection Ears, Nose, Throat Exam: normal ENT inspection, pharynx normal, moist mucous membranes Neck Exam: normal inspection, non-tender, supple, full range of motion Respiratory Exam: normal breath sounds, lungs clear, No respiratory distress Cardiovascular Exam: regular rate/rhythm, normal heart sounds Gastrointestinal/Abdomen Exam: soft, No tenderness, No mass Back Exam: normal inspection, normal range of motion, No CVA tenderness, No vertebral tenderness Extremity Exam: normal inspection, normal range of motion, pelvis stable Neurologic Exam: alert, oriented x 3, cooperative, normal mood/affect, nml cerebellar function, sensation nml, No motor deficits Skin Exam: normal color, warm, dry SpO2 Interpretation: normal SpO2: 100 O2 Delivery: Room Air - Course Nursing assessment & vital signs reviewed: Yes - CT Exams Abdomen/Pelvis CT Interpretation: Other (Results were reviewed there is a heavy stool burden which is new from the last CT scan.) Ordered Tests: Active Orders 24 hr Category Date Time Status ABDOMEN AND PELVIS W/0 CONTRAS [CT] Stat Exams 12/25/22 16:05 Taken AMYLASE Stat Lab 12/25/22 16:15 Completed CMP Stat Lab 12/25/22 16:15 Completed CULTURE,URINE Stat Lab 12/25/22 15:55 Received LIPASE Stat Lab 12/25/22 16:15 Completed Lactic Acid Stat Lab 12/25/22 16:20 Completed UA W/RFX UR CULTURE Stat Lab 12/25/22 15:55 Completed Lab/Rad Data: Laboratory Result Diagrams 12/25/22 16:15 Laboratory Results 12/25/22 12/25/22 12/25/22 Range/Units 16:20 16:15 15:55 Sodium 139 (137-145) mmol/L Potassium 4.1 (3.5-5.1) mmol/L Chloride 103 (98-107) mmol/L Carbon Dioxide 27 (22-30) mmol/L Anion Gap 13.6 (5-15) MEQ/L BUN 19 H (7-17) mg/dL Creatinine 0.59 (0.52-1.04) mg/dL Estimated GFR > 60.0 ML/MIN Glucose 103 (74-106) mg/dL Lactic Acid 2.2 H (0.4-2.0) Calcium 9.8 (8.4-10.2) mg/dL Total Bilirubin 0.40 (0.2-1.3) mg/dL AST 25 (14-36) U/L ALT 20 (0-35) U/L Alkaline Phosphatase 55 (38-126) U/L Serum Total Protein 7.5 (6.3-8.2) g/dL Albumin 4.5 (3.5-5.0) g/dL Amylase 68 (30-110) U/L Lipase 111 (23-300) U/L Urine Color Yellow (Yellow) Urine Appearance Turbid A (Clear) Urine pH 6.0 (4.6-8.0) Ur Specific [place] 1.015 (1.005-1.030) Urine Protein 30 (Negative) Urine Glucose (UA) 500 A (Negative) mg/dL Urine Ketones Negative (Negative) Urine Blood Small A (Negative) Urine Nitrite Negative (Negative) Urine Bilirubin Negative (Negative) Urine Urobilinogen 0.2 (0.2) mg/dL Ur Leukocyte Esterase Large A (Negative) U Hyaline Cast (Auto) NONE SEEN (0-2) /LPF Urine Microscopic RBC 3-5 (0-5) /HPF Urine Microscopic WBC >100 A (0-5) /HPF Ur Epithelial Cells Moderate A (None Seen) /HPF Urine Bacteria Moderate A (None Seen) /HPF Urine Yeast (Budding) Rare A (None Seen) /HPF Urine Culture Reflexed YES (NO) - Progress Progress: unchanged Medical Desision Making - External Record(s) Reviewed Records reviewed as a part of evaluation & management: Discharge Summary - Diagnostic Testing Diagnostic test were ordered, analyzed, and reviewed by me: Yes Radiological Interpretation: Reviewed by me - Risk of complications Low Risk: Low risk of morbidity from additional dx testing or treatment The pt has a mod risk of morbidity or mortality based on: Need for prescription drug management - Departure Departure Disposition: Home Clinical Impression: Urinary tract infection, Constipation Condition: Stable Critical Care Time: No Referrals: KENDRA REYNOLDS MD [Primary Care Provider] - Follow up/PCP as directed Instructions: Urinary Tract Infection, Adult (DC), Constipation, Adult (DC) Prescriptions: Cefdinir 300 mg PO BID 10 Days #20 cap
[2022-12-25 17:44] VITALS: PULSE 96
[2022-12-25 18:03] VITALS: BP 121/85; O2SAT 98
--- NOTE | 2022-12-25 19:05 | XRAY ---
Indication: Left lower quadrant pain 1 month. UTI. Multiple contiguous axial images obtained through the abdomen and pelvis without contrast. Comparison: December 10, 2022 Lung bases clear with stable small left base calcified granuloma. Heart not enlarged. Again beam artifact from proximal right femur with orthopedic hardware. Noncontrasted stomach and bowel loops nonobstructed. There is now moderate diffuse scattered colonic fecal debris throughout greatest in the left hemicolon. Again nonobstructing bilateral renal micro-calculi, splenic calcified granulomas, cholecystectomy, and hysterectomy. No free fluid/air. Remaining liver, pancreas, spleen, adrenal glands, kidneys, ureters, and bladder are unremarkable for noncontrast exam. There remains moderate scattered vascular calcifications throughout. Osseous structures intact again with osteopenia, minimal degenerative changes throughout spine, remote L3 superior endplate fracture, and superior T11 Schmorl node. Impression: 1. New moderate diffuse fecal stasis. 2. Again chronic findings including nonobstructing bilateral renal punctate calculi, arteriosclerotic disease, chronic bony findings, and old granulomatous disease.
== END 2022-12-25 18:03 | disposition home or self-care (01) ==
LOC: ED 15:46
DX: N39.0 Urinary tract infection, site not specified (principal); K59.00 Constipation, unspecified; R10.32 Left lower quadrant pain; R30.0 Dysuria; R35.0 Frequency of micturition; E11.42 Type 2 diabetes mellitus with diabetic polyneuropathy; E78.5 Hyperlipidemia, unspecified; I10 Essential (primary) hypertension; Z79.84 Long term (current) use of oral hypoglycemic drugs; Z79.891 Long term (current) use of opiate analgesic; Z79.899 Other long term (current) drug therapy
CPT/HCPCS: 36415; 74176; 80053; 81001; 82150; 83605; 83690; 87086; 99283

== ENCOUNTER 2023-04-23 11:59 | Emergency (ER) | payer MEDICARE ==
--- NOTE | 2023-04-23 12:04 | ERPHSYRPT ---
- History of Present Illness Time Seen by Provider: 04/23/23 12:04 Source: patient Exam Limitations: no limitations Physician History: This is a 67-year-old female patient of Dr. Jerome (primary care provider) and Dr. Cat (pain specialist) who fell twice this morning prior to arrival to the emergency department. She fell at 2 AM and again at 6 AM and did not arrive until approximately 12:15 PM. Patient complains of left hip pain. Patient is on chronic oxycodone. Patient was brought into the emergency department room by wheelchair. Patient has no other pain complaints. Patient has a history of diabetes, hypertension, DVT, peripheral neuropathy, TIAs, COPD/asthma, hypothyroidism and chronic low back pain. Timing/Duration: today Occured at: home Context: fall, lost balance Hip Pain Location: hip (L) Severity of Pain-Max: moderate Severity of Pain-Current: moderate Modifying Factors: Improves With: movement Symptoms prior to fall: none Associated Symptoms: trouble walking Allergies/Adverse Reactions: hydromorphone Allergy (Severe, Verified 04/23/23 12:20) Difficulty Breathing citalopram hydrobromide [From Celexa] Allergy (Mild, Verified 04/23/23 12:20) Hives escitalopram oxalate [From Lexapro] Allergy (Mild, Verified 04/23/23 12:20) Hives morphine Allergy (Mild, Verified 04/23/23 12:20) itching N&V Allergy to IV only Sulfa (Sulfonamide Antibiotics) [Sulfa(Sulfonamide Antibiotics)] Allergy (Mild, Verified 04/23/23 12:20) Hives codeine [Codeine] Allergy (Unknown, Verified 04/23/23 12:20) hallucinations COVID-19 (SARS-CoV-2) vaccine, brian Allergy (Verified 04/23/23 12:20) Home Medications: Metformin HCl 500 mg [Glucophage 500 MG] 1,000 mg PO BIDWM 07/05/20 [History] lisinopriL [Lisinopril] 5 mg PO DAILY 12/10/22 [History] Oxycodone HCl/Acetaminophen [Percocet 5-325 mg Tablet] 1 each PO TID 12/25/22 [History] Hx Tetanus, Diphtheria Vaccination/Date Given: Yes (Maybe not tetanus) Hx Influenza Vaccination/Date Given: No Hx Pneumococcal Vaccination/Date Given: No Travel Risk - International Travel Have you traveled outside of the country in past 3 weeks: No - Coronavirus Screening Are you exhibiting any of the following symptoms?: No Close contact with a COVID-19 positive Pt in past 14-21 Days: No - Vaccine Status Have you recieved a Covid-19 vaccination: No Containers Sales Representative: Moderna - Vaccination Dates Date of 2cond Vaccination (if applicable): ? - Review of Systems Constitutional: No Symptoms Eyes: No Symptoms Ears, Nose, & Throat: No Symptoms Respiratory: No Symptoms Cardiac: No Symptoms Abdominal/Gastrointestinal: No Symptoms Genitourinary Symptoms: No Symptoms Musculoskeletal: Fall, Injury (Left hip) Skin: No Symptoms Neurological: No Symptoms Psychological: No Symptoms Endocrine: No Symptoms Hematologic/Lymphatic: No Symptoms Immunological/Allergic: No Symptoms All Other Systems: Reviewed and Negative - Past Medical History Pertinent Past Medical History: Yes Neurological History: Peripheral Neuropathy, TIA ENT History: Cataracts Cardiac History: Deep Vein Thrombosis, High Cholesterol, Hypertension Respiratory History: Asthma, COPD, Emphysema Endocrine Medical History: Diabetes Type II, Hypothyroidism Musculoskeletal History: Fractures GI Medical History: GERD History: Other Psycho-Social History: Anxiety, Depression Female Reproductive Disorders: No Pertinent History Other Medical History: CHRONIC LBP, CHRONIC SINUSITIS, overactive bladder - Past Surgical History Past Surgical History: Yes Neuro Surgical History: No Pertinent History Cardiac: No Pertinent History Respiratory: No Pertinent History Gastrointestinal: Appendectomy, Cholecystectomy Genitourinary: No Pertinent History Musculoskeletal: Other Female Surgical History: Section, Hysterectomy Other Surgical History: Hip repair - Social History Smoking Status: Former smoker How long have you smoked: 40 yrs Exposure to second hand smoke: No Alcohol Use: None Drug Use: none Patient Lives Alone: No Significant Family History: diabetes, hypertension - Nursing Vital Signs Nursing Vital Signs: Initial Vital Signs Temperature 98 F 04/23/23 12:10 Pulse Rate 96 H 04/23/23 12:10 Respiratory Rate 18 04/23/23 12:10 Blood Pressure 138/80 04/23/23 12:10 O2 Sat by Pulse Oximetry 100 04/23/23 12:10 Pain Scale Pain Intensity 10 - Physical Exam General Appearance: no apparent distress, alert, anxiety Eye Exam: PERRL/EOMI, eyes nml inspection Ears, Nose, Throat Exam: normal ENT inspection, moist mucous membranes Neck Exam: normal inspection, non-tender, supple, full range of motion Respiratory Exam: airway intact, No chest tenderness, No respiratory distress Gastrointestinal Exam: tenderness Pelvic Exam: not done Rectal Exam: not done Back Exam: normal inspection, normal range of motion, No CVA tenderness, No vertebral tenderness Extremity Exam: normal inspection, normal range of motion, pelvis stable, tenderness (Left hip to palpation), other (Left lower extremity does not appear to be externally rotated.) Neurologic Exam: alert, oriented x 3, cooperative, automatic lathe setter II-XII nml as tested, normal mood/affect Skin Exam: normal color, warm, dry Lymphatic Exam: No adenopathy SpO2 Interpretation: normal O2 Delivery: Room Air - Course Nursing assessment & vital signs reviewed: Yes Ordered Tests: Active Orders 24 hr Category Date Time Status FEMUR Stat Exams 04/23/23 12:20 Completed HIP UNI (2V) INCL PEL IF DONE Stat Exams 04/23/23 12:20 Completed Medication Summary Discontinued Medications Generic Name Dose Route Start Last Admin Trade Name Freq PRN Reason Stop Dose Admin Ketorolac Tromethamine 30 mg 04/23/23 13:11 Ketorolac Tromethamine 30 Mg/Ml Inj IM 04/23/23 13:12 STAT ONE Meperidine HCl 12.5 mg 04/23/23 13:09 Meperidine Hcl 25 Mg Syringe IM 04/23/23 13:10 STAT ONE Ondansetron HCl 4 mg 04/23/23 13:11 Zofran 4 Mg/Udtablet Orally Disintegrating PO 04/23/23 13:12 STAT ONE - Progress Progress: improved, re-examined Progress Note: 04/23/23 13:12 X-ray of the pelvis and left hip shows no new acute fracture or dislocation. X- ray of the left femur shows no acute fracture or dislocation. The above x-rays were interpreted by the radiologist and I reviewed the interpretation. This patient's medical issue is 1 of low complexity. The level of complexity and the work-up performed is based on review of the patient's past medical history, review of the patient's medication list, review the patient's drug allergy list. Patient states that she has had Demerol in the past without any side effects. Patient is also had Toradol in the past without any side effects. We also reviewed the patient's history of present illness and assessed physical findings on her examination. Work-up includes x-ray of the pelvis with attention to the left hip and x-ray of the left femur. Patient does not have any acute fractures or dislocations. We will provide patient with low-dose Demerol and Toradol intramuscular injection. Patient has Percocet at home which she will use. Patient is to contact her primary care provider today to make arrangements for follow-up appointment in the next 3 to 5 days. Counseled pt/family regarding: diagnosis, need for follow-up, rad results Medical Desision Making - Independent Historian Additional History obtained from: Family - Diagnostic Testing Diagnostic test were ordered, analyzed, and reviewed by me: Yes Radiological Interpretation: Reviewed by me, Teleradiologist Report - Risk of complications Low Risk: Low risk of morbidity from additional dx testing or treatment - Departure Departure Disposition: Home Clinical Impression: Fall with no significant injury, Left hip pain Condition: Stable Critical Care Time: No Referrals: GIANCARLO HARTLEY NP, RN [Primary Care Provider] - Follow up/PCP as directed Additional Instructions: Take your medication as prescribed. Follow-up with your primary care provider today, by phone, to make arranges for follow-up appointment for further evaluation management in the next 3 to 5 days.
[2023-04-23 12:28] VITALS: O2SAT 100
--- NOTE | 2023-04-23 13:01 | XRAY ---
Indication: Pain following fall. Comparison: October 15, 2022 AP pelvis and 2 view left hip unchanged again demonstrating osteopenia, mild degenerative changes both hips, old right intertrochanteric fracture with partially visualized intact hardware, and moderate scattered vascular calcifications. No new/acute abnormalities.
--- NOTE | 2023-04-23 13:01 | XRAY ---
Indication: Pain following fall. Comparison: None 2 view left femur demonstrates osteopenia and moderate scattered vascular calcifications. No other bony, articular, or soft tissue abnormalities.
[2023-04-23] MEDS ORDERED: DEMEROL 25MG SYRINGE IM ONE (13:09)
[2023-04-23] MEDS ORDERED: ZOFRAN ODT 4 MG PO ONE (13:11)
[2023-04-23] MEDS ORDERED: TORAdol 30 mg Injection IM ONE (13:11)
[2023-04-23] MEDS ORDERED: ZOFRAN ODT 4 MG ONE (13:16)
[2023-04-23] MEDS ORDERED: TORAdol 30 mg Injection ONE (13:16)
[2023-04-23] MEDS ORDERED: DEMEROL 50 MG ONE (13:17)
[2023-04-23 13:53] VITALS: BP 135/75; PULSE 65
== END 2023-04-23 13:53 | disposition home or self-care (01) ==
LOC: ED 11:59
DX: M25.552 Pain in left hip (principal); W19.XXXA Unspecified fall, initial encounter; E11.42 Type 2 diabetes mellitus with diabetic polyneuropathy; I10 Essential (primary) hypertension; Z79.891 Long term (current) use of opiate analgesic; Z79.84 Long term (current) use of oral hypoglycemic drugs; Z79.899 Other long term (current) drug therapy; Z28.310 Unvaccinated for COVID-19
CPT/HCPCS: 73502; 73552; 96372; 99283; J1885; J2175; Q0162

== ENCOUNTER 2023-06-03 23:26 | Emergency (ER) | payer MEDICARE ==
[2023-06-03 23:56] VITALS: TEMP 97.7
--- NOTE | 2023-06-04 00:12 | ERPHSYRPT ---
- History of Present Illness Time Seen by Provider: 06/03/23 23:48 Historian: patient Exam Limitations: no limitations Patient Subjective Stated Complaint: pt states that today around 1600 while sitting on the couch she started having left lower abd sharp pains intermitten tly that she rates 8/10. lying flat or holding pressure to the area help a little with the pain. she reports she hasn't had a BM since 05/30 but it isn't abnormal for her only go every 3-4days. she took an OTC laxative earlier today without results. Triage Nursing Assessment: pt ambulated to room 6 independently with slow steady gait after standing on scales for weight acquisition and to bathroom to obtain urine sample. pt is alert and oriented times three, able to speak in complete sentences, able to move all extremities, and with resp even and unlabored. abd soft, flat, nontender to palpation, and with positive bowel sounds in all quadrants. denies cp, n/v, sob, difficulty breathing, lightheadedness, dizziness, difficulty with urination, difficulty with food/ fluid intake. Physician History: 68-year-old female with history of hypertension, diabetes mellitus presented in the ER with chief complaint of left lower quadrant pain since 4 PM moderate intensity sharp nonradiating. Patient reports her abdomen feels tense and hard. Last bowel movement was 4 days ago. Has history of chronic constipation. Took laxative with no significant relief. Denies any nausea or vomiting. Denies any history of obstruction. Allergies/Adverse Reactions: hydromorphone Allergy (Severe, Verified 06/03/23 23:40) Difficulty Breathing citalopram hydrobromide [From Celexa] Allergy (Mild, Verified 06/03/23 23:40) Hives escitalopram oxalate [From Lexapro] Allergy (Mild, Verified 06/03/23 23:40) Hives morphine Allergy (Mild, Verified 06/03/23 23:40) itching N&V Allergy to IV only Sulfa (Sulfonamide Antibiotics) [Sulfa(Sulfonamide Antibiotics)] Allergy (Mild, Verified 06/03/23 23:40) Hives codeine [Codeine] Allergy (Unknown, Verified 06/03/23 23:40) hallucinations COVID-19 (SARS-CoV-2) vaccine, brian Allergy (Verified 06/03/23 23:40) Home Medications: Metformin HCl 500 mg [Glucophage 500 MG] 1,000 mg PO BIDWM 07/05/20 [History] lisinopriL [Lisinopril] 2.5 mg PO DAILY 12/10/22 [History] Oxycodone HCl/Acetaminophen [Percocet 5-325 mg Tablet] 1 each PO TID 12/25/22 [History] Cranberry 500 mg PO BID 06/03/23 [History] Doxepin HCl 2 cap PO HS 06/03/23 [History] Hydroxyzine HCl 25 mg [Atarax 25 mg] 25 mg PO DAILY 06/03/23 [History] Magnesium Oxide 400 mg [Mag-Ox 400] 400 mg PO BID 06/03/23 [History] Megestrol Acetate 400 mg PO DAILY 06/03/23 [History] Oxybutynin Chloride [Oxybutynin Chloride ER] 15 mg PO BID 06/03/23 [History] Tizanidine HCl 2 mg PO QID 06/03/23 [History] Hx Tetanus, Diphtheria Vaccination/Date Given: No Hx Influenza Vaccination/Date Given: No Hx Pneumococcal Vaccination/Date Given: No Immunizations Up to Date: No Travel Risk - International Travel Have you traveled outside of the country in past 3 weeks: No - Coronavirus Screening Are you exhibiting any of the following symptoms?: No Close contact with a COVID-19 positive Pt in past 14-21 Days: No - Vaccine Status Have you recieved a Covid-19 vaccination: No Dean Of Admissions: Moderna - Vaccination Dates Date of 2cond Vaccination (if applicable): didn't get- allergic - Review of Systems Constitutional: No Symptoms Eyes: No Symptoms Ears, Nose, & Throat: No Symptoms Respiratory: No Symptoms Cardiac: No Symptoms Abdominal/Gastrointestinal: Abdominal Pain, Constipation Genitourinary Symptoms: No Symptoms Skin: No Symptoms Neurological: No Symptoms Hematologic/Lymphatic: No Symptoms Immunological/Allergic: No Symptoms - Past Medical History Pertinent Past Medical History: Yes Neurological History: Peripheral Neuropathy, TIA ENT History: Cataracts Cardiac History: Deep Vein Thrombosis, High Cholesterol, Hypertension Respiratory History: Asthma, COPD, Emphysema Endocrine Medical History: Diabetes Type II, Hypothyroidism Musculoskeletal History: Fractures GI Medical History: GERD History: Other Psycho-Social History: Anxiety, Depression Female Reproductive Disorders: No Pertinent History Other Medical History: CHRONIC LBP, CHRONIC SINUSITIS, overactive bladder - Past Surgical History Past Surgical History: Yes Neuro Surgical History: No Pertinent History Cardiac: No Pertinent History Respiratory: No Pertinent History Gastrointestinal: Appendectomy, Cholecystectomy Genitourinary: No Pertinent History Musculoskeletal: Other Female Surgical History: Section, Hysterectomy Other Surgical History: Hip repair - Social History Smoking Status: Former smoker How long have you smoked: 40 yrs Exposure to second hand smoke: No Alcohol Use: None Drug Use: none Patient Lives Alone: No Significant Family History: diabetes, hypertension - Nursing Vital Signs Nursing Vital Signs: Initial Vital Signs Pulse Rate 96 H 06/03/23 23:38 Respiratory Rate 20 06/03/23 23:38 Blood Pressure 140/92 06/03/23 23:38 O2 Sat by Pulse Oximetry 99 06/03/23 23:38 Pain Scale Pain Intensity 5 - Physical Exam General Appearance: no apparent distress Eye Exam: PERRL/EOMI Ears, Nose, Throat Exam: normal ENT inspection Neck Exam: normal inspection, supple, full range of motion Respiratory Exam: normal breath sounds, lungs clear Cardiovascular Exam: regular rate/rhythm, normal heart sounds Gastrointestinal/Abdomen Exam: soft, normal bowel sounds, tenderness (Left lower quadrant. No guarding or rebound tenderness.) Extremity Exam: normal inspection Neurologic Exam: alert, oriented x 3, cooperative Skin Exam: normal color SpO2 Interpretation: normal SpO2: 98 O2 Delivery: Room Air Ordered Tests: Active Orders 24 hr Category Date Time Status IV Insertion STAT Care 06/04/23 00:01 Active NPO (ED) STAT Care 06/04/23 00:01 Active ABDOMEN AND PELVIS W/0 CONTRAS [CT] Stat Exams 06/04/23 00:31 Completed CBC W DIFF Stat Lab 06/04/23 00:03 Completed CMP Stat Lab 06/04/23 00:03 Completed LIPASE Stat Lab 06/04/23 00:03 Completed Lactic Acid Stat Lab 06/04/23 00:20 Completed UA W/RFX UR CULTURE Stat Lab 06/04/23 00:03 Completed Medication Summary Generic Name Dose Route Start Last Admin Trade Name Freq PRN Reason Stop Dose Admin Sodium Chloride 500 mls @ 500 mls/hr 06/04/23 01:05 06/04/23 01:12 Sodium Chloride 0.9% 500 Ml IV 06/04/23 02:04 500 mls/hr .Q1H ONE Administration Discontinued Medications Generic Name Dose Route Start Last Admin Trade Name Judy PRN Reason Stop Dose Admin Fentanyl Citrate 25 mcg 06/04/23 00:14 06/04/23 00:19 Fentanyl Citrate 100 Mcg/2 Ml* Vial IV 06/04/23 00:15 Not Given STAT ONE Sodium Chloride Confirm 06/04/23 01:06 Sodium Chloride 0.9% 500 Ml Administered 06/04/23 01:07 Dose 500 mls @ ud IV .STK-MED ONE Ketorolac Tromethamine 15 mg 06/04/23 00:16 06/04/23 00:21 Ketorolac Tromethamine 30 Mg/Ml Inj IV 06/04/23 00:17 15 mg STAT ONE Administration Ketorolac Tromethamine Confirm 06/04/23 00:20 Ketorolac Tromethamine 30 Mg/Ml Inj Administered 06/04/23 00:21 Dose 30 mg .ROUTE .STK-MED ONE Ondansetron HCl 4 mg 06/04/23 00:14 06/04/23 00:22 Ondansetron Hcl 4 Mg/2 Ml Vial IV 06/04/23 00:15 4 mg STAT ONE Administration Ondansetron HCl Confirm 06/04/23 00:20 Ondansetron Hcl 4 Mg/2 Ml Vial Administered 06/04/23 00:21 Dose 4 mg .ROUTE .STK-MED ONE Lab/Rad Data: Laboratory Result Diagrams 06/04/23 00:03 06/04/23 00:03 Laboratory Results 06/04/23 06/04/23 06/04/23 Range/Units 00:20 00:03 00:03 WBC 6.9 (4.0-10.5) x10^3/uL RBC 3.49 L (4.1-5.4) x10^6/uL Hgb 10.4 L (12.0-16.0) g/dL Hct 33.2 L (35-47) % MCV 95.1 (78-100) fL MCH 29.8 (26-32) pg MCHC 31.3 L (32-36) g/dL RDW 12.2 (11.5-14.0) % Plt Count 179 (150-450) x10^3/uL MPV 10.8 (7.5-11.0) fL Gran % 49.9 (36.0-66.0) % Immature Gran % (Auto) 0.1 (0.00-0.4) % Nucleat RBC Rel Count 0.0 (0.00-0.1) % Eos # (Auto) 0.14 (0-0.5) x10^3/uL Immature Gran # (Auto) 0.01 (0.00-0.03) x10^3u/L Absolute Lymphs (auto) 2.72 (1.0-4.6) x10^3/uL Absolute Monos (auto) 0.58 (0.0-1.3) x10^3/uL Absolute Nucleated RBC 0.00 (0.00-0.01) x10^3u/L Lymphocytes % 39.3 (24.0-44.0) % Monocytes % 8.4 (0.0-12.0) % Eosinophils % 2.0 (0.00-5.0) % Basophils % 0.3 (0.0-0.4) % Absolute Granulocytes 3.45 (1.4-6.9) x10^3/uL Basophils # 0.02 (0-0.4) x10^3/uL Sodium 140 (137-145) mmol/L Potassium 4.3 (3.5-5.1) mmol/L Chloride 102 (98-107) mmol/L Carbon Dioxide 28 (22-30) mmol/L Anion Gap 14.4 (5-15) MEQ/L BUN 25 H (7-17) mg/dL Creatinine 0.88 (0.52-1.04) mg/dL Estimated GFR > 60.0 ML/MIN Glucose 82 (74-106) mg/dL Lactic Acid 2.2 H (0.4-2.0) Calcium 9.3 (8.4-10.2) mg/dL Total Bilirubin 0.30 (0.2-1.3) mg/dL AST 27 (14-36) U/L ALT 21 (0-35) U/L Alkaline Phosphatase 58 (38-126) U/L Serum Total Protein 7.0 (6.3-8.2) g/dL Albumin 4.1 (3.5-5.0) g/dL Lipase 188 (23-300) U/L Urine Color (Yellow) Urine Appearance (Clear) Urine pH (4.6-8.0) Ur Specific [place] (1.005-1.030) Urine Protein (Negative) Urine Glucose (UA) (Negative) mg/dL Urine Ketones (Negative) Urine Blood (Negative) Urine Nitrite (Negative) Urine Bilirubin (Negative) Urine Urobilinogen (0.2) mg/dL Ur Leukocyte Esterase (Negative) U Hyaline Cast (Auto) (0-2) /LPF Urine Microscopic RBC (0-5) /HPF Urine Microscopic WBC (0-5) /HPF Ur Epithelial Cells (None Seen) /HPF Urine Bacteria (None Seen) /HPF Urine Culture Reflexed (NO) 06/04/23 Range/Units 00:03 WBC (4.0-10.5) x10^3/uL RBC (4.1-5.4) x10^6/uL Hgb (12.0-16.0) g/dL Hct (35-47) % MCV (78-100) fL MCH (26-32) pg MCHC (32-36) g/dL RDW (11.5-14.0) % Plt Count (150-450) x10^3/uL MPV (7.5-11.0) fL Gran % (36.0-66.0) % Immature Gran % (Auto) (0.00-0.4) % Nucleat RBC Rel Count (0.00-0.1) % Eos # (Auto) (0-0.5) x10^3/uL Immature Gran # (Auto) (0.00-0.03) x10^3u/L Absolute Lymphs (auto) (1.0-4.6) x10^3/uL Absolute Monos (auto) (0.0-1.3) x10^3/uL Absolute Nucleated RBC (0.00-0.01) x10^3u/L Lymphocytes % (24.0-44.0) % Monocytes % (0.0-12.0) % Eosinophils % (0.00-5.0) % Basophils % (0.0-0.4) % Absolute Granulocytes (1.4-6.9) x10^3/uL Basophils # (0-0.4) x10^3/uL Sodium (137-145) mmol/L Potassium (3.5-5.1) mmol/L Chloride (98-107) mmol/L Carbon Dioxide (22-30) mmol/L Anion Gap (5-15) MEQ/L BUN (7-17) mg/dL Creatinine (0.52-1.04) mg/dL Estimated GFR ML/MIN Glucose (74-106) mg/dL Lactic Acid (0.4-2.0) Calcium (8.4-10.2) mg/dL Total Bilirubin (0.2-1.3) mg/dL AST (14-36) U/L ALT (0-35) U/L Alkaline Phosphatase (38-126) U/L Serum Total Protein (6.3-8.2) g/dL Albumin (3.5-5.0) g/dL Lipase (23-300) U/L Urine Color Yellow (Yellow) Urine Appearance Clear (Clear) Urine pH 6.5 (4.6-8.0) Ur Specific [place] 1.020 (1.005-1.030) Urine Protein Negative (Negative) Urine Glucose (UA) Negative (Negative) mg/dL Urine Ketones Negative (Negative) Urine Blood Negative (Negative) Urine Nitrite Negative (Negative) Urine Bilirubin Negative (Negative) Urine Urobilinogen 0.2 (0.2) mg/dL Ur Leukocyte Esterase Small A (Negative) U Hyaline Cast (Auto) NONE SEEN (0-2) /LPF Urine Microscopic RBC 0-2 (0-5) /HPF Urine Microscopic WBC 3-5 (0-5) /HPF Ur Epithelial Cells None Seen (None Seen) /HPF Urine Bacteria None Seen (None Seen) /HPF Urine Culture Reflexed NO (NO) - Progress Progress: improved, pain not gone completely Progress Note: 06/04/23 00:14 68-year-old female with history of hypertension, diabetes mellitus presented in the ER with chief complaint of left lower quadrant pain since 4 PM moderate intensity sharp nonradiating. Patient reports her abdomen feels tense and hard. Last bowel movement was 4 days ago. Has history of chronic constipation. Took laxative with no significant relief. Denies any nausea or vomiting. Denies any history of obstruction. 06/04/23 01:00 Patient has tenderness left lower quadrant. Not in any distress. Bowel sounds positive. She is given Toradol for symptomatic relief. Work-up showed normal white count, fairly unremarkable chemistries. No significant UTI. CT abdomen pelvis 06/04/23 01:[address] abdomen pelvis did show moderate stool load/consistent with constipation. Has atherosclerotic changes and luminal narrowing of aorta and iliacs specially on the left side. Patient is advised to have outpatient follow-up. She has pal pable pulses in left lower extremity. She is offered an MRI which she declined. Recommended stool softener/MiraLAX and outpatient follow-up. Discussed signs symptoms of worsening needing return to ER which she seems understanding. 06/04/23 01:21 Counseled pt/family regarding: lab results, diagnosis, need for follow-up, rad results Medical Desision Making - Diagnostic Testing Diagnostic test were ordered, analyzed, and reviewed by me: Yes Radiological Interpretation: Reviewed by me, Teleradiologist Report - Risk of complications The pt has a mod risk of morbidity or mortality based on: Need for prescription drug management - Departure Departure Disposition: Home Clinical Impression: Left lower quadrant pain, Constipation, Peripheral vascular disease Condition: Stable Critical Care Time: No Referrals: GIANCARLO HARTLEY NP, RN [Primary Care Provider] - Follow up with PCP 1 day Instructions: Severe Abdominal Pain, Adult (DC) Additional Instructions: Take Tylenol as needed for pain. Follow-up with primary care for reevaluation and also for referral to vascular surgery for further evaluation. Increase fiber in the diet and take fiber supplements. Daily MiraLAX. Return to ER for intractable pain/vomiting/fever chills etc.
[2023-06-04] MEDS ORDERED: Zofran 4 MG/2 ML VIAL IV ONE (00:14)
[2023-06-04] MEDS ORDERED: SUBLIMAZE 100 MCG/2 ML IV ONE (00:14)
[2023-06-04] MEDS ORDERED: TORAdol 30 mg Injection IV ONE (00:16)
[2023-06-04 00:19] VITALS: O2SAT 98
[2023-06-04] MEDS ORDERED: TORAdol 30 mg Injection ONE (00:20)
[2023-06-04] MEDS ORDERED: Zofran 4 MG/2 ML VIAL ONE (00:20)
[2023-06-04 00:38] LABS: Absolute Neutrophil Ct (ANC) 3.45 x10^3/uL (1.4-6.9); BASOPHIL % 0.3 % (0.0-0.4); Basophil (Absolute #) 0.02 x10^3/uL (0-0.4); Eosinophil (Absolute #) 0.14 x10^3/uL (0-0.5); Hematocrit 33.2 % (35-47); Hemoglobin 10.4 g/dL (12.0-16.0); IMMATURE GRAN # 0.01 x10^3u/L (0.00-0.03); IMMATURE GRAN % 0.1 % (0.00-0.4); Lymphocyte (Absolute #) 2.72 x10^3/uL (1.0-4.6); Lymphocytes % 39.3 % (24.0-44.0); Mean Cell Volume 95.1 fL (78-100); Mean Corpuscular Hemoglobin 29.8 pg (26-32); Mean Corpuscular Hgb Concent. 31.3 g/dL (32-36); Mean Platelet Volume 10.8 fL (7.5-11.0); Monocyte (Absolute #) 0.58 x10^3/uL (0.0-1.3); Monocytes % 8.4 % (0.0-12.0); Neutrophil % 49.9 % (36.0-66.0); Platelet Count 179 x10^3/uL (150-450); Red Blood Count 3.49 x10^6/uL (4.1-5.4); Red Cell Distribution Width 12.2 % (11.5-14.0); White Blood Count 6.9 x10^3/uL (4.0-10.5)
[2023-06-04 00:46] LABS: ADD URINE CULTURE? NO (NO); Appearance Clear (Clear); Bacteria None Seen /HPF (None Seen); Bilirubin Negative (Negative); Blood Negative (Negative); Epithelial Cells None Seen /HPF (None Seen); Glucose, Urine Negative (Negative); Hyaline Casts NONE SEEN /LPF (0-2); Ketones Negative (Negative); Leukocyte Esterase Small (Negative); Nitrite Negative (Negative); Ph 6.5 (4.6-8.0); Protein,Urine Dip Negative (Negative); RBC 0-2 /HPF (0-5); Urobilinogen 0.2 mg/dL (0.2)
[2023-06-04 00:57] LABS: ALBUMIN 4.1 g/dL (3.5-5.0); ALKALINE PHOSPHATASE 58 U/L (38-126); ANION GAP 14.4 MEQ/L (5-15); BLOOD UREA NITROGEN 25 mg/dL (7-17); CHLORIDE 102 mmol/L (98-107); Calcium 9.3 mg/dL (8.4-10.2); Carbon Dioxide 28 mmol/L (22-30); Creatinine 1 0.88 mg/dL (0.52-1.04); EST GLOMERULAR FILTRATION RATE > 60.0 ML/MIN; Glucose 82 mg/dL (74-106); LIPASE 188 U/L (23-300); Potassium 4.3 mmol/L (3.5-5.1); SGOT/AST 27 U/L (14-36); SGPT/ALT 21 U/L (0-35); SODIUM 140 mmol/L (137-145)
[2023-06-04] MEDS ORDERED: Sodium Chloride 0.9% 500 ML 500 ML IV ONE ×2 (01:05→01:06)
--- NOTE | 2023-06-04 01:11 | XRAY ---
CLINICAL HISTORY:LLQ pain COMPARISON:CT dated 12/25/2022. TECHNIQUE:CT scan of the abdomen and pelvis was performed without IV contrast. Coronal and sagittal reconstructive images were also obtained. FINDINGS: Abdomen: The liver is of average size. No focal or diffuse parenchymal abnormality. The intrahepatic biliary radicals and the bile ducts are normal. The spleen shows multiple small calcified granulomas in its parenchyma. The pancreas, and adrenal glands are unremarkable. The kidneys are unremarkable. They are normal in size and shape. No calculi or hydronephrosis. The gallbladder is surgically removed. The ascending colon, the transverse colon and the descending colon are loaded with fecal matter. The visualized small bowel loops are unremarkable. There is no evidence of significant enlargement of the mesenteric or retroperitoneal lymph nodes. The abdominal aorta and its branches show atherosclerotic changes with calcified plaques. Moderate luminal narrowing of the abdominal aorta with constriction seen just proximal to its bifurcation. 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 Pelvis: The urinary bladder is unremarkable. The uterus is surgically removed. No evidence of pelvic lymphadenopathy. The lumbar spine shows degenerative changes. Intramedullary nail fixation seen in right proximal femur. Sections of lower thorax show a 7 mm calcified in the inferior left lingular segment. IMPRESSION: 1. Fecal loaded colon. 2. 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 3. Old calcified granulomas in the spleen and left lower lobe of lung. 4. No significant interval change is seen since the previous study dated 12/25/2022. Electronically Signed by: Fay Zhang MD. (06/04/2023 00:10:53 [employer]AY CAR [employer])
[2023-06-04 02:11] VITALS: BP 122/66; PULSE 95; RESP 20
== END 2023-06-04 02:17 | disposition home or self-care (01) ==
LOC: ED 23:26
DX: K59.00 Constipation, unspecified (principal); I73.9 Peripheral vascular disease, unspecified; R10.32 Left lower quadrant pain; I10 Essential (primary) hypertension; E78.5 Hyperlipidemia, unspecified; E11.42 Type 2 diabetes mellitus with diabetic polyneuropathy; Z79.84 Long term (current) use of oral hypoglycemic drugs; Z79.891 Long term (current) use of opiate analgesic; Z79.899 Other long term (current) drug therapy
CPT/HCPCS: 36000; 36415; 74176; 80053; 81001; 83605; 83690; 85025; 96374; 96375; 99284; J1885; J2405

== ENCOUNTER 2023-06-23 07:33 | Day surgery (SDC) | payer MEDICARE ==
[2023-06-23] MEDS ORDERED: Depo-Medrol 40 MG/ML IM ONE (07:34)
[2023-06-23] MEDS ORDERED: BUPIVACAINE 0.5% VIAL IJ ONE (07:34)
[2023-06-23] MEDS ORDERED: DIPRIVAN 200 MG/20 ML IV ONE (08:58)
[2023-06-23] MEDS ORDERED: Lactated Ringers 1,000 ML IV ONE (09:24)
--- NOTE | 2023-06-23 10:19 | XRAY ---
Indication: Bilateral SI joint and right greater trochanter bursa injection. Intraoperative fluoroscopy provided for 29 seconds. 6 digital spot image obtained prone submitted for interpretation demonstrates posterior needle tip projecting over the left and right SI joint. Additional needle tip lateral to right greater trochanter with small amount of contrast injected for needle tip placement. Correlate with intraoperative findings/report. Incidental incompletely visualized proximal right femur orthopedic hardware.
--- NOTE | 2023-06-23 10:53 | XRAY ---
29 seconds of fluoroscopy was used in surgery for a bilateral sacroiliac joint and right greater trochanteric bursa injection.
== END 2023-06-23 09:25 | disposition home or self-care (01) ==
LOC: SDC-PAIN 07:33
PROVIDERS: ATTEND Psychiatry & Neurology Pain Medicine
DX: M46.1 Sacroiliitis, not elsewhere classified (principal); M70.61 Trochanteric bursitis, right hip; E11.9 Type 2 diabetes mellitus without complications; Z79.899 Other long term (current) drug therapy
CPT/HCPCS: 20610; 27096; 73501; 77002; 82947; J1030; J2704; Q9966; G0260

== ENCOUNTER 2023-08-11 08:02 | Day surgery (SDC) | payer MEDICARE ==
[2023-08-11] MEDS ORDERED: Depo-Medrol 40 MG/ML IM ONE (08:03)
[2023-08-11] MEDS ORDERED: BUPIVACAINE 0.5% VIAL IJ ONE (08:03)
[2023-08-11] MEDS ORDERED: DIPRIVAN 200 MG/20 ML IV ONE (09:54)
[2023-08-11] MEDS ORDERED: Versed 2 MG/2 ML Injection ONE (09:54)
[2023-08-11] MEDS ORDERED: Lactated Ringers 1,000 ML IV ONE (10:21)
--- NOTE | 2023-08-11 14:34 | XRAY ---
Indication: Right hip and greater trochanter bursa injection. Intraoperative fluoroscopy provided for 17 seconds. 2 digital spot images submitted for interpretation demonstrates needle tip projecting lateral to right femur neck. Second needle tip lateral to greater trochanter. Small amount of contrast injected for both needle tip placement. Correlate with intraoperative findings/report. Incidental incompletely visualized proximal right femur orthopedic hardware.
--- NOTE | 2023-08-11 14:58 | XRAY ---
17 seconds of fluoroscopy was used in surgery for a right intra-articular hip and greater trochanteric bursa injection.
== END 2023-08-11 10:22 | disposition home or self-care (01) ==
LOC: SDC-PAIN 08:02
PROVIDERS: ATTEND Psychiatry & Neurology Pain Medicine
DX: M16.11 Unilateral primary osteoarthritis, right hip (principal); M70.61 Trochanteric bursitis, right hip; E11.9 Type 2 diabetes mellitus without complications
CPT/HCPCS: 20610; 73502; 77002; 82947; J1030; J2250; J2704; Q9966

== ENCOUNTER 2023-10-01 01:01 | Emergency (ER) | payer MEDICARE ==
--- NOTE | 2023-10-01 01:29 | ERPHSYRPT ---
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 took a sleeping prior to going to bed. fell backwards hitting head on ground. no neck pain. no loc. also injured left shoulder in fall. no anticoag tx. h/o dm, htn, pn, tia, copd, asthma, hyperlipidemia, hypothyroid, gerdz, anxiety Occurred: just prior to arrival Severity: mild Head Injury Location: occipital Method of Injury: fell Loss of Consciousness: no loss of consciousness Associated Symptoms: denies symptoms Allergies/Adverse Reactions: hydromorphone Allergy (Severe, Verified 10/01/23 01:30) Difficulty Breathing citalopram hydrobromide [From Celexa] Allergy (Mild, Verified 10/01/23 01:30) Hives escitalopram oxalate [From Lexapro] Allergy (Mild, Verified 10/01/23 01:30) Hives morphine Allergy (Mild, Verified 10/01/23 01:30) itching N&V Allergy to IV only Sulfa (Sulfonamide Antibiotics) [Sulfa(Sulfonamide Antibiotics)] Allergy (Mild, Verified 10/01/23 01:30) Hives codeine [Codeine] Allergy (Unknown, Verified 10/01/23 01:30) hallucinations COVID-19 (SARS-CoV-2) vaccine, brian Allergy (Verified 10/01/23 01:30) Home Medications: Metformin HCl 500 mg [Glucophage 500 MG] 1,000 mg PO BIDWM 07/05/20 [History] lisinopriL [Lisinopril] 2.5 mg PO DAILY 12/10/22 [History] Oxycodone HCl/Acetaminophen [Percocet 5-325 mg Tablet] 1 each PO TID 12/25/22 [History] Cranberry 500 mg PO BID 06/03/23 [History] Hydroxyzine HCl 25 mg [Atarax 25 mg] 25 mg PO DAILY 06/03/23 [History] Magnesium Oxide 400 mg [Mag-Ox 400] 400 mg PO BID 06/03/23 [History] Oxybutynin Chloride [Oxybutynin Chloride ER] 15 mg PO BID 06/03/23 [History] Doxepin HCl 2 tab PO HS 10/01/23 [History] Hx Tetanus, Diphtheria Vaccination/Date Given: No Hx Influenza Vaccination/Date Given: No Hx Pneumococcal Vaccination/Date Given: No Travel Risk - International Travel Have you traveled outside of the country in past 3 weeks: No - Coronavirus Screening Are you exhibiting any of the following symptoms?: No Close contact with a COVID-19 positive Pt in past 14-21 Days: No - Vaccine Status Have you recieved a Covid-19 vaccination: No 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 - Vaccination Dates Date of 2cond Vaccination (if applicable): didn't get- allergic - Review of Systems Constitutional: No Symptoms Eyes: No Symptoms Ears, Nose, & Throat: No Symptoms Respiratory: No Symptoms Cardiac: No Symptoms Abdominal/Gastrointestinal: No Symptoms Genitourinary Symptoms: No Symptoms Musculoskeletal: Joint Pain ( left shoulder) Skin: No Symptoms Neurological: Headache Psychological: No Symptoms Endocrine: No Symptoms Hematologic/Lymphatic: No Symptoms Immunological/Allergic: No Symptoms All Other Systems: Reviewed and Negative - Past Medical History Pertinent Past Medical History: Yes Neurological History: Peripheral Neuropathy, TIA ENT History: Cataracts Cardiac History: Deep Vein Thrombosis, High Cholesterol, Hypertension Respiratory History: Asthma, COPD, Emphysema Endocrine Medical History: Diabetes Type II, Hypothyroidism Musculoskeletal History: Fractures GI Medical History: GERD History: Other Psycho-Social History: Anxiety, Depression Female Reproductive Disorders: No Pertinent History Other Medical History: CHRONIC LBP, CHRONIC SINUSITIS, overactive bladder - Past Surgical History Past Surgical History: Yes Neuro Surgical History: No Pertinent History Cardiac: No Pertinent History Respiratory: No Pertinent History Gastrointestinal: Appendectomy, Cholecystectomy Genitourinary: No Pertinent History Musculoskeletal: Other Female Surgical History: Section, Hysterectomy Other Surgical History: Hip repair - Social History Smoking Status: Former smoker How long have you smoked: 40 yrs Exposure to second hand smoke: No Alcohol Use: None Drug Use: none Patient Lives Alone: No Significant Family History: diabetes, hypertension - Nursing Vital Signs Nursing Vital Signs: Initial Vital Signs Pulse Rate 110 H 10/01/23 01:30 Respiratory Rate 18 10/01/23 01:30 Blood Pressure 99/46 10/01/23 01:30 O2 Sat by Pulse Oximetry 98 10/01/23 01:30 Pain Scale Pain Intensity 0 - [place] Coma Score Best Eye Response ([place]): (4) open spontaneously Best Verbal Response ([place]): (5) oriented Best Motor Response ([place]): (6) obeys commands [place] Total: 15 - Physical Exam General Appearance: no apparent distress, alert, anxiety Head Injury: contusions (occipital region), swelling (occipital region), No active bleeding, No lacerations Eye Exam: bilateral eye: normal inspection, PERRL, EOMI ENT Exam: airway nml, nml ext.inspection Neck Exam: supple, trachea midline, full range of motion, normal alignment, normal inspection Cardiovascular/Respiratory Exam: chest non-tender, no respiratory distress Gastrointestinal/Abdominal Exam: soft, non tender, no distention, no mass, no guarding, no ecchymosis, no organomegaly, no pulsatile mass, normal bowel sounds Pelvic Exam: not done Rectal Exam: not done Back Exam: normal inspection, normal range of motion, No CVA tenderness, No vertebral tenderness Extremity Exam: non-tender, normal range of motion, normal inspection, normal capillary refill, no calf tenderness, no pedal edema, pelvis stable Mental Status Exam: alert, oriented x 3, 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 Exam: normal hearing, normal speech, PERRL Coordination/Gait Exam: normal gait, normal cerebellar function Motor/Sensory Exam: no motor deficit, no sensory deficit, no pronator drift Skin Exam: normal color, warm, dry Lymphatic Exam: No adenopathy SpO2 Interpretation: normal O2 Delivery: Room Air - Course Nursing assessment & vital signs reviewed: Yes Ordered Tests: Active Orders 24 hr Category Date Time Status HEAD WITHOUT CONTRAST [CT] Stat Exams 10/01/23 01:43 Completed SHOULDER Stat Exams 10/01/23 01:44 Completed - Progress Progress: unchanged Progress Note: 10/01/23 01:50 low level of complexity based on pmhx, hpi, pe findings, review medication and drug allergy list. workup includes ct head and xray left shoulder. 10/01/23 02:47 ct head without shows no acute infarction. no skull fx. microvascular changes noted. this study and left shoulder xray interpreted by radiologist. results d/w pt Counseled pt/family regarding: diagnosis, need for follow-up, rad results Medical Desision Making - Independent Historian Additional History obtained from: Family - Diagnostic Testing Diagnostic test were ordered, analyzed, and reviewed by me: Yes Radiological Interpretation: Reviewed by me, Teleradiologist Report - Risk of complications Low Risk: Low risk of morbidity from additional dx testing or treatment - Departure Departure Disposition: Home Clinical Impression: Fall with no significant injury, Scalp contusion, Left shoulder pain Condition: Stable Critical Care Time: No Referrals: GIANCARLO HARTLEY NP, RN [Primary Care Provider] - Follow up/PCP as directed Additional Instructions: ice pack to tender areas 3 times daily for 2 days. follow up with primary doctor for further management. tylenol and ibuprofen for pain control
[2023-10-01 01:57] VITALS: RESP 18; TEMP 98.3; O2SAT 95
[2023-10-01 02:27] VITALS: BP 87/55; PULSE 98
--- NOTE | 2023-10-01 02:35 | XRAY ---
CLINICAL HISTORY:fall injury COMPARISON:None. TECHNIQUE:X-ray of left shoulder showing 3 views: AP external rotation, AP internal rotation and Y views. FINDINGS: Decreased bone mineralization. No evidence of fracture or dislocation noted. Normal bone density seen. Normal articulation and joint spaces seen. IMPRESSION: 1. Decreased bone mineralization. 2. No acute osseous abnormality. DISCLAIMER:A subtle bone abnormality or fracture may not be readily apparent on x-rays, thus clinical correlation and further imaging including follow up CT, MRI, or follow up x-rays are advised as needed Electronically Signed by: Fay Zhang MD. (10/01/2023 02:31:48 EST)
--- NOTE | 2023-10-01 02:41 | XRAY ---
CLINICAL HISTORY:fall injury COMPARISON:CT dated 01/23/2013. TECHNIQUE:Axial non-contrast CT scan of the brain was performed from the skull base to the high parietal region. Coronal and sagittal reconstructions were also obtained. FINDINGS: No definite calvarium fractures. No intracerebral or extra axial hematoma. Tiny hypodense foci seen at the subcortical and deep periventricular white matter suggestive of microvascular ischemic changes. The visualized brain parenchyma shows a normal appearance. No focal parenchymal abnormalities are demonstrated. Chacon-white matter differentiation is maintained. No midline shifts or deformity. Normal size and configuration of the cerebral ventricles. Normal CT appearance of the posterior fossa structures namely the cerebellar hemispheres, brainstem and cerebellar peduncles. The IACs are unremarkable. The cerebello-pontine angles are clear. The pituitary gland, the pineal gland, the optic chiasm are unremarkable. The osseous structures in the skull base are unremarkable. Scanned paranasal sinuses are clear. IMPRESSION: 1. No definite calvarium fractures. 2. No intracerebral or extra axial hematoma. 3. Microvascular ischemic changes, new interval finding. Electronically Signed by: Fya Zhang MD. (10/01/2023 02:37:34 EST)
== END 2023-10-01 02:59 | disposition home or self-care (01) ==
LOC: ED 01:01
DX: S00.03XA Contusion of scalp, initial encounter (principal); W18.30XA Fall on same level, unspecified, initial encounter; M25.512 Pain in left shoulder; E11.42 Type 2 diabetes mellitus with diabetic polyneuropathy; I10 Essential (primary) hypertension; E78.5 Hyperlipidemia, unspecified; Z79.84 Long term (current) use of oral hypoglycemic drugs; Z79.891 Long term (current) use of opiate analgesic; Z79.899 Other long term (current) drug therapy
CPT/HCPCS: 70450; 73030; 99283

== ENCOUNTER 2024-01-24 13:27 | Emergency (ER) | payer MEDICARE ==
[2024-01-24] MEDS ORDERED: NORCO 10-325 MG ONE (13:52)
[2024-01-24] MEDS: NORCO 10-325 MG PO ONE (13:54)
--- NOTE | 2024-01-24 14:33 | XRAY ---
Indication: Pain following fall. Comparison: None 3 view right shoulder demonstrates comminuted impacted humeral head/neck acute fracture with moderate angulation. Elsewhere osteopenia, mild AC degenerative changes, T7 vertebroplasty, and right lung base subsegmental atelectasis/scarring. No other bony, articular, or soft tissue abnormalities.
--- NOTE | 2024-01-24 14:35 | XRAY ---
Indication: Pain following fall. Comparison: None 2 view right humerus demonstrates comminuted impacted humeral head/neck acute fracture with moderate angulation. Elsewhere osteopenia, mild AC degenerative changes, and right lung base subsegmental atelectasis/scarring. No other bony, articular, or soft tissue abnormalities.
--- NOTE | 2024-01-24 14:35 | XRAY ---
Indication: Pain following fall. Comparison: None 3 view right elbow obtained. AP view limited due to suboptimal positioning. Osteopenia and tiny spurring olecranon process. No other bony, articular, or soft tissue abnormalities.
--- NOTE | 2024-01-24 15:23 | ERPHSYRPT ---
- History of Present Illness Time Seen by Provider: 01/24/24 13:33 Source: patient, family Exam Limitations: no limitations Patient Subjective Stated Complaint: "I fell and hurt my right arm" Triage Nursing Assessment: 68 yr old female arrives to ED via POV with her granddaughter. Pt presents with complaints of right arm pain from a fall. Pt reports that she slipped in mud and fell onto her right side hitting her right hip and arm. Pt denies pain to the hip. Pt denies hitting her head, LOC and is not on a blood thinner. Radial pulse present, no deformity or discoloration. Pt is alert, oriented and not in distress. Physician History: Patient is here with right shoulder pain after mechanical fall. Patient states that she slipped in some mud 30 minutes prior to arrival. Fell on her right shoulder. No right hip pain, right flank pain, wrist or hand pain. Does describe some right elbow pain shoulder pain humerus pain. No pulses present, no obvious deformities or colorations. She has had no nausea or vomiting. She did not hit her head. She is not on any blood thinners. Allergies/Adverse Reactions: hydromorphone Allergy (Severe, Verified 01/24/24 13:42) Difficulty Breathing citalopram hydrobromide [From Celexa] Allergy (Mild, Verified 01/24/24 13:42) Hives escitalopram oxalate [From Lexapro] Allergy (Mild, Verified 01/24/24 13:42) Hives morphine Allergy (Mild, Verified 01/24/24 13:42) itching N&V Allergy to IV only Sulfa (Sulfonamide Antibiotics) [Sulfa(Sulfonamide Antibiotics)] Allergy (Mild, Verified 01/24/24 13:42) Hives codeine [Codeine] Allergy (Unknown, Verified 01/24/24 13:42) hallucinations COVID-19 (SARS-CoV-2) vaccine, brian Allergy (Verified 01/24/24 13:42) Home Medications: Metformin HCl 500 mg [Glucophage 500 MG] 1,000 mg PO BIDWM 07/05/20 [History] lisinopriL [Lisinopril] 2.5 mg PO DAILY 12/10/22 [History] Oxycodone HCl/Acetaminophen [Percocet 5-325 mg Tablet] 1 each PO TID 12/25/22 [History] Oxybutynin Chloride [Oxybutynin Chloride ER] 15 mg PO BID 06/03/23 [History] Doxepin HCl 2 tab PO HS 10/01/23 [History] Hx Tetanus, Diphtheria Vaccination/Date Given: Yes Hx Influenza Vaccination/Date Given: Yes Hx Pneumococcal Vaccination/Date Given: Yes Immunizations Up to Date: No Travel Risk - International Travel Have you traveled outside of the country in past 3 weeks: No - Emerging Infectious Disease Are you exhibiting symptoms associated with any current EIDs: No - Past Medical History Pertinent Past Medical History: Yes Neurological History: Peripheral Neuropathy, TIA ENT History: Cataracts Cardiac History: Deep Vein Thrombosis, High Cholesterol, Hypertension Respiratory History: Asthma, COPD, Emphysema Endocrine Medical History: Diabetes Type II, Hypothyroidism Musculoskeletal History: Fractures GI Medical History: GERD History: Other Psycho-Social History: Anxiety, Depression Female Reproductive Disorders: No Pertinent History Other Medical History: anxiety, depression, COPD, over active bladder - Past Surgical History Past Surgical History: Yes Neuro Surgical History: No Pertinent History Cardiac: No Pertinent History Respiratory: No Pertinent History Gastrointestinal: Appendectomy, Cholecystectomy Genitourinary: No Pertinent History Musculoskeletal: Other Female Surgical History: Section, Hysterectomy Other Surgical History: R Hip repair in 1csection x 3 Significant Family History: diabetes, hypertension - Social History Smoking Status: Light tobacco smoker How long have you smoked: 40 yrs Exposure to second hand smoke: No Alcohol Use: None Drug Use: none Patient Lives Alone: No - Nursing Vital Signs Nursing Vital Signs: Initial Vital Signs Pulse Rate 109 H 01/24/24 13:42 Respiratory Rate 20 01/24/24 13:42 Blood Pressure 113/69 01/24/24 13:42 O2 Sat by Pulse Oximetry 94 L 01/24/24 13:42 Pain Scale Pain Intensity 4 - Physical Exam SpO2 Interpretation: normal SpO2: 97 Comments: 01/24/24 15:56 Review of Systems Constitutional: Negative for fever. HENT: Negative for congestion. Respiratory: Negative for shortness of breath. Cardiovascular: Negative for chest pain. Gastrointestinal: Negative for abdominal pain. Genitourinary: Negative for dysuria. Musculoskeletal: Negative for back pain. Skin: Negative for rash. Neurological: Negative for headaches. Psychiatric/Behavioral: Negative for behavioral problems. All other systems reviewed and are negative. Physical Exam Vitals signs and nursing note reviewed. Constitutional: Appearance: Patient is well-developed. HENT: Head: Normocephalic and atraumatic. Eyes: Conjunctiva/sclera: Conjunctivae normal. Neck: Musculoskeletal: Normal range of motion. Trachea: No tracheal deviation. Cardiovascular: Rate and Rhythm: Normal rate. Pulmonary: Effort: Pulmonary effort is normal. No respiratory distress. Abdominal: Palpations: Abdomen is soft. Musculoskeletal: General: Right shoulder tenderness, right humerus tenderness, right elbow tenderness. No obvious deformity, sensation intact, 2+ capillary refill, 2 point tactile discrimination intact. Decreased strength and range of motion secondary to pain. Most of patient's pain appears to be centered around the shoulder. Compartments are soft, nontender. Overlying skin shows bruising, no tenting. Recheck prior to discharge patient has 2+ radial pulse, 2+ ulnar pulse. Skin: General: Skin is warm and dry. Neurological/ Psychiatric: Mental Status: Mental status, behavior, interaction with environment is appropriate for patient's age and condition - Course Nursing assessment & vital signs reviewed: Yes Ordered Tests: Active Orders 24 hr Category Date Time Status Cold Application STAT Care 01/24/24 13:36 Completed Sling Application STAT Care 01/24/24 15:34 Completed ELBOW (2 VIEW) Stat Exams 01/24/24 13:49 Completed HUMERUS Stat Exams 01/24/24 13:49 Completed SHOULDER Stat Exams 01/24/24 13:49 Completed Medication Summary Discontinued Medications Generic Name Dose Route Start Last Admin Trade Name Saleemq PRN Reason Stop Dose Admin Hydrocodone Bitart/Acetaminophen 1 tablet 01/24/24 13:50 01/24/24 13:54 Hydrocodone/Acetamin 10-325 Mg Tablet PO 01/24/24 13:51 1 tablet ONCE ONE Administration Hydrocodone Bitart/Acetaminophen Confirm 01/24/24 13:52 Hydrocodone/Acetamin 10-325 Mg Tablet Administered 01/24/24 13:53 Dose 1 tablet .ROUTE .STK-MED ONE Hydrocodone Bitart/Acetaminophen 4 tab 01/24/24 15:25 01/24/24 15:29 Hydrocodone/Apap 5/325 1 Tab Tablet PO 01/24/24 15:26 4 tab SENT HOME W/ PATIENT ONE Administration Hydrocodone Bitart/Acetaminophen Confirm 01/24/24 15:28 Hydrocodone/Apap 5/325 1 Tab Tablet Administered 01/24/24 15:29 Dose 4 tab .ROUTE .STK-MED ONE - Progress Progress Note: 01/24/24 16:00 Differential diagnosis includes sprain, strain, fracture, other injury. Patient's right shoulder demonstrates impacted, comminuted humeral head fracture. Right elbow demonstrates no obvious fracture on x-ray per Dr. Driscoll's read. I did discuss over the phone with on-call orthopedic surgeon, Dr. Welch. He did review the case with myself over the phone. He would like to see her tomorrow morning at 8:30 AM. I did discuss this with the patient and the patient's adult granddaughter. They state they will be able to get to this appointment. Prior to discharge patient did have 2 low blood pressures. I did examine the patient during this time. She had good radial pulse, good mentation, no signs of other bleeding or other injury. Patient's granddaughter states that she does run low and this is typical for her. 01/24/24 16:27 Counseled pt/family regarding: diagnosis, need for follow-up, rad results - Departure Departure Disposition: Home Clinical Impression: Fracture of humeral head, closed Condition: Stable Critical Care Time: No Referrals: DESTINY FINNEGAN DO [Primary Care Provider] - Follow up/PCP as directed Instructions: Fractures Additional Instructions: Follow-up in Ortho clinic here at [facility] tomorrow morning for 07/11 at 8:[address] Welch. Take ibuprofen and [place] as needed Prescriptions: Hydrocodone/APAP 5/325 [[place] 5/325 mg] 1 each PO Q6H PRN PRN 7 Days #10 tablet MDD 4 PRN Reason: Pain
[2024-01-24] MEDS ORDERED: NORCO 5/325 MG ONE (15:28)
[2024-01-24] MEDS: NORCO 5/325 MG PO ONE (15:29)
[2024-01-24 16:00] VITALS: O2SAT 97
[2024-01-24 16:08] VITALS: BP 91/58; PULSE 100; RESP 18
== END 2024-01-24 16:14 | disposition home or self-care (01) ==
LOC: ED 13:27
DX: S42.291A Other displaced fracture of upper end of right humerus, initial encounter for closed fracture (principal); W01.0XXA Fall on same level from slipping, tripping and stumbling without subsequent striking against object, initial encounter; M25.521 Pain in right elbow; E78.5 Hyperlipidemia, unspecified; I10 Essential (primary) hypertension; E11.42 Type 2 diabetes mellitus with diabetic polyneuropathy; Z79.84 Long term (current) use of oral hypoglycemic drugs; Z79.891 Long term (current) use of opiate analgesic; Z79.899 Other long term (current) drug therapy; Z72.0 Tobacco use
CPT/HCPCS: 73030; 73060; 73070; 99283; A9270-GY

== ENCOUNTER 2024-01-28 06:04 | Observation (INO) | payer MEDICARE ==
--- NOTE | 2024-01-28 06:13 | ERPHSYRPT ---
- History of Present Illness Source: patient, family Exam Limitations: no limitations Occurred: this morning Method of Injury: fell Quality: aching Severity of Pain-Max: mild (To moderate) Severity of Pain-Current: mild (Moderate) Extremities Pain Location: shoulder: right Modifying Factors: Improves With: nothing Associated Symptoms: none Hx Tetanus, Diphtheria Vaccination/Date Given: Yes Hx Influenza Vaccination/Date Given: Yes Hx Pneumococcal Vaccination/Date Given: Yes <BLAYNE MUJICA - Last Filed: 01/28/24 06:57> <SANCHO DONIS - Last Filed: 01/28/24 08:09> - History of Present Illness Time Seen by Provider: 01/28/24 06:13 Physician History: This is a 68-year-old white female patient who presented to the hospital to check in for her scheduled outpatient surgery of her right shoulder. Patient was feeling kind of weak and she fell onto her right shoulder which is the shoulder she will be under going a replacement surgery per her report. Patient did not lose consciousness. Patient did not hit her head. She has no headache and she has no neck pain. Patient last consumed oral intake at approximately 10 PM last evening. Patient has a history of diabetes, hypertension, peripheral neuropathy, hyperlipidemia, COPD, hypothyroidism and gastroesophageal reflux disease. Patient denies shortness of breath. Patient denies chest pain. (BLAYNE MUJICA) Allergies/Adverse Reactions: hydromorphone Allergy (Severe, Verified 01/27/24 15:28) Difficulty Breathing citalopram hydrobromide [From Celexa] Allergy (Mild, Verified 01/28/24 06:14) Hives escitalopram oxalate [From Lexapro] Allergy (Mild, Verified 01/28/24 06:14) Hives morphine Allergy (Mild, Verified 01/28/24 06:14) itching N&V Allergy to IV only Sulfa (Sulfonamide Antibiotics) [Sulfa(Sulfonamide Antibiotics)] Allergy (Mild, Verified 01/28/24 06:14) Hives codeine [Codeine] Allergy (Unknown, Verified 01/28/24 06:14) hallucinations COVID-19 (SARS-CoV-2) vaccine, brian Allergy (Verified 01/28/24 06:14) Home Medications: Metformin HCl 500 mg [Glucophage 500 MG] 1,000 mg PO BIDWM 09/18/20 [History] lisinopriL [Lisinopril] 2.5 mg PO DAILY 12/10/22 [History] Oxycodone HCl/Acetaminophen [Percocet 5-325 mg Tablet] 1 each PO TID 12/25/22 [History] Oxybutynin Chloride [Oxybutynin Chloride ER] 15 mg PO BID 06/03/23 [History] Albuterol Sulfate [Proair Respiclick] 90 mcg IH Q4HPRN PRN 01/27/24 [History] Cyanocobalamin (Vitamin B-12) [B-12] 1,000 mcg PO DAILY 01/27/24 [History] Doxepin HCl 100 mg PO HS 01/27/24 [History] Fluticasone Propionate [Flonase Allergy Relief] 9.9 ml NS DAILY 01/27/24 [History] Ibandronate Sodium 150 mg PO DAILY 01/27/24 [History] PARoxetine HCL [Paroxetine HCl] 10 mg PO DAILY 01/27/24 [History] Rosuvastatin Calcium 20 mg PO DAILY 01/27/24 [History] Travel Risk - International Travel Have you traveled outside of the country in past 3 weeks: No - Emerging Infectious Disease Are you exhibiting symptoms associated with any current EIDs: No <BLAYNE MUJICA - Last Filed: 01/28/24 06:57> - Review of Systems Constitutional: No Symptoms Eyes: No Symptoms Ears, Nose, & Throat: No Symptoms Respiratory: No Symptoms Cardiac: No Symptoms Abdominal/Gastrointestinal: No Symptoms Genitourinary Symptoms: No Symptoms Musculoskeletal: Injury (Right shoulder) Skin: No Symptoms Neurological: No Symptoms Psychological: No Symptoms Endocrine: No Symptoms Hematologic/Lymphatic: No Symptoms Immunological/Allergic: No Symptoms All Other Systems: Reviewed and Negative <BLAYNE MUJICA - Last Filed: 01/28/24 06:57> - Past Medical History Pertinent Past Medical History: Yes Neurological History: Peripheral Neuropathy, TIA ENT History: Cataracts Cardiac History: Deep Vein Thrombosis, High Cholesterol, Hypertension Respiratory History: Asthma, COPD, Emphysema Endocrine Medical History: Diabetes Type II, Hypothyroidism Musculoskeletal History: Fractures GI Medical History: GERD History: Other Psycho-Social History: Anxiety, Depression Female Reproductive Disorders: No Pertinent History Other Medical History: anxiety, depression, COPD, over active bladder - Past Surgical History Past Surgical History: Yes Neuro Surgical History: No Pertinent History Cardiac: No Pertinent History Respiratory: No Pertinent History Gastrointestinal: Appendectomy, Cholecystectomy Genitourinary: No Pertinent History Musculoskeletal: Other Female Surgical History: Section, Hysterectomy Other Surgical History: R Hip repair in 1csection x 3 Significant Family History: diabetes, hypertension - Social History Smoking Status: Light tobacco smoker How long have you smoked: 40 yrs Exposure to second hand smoke: No Alcohol Use: None Drug Use: none Patient Lives Alone: No <BLAYNE MUJICA - Last Filed: 01/28/24 06:57> - Physical Exam General Appearance: no apparent distress, alert Eyes, Ears, Nose, Throat Exam: normal ENT inspection, moist mucous membranes Neck Exam: normal inspection, non-tender, supple, full range of motion Cardiovascular/Respiratory Exam: chest non-tender, normal breath sounds, regular rate/rhythm, heart sounds normal, no respiratory distress Abdominal Exam: non-tender Back Exam: normal inspection, normal range of motion, No CVA tenderness, No vertebral tenderness Shoulder Exam: no evidence of injury (There is no evidence of any new injury or obvious deformity. The right shoulder and right upper extremity is in a brace. There is no open fractures appreciated.), bone tenderness (Right side), limited ROM, soft tissue tenderness (Right side), No deformity Elbow/Forearm Exam: normal inspection, non-tender, no evidence of injury, normal ROM Wrist Exam: normal inspection, non-tender, no evidence of injury, normal ROM Hand Exam: normal inspection, non-tender, no evidence of injury, normal ROM Neuro/Tendon Exam: normal sensation, normal tendon functions, responds to pain, no evidence tendon injury Mental Status Exam: alert, oriented x 3, cooperative Skin Exam: normal color, warm, dry SpO2 Interpretation: normal O2 Delivery: Room Air <BLAYNE MUJICA - Last Filed: 01/28/24 06:57> - Nursing Vital Signs Nursing Vital Signs: Initial Vital Signs Temperature 97.2 F 01/28/24 06:14 Pulse Rate 115 H 01/28/24 06:14 Respiratory Rate 18 01/28/24 06:14 Blood Pressure 84/44 01/28/24 06:14 O2 Sat by Pulse Oximetry 92 L 01/28/24 06:14 Pain Scale Pain Intensity 8 - Course Nursing assessment & vital signs reviewed: Yes <BLAYNE MUJICA - Last Filed: 01/28/24 06:57> Ordered Tests: Active Orders 24 hr Category Date Time Status IV Insertion STAT Care 01/28/24 06:18 Active SCD's [Sequential Compression Device] Q6H Care 01/28/24 07:35 Active NPO except Meds Diet 01/29/24 00:01 Active SHOULDER Stat Exams 01/28/24 06:40 Taken BMP Stat Lab 01/28/24 06:53 Received CBC W DIFF Stat Lab 01/28/24 06:53 Completed POCT GLUCOSE Stat Lab 01/28/24 06:30 Completed Medication Summary Generic Name Dose Route Start Last Admin Trade Name Freq PRN Reason Stop Dose Admin Sodium Chloride 1,000 mls @ 100 mls/hr 01/28/24 06:30 01/28/24 06:32 Sodium Chloride 0.9% 1000 Ml IV 02/27/24 06:29 500 mls/hr .Q10H KRISTYN Infusion Lab/Rad Data: Laboratory Result Diagrams 01/28/24 06:53 Laboratory Results 01/28/24 01/28/24 Range/Units 06:53 06:30 WBC 5.2 (4.0-10.5) x10^3/uL RBC 1.85 L (4.1-5.4) x10^6/uL Hgb 5.5 L* D (12.0-16.0) g/dL Hct 18.1 L (35-47) % MCV 97.8 (78-100) fL MCH 29.7 (26-32) pg MCHC 30.4 L (32-36) g/dL RDW 12.7 (11.5-14.0) % Plt Count 113 L (150-450) x10^3/uL MPV 10.8 (7.5-11.0) fL Gran % 55.2 (36.0-66.0) % Immature Gran % (Auto) 0.6 H (0.00-0.4) % Nucleat RBC Rel Count 0.0 (0.00-0.1) % Eos # (Auto) 0.11 (0-0.5) x10^3/uL Immature Gran # (Auto) 0.03 (0.00-0.03) x10^3u/L Absolute Lymphs (auto) 1.78 (1.0-4.6) x10^3/uL Absolute Monos (auto) 0.39 (0.0-1.3) x10^3/uL Absolute Nucleated RBC 0.00 (0.00-0.01) x10^3u/L Lymphocytes % 34.4 (24.0-44.0) % Monocytes % 7.5 (0.0-12.0) % Eosinophils % 2.1 (0.00-5.0) % Basophils % 0.2 (0.0-0.4) % Absolute Granulocytes 2.85 (1.4-6.9) x10^3/uL Basophils # 0.01 (0-0.4) x10^3/uL POC Glucometer 149 H (74 to 106) mg/dL - Progress Progress: unchanged, pain not gone completely Counseled pt/family regarding: rad results <BLAYNE MUJICA - Last Filed: 01/28/24 06:57> - Progress Discussed with : James (Spoke with & discussed pt with Dr. Moise([id number]) - obs) <SANCHO DONIS - Last Filed: 01/28/24 08:09> - Progress Progress Note: 01/28/24 06:27 My medical decision making and the assignment of low to moderate complexity in this patient is based on review of the patient's past medical history, review the patient's medication list, review of patient drug allergy list, history present illness and physical findings on examination. The workup in this patient will be to place an intravenous line, infuse low rate normal saline solution, draw CBC and a BMP and perform a repeat x-ray of the patient's right shoulder. I contacted outpatient surgery. I discussed with the nurse regarding this patient falling in the waiting area onto the same right shoulder that she is having an operation on today. The male nurse I spoke to is going to contact Dr. Mc, the orthopedic surgeon and make him aware that this patient fell and that we are repeating an x-ray of her right shoulder. I also informed him that we are placing an intravenous line and drawing the above stated labs. Once the x-rays have been performed, we will send the patient to outpatient surgery where Dr. Mc and anesthesia will decide whether the surgery will be performed or not. Differential diagnosis fall with contusion right shoulder, fall with worsening fracture of humeral head right side, fall with dislocated right shoulder 01/28/24 06:43 I interpreted today's x-ray of right shoulder. There is a persistent impacted fracture of the right humeral head not significantly different when compared to x-ray of the right shoulder dated 01/24/2024. 01/28/24 06:57 I am transferring care of this patient to Dr. Donis at shift change. I reviewed the patient history, presenting complaint physical findings and radiographic studies. The laboratory results are pending. He will make final disposition. (BLAYNE MUJICA) 01/28/24 07:[address] Donis @ 0708: eomi, pharynx pink, lungs clear, no cardiac rub, abdominal B.S. normal, no active rom of right shoulder, ecchymosis of right shoulder and right elbow, good sensation of all extremities, good rom of left upper extremity and both lower extremities, alert & cooperative, pale. (SANCHO DONIS) Medical Desision Making - Independent Historian Additional History obtained from: Family - Diagnostic Testing Diagnostic test were ordered, analyzed, and reviewed by me: Yes Radiological Interpretation: Interpreted by me <BLAYNE MUJICA - Last Filed: 01/28/24 06:57> - Departure Departure Disposition: Home Critical Care Time: No <BLAYNE MUJICA - Last Filed: 01/28/24 06:57> - Departure Departure Disposition: Observation <SANCHO DNOIS - Last Filed: 01/28/24 08:09> - Departure Clinical Impression: Humeral head fracture, Anemia Condition: Stable Referrals: DESTINY FINNEGAN DO [Primary Care Provider] - Follow up/PCP as directed
[2024-01-28] MEDS ORDERED: Sodium Chloride 0.9% 1000 ML 1,000 ML ONE (06:23)
[2024-01-28] MEDS: Sodium Chloride 0.9% 1000 ML 1,000 ML IV SCH ×2 (06:24→09:15)
[2024-01-28 06:57] LABS: Absolute Neutrophil Ct (ANC) 2.85 x10^3/uL (1.4-6.9); BASOPHIL % 0.2 % (0.0-0.4); Basophil (Absolute #) 0.01 x10^3/uL (0-0.4); Eosinophil % 2.1 % (0.00-5.0); Eosinophil (Absolute #) 0.11 x10^3/uL (0-0.5); Hematocrit 18.1 % (35-47); IMMATURE GRAN # 0.03 x10^3u/L (0.00-0.03); IMMATURE GRAN % 0.6 % (0.00-0.4); Lymphocyte (Absolute #) 1.78 x10^3/uL (1.0-4.6); Lymphocytes % 34.4 % (24.0-44.0); Mean Cell Volume 97.8 fL (78-100); Mean Corpuscular Hemoglobin 29.7 pg (26-32); Mean Corpuscular Hgb Concent. 30.4 g/dL (32-36); Mean Platelet Volume 10.8 fL (7.5-11.0); Monocyte (Absolute #) 0.39 x10^3/uL (0.0-1.3); Monocytes % 7.5 % (0.0-12.0); Neutrophil % 55.2 % (36.0-66.0); Platelet Count 113 x10^3/uL (150-450); Red Blood Count 1.85 x10^6/uL (4.1-5.4); Red Cell Distribution Width 12.7 % (11.5-14.0); White Blood Count 5.2 x10^3/uL (4.0-10.5)
[2024-01-28 07:01] LABS: Hemoglobin 5.5 g/dL (12.0-16.0)
--- NOTE | 2024-01-28 07:34 | PCM.NOTE ---
Date and Time: 01/28/24729 Subjective Assessment: Patient fell coming into the hospital today forRight reverse shoulder replacement for a proximal humerus fracture.Had increased pain at the shoulder and was to be seen by the emergency room.She did receive cardiac clearance earlier this week for the surgery Objective Exam Comments: 01/28/24 07:31 Pleasant female, no apparent distress, alert and orient x 3, Blood pressure is in the 80s with pulse of 115 Right shoulder and arm are bruised swollen and tender. Repeat x-ray of shoulder today shows no. Moderately more displaced four-part proximal humerus fracture on the right Objective Data Vital Signs: Vital Signs - 24 hr Temp Pulse Resp BP BP Pulse Ox 01/28/24 07:00 100 H 91/52 98 01/28/24 06:14 97.2 F 115 H 18 84/44 92 L Pain Assessment - Last Documented Pain Intensity 8 Intake and Output: Intake & Output 01/25/24 01/26/24 01/27/24 01/28/24 11:59 11:59 11:59 11:59 Weight 58.5 kg Lab Results: Lab Results-Last 24 Hours 01/28/24 01/28/24 Range/Units 06:30 06:53 WBC 5.2 (4.0-10.5) x10^3/uL RBC 1.85 L (4.1-5.4) x10^6/uL Hgb 5.5 L* D (12.0-16.0) g/dL Hct 18.1 L (35-47) % MCV 97.8 (78-100) fL MCH 29.7 (26-32) pg MCHC 30.4 L (32-36) g/dL RDW 12.7 (11.5-14.0) % Plt Count 113 L (150-450) x10^3/uL MPV 10.8 (7.5-11.0) fL Gran % 55.2 (36.0-66.0) % Immature Gran % (Auto) 0.6 H (0.00-0.4) % Nucleat RBC Rel Count 0.0 (0.00-0.1) % Eos # (Auto) 0.11 (0-0.5) x10^3/uL Immature Gran # (Auto) 0.03 (0.00-0.03) x10^3u/L Absolute Lymphs (auto) 1.78 (1.0-4.6) x10^3/uL Absolute Monos (auto) 0.39 (0.0-1.3) x10^3/uL Absolute Nucleated RBC 0.00 (0.00-0.01) x10^3u/L Lymphocytes % 34.4 (24.0-44.0) % Monocytes % 7.5 (0.0-12.0) % Eosinophils % 2.1 (0.00-5.0) % Basophils % 0.2 (0.0-0.4) % Absolute Granulocytes 2.85 (1.4-6.9) x10^3/uL Basophils # 0.01 (0-0.4) x10^3/uL POC Glucometer 149 H (74 to 106) mg/dL Radiology Exams: Radiology Procedures Category Date Time Status SHOULDER Stat Exams 01/28/24 06:40 Taken Assessment/Plan (1) Humeral head fracture Current Visit: Yes Status: Acute Assessment & Plan: Right humeral head fracture withSecondary to blood loss and hypotensionWith tachycardia Will delay surgery until tomorrow. Patient will be transfused 1 unit. She will be admitted to the hospitalist for workup for her hypertensionAnd tachycardia.If this resolves with transfusion, may proceed with right reverse shoulder replacement tomorrow Patient's right arm was marked by me.Patient still wishes to proceed with surgery Code(s): S42.293A - OT DISP FX OF UPPER END OF UNSP HUMERUS, INIT FOR CLOS FX
--- NOTE | 2024-01-28 08:00 | XRAY ---
Indication: Pain following fall. Comparison: January 24, 2024 3 view right shoulder demonstrates grossly stable comminuted, impacted, and angulated humeral head/neck fracture without obvious callus formation. Again chronic findings including osteopenia, mild AC degenerative changes, T7 vertebroplasty, and right lung base subsegmental atelectasis/scarring. No new abnormalities.
[2024-01-28 08:01] LABS: ANION GAP 12.6 MEQ/L (5-15); Calcium 7.8 mg/dL (8.4-10.2); Creatinine 1 1.16 mg/dL (0.52-1.04); EST GLOMERULAR FILTRATION RATE 51.7 ML/MIN; Potassium 4.2 mmol/L (3.5-5.1)
[2024-01-28 08:54] LABS: ABO TYPING O; Antibody Screen NEGATIVE (NEGATIVE); RH TYPING POSITIVE
[2024-01-28 08:55] LABS: CROSS MATCH (PRBC) COMPATIBLE (COMPATIBLE)
[2024-01-28 09:25] LABS: Hematocrit 19.2 % (35-47); Mean Cell Volume 92.3 fL (78-100); Mean Corpuscular Hemoglobin 29.3 pg (26-32); Mean Corpuscular Hgb Concent. 31.8 g/dL (32-36); Mean Platelet Volume 10.7 fL (7.5-11.0); Platelet Count 131 x10^3/uL (150-450); Red Blood Count 2.08 x10^6/uL (4.1-5.4); Red Cell Distribution Width 12.5 % (11.5-14.0); White Blood Count 6.2 x10^3/uL (4.0-10.5)
[2024-01-28 09:28] LABS: Hemoglobin 6.1 g/dL (12.0-16.0)
[2024-01-28 10:07] LABS: CROSS MATCH (PRBC) COMPATIBLE (COMPATIBLE)
[2024-01-28] MEDS: PERCOCET TABLET 5/325MG PO PRN ×2 (11:10→20:32)
--- NOTE | 2024-01-28 11:33 | PCM.HP ---
History of Present Illness - Chief Complaint Chief Complaint: Anemia; fracture of right shoulder Date: 01/28/24 History of Present Illness: is a 68 year old female with PMHX of hyperlipidemia, Vitamin B12 def, type II DM, depression, chronic pain, peripheral neuropathy, TIA, cataracts, DVT, HTN, asthma, COPD, emphysema, hypothyroidism, and GERD. She presented to the hospital to check in for her scheduled outpatient surgery of her right shoulder with ortho today. Patient was feeling kind of weak and she fell onto her right shoulder which is the shoulder she will be undergoing a replacement surgery per her report. Patient did not lose consciousness. Patient did not hit her head. She has no headache and she has no neck pain. Patient last consumed oral intake at approximately 10 PM last evening. after reviweing labs Hgb was found to be 5.5 and 2 units ordered. Repeat hgb before blood given was 6.1. Yesterday her pre- surgical workup hgb was 8. She denies dark or tarry stools. She denies hematuria or hematemesis. Unknown cause of blood loss. Will consult for further evaluation. Start Protonix IV. CT abd shows no concerning findings. She does have quit a bit of bruising of right shoulder. She denies CP, SOB, abd. pain, N/V/D. - Review of Systems Constitutional: No Fever, No Chills Eyes: No Symptoms Ears, Nose, & Throat: No Symptoms Respiratory: No Cough, No Short Of Breath Cardiac: No Chest Pain, No Edema, No Syncope Abdominal/Gastrointestinal: No Abdominal Pain, No Nausea, No Vomiting, No Diarrhea Genitourinary Symptoms: No Dysuria Musculoskeletal: Joint Pain (right shoulder with bruising and edema), No Back P ain, No Neck Pain Skin: No Rash Neurological: Other (reports lightheaded before passing out), No Dizziness, No Focal Weakness, No Sensory Changes Psychological: No Symptoms Endocrine: No Symptoms Hematologic/Lymphatic: No Symptoms Immunological/Allergic: No Symptoms Medications & Allergies Home Medications: Home Medication List Metformin HCl 500 mg [Glucophage 500 MG] 1,000 mg PO BIDWM 07/05/20 [Hi story Confirmed 01/28/24] lisinopriL [Lisinopril] 2.5 mg PO DAILY 12/10/22 [History Confirmed 01/28/24] Oxycodone HCl/Acetaminophen [Percocet 5-325 mg Tablet] 1 each PO TID 12/25/22 [History Confirmed 01/28/24] Oxybutynin Chloride [Oxybutynin Chloride ER] 15 mg PO BID 06/03/23 [History Confirmed 01/28/24] Albuterol Sulfate [Proair Respiclick] 90 mcg IH Q4HPRN PRN 01/27/24 [History Confirmed 01/28/24] Cyanocobalamin (Vitamin B-12) [B-12] 1,000 mcg PO DAILY 01/27/24 [History Confirmed 01/28/24] Doxepin HCl 100 mg PO HS 01/27/24 [History Confirmed 01/28/24] Fluticasone Propionate [Flonase Allergy Relief] 9.9 ml NS DAILY 01/27/24 [History Confirmed 01/28/24] Ibandronate Sodium 150 mg PO DAILY 01/27/24 [History Confirmed 01/28/24] PARoxetine HCL [Paroxetine HCl] 10 mg PO DAILY 01/27/24 [History Confirmed 01/28/24] Rosuvastatin Calcium 20 mg PO DAILY 01/27/24 [History Confirmed 01/28/24] Allergies/Adverse Reactions: Allergies Allergy/AdvReac Type Severity Reaction Status Date / Time hydromorphone Allergy Severe Difficulty Verified 01/27/24 15:28 Breathing citalopram hydrobromide Allergy Mild Hives Verified 01/28/24 06:14 [From Celexa] escitalopram oxalate Allergy Mild Hives Verified 01/28/24 06:14 [From Lexapro] morphine Allergy Mild itching N&V Verified 01/28/24 06:14 Sulfa (Sulfonamide Allergy Mild Hives Verified 01/28/24 06:14 Antibiotics) [Sulfa(Sulfonamide Antibiotics)] codeine [Codeine] Allergy Unknown Verified 01/28/24 06:14 COVID-19 (SARS-CoV-2) Allergy Verified 01/28/24 06:14 vaccine, brian - Past Medical History Past Medical History: Yes Neurological History: Peripheral Neuropathy, TIA ENT History: Cataracts Cardiac History: Deep Vein Thrombosis, High Cholesterol, Hypertension Respiratory History: Asthma, COPD, Emphysema Endocrine Medical History: Diabetes Type II, Hypothyroidism Musculoskelatal History: Fractures GI Medical History: GERD History: Other Pyscho-Social History: Anxiety, Depression Reproductive Disorders: No Pertinent History Comment: anxiety, depression, COPD, over active bladder - Past Surgical History Past Surgical History: Yes Neuro Surgical History: No Pertinent History Cardiac History: No Pertinent History Respiratory Surgery: No Pertinent History GI Surgical History: Appendectomy, Cholecystectomy Genitourinary Surgical Hx: No Pertinent History Musculskeletal Surgical Hx: Other Female Surgical History: Section, Hysterectomy Other Surgical History: R Hip repair in 1csection x 3 Significant Family History: diabetes, hypertension - Social History Smoking Status: Former smoker How long have you smoked: 50 years Exposure to second hand smoke: No Alcohol: None Drug Use: none - Social Determinants of Health Will the patient participate in the screening: Yes Do you worry about a steady place to live?: No Do you have any problems with any of the following?: No known problems In the past 12 months,have you had to go without utilities?: No Have you or anyone in your house had to go without enough: No Transportation Issues: No Has anyone in your support network made you feel unsafe?: No Does the patient want assistance with any of the above?: No - Physical Exam Vital Signs: Vital Signs - 24 hr Temp Pulse Resp BP BP BP Pulse Ox 01/28/24 09:25 97.7 F 110 H 20 110/57 110/57 94 L 01/28/24 08:29 110 H 20 110/57 94 L 01/28/24 08:00 104 H 14 99/55 98 01/28/24 07:50 103 H 13 86/59 99 01/28/24 07:40 102 H 14 92/49 100 01/28/24 07:30 101 H 14 98/67 100 01/28/24 07:20 101 H 13 101/54 100 01/28/24 07:10 100 H 12 90/55 100 01/28/24 07:00 100 H 91/52 98 01/28/24 06:14 97.2 F 115 H 18 84/44 92 L General Appearance: no apparent distress, alert Neurologic Exam: alert, oriented x 3, cooperative, normal mood/affect, nml cerebellar function, nml station & gait, sensation nml, No motor deficits Eye Exam: PERRL/EOMI, eyes nml inspection Ears, Nose, Throat Exam: normal ENT inspection, TMs normal, pharynx normal, moist mucous membranes Neck Exam: normal inspection, non-tender, supple, full range of motion Respiratory Exam: normal breath sounds, lungs clear, No respiratory distress Cardiovascular Exam: regular rate/rhythm, normal heart sounds, normal peripheral pulses, tachycardia Gastrointestinal/Abdomen Exam: soft, normal bowel sounds, No tenderness, No mass Back Exam: normal inspection, normal range of motion, No CVA tenderness, No vertebral tenderness Extremity Exam: normal inspection, pelvis stable, limited range of motion (right shoulder), swelling (right shoulder with bruising), tenderness (right shoulder) Skin Exam: normal color, warm, dry, No rash Lymphatic Exam: No adenopathy Results - Labs Lab/Micro Results: Lab Results-Last 24 Hours 01/28/24 01/28/24 01/28/24 Range/Units 06:30 06:53 06:53 WBC 5.2 (4.0-10.5) x10^3/uL RBC 1.85 L (4.1-5.4) x10^6/uL Hgb 5.5 L* D (12.0-16.0) g/dL Hct 18.1 L (35-47) % MCV 97.8 (78-100) fL MCH 29.7 (26-32) pg MCHC 30.4 L (32-36) g/dL RDW 12.7 (11.5-14.0) % Plt Count 113 L (150-450) x10^3/uL MPV 10.8 (7.5-11.0) fL Gran % 55.2 (36.0-66.0) % Immature Gran % (Auto) 0.6 H (0.00-0.4) % Nucleat RBC Rel Count 0.0 (0.00-0.1) % Eos # (Auto) 0.11 (0-0.5) x10^3/uL Immature Gran # (Auto) 0.03 (0.00-0.03) x10^3u/L Absolute Lymphs (auto) 1.78 (1.0-4.6) x10^3/uL Absolute Monos (auto) 0.39 (0.0-1.3) x10^3/uL Absolute Nucleated RBC 0.00 (0.00-0.01) x10^3u/L Lymphocytes % 34.4 (24.0-44.0) % Monocytes % 7.5 (0.0-12.0) % Eosinophils % 2.1 (0.00-5.0) % Basophils % 0.2 (0.0-0.4) % Absolute Granulocytes 2.85 (1.4-6.9) x10^3/uL Basophils # 0.01 (0-0.4) x10^3/uL Sodium 136 (135-145) mmol/L Potassium 4.2 (3.5-5.1) mmol/L Chloride 106 (98-107) mmol/L Carbon Dioxide 21 L (22-30) mmol/L Anion Gap 12.6 (5-15) MEQ/L BUN 42 H (7-17) mg/dL Creatinine 1.16 H (0.52-1.04) mg/dL Estimated GFR 51.7 ML/MIN Glucose 164 H (74-106) mg/dL POC Glucometer 149 H (74 to 106) mg/dL Calcium 7.8 L (8.4-10.2) mg/dL Prealbumin (17.6-36.0) mg/dL ABO Group Rh Factor Antibody Screen (NEGATIVE) Crossmatch (COMPATIBLE) 01/28/24 01/28/24 01/28/24 Range/Units 07:28 07:28 07:28 WBC (4.0-10.5) x10^3/uL RBC (4.1-5.4) x10^6/uL Hgb (12.0-16.0) g/dL Hct (35-47) % MCV (78-100) fL MCH (26-32) pg MCHC (32-36) g/dL RDW (11.5-14.0) % Plt Count (150-450) x10^3/uL MPV (7.5-11.0) fL Gran % (36.0-66.0) % Immature Gran % (Auto) (0.00-0.4) % Nucleat RBC Rel Count (0.00-0.1) % Eos # (Auto) (0-0.5) x10^3/uL Immature Gran # (Auto) (0.00-0.03) x10^3u/L Absolute Lymphs (auto) (1.0-4.6) x10^3/uL Absolute Monos (auto) (0.0-1.3) x10^3/uL Absolute Nucleated RBC (0.00-0.01) x10^3u/L Lymphocytes % (24.0-44.0) % Monocytes % (0.0-12.0) % Eosinophils % (0.00-5.0) % Basophils % (0.0-0.4) % Absolute Granulocytes (1.4-6.9) x10^3/uL Basophils # (0-0.4) x10^3/uL Sodium (135-145) mmol/L Potassium (3.5-5.1) mmol/L Chloride (98-107) mmol/L Carbon Dioxide (22-30) mmol/L Anion Gap (5-15) MEQ/L BUN (7-17) mg/dL Creatinine (0.52-1.04) mg/dL Estimated GFR ML/MIN Glucose (74-106) mg/dL POC Glucometer (74 to 106) mg/dL Calcium (8.4-10.2) mg/dL Prealbumin 18.46 (17.6-36.0) mg/dL ABO Group O Rh Factor POSITIVE Antibody Screen NEGATIVE (NEGATIVE) Crossmatch COMPATIBLE COMPATIBLE (COMPATIBLE) 01/28/24 Range/Units 09:19 WBC 6.2 (4.0-10.5) x10^3/uL RBC 2.08 L (4.1-5.4) x10^6/uL Hgb 6.1 L* (12.0-16.0) g/dL Hct 19.2 L (35-47) % MCV 92.3 (78-100) fL MCH 29.3 (26-32) pg MCHC 31.8 L (32-36) g/dL RDW 12.5 (11.5-14.0) % Plt Count 131 L (150-450) x10^3/uL MPV 10.7 (7.5-11.0) fL Gran % (36.0-66.0) % Immature Gran % (Auto) (0.00-0.4) % Nucleat RBC Rel Count (0.00-0.1) % Eos # (Auto) (0-0.5) x10^3/uL Immature Gran # (Auto) (0.00-0.03) x10^3u/L Absolute Lymphs (auto) (1.0-4.6) x10^3/uL Absolute Monos (auto) (0.0-1.3) x10^3/uL Absolute Nucleated RBC (0.00-0.01) x10^3u/L Lymphocytes % (24.0-44.0) % Monocytes % (0.0-12.0) % Eosinophils % (0.00-5.0) % Basophils % (0.0-0.4) % Absolute Granulocytes (1.4-6.9) x10^3/uL Basophils # (0-0.4) x10^3/uL Sodium (135-145) mmol/L Potassium (3.5-5.1) mmol/L Chloride (98-107) mmol/L Carbon Dioxide (22-30) mmol/L Anion Gap (5-15) MEQ/L BUN (7-17) mg/dL Creatinine (0.52-1.04) mg/dL Estimated GFR ML/MIN Glucose (74-106) mg/dL POC Glucometer (74 to 106) mg/dL Calcium (8.4-10.2) mg/dL Prealbumin (17.6-36.0) mg/dL ABO Group Rh Factor Antibody Screen (NEGATIVE) Crossmatch (COMPATIBLE) - Radiology Impressions Radiology Exams & Impressions: Radiology Procedures Category Date Time Status ABDOMEN AND PELVIS W/0 CONTRAS [CT] Stat Exams 01/28/24 08:53 Taken SHOULDER Stat Exams 01/28/24 06:40 Completed Assessment/Plan (1) Anemia Current Visit: Yes Status: Acute Assessment & Plan: - unknown cause - CT abd/pelvis: 01/27- negative for acute concern - surgery consult - yesterday hgb 8, on admission 5.5, repeat lab 6.1- 2 units of PRBC ordered - Protonix IV - + hx of B12 def. Code(s): D64.9 - ANEMIA, UNSPECIFIED (2) Humeral head fracture Current Visit: Yes Status: Acute Assessment & Plan: - was scheduled for OP surgery today - Fell in registration today on right shoulder again- 2:2 low hgb - No LOC - Ortho awaiting Hgb to improve to do surgery. - ice pack PRN - Oral narcotic pain meds - Sling - XR right shoulder: 01/28/24 3 view right shoulder demonstrates grossly stable comminuted, impacted, and angulated humeral head/neck fracture without obvious callus formation. Again chronic findings including osteopenia, mild AC degenerative changes, T7 vertebroplasty, and right lung base subsegmental atelectasis/scarring. No new abnormalities. Code(s): S42.293A - OTH DISP FX OF UPPER END OF UNSP HUMERUS, INIT FOR CLOS FX (3) Acute kidney failure Current Visit: Yes Status: Acute Assessment & Plan: - Creat 1.16- BL WNL - IVF - Trend - hold lisinopril and statin (4) HTN (hypertension) Current Visit: Yes Status: Chronic Assessment & Plan: - BP stable - hold lisinopril d/t tyrone Code(s): I10 - ESSENTIAL (PRIMARY) HYPERTENSION (5) Hyperlipidemia Current Visit: Yes Status: Chronic Assessment & Plan: - hold statin d/t tyrone Code(s): E78.5 - HYPERLIPIDEMIA, UNSPECIFIED (6) Diabetes mellitus Current Visit: No Status: Chronic Qualifiers: Diabetes mellitus type: type 2 Diabetes mellitus retirement insulin use: without retirement use Diabetes mellitus complication status: without complication Qualified Code(s): E11.9 - Type 2 diabetes mellitus without complications Assessment & Plan: - A1C - accuchecks ac/hs - humalog s/s - hold metformin - carb controlled diet VTE: SCD PPI: protonix Next of KIN: Claire Smith [phone] Code status: Full D/C plan: 1-2 days Code(s): E11.9 - TYPE 2 DIABETES MELLITUS WITHOUT COMPLICATIONS
--- NOTE | 2024-01-28 11:36 | XRAY ---
CLINICAL HISTORY: low hgb COMPARISON: Prior CT dated 06/03/2023. TECHNIQUE: CT scan of the abdomen and pelvis was performed without IV contrast. Coronal and sagittal reconstructive images were also obtained. One of the following dose reduction techniques were utilized for this exam: Automated exposure control, adjustment of the mA and/or kV according to patient size, use of iterative reconstruction. FINDINGS: Lung bases show bilateral subpleural fibrotic changes and linear subsegmental atelectasis. There is a calcified lymph node and calcified nodule within the left lung. The liver is normal in size without focal parenchymal abnormality. The intrahepatic biliary radicals and the bile ducts are normal. A small stomach containing hiatal hernia is noted. Gallbladder is not seen, s/p cholecystectomy. Multiple coarse calcifications are noted within the spleen. The spleen, pancreas, and adrenal glands are unremarkable. A well-defined hypodense cyst is seen within the upper pole of right kidney measuring 2.3 cm. There are multiple vascular calcifications in both kidneys. Otherwise, the kidneys are unremarkable. They are normal in size and shape. No hydronephrosis is seen. Right hip hardware is seen again without prominent abnormality. The ascending colon, the transverse colon, the descending colon, visualized small bowel loops are unremarkable. Appendix is not visualized, requires correlation with surgical history. There is no evidence of significant enlargement of the mesenteric or retroperitoneal lymph nodes. Anterior wedging of L3 vertebra is seen again, unchanged. Extensive aortic and bilateral iliac artery calcified atheroma plaques. Redemonstration of fecal loading throughout the colon. Pelvis: The urinary bladder is unremarkable. The rectosigmoid colon is unremarkable. The pelvic vasculature is unremarkable. No evidence of pelvic lymphadenopathy. IMPRESSION: 1. No significant abnormality is noted. 2. No significant interval change. Electronically Signed by: Fay Zhang MD. (01/28/2024 11:31:57 EDT)
[2024-01-28] MEDS ORDERED: NON-FORMULARY ITEM (Albuterol Sulfate [Proair Respiclick] 90 MCG Aer.Pow.Ba) IH PRN (11:47)
[2024-01-28] MEDS ORDERED: VENTOLIN COMMON CANISTER IH PRN (13:31)
[2024-01-28] MEDS ORDERED: MEDICATION INTERVENTION MC SCH (13:45)
--- NOTE | 2024-01-28 13:49 | PCM.CONS ---
History of Present Illness - Consult Consulting Provider: SHOSHANA VALENZUELA MD - [facility] History of Present Illness: is a 68 year old femaleWho was to have right reverse shoulder arthroplasty for four-part fracture by me today. When she came into the hospital she fell today reinjuring the right shoulder and also injuring her right hip.Complains of moderate to severe lateral right hip pain.She has had this hip fixed with a Short intramedullary compression nail at [facility] 3 years ago. She has had some pain on and off since then.Pain is worse now and mostly lateral.Stand on it.Not complaining of numbness or tingling.She says her leg is been short since this surgery. Medications & Allergies Home Medications: Home Medication List Metformin HCl 500 mg [Glucophage 500 MG] 1,000 mg PO BIDWM 07/05/20 [Hist ory Confirmed 01/28/24] lisinopriL [Lisinopril] 2.5 mg PO DAILY 12/10/22 [History Confirmed 01/28/24] Oxybutynin Chloride [Oxybutynin Chloride ER] 15 mg PO BID 06/03/23 [History Confirmed 01/28/24] Albuterol Sulfate [Proair Respiclick] 2 puff IH Q4HPRN PRN 01/27/24 [History Confirmed 01/28/24] Cyanocobalamin (Vitamin B-12) [B-12] 1,000 mcg PO DAILY 01/27/24 [History Confirmed 01/28/24] Doxepin HCl 100 mg PO HS 01/27/24 [History Confirmed 01/28/24] Fluticasone Propionate [Flonase Allergy Relief] 1 spray NS DAILY PRN PRN 01/27/24 [History Confirmed 01/28/24] Ibandronate Sodium 150 mg PO UD 01/27/24 [History Confirmed 01/28/24] PARoxetine HCL [Paroxetine HCl] 10 mg PO DAILY 01/27/24 [History Confirmed 01/28/24] Rosuvastatin Calcium 20 mg PO HS 01/27/24 [History Confirmed 01/28/24] Ascorbic Acid 500 mg [Vitamin C 500 MG] 0 mg PO DAILY 01/28/24 [History Confirmed 01/28/24] Oxycodone HCl/Acetaminophen [Oxycodone-Acetaminophn 7.5-325] 1 tab PO TIDPRN PRN 01/28/24 [History Confirmed 01/28/24] Tizanidine HCl 2 mg PO HS 01/28/24 [History Confirmed 01/28/24] Allergies/Adverse Reactions: Allergies Allergy/AdvReac Type Severity Reaction Status Date / Time hydromorphone Allergy Severe Difficulty Verified 01/27/24 15:28 Breathing citalopram hydrobromide Allergy Mild Hives Verified 01/28/24 06:14 [From Celexa] escitalopram oxalate Allergy Mild Hives Verified 01/28/24 06:14 [From Lexapro] morphine Allergy Mild itching N&V Verified 01/28/24 06:14 Sulfa (Sulfonamide Allergy Mild Hives Verified 01/28/24 06:14 Antibiotics) [Sulfa(Sulfonamide Antibiotics)] codeine [Codeine] Allergy Unknown Verified 01/28/24 06:14 COVID-19 (SARS-CoV-2) Allergy Verified 01/28/24 06:14 vaccine, brian - Past Medical History Past Medical History: Yes Neurological History: Peripheral Neuropathy, TIA ENT History: Cataracts Cardiac History: Deep Vein Thrombosis, High Cholesterol, Hypertension Respiratory History: Asthma, COPD, Emphysema Endocrine Medical History: Diabetes Type II, Hypothyroidism Musculoskelatal History: Fractures GI Medical History: GERD History: Other Pyscho-Social History: Anxiety, Depression Reproductive Disorders: No Pertinent History Comment: anxiety, depression, COPD, over active bladder - Past Surgical History Past Surgical History: Yes Neuro Surgical History: No Pertinent History Cardiac History: No Pertinent History Respiratory Surgery: No Pertinent History GI Surgical History: Appendectomy, Cholecystectomy Genitourinary Surgical Hx: No Pertinent History Musculskeletal Surgical Hx: Other Female Surgical History: Section, Hysterectomy Other Surgical History: R Hip repair in 1csection x 3 Significant Family History: diabetes, hypertension - Social History Smoking Status: Former smoker How long have you smoked: 50 years Exposure to second hand smoke: No Alcohol: None Drug Use: none - Social Determinants of Health Will the patient participate in the screening: Yes Do you worry about a steady place to live?: No Do you have any problems with any of the following?: No known problems In the past 12 months,have you had to go without utilities?: No Have you or anyone in your house had to go without enough: No Transportation Issues: No Has anyone in your support network made you feel unsafe?: No Does the patient want assistance with any of the above?: No - Nursing Vital Signs Nursing Vital Signs: Vital Signs - 24 hr Temp Pulse Resp BP BP BP Pulse Ox 01/28/24 12:00 97.7 F 110 H 20 110/57 94 L 01/28/24 09:25 97.7 F 110 H 20 110/57 110/57 94 L 01/28/24 08:29 110 H 20 110/57 94 L 01/28/24 08:00 104 H 14 99/55 98 01/28/24 07:50 103 H 13 86/59 99 01/28/24 07:40 102 H 14 92/49 100 01/28/24 07:30 101 H 14 98/67 100 01/28/24 07:20 101 H 13 101/54 100 01/28/24 07:10 100 H 12 90/55 100 01/28/24 07:00 100 H 91/52 98 01/28/24 06:14 97.2 F 115 H 18 84/44 92 L - Physical Exam SpO2: 94 - Narrative Narrative Physical Exam: Ortho Physical Exam Pleasant female, no apparent distress, alert and orient x 3 lying in bed Right shoulder is in sling. Tender with motion Right hip shows no bruising or swelling. There is palpable compression screw over the lateral hip which is tender. Scars are healed. Patient is able to flex hip about 70 degrees. Internal rotates 5 external rotate 20 degrees. Has pain with internal or external rotation along the lateral hip. 5/5 dorsiflexion plantarflexion great toe. Good sensation. 1+ dorsalis pedis pulse. Patient is about 1 cm short on the right X-ray of right hip was reviewed by me with Short cephalomedullary nail.Comp ression screw has aAnd And is prominent by about 2 smears laterally.It has a single distal interlocking screw. The hip joint isModerately severely arthritic with shortened femoral neck.There is approximately 10 to 15 mm of shortening Assessment/Plan (1) Humeral head fracture Current Visit: Yes Status: Acute Code(s): S42.293A - OTH DISP FX OF UPPER END OF UNSP HUMERUS, INIT FOR CLOS FX (2) Contusion of right hip Current Visit: Yes Status: Acute Code(s): S70.01XA - CONTUSION OF RIGHT HIP, INITIAL ENCOUNTER (3) Closed intertrochanteric fracture of right femur with malunion Current Visit: Yes Status: Acute Code(s): S72.141P - DISPLACED INTERTROCH FX R FEMUR, SUBS FOR CLOS FX W MALUNION (4) Post-traumatic osteoarthritis of right hip Current Visit: Yes Status: Acute Assessment & Plan: Explained that we will proceed with her right reverse shoulder arthroplasty tomorrow morning at 9 AM.She will be getting a second unit of blood ordered by the hospitalist Patient be n.p.o. after midnight Discussed the right hip may be improved by removal of the compression screw She has prominence of the hardware and she is thin over this area.Removal of this screw may improve her pain.However she does have moderate severe arthritis would probably benefit from conversion to a total hip replacement at the same time.Patient understands risk of hip placement include bleeding, infection, damage to nerves or blood vessels, leg length discrepancy, dislocation, fracture, blood clots, and other risk including the risk of anesthesia and the risk of . We will discuss this further after she heals from her shoulder surgery.We would need the operative note from [facility] to know the implant Patient may continue weightbearing as tolerated on the right hip Code(s): M16.51 - UNILATERAL POST-TRAUMATIC OSTEOARTHRITIS, RIGHT HIP Results - Labs Lab/Micro Results: Lab Results-Last 24 Hours 01/28/24 01/28/24 01/28/24 Range/Units 06:30 06:53 06:53 WBC 5.2 (4.0-10.5) x10^3/uL RBC 1.85 L (4.1-5.4) x10^6/uL Hgb 5.5 L* D (12.0-16.0) g/dL Hct 18.1 L (35-47) % MCV 97.8 (78-100) fL MCH 29.7 (26-32) pg MCHC 30.4 L (32-36) g/dL RDW 12.7 (11.5-14.0) % Plt Count 113 L (150-450) x10^3/uL MPV 10.8 (7.5-11.0) fL Gran % 55.2 (36.0-66.0) % Immature Gran % (Auto) 0.6 H (0.00-0.4) % Nucleat RBC Rel Count 0.0 (0.00-0.1) % Eos # (Auto) 0.11 (0-0.5) x10^3/uL Immature Gran # (Auto) 0.03 (0.00-0.03) x10^3u/L Absolute Lymphs (auto) 1.78 (1.0-4.6) x10^3/uL Absolute Monos (auto) 0.39 (0.0-1.3) x10^3/uL Absolute Nucleated RBC 0.00 (0.00-0.01) x10^3u/L Lymphocytes % 34.4 (24.0-44.0) % Monocytes % 7.5 (0.0-12.0) % Eosinophils % 2.1 (0.00-5.0) % Basophils % 0.2 (0.0-0.4) % Absolute Granulocytes 2.85 (1.4-6.9) x10^3/uL Basophils # 0.01 (0-0.4) x10^3/uL Sodium 136 (135-145) mmol/L Potassium 4.2 (3.5-5.1) mmol/L Chloride 106 (98-107) mmol/L Carbon Dioxide 21 L (22-30) mmol/L Anion Gap 12.6 (5-15) MEQ/L BUN 42 H (7-17) mg/dL Creatinine 1.16 H (0.52-1.04) mg/dL Estimated GFR 51.7 ML/MIN Glucose 164 H (74-106) mg/dL POC Glucometer 149 H (74 to 106) mg/dL Calcium 7.8 L (8.4-10.2) mg/dL Prealbumin (17.6-36.0) mg/dL ABO Group Rh Factor Antibody Screen (NEGATIVE) Crossmatch (COMPATIBLE) 01/28/24 01/28/24 01/28/24 Range/Units 07:28 07:28 07:28 WBC (4.0-10.5) x10^3/uL RBC (4.1-5.4) x10^6/uL Hgb (12.0-16.0) g/dL Hct (35-47) % MCV (78-100) fL MCH (26-32) pg MCHC (32-36) g/dL RDW (11.5-14.0) % Plt Count (150-450) x10^3/uL MPV (7.5-11.0) fL Gran % (36.0-66.0) % Immature Gran % (Auto) (0.00-0.4) % Nucleat RBC Rel Count (0.00-0.1) % Eos # (Auto) (0-0.5) x10^3/uL Immature Gran # (Auto) (0.00-0.03) x10^3u/L Absolute Lymphs (auto) (1.0-4.6) x10^3/uL Absolute Monos (auto) (0.0-1.3) x10^3/uL Absolute Nucleated RBC (0.00-0.01) x10^3u/L Lymphocytes % (24.0-44.0) % Monocytes % (0.0-12.0) % Eosinophils % (0.00-5.0) % Basophils % (0.0-0.4) % Absolute Granulocytes (1.4-6.9) x10^3/uL Basophils # (0-0.4) x10^3/uL Sodium (135-145) mmol/L Potassium (3.5-5.1) mmol/L Chloride (98-107) mmol/L Carbon Dioxide (22-30) mmol/L Anion Gap (5-15) MEQ/L BUN (7-17) mg/dL Creatinine (0.52-1.04) mg/dL Estimated GFR ML/MIN Glucose (74-106) mg/dL POC Glucometer (74 to 106) mg/dL Calcium (8.4-10.2) mg/dL Prealbumin 18.46 (17.6-36.0) mg/dL ABO Group O Rh Factor POSITIVE Antibody Screen NEGATIVE (NEGATIVE) Crossmatch COMPATIBLE COMPATIBLE (COMPATIBLE) 01/28/24 01/28/24 Range/Units 09:19 11:50 WBC 6.2 (4.0-10.5) x10^3/uL RBC 2.08 L (4.1-5.4) x10^6/uL Hgb 6.1 L* (12.0-16.0) g/dL Hct 19.2 L (35-47) % MCV 92.3 (78-100) fL MCH 29.3 (26-32) pg MCHC 31.8 L (32-36) g/dL RDW 12.5 (11.5-14.0) % Plt Count 131 L (150-450) x10^3/uL MPV 10.7 (7.5-11.0) fL Gran % (36.0-66.0) % Immature Gran % (Auto) (0.00-0.4) % Nucleat RBC Rel Count (0.00-0.1) % Eos # (Auto) (0-0.5) x10^3/uL Immature Gran # (Auto) (0.00-0.03) x10^3u/L Absolute Lymphs (auto) (1.0-4.6) x10^3/uL Absolute Monos (auto) (0.0-1.3) x10^3/uL Absolute Nucleated RBC (0.00-0.01) x10^3u/L Lymphocytes % (24.0-44.0) % Monocytes % (0.0-12.0) % Eosinophils % (0.00-5.0) % Basophils % (0.0-0.4) % Absolute Granulocytes (1.4-6.9) x10^3/uL Basophils # (0-0.4) x10^3/uL Sodium (135-145) mmol/L Potassium (3.5-5.1) mmol/L Chloride (98-107) mmol/L Carbon Dioxide (22-30) mmol/L Anion Gap (5-15) MEQ/L BUN (7-17) mg/dL Creatinine (0.52-1.04) mg/dL Estimated GFR ML/MIN Glucose (74-106) mg/dL POC Glucometer 131 H (74 to 106) mg/dL Calcium (8.4-10.2) mg/dL Prealbumin (17.6-36.0) mg/dL ABO Group Rh Factor Antibody Screen (NEGATIVE) Crossmatch (COMPATIBLE) Accuchecks Date 01/28/24 Time 12:30 - Radiology Impressions Radiology Exams & Impressions: Radiology Procedures Category Date Time Status ABDOMEN AND PELVIS W/0 CONTRAS [CT] Stat Exams 01/28/24 08:53 Completed HIP UNI (2V) INCL PEL IF DONE Stat Exams 01/28/24 13:04 Taken SHOULDER Stat Exams 01/28/24 06:40 Completed
[2024-01-28] MEDS: Vitamin C 500 MG PO SCH (14:01)
[2024-01-28] MEDS: PROTONIX 40 MG IV IV SCH (14:01)
[2024-01-28] MEDS: Ditropan XL 5 MG PO SCH (14:02)
[2024-01-28] MEDS: Vitamin B-12 500 MCG PO SCH (14:02)
[2024-01-28] MEDS: Paxil 20 MG PO SCH (14:02)
--- NOTE | 2024-01-28 14:20 | XRAY ---
CLINICAL HISTORY: s/p COMPARISON: None TECHNIQUE: X-ray right hip AP and OBLIQUE views FINDINGS: Dynamic hip screw noted, and well aligned. Signs of osteoarthritis noted with narrowing of the hip joint space, sclerosis and irregularity of the femoral and acetabular articular surfaces. Preserved fat planes, no signs of joint effusion. Unremarkable soft tissues. No bony lesion at the scanned bones. IMPRESSION: Signs of osteoarthritis, no acute osseous injury. DISCLAIMER:A subtle bone abnormality or fracture may not be readily apparent on x-rays, thus clinical correlation and further imaging including follow up CT, MRI, or follow up x-rays are advised as needed. Electronically Signed by: Fay Zhang MD. (01/28/2024 14:16:15 EDT)
[2024-01-28] MEDS ORDERED: Flonase NASAL NS PRN (14:30)
[2024-01-28] MEDS ORDERED: PERCOCET TABLET 5/325MG PO SCH (15:00)
[2024-01-28 19:39] LABS: Hemoglobin 10.5 g/dL (12.0-16.0)
[2024-01-28] MEDS ORDERED: DOXEPIN HCL 50 MG PO SCH (22:00)
[2024-01-28] MEDS ORDERED: NON-FORMULARY ITEM (Oxybutynin Chloride [Oxybutynin Chloride Er] 15 MG Tab.Er.24) PO SCH (22:00)
[2024-01-28] MEDS: DOXEPIN HCL PO SCH (22:55)
[2024-01-29] MEDS: HUMALOG SQ PRN (01:05)
[2024-01-29 06:27] LABS: Absolute Neutrophil Ct (ANC) 4.12 x10^3/uL (1.4-6.9); BASOPHIL % 0.3 % (0.0-0.4); Basophil (Absolute #) 0.02 x10^3/uL (0-0.4); Eosinophil % 0.5 % (0.00-5.0); Eosinophil (Absolute #) 0.03 x10^3/uL (0-0.5); Hematocrit 30.4 % (35-47); Hemoglobin 9.9 g/dL (12.0-16.0); IMMATURE GRAN # 0.02 x10^3u/L (0.00-0.03); IMMATURE GRAN % 0.3 % (0.00-0.4); Lymphocyte (Absolute #) 0.94 x10^3/uL (1.0-4.6); Lymphocytes % 16.2 % (24.0-44.0); Mean Cell Volume 88.1 fL (78-100); Mean Corpuscular Hemoglobin 28.7 pg (26-32); Mean Corpuscular Hgb Concent. 32.6 g/dL (32-36); Mean Platelet Volume 11.3 fL (7.5-11.0); Monocyte (Absolute #) 0.67 x10^3/uL (0.0-1.3); Monocytes % 11.6 % (0.0-12.0); Neutrophil % 71.1 % (36.0-66.0); Platelet Count 126 x10^3/uL (150-450); Red Blood Count 3.45 x10^6/uL (4.1-5.4); Red Cell Distribution Width 14.2 % (11.5-14.0); White Blood Count 5.8 x10^3/uL (4.0-10.5)
[2024-01-29 06:33] LABS: ALBUMIN 3.4 g/dL (3.5-5.0); ANION GAP 10.4 MEQ/L (5-15); BILIRUBIN,TOTAL 0.9 mg/dL (0.2-1.3); Calcium 7.9 mg/dL (8.4-10.2); Creatinine 1 0.68 mg/dL (0.52-1.04); EST GLOMERULAR FILTRATION RATE 95.4 ML/MIN; Potassium 3.7 mmol/L (3.5-5.1); Total Protein 6.2 g/dL (6.3-8.2)
[2024-01-29] MEDS ORDERED: BRIDION 200MG/2ML IV ONE (08:36)
[2024-01-29] MEDS ORDERED: DIPRIVAN 200 MG/20 ML IV ONE (08:36)
[2024-01-29] MEDS ORDERED: Xylocaine-Mpf 2% 5 Ml Vial ONE (08:36)
[2024-01-29] MEDS ORDERED: Versed 2 MG/2 ML Injection ONE (08:36)
[2024-01-29] MEDS ORDERED: SUBLIMAZE 100 MCG/2 ML ONE (08:36)
[2024-01-29] MEDS ORDERED: TORAdol 30 mg Injection ONE (08:36)
[2024-01-29] MEDS ORDERED: Zofran 4 MG/2 ML VIAL ONE (08:36)
[2024-01-29] MEDS ORDERED: ROCURONIUM BROMIDE IV ONE (08:36)
[2024-01-29] MEDS ORDERED: Decadron 4 MG INJ ONE (08:36)
[2024-01-29] MEDS ORDERED: Naropin 0.5% 30 ML VIAL ONE (08:37)
[2024-01-29] MEDS ORDERED: TRANEXAMIC ACID 1000 MG/10 ML ONE (08:38)
[2024-01-29] MEDS ORDERED: Lactated Ringers 1,000 ML IV ONE (08:38)
[2024-01-29] MEDS ORDERED: Sodium Chloride 0.9% 100 ML ONE (08:39)
[2024-01-29 08:41] LABS: PHOSPHOROUS 2.5 mg/dL (2.5-4.5)
[2024-01-29 09:00] LABS: MAGNESIUM 1.1 mg/dL (1.6-2.3)
[2024-01-29] MEDS: Magnesium 1 Gm / 100 Ml D5W*** 100 ML IV ONE (09:05)
[2024-01-29] MEDS ORDERED: NON-FORMULARY ITEM (Rosuvastatin Calcium [Rosuvastatin Calcium] 20 MG Tablet) PO SCH (10:00)
[2024-01-29] MEDS ORDERED: IBANDRONATE SODIUM 150 MG PO SCH (10:00)
[2024-01-29] MEDS ORDERED: NON-FORMULARY ITEM (Fluticasone Propionate [Flonase Allergy Relief] 9.9 ML Spray.Susp) NS SCH (10:00)
[2024-01-29] MEDS ORDERED: Zestril 5 MG PO SCH (10:00)
[2024-01-29] MEDS ORDERED: NON-FORMULARY ITEM (Paroxetine Hcl [Paroxetine Hcl] 10 MG Tablet) PO SCH (10:00)
[2024-01-29] MEDS ORDERED: NON-FORMULARY ITEM (Cyanocobalamin (Vitamin B-12) [B-12] 1,000 MCG Tablet) PO SCH (10:00)
--- NOTE | 2024-01-29 10:44 | PCM.NOTE ---
Date and Time: 01/29/24 1028 Subjective Assessment: 01/28/24 is a 68 year old female with PMHX of hyperlipidemia, Vitamin B12 def, type II DM, depression, chronic pain, peripheral neuropathy, TIA, cataracts, DVT, HTN, asthma, COPD, emphysema, hypothyroidism, and GERD. She presented to the hospital to check in for her scheduled outpatient surgery of her right shoulder with ortho today. Patient was feeling kind of weak and she fell onto her right shoulder which is the shoulder she will be undergoing a replacement surgery per her report. Patient did not lose consciousness. Patient did not hit her head. She has no headache and she has no neck pain. Patient last consumed oral intake at approximately 10 PM last evening. after reviweing labs Hgb was found to be 5.5 and 2 units ordered. Repeat hgb before blood given was 6.1. Yesterday her pre- surgical workup hgb was 8. She denies dark or tarry stools. She denies hematuria or hematemesis. Unknown cause of blood loss. Will consult GS for further evaluation. Start Protonix IV. CT abd shows no concerning findings. She does have quit a bit of bruising of right shoulder. She denies CP, SOB, abd. pain, N/V/D. 01/29/24 Pt resting in bed. She is quite a bit of pain today in right shoulder and right hip, pain 8/10 and constant. She is scheduled for right shoulder surgery today with ortho this morning. Ortho also addressed the need for possible right hip replacement d/t hardware causing pain. Reviewed ortho note and agree with plan of care. Hgb 9.9 today, yesterday she received 2 units of blood. She is having some tachycardia today and most likely r/t pain. Corrected Ca+ is 8.0 could be r/t blood transfusions yesterday, will continue to monitor. Mg+ 1.1 and replaced. Still awaiting GS recs for low hgb eval. Anemia panel ordered. Pt denies any known blood loss. She denies CP, SOB, abd. pain, N/V/D. - Review of Systems Constitutional: No Fever, No Chills Eyes: No Symptoms Ears, Nose, & Throat: No Symptoms Respiratory: No Cough, No Short Of Breath Cardiac: No Chest Pain, No Edema, No Syncope Abdominal/Gastrointestinal: No Abdominal Pain, No Nausea, No Vomiting, No Diarrhea Genitourinary Symptoms: No Dysuria Musculoskeletal: Joint Pain (right shoulder and right hip pain), No Back Pain, No Neck Pain Skin: Other (bruising of right shoulder), No Rash Neurological: No Dizziness, No Focal Weakness, No Sensory Changes Psychological: No Symptoms Endocrine: No Symptoms Hematologic/Lymphatic: No Symptoms Immunological/Allergic: No Symptoms Objective Exam General Appearance: no apparent distress, alert Neurologic Exam: alert, oriented x 3, cooperative, normal mood/affect, nml cerebellar function, sensation nml, No motor deficits Skin Exam: normal color, warm, dry, other (bruising of right shoulder) Eye Exam: PERRL, EOMI, eyes nml inspection Ears, Nose, Throat Exam: normal ENT inspection, pharynx normal, moist mucous membranes Neck Exam: normal inspection, non-tender, supple, full range of motion Respiratory Exam: normal breath sounds, lungs clear, No respiratory distress Cardiovascular Exam: regular rate/rhythm, normal heart sounds Gastrointestinal/Abdomen Exam: soft, No tenderness, No mass Extremity Exam: normal inspection, limited range of motion (right shoulder and right hip) Back Exam: normal inspection, normal range of motion, No CVA tenderness, No vertebral tenderness Pelvic Exam: deferred Rectal Exam: deferred Objective Data Vital Signs: Vital Signs - 24 hr Temp Pulse Resp BP Pulse Ox 01/29/24 08:34 98.4 F 101 H 16 146/78 94 L 01/29/24 08:00 98.4 F 101 H 16 146/78 94 L 01/29/24 07:02 107 H 16 95 01/29/24 04:00 98.9 F 104 H 16 147/75 97 01/28/24 23:57 98.4 F 122 H 20 128/58 96 01/28/24 20:01 93 L 01/28/24 20:00 97.8 F 113 H 19 149/65 96 01/28/24 16:00 98.4 F 114 H 14 130/60 95 01/28/24 14:10 110 H 20 95 01/28/24 13:53 94 L 01/28/24 12:00 97.7 F 110 H 20 110/57 94 L Pain Assessment - Last Documented Pain Intensity 8 Pain Scale Used 0-10 Pain Scale Intake and Output: Intake & Output 04/10/01/27/24 01/28/24 01/29/24 11:59 11:59 11:59 11:59 Intake Total 3496 Balance 3496 Weight 59.5 kg 59.5 kg Lab Results: Lab Results-Last 24 Hours 01/28/24 01/28/24 01/28/24 Range/Units 07:28 11:50 19:35 WBC (4.0-10.5) x10^3/uL RBC (4.1-5.4) x10^6/uL Hgb 10.5 L D (12.0-16.0) g/dL Hct 32.0 L (35-47) % MCV (78-100) fL MCH (26-32) pg MCHC (32-36) g/dL RDW (11.5-14.0) % Plt Count (150-450) x10^3/uL MPV (7.5-11.0) fL Gran % (36.0-66.0) % Immature Gran % (Auto) (0.00-0.4) % Nucleat RBC Rel Count (0.00-0.1) % Eos # (Auto) (0-0.5) x10^3/uL Immature Gran # (Auto) (0.00-0.03) x10^3u/L Absolute Lymphs (auto) (1.0-4.6) x10^3/uL Absolute Monos (auto) (0.0-1.3) x10^3/uL Absolute Nucleated RBC (0.00-0.01) x10^3u/L Lymphocytes % (24.0-44.0) % Monocytes % (0.0-12.0) % Eosinophils % (0.00-5.0) % Basophils % (0.0-0.4) % Absolute Granulocytes (1.4-6.9) x10^3/uL Basophils # (0-0.4) x10^3/uL Sodium (135-145) mmol/L Potassium (3.5-5.1) mmol/L Chloride (98-107) mmol/L Carbon Dioxide (22-30) mmol/L Anion Gap (5-15) MEQ/L BUN (7-17) mg/dL Creatinine (0.52-1.04) mg/dL Estimated GFR ML/MIN Glucose (74-106) mg/dL POC Glucometer 131 H (74 to 106) mg/dL Hemoglobin A1c (4.5-6.0) % Calcium (8.4-10.2) mg/dL Phosphorus (2.5-4.5) mg/dL Magnesium (1.6-2.3) mg/dL Total Bilirubin (0.2-1.3) mg/dL AST (14-36) U/L ALT (0-35) U/L Alkaline Phosphatase (38-126) U/L Serum Total Protein (6.3-8.2) g/dL Albumin (3.5-5.0) g/dL Prealbumin 18.46 (17.6-36.0) mg/dL 01/28/24 01/28/24 01/29/24 Range/Units 20:48 23:37 04:15 WBC (4.0-10.5) x10^3/uL RBC (4.1-5.4) x10^6/uL Hgb (12.0-16.0) g/dL Hct (35-47) % MCV (78-100) fL MCH (26-32) pg MCHC (32-36) g/dL RDW (11.5-14.0) % Plt Count (150-450) x10^3/uL MPV (7.5-11.0) fL Gran % (36.0-66.0) % Immature Gran % (Auto) (0.00-0.4) % Nucleat RBC Rel Count (0.00-0.1) % Eos # (Auto) (0-0.5) x10^3/uL Immature Gran # (Auto) (0.00-0.03) x10^3u/L Absolute Lymphs (auto) (1.0-4.6) x10^3/uL Absolute Monos (auto) (0.0-1.3) x10^3/uL Absolute Nucleated RBC (0.00-0.01) x10^3u/L Lymphocytes % (24.0-44.0) % Monocytes % (0.0-12.0) % Eosinophils % (0.00-5.0) % Basophils % (0.0-0.4) % Absolute Granulocytes (1.4-6.9) x10^3/uL Basophils # (0-0.4) x10^3/uL Sodium (135-145) mmol/L Potassium (3.5-5.1) mmol/L Chloride (98-107) mmol/L Carbon Dioxide (22-30) mmol/L Anion Gap (5-15) MEQ/L BUN (7-17) mg/dL Creatinine (0.52-1.04) mg/dL Estimated GFR ML/MIN Glucose (74-106) mg/dL POC Glucometer 171 H 283 H 108 H (74 to 106) mg/dL Hemoglobin A1c (4.5-6.0) % Calcium (8.4-10.2) mg/dL Phosphorus (2.5-4.5) mg/dL Magnesium (1.6-2.3) mg/dL Total Bilirubin (0.2-1.3) mg/dL AST (14-36) U/L ALT (0-35) U/L Alkaline Phosphatase (38-126) U/L Serum Total Protein (6.3-8.2) g/dL Albumin (3.5-5.0) g/dL Prealbumin (17.6-36.0) mg/dL 01/29/24 01/29/24 01/29/24 Range/Units 05:00 05:48 05:48 WBC 5.8 (4.0-10.5) x10^3/uL RBC 3.45 L (4.1-5.4) x10^6/uL Hgb 9.9 L (12.0-16.0) g/dL Hct 30.4 L (35-47) % MCV 88.1 (78-100) fL MCH 28.7 (26-32) pg MCHC 32.6 (32-36) g/dL RDW 14.2 H (11.5-14.0) % Plt Count 126 L (150-450) x10^3/uL MPV 11.3 H (7.5-11.0) fL Gran % 71.1 H (36.0-66.0) % Immature Gran % (Auto) 0.3 (0.00-0.4) % Nucleat RBC Rel Count 0.0 (0.00-0.1) % Eos # (Auto) 0.03 (0-0.5) x10^3/uL Immature Gran # (Auto) 0.02 (0.00-0.03) x10^3u/L Absolute Lymphs (auto) 0.94 L (1.0-4.6) x10^3/uL Absolute Monos (auto) 0.67 (0.0-1.3) x10^3/uL Absolute Nucleated RBC 0.00 (0.00-0.01) x10^3u/L Lymphocytes % 16.2 L (24.0-44.0) % Monocytes % 11.6 (0.0-12.0) % Eosinophils % 0.5 (0.00-5.0) % Basophils % 0.3 (0.0-0.4) % Absolute Granulocytes 4.12 (1.4-6.9) x10^3/uL Basophils # 0.02 (0-0.4) x10^3/uL Sodium 137 (135-145) mmol/L Potassium 3.7 (3.5-5.1) mmol/L Chloride 108 H (98-107) mmol/L Carbon Dioxide 22 (22-30) mmol/L Anion Gap 10.4 (5-15) MEQ/L BUN 21 H (7-17) mg/dL Creatinine 0.68 (0.52-1.04) mg/dL Estimated GFR 95.4 ML/MIN Glucose 127 H (74-106) mg/dL POC Glucometer (74 to 106) mg/dL Hemoglobin A1c (4.5-6.0) % Calcium 7.9 L (8.4-10.2) mg/dL Phosphorus 2.5 (2.5-4.5) mg/dL Magnesium 1.1 L (1.6-2.3) mg/dL Total Bilirubin 0.90 (0.2-1.3) mg/dL AST 20 (14-36) U/L ALT 13 (0-35) U/L Alkaline Phosphatase 34 L (38-126) U/L Serum Total Protein 6.2 L (6.3-8.2) g/dL Albumin 3.4 L (3.5-5.0) g/dL Prealbumin (17.6-36.0) mg/dL 01/29/24 01/29/24 Range/Units 05:48 07:49 WBC (4.0-10.5) x10^3/uL RBC (4.1-5.4) x10^6/uL Hgb (12.0-16.0) g/dL Hct (35-47) % MCV (78-100) fL MCH (26-32) pg MCHC (32-36) g/dL RDW (11.5-14.0) % Plt Count (150-450) x10^3/uL MPV (7.5-11.0) fL Gran % (36.0-66.0) % Immature Gran % (Auto) (0.00-0.4) % Nucleat RBC Rel Count (0.00-0.1) % Eos # (Auto) (0-0.5) x10^3/uL Immature Gran # (Auto) (0.00-0.03) x10^3u/L Absolute Lymphs (auto) (1.0-4.6) x10^3/uL Absolute Monos (auto) (0.0-1.3) x10^3/uL Absolute Nucleated RBC (0.00-0.01) x10^3u/L Lymphocytes % (24.0-44.0) % Monocytes % (0.0-12.0) % Eosinophils % (0.00-5.0) % Basophils % (0.0-0.4) % Absolute Granulocytes (1.4-6.9) x10^3/uL Basophils # (0-0.4) x10^3/uL Sodium (135-145) mmol/L Potassium (3.5-5.1) mmol/L Chloride (98-107) mmol/L Carbon Dioxide (22-30) mmol/L Anion Gap (5-15) MEQ/L BUN (7-17) mg/dL Creatinine (0.52-1.04) mg/dL Estimated GFR ML/MIN Glucose (74-106) mg/dL POC Glucometer 147 H (74 to 106) mg/dL Hemoglobin A1c 5.57 (4.5-6.0) % Calcium (8.4-10.2) mg/dL Phosphorus (2.5-4.5) mg/dL Magnesium (1.6-2.3) mg/dL Total Bilirubin (0.2-1.3) mg/dL AST (14-36) U/L ALT (0-35) U/L Alkaline Phosphatase (38-126) U/L Serum Total Protein (6.3-8.2) g/dL Albumin (3.5-5.0) g/dL Prealbumin (17.6-36.0) mg/dL Radiology Exams: Radiology Procedures Category Date Time Status ABDOMEN AND PELVIS W/0 CONTRAS [CT] Stat Exams 01/28/24 08:53 Completed HIP UNI (2V) INCL PEL IF DONE Stat Exams 01/28/24 13:04 Completed SHOULDER Stat Exams 01/28/24 06:40 Completed Multi-Disciplinary Progress Notes: Multi-Disciplinary Progress Notes 01/29/24 10:09 Physical Therapy Note by Alicia(L#[id number])Jazmine PT. IN SX FOR R TSA THIS A.M. SPOKE W/ DI AND PLAN IS FOR [facility] OT TO CALL HER THIS P.M. TO CHECK ON PT. STATUS POST-OPERATIVELY. PT AND OT ORDERS WILL BE NEEDED IF INTERVENTION WARRANTED. PT. WILL LIKELY NEED QUAD CANE AND DIRECT SUPERVISION OF CAREGIVER FOR TRANSFERS AND AMBULATION D/T FALL HX AND DECREASED ABILITY TO WB ON R UE AFTER TSA TO USE ANY TYPE OF WALKER. PT. HAD PREVIOUSLY REFUSED REHAB STAY OR HHC AFTER SX. Initialized on 01/29/24 10:09 - END OF NOTE 01/28/24 11:25 Case Management Note by Cailin Bartholomew Addendum entered by Cailin Bartholomew 01/28/24 11:28: PATIENT ALSO REFUSING HHC AT THIS TIME WELL. PATIENT ENCOURAGED TO LET NURSING STAFF KNOW IF SHE CHANGES HER MIND PRIOR TO DC Original Note: PATIENT DECLINING REHAB STAY AT THIS TIME. SHE STATED I CAN GET PHYSICAL THERAPY AT HOME IF NEEDED. Initialized on 01/28/24 11:25 - END OF NOTE Assessment/Plan (1) Anemia Current Visit: Yes Status: Acute Code(s): D64.9 - ANEMIA, UNSPECIFIED (2) Humeral head fracture Current Visit: Yes Status: Acute Code(s): S42.293A - OTH DISP FX OF UPPER END OF UNSP HUMERUS, INIT FOR CLOS FX (3) Acute kidney failure Current Visit: Yes Status: Acute (4) HTN (hypertension) Current Visit: Yes Status: Chronic Code(s): I10 - ESSENTIAL (PRIMARY) HYPERTENSION (5) Hyperlipidemia Current Visit: Yes Status: Chronic Code(s): E78.5 - HYPERLIPIDEMIA, UNSPECIFIED (6) Diabetes mellitus Current Visit: No Status: Chronic Qualifiers: Diabetes mellitus type: type 2 Diabetes 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 01/28 - anemia panel - Hgb 9.9 Code(s): D64.9 - ANEMIA, UNSPECIFIED (2) Humeral head fracture Current Visit: Yes Status: Acute Assessment & Plan: - was scheduled for OP surgery today - narcotic pain meds PRN - Fell in registration today on right shoulder again- 2:2 low hgb - No LOC - Ortho awaiting Hgb to improve to do surgery. - ice pack PRN - Oral narcotic pain meds - Sling - XR right shoulder: 01/28/24 3 view right shoulder demonstrates grossly stable comminuted, impacted, and angulated humeral head/neck fracture without obvious callus formation. Again chronic findings including osteopenia, mild AC degenerative changes, T7 vertebroplasty, and right lung base subsegmental atelectasis/scarring. No new abnormalities. 01/28 - NPO - scheduled for surgery today Code(s): S42.293A - OTH DISP FX OF UPPER END OF UNSP HUMERUS, INIT FOR CLOS FX (3) Acute kidney failure Current Visit: Yes Status: Acute Assessment & Plan: - Creat 1.16- BL WNL - IVF - Trend - hold lisinopril and statin 01/28 - resolved (4) HTN (hypertension) Current Visit: Yes Status: Chronic Assessment & Plan: - BP stable - hold lisinopril d/t tyrone Code(s): I10 - ESSENTIAL (PRIMARY) HYPERTENSION (5) Hyperlipidemia Current Visit: Yes Status: Chronic Assessment & Plan: - hold statin d/t tyrone Code(s): E78.5 - HYPERLIPIDEMIA, UNSPECIFIED (6) Diabetes mellitus Current Visit: No Status: Chronic Qualifiers: Diabetes mellitus type: type 2 Diabetes mellitus 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 Cat with pain management for chronic pain of right hip - XR right hip 01/28/24 Dynamic hip screw noted, and well aligned. Signs of osteoarthritis noted with narrowing of the hip joint space, sclerosis and irregularity of the femoral and acetabular articular surfaces. Preserved fat planes, no signs of joint effusion. Unremarkable soft tissues. No bony lesion at the scanned bones. IMPRESSION: Signs of osteoarthritis, no acute osseous injury. - Ortho aware and reviewed. Per ortho note also will consider right hip repl acement d/t current hardware related pain. Code(s): M25.551 - PAIN IN RIGHT HIP (8) Hypomagnesemia Current Visit: Yes Status: Acute Assessment & Plan: - Mg+ 1.1 replaced- trend VTE: SCD PPI: protonix Next of KIN: Claire Smith [phone] Code status: Full D/C plan: 1-2 days Code(s): E83.42 - HYPOMAGNESEMIA
[2024-01-29 11:26] LABS: Iron 40 ug/dL (37-170); Iron Saturation 16 % (20-39); TIBC 248 ug/dL (265-462)
[2024-01-29] MEDS ORDERED: PITRESSIN 20 UNITS ONE (12:01)
[2024-01-29 12:07] LABS: Ferritin 219 ng/mL (11.1-264); Vitamin B12 > 961 pg/mL (239-931)
[2024-01-29] MEDS ORDERED: Miralax Powder 17GM PACKET PO PRN (13:10)
[2024-01-29] MEDS ORDERED: Docusate Sodium 100 MG PO PRN (13:10)
[2024-01-29] MEDS ORDERED: TYLENOL EXTRA STRENGTH 500 MG PO PRN (13:47)
[2024-01-29] MEDS: Golytely Solution 4000 ML PO ONE (14:55)
[2024-01-29] MEDS: CEFAZOLIN 2 GM-D5W BAG** 2 GM/50 ML ML IV SCH (14:55)
[2024-01-29] MEDS: Sodium Chloride 0.9% 1000 ML 1,000 ML IV SCH (15:00)
[2024-01-29] MEDS: VITAMIN D PO SCH (16:38)
[2024-01-29] MEDS: Oxy-IR 5 MG PO PRN (23:01)
[2024-01-29] MEDS: Tums EX 750 MG PO SCH (23:01)
[2024-01-30 07:08] LABS: Hematocrit 27.9 % (35-47); Hemoglobin 9.4 g/dL (12.0-16.0); Mean Cell Volume 86.1 fL (78-100); Mean Corpuscular Hgb Concent. 33.7 g/dL (32-36); Mean Platelet Volume 10.1 fL (7.5-11.0); Platelet Count 154 x10^3/uL (150-450); RETICULOCYTE % 2.9 % (0.6-2.6); RETICULOCYTE HEMOGLOBIN 31.5 pg (28-38); Red Blood Count 3.24 x10^6/uL (4.1-5.4); Red Cell Distribution Width 13.8 % (11.5-14.0); White Blood Count 6.9 x10^3/uL (4.0-10.5)
[2024-01-30 07:19] LABS: ANION GAP 13.3 MEQ/L (5-15); Calcium 7.3 mg/dL (8.4-10.2); Creatinine 1 0.64 mg/dL (0.52-1.04); EST GLOMERULAR FILTRATION RATE 96.8 ML/MIN; Potassium 3.3 mmol/L (3.5-5.1)
[2024-01-30 07:22] LABS: MAGNESIUM 1.1 mg/dL (1.6-2.3)
[2024-01-30] MEDS: Klor Con PO SCH (08:22)
--- NOTE | 2024-01-30 09:13 | PCM.NOTE ---
Date and Time: 01/30/24908 Subjective Assessment: Postop day 1 from right reverse shoulder arthroplasty. Pain is moderate.Getting aEGD and colonoscopy today to look for source of bleeding. Patient still having difficulty weightbearing on the right lower extremity Objective Exam Comments: 01/30/24 09:09 Pleasant female no apparent distress, alert and orient x 3, sitting on bedside commode Right hand is puffy and swollen. Able to flex and extend fingers. 5/5 radial median and ulnar nerve function with good sensation all digits. 2+ radial pulse. Dressing clean dry and intact Right shoulder x-ray is still pending Objective Data Vital Signs: Vital Signs - 24 hr Temp Pulse Resp BP Pulse Ox 01/30/24 07:44 93 L 01/30/24 07:17 97.6 F 94 H 16 138/64 95 01/30/24 07:02 96 H 16 94 L 01/30/24 04:00 98.1 F 100 H 14 142/63 92 L 01/30/24 00:00 97.9 F 94 H 18 141/67 98 01/29/24 20:00 98.0 F 97 H 18 128/65 99 01/29/24 19:05 97 01/29/24 16:00 97.3 F 101 H 16 115/60 94 L 01/29/24 12:58 93 L 01/29/24 12:00 97.9 F 111 H 18 121/60 94 L Pain Assessment - Last Documented Pain Intensity 8 Pain Scale Used 0-10 Pain Scale Intake and Output: Intake & Output 01/27/24 01/28/24 01/29/24 01/30/24 11:59 11:59 11:59 11:59 Intake Total 3496 4000 Output Total 300 Balance 3496 3700 Weight 59.5 kg 59.5 kg Lab Results: Lab Results-Last 24 Hours 01/29/24 01/29/24 01/29/24 Range/Units 12:34 16:30 20:11 WBC (4.0-10.5) x10^3/uL RBC (4.1-5.4) x10^6/uL Hgb (12.0-16.0) g/dL Hct (35-47) % MCV (78-100) fL MCH (26-32) pg MCHC (32-36) g/dL RDW (11.5-14.0) % Plt Count (150-450) x10^3/uL MPV (7.5-11.0) fL Reticulocyte % (Auto) (0.6-2.6) % Retic Hgb Content (28-38) pg Sodium (135-145) mmol/L Potassium (3.5-5.1) mmol/L Chloride (98-107) mmol/L Carbon Dioxide (22-30) mmol/L Anion Gap (5-15) MEQ/L BUN (7-17) mg/dL Creatinine (0.52-1.04) mg/dL Estimated GFR ML/MIN Glucose (74-106) mg/dL POC Glucometer 190 H 333 H 259 H (74 to 106) mg/dL Calcium (8.4-10.2) mg/dL Magnesium (1.6-2.3) mg/dL Iron (37-170) ug/dL TIBC (265-462) ug/dL Iron Saturation (20-39) % Ferritin (11.1-264) ng/mL Vitamin B12 (239-931) pg/mL 25-OH Vitamin D Total (30-100) ng/mL Folic Acid 01/29/24 01/29/24 01/29/24 Range/Units Unknown Unknown Unknown WBC (4.0-10.5) x10^3/uL RBC (4.1-5.4) x10^6/uL Hgb (12.0-16.0) g/dL Hct (35-47) % MCV (78-100) fL MCH (26-32) pg MCHC (32-36) g/dL RDW (11.5-14.0) % Plt Count (150-450) x10^3/uL MPV (7.5-11.0) fL Reticulocyte % (Auto) (0.6-2.6) % Retic Hgb Content (28-38) pg Sodium (135-145) mmol/L Potassium (3.5-5.1) mmol/L Chloride (98-107) mmol/L Carbon Dioxide (22-30) mmol/L Anion Gap (5-15) MEQ/L BUN (7-17) mg/dL Creatinine (0.52-1.04) mg/dL Estimated GFR ML/MIN Glucose (74-106) mg/dL POC Glucometer (74 to 106) mg/dL Calcium (8.4-10.2) mg/dL Magnesium (1.6-2.3) mg/dL Iron 40 (37-170) ug/dL TIBC 248 L (265-462) ug/dL Iron Saturation 16 L (20-39) % Ferritin 219 (11.1-264) ng/mL Vitamin B12 > 961 H (239-931) pg/mL 25-OH Vitamin D Total 15.0 L (30-100) ng/mL Folic Acid Cancelled 01/30/24 01/30/24 01/30/24 Range/Units 00:04 04:41 07:00 WBC (4.0-10.5) x10^3/uL RBC (4.1-5.4) x10^6/uL Hgb (12.0-16.0) g/dL Hct (35-47) % MCV (78-100) fL MCH (26-32) pg MCHC (32-36) g/dL RDW (11.5-14.0) % Plt Count (150-450) x10^3/uL MPV (7.5-11.0) fL Reticulocyte % (Auto) (0.6-2.6) % Retic Hgb Content (28-38) pg Sodium 140 (135-145) mmol/L Potassium 3.3 L (3.5-5.1) mmol/L Chloride 107 (98-107) mmol/L Carbon Dioxide 23 (22-30) mmol/L Anion Gap 13.3 (5-15) MEQ/L BUN 13 (7-17) mg/dL Creatinine 0.64 (0.52-1.04) mg/dL Estimated GFR 96.8 ML/MIN Glucose 124 H (74-106) mg/dL POC Glucometer 147 H 107 H (74 to 106) mg/dL Calcium 7.3 L (8.4-10.2) mg/dL Magnesium 1.1 L (1.6-2.3) mg/dL Iron (37-170) ug/dL TIBC (265-462) ug/dL Iron Saturation (20-39) % Ferritin (11.1-264) ng/mL Vitamin B12 (239-931) pg/mL 25-OH Vitamin D Total (30-100) ng/mL Folic Acid 01/30/24 01/30/24 Range/Units 07:00 07:50 WBC 6.9 (4.0-10.5) x10^3/uL RBC 3.24 L (4.1-5.4) x10^6/uL Hgb 9.4 L (12.0-16.0) g/dL Hct 27.9 L (35-47) % MCV 86.1 (78-100) fL MCH 29.0 (26-32) pg MCHC 33.7 (32-36) g/dL RDW 13.8 (11.5-14.0) % Plt Count 154 (150-450) x10^3/uL MPV 10.1 (7.5-11.0) fL Reticulocyte % (Auto) 2.9 H (0.6-2.6) % Retic Hgb Content 31.5 (28-38) pg Sodium (135-145) mmol/L Potassium (3.5-5.1) mmol/L Chloride (98-107) mmol/L Carbon Dioxide (22-30) mmol/L Anion Gap (5-15) MEQ/L BUN (7-17) mg/dL Creatinine (0.52-1.04) mg/dL Estimated GFR ML/MIN Glucose (74-106) mg/dL POC Glucometer 121 H (74 to 106) mg/dL Calcium (8.4-10.2) mg/dL Magnesium (1.6-2.3) mg/dL Iron (37-170) ug/dL TIBC (265-462) ug/dL Iron Saturation (20-39) % Ferritin (11.1-264) ng/mL Vitamin B12 (239-931) pg/mL 25-OH Vitamin D Total (30-100) ng/mL Folic Acid Radiology Exams: Radiology Procedures Category Date Time Status ABDOMEN AND PELVIS W/0 CONTRAS [CT] Stat Exams 01/28/24 08:53 Completed HIP UNI (2V) INCL PEL IF DONE Stat Exams 01/28/24 13:04 Completed SHOULDER Urgent Exams 01/30/24 08:40 Ordered Multi-Disciplinary Progress Notes: Multi-Disciplinary Progress Notes 01/29/24 17:09 Occupational Therapy Note by Lul Osborne Occupational Therapy evaluation completed this afternoon. See eval for further details on transfers, assist levels, and discharge recommendation. Initialized on 01/29/24 17:09 - END OF NOTE 01/29/24 17:07 OT Plan of Care Note by Lul Osborne OT Eval OT Inpatient Eval and POC Start: 01/29/24 15:23 Freq: ONCE Status: Complete Protocol: Created 01/29/24 15:25 AW (Rec: 01/29/24 15:25 AW [id number]) Document 01/29/24 16:43 KA (Rec: 01/29/24 17:07 KA [id number]) OT Evaluation Subjective Dasha agreed to OT evaluation and funcitonal transfers this date. Granddaughter, Echo, present throughout entire session. Pertinent Past Medical History DM type II, GERD, anxiety, depression, COPD, former smoker PSH: right hip repair in 2020, appendectomy, cholecystectomy , cesarian, hysterectomy Prior Level of Function Baseline: Dasha lives with family including daughter, son -in-law, and grandchildren in 1 level home with ramp entrance. She was independent with dressing, toileting, and requiring assist for tub t/fs, bathing, laundry, meals, and all transportation. Dasha reports being sedentary and family encouraging her to go outside the home. Dasha has had several falls in past several months. Equipment at Home Prior to Admission Shower Chair,Other (enter in comment) Home Setup Bathtub Only Comment Owns a rollator but the wheels are broke. Granddaughter reports that they do not have any equipment at home. Date 01/29/24 Feeding WFL Comment SBA (currently on clear liquid diet and will undergo colonoscopy on 01/30/24) Grooming Impaired Comment Min assist Bathing Impaired Comment Max assist Dressing Impaired Comment Max assist Toileting Impaired Comment Dependent IADLS (If indicated) Homemaking,etc Impaired Bed Mobility Impaired Comment Moderate assist Toilet Transfers Impaired Comment Min assist Functional Transfers Impaired Comment Stand-pivot t/f only requiring min assist. Unable to ambulate due to right hip pain and instability following shoulder SX and recent fall. Range of Motion Impaired Comment Right UE: nerve block with surgery but able to actively move wrist and digits (minimal limitations). Increased edema throughout forearm and elbow noted. Left UE: WFL Coordination Right UE: impaired due to surgical procedure and nerve block Left UE: WFL Functional Strength Unable to assess right UE Left UE general MMT of 4-/5 ( weakness s/p SX) General LB assessment with ability to tolerate WB. Education provided on ankle pumps while at rest. Functional Endurance Poor (-): Dasha tolerates standing for approximately 3 minutes for toileting hygiene and stand-pivot t/f, but repors increased fatigue and pain in right hip. Cognition Alert and oriented x 4 (mild confusion noted on remembering the day of recent fall). Pain No reported pain in BUE ( including surgical arm), 8/10 pain reported in right hip. Dasha feels the pain is worse now then before the fall on Wednesday morning. Objective Data/Standardized Assessment(s Lazcano Index of independence in ) ADLs. score: 2 out of 6 indicating poor level of independence and increased assistance required from hospital staff + family. 6-click assessment: indicating 54% impairment with functional transfers which relates to high fall risk. Comment Poor safety insight and acknowledgement to deficits noted. Vitals at rest: 115/60, HR 115 , O2 at 95% on 2 LPM supplemental (no O2 at baseline) Vitals post activity: 128/62, HR 105, O2- 94% on 2LPM OT Plan Of Care Date of Evaluation 01/29/24 Treatment Diagnosis Anemia; R shoulder fracture PROM, 45 F/ERX/ABD, 30 ER Teaching Recipient Patient,Family Patient is Aware of Diagnosis and Yes Prognosis Patient is receptive to Plan of Care and Yes contributory towards OT goals Comment Unable to address R shoulder Exercises, focus on ADLS and functional transfers. OT provided recommendation of adpative equipment including bedside commode, tub transfer bench, long handled shower hose, wheelchair, and quad cane. Functional Problem List Dasha presents with generalized weakness, R shoulder immobolization, R hip pain, instability, and decreased activity tolerance limiting safety and independence with ADLs and functional transfers. Therapuetic Interventions ADLs, therapeutic activity, manual therapy, therapeutic exercise, functional transfers . Functional Goals of Treatment 1) Within 1 week, Dasha and family with demonstrate independence with HEP and all discharge instructions to facilitate safe d/c. 2) Within 1 week, Dasha will complete functional transfers including toilet t/f with SBA in order to ensure safe d/c. 3) Within 1 week, Dasha will engage in HEP of R shoulder exercises in order to improve ROM, swelling, and pain control. 4) Within 1 week, Dasha will complete grooming tasks with SBA in order to facilitate safe d/c home. Frequency/Duration 5x/week Rehabilitation Potential for Goals/ Good Barriers to Progress Discharge Recommendations/Plan OT recommends subacute rehab such as SNF to ensure appropriate nursing assist and skilled therapy to facilitate independence with ADLs and functional transfers, prevent falls, and ensure safe d/c home. Patient declining rehab stay at this time; therefore, OT recommends HHT Including PT, OT, and nurse aid to ensure home set up, appropriate hygiene, and fall prevention prior to follow up in OP therapy. Patient may require w /c and quad cane as well as bedside commode prior to d/c. Initialized on 01/29/24 17:07 - END OF NOTE 01/29/24 10:09 Physical Therapy Note by Alicia(L#[id number])Jazmine PT. IN SX FOR R TSA THIS A.M. SPOKE W/ DI AND PLAN IS FOR LUL OSBORNE OT TO CALL HER THIS P.M. TO CHECK ON PT. STATUS POST-OPERATIVELY. PT AND OT ORDERS WILL BE NEEDED IF INTERVENTION WARRANTED. PT. WILL LIKELY NEED QUAD CANE AND DIRECT SUPERVISION OF CAREGIVER FOR TRANSFERS AND AMBULATION D/T FALL HX AND DECREASED ABILITY TO WB ON R UE AFTER TSA TO USE ANY TYPE OF WALKER. PT. HAD PREVIOUSLY REFUSED REHAB STAY OR HHC AFTER SX. Initialized on 01/29/24 10:09 - END OF NOTE Assessment/Plan (1) Humeral head fracture Current Visit: Yes Status: Acute Assessment & Plan: Patient instructed in passive range of motion of right shoulder to 45 degrees of flexion, 45 degrees abduction, 30 degrees external rotation.No active weightbearing through the right shoulder. May remove dressing postop day 3 and shower Patient likely will need intermediate placement due to difficulty with weightbearing with her shoulder and hip. May be discharged to rehab facility once Colonoscopy/EGD completed and Hospital stay/Days adequate for admission to intermediate Right shoulder for staple removal postop day 10 Return to see me in 3 weeks Code(s): S42.293A - OTH DISP FX OF UPPER END OF UNSP HUMERUS, INIT FOR CLOS FX (2) Contusion of right hip Current Visit: Yes Status: Acute Code(s): S70.01XA - CONTUSION OF RIGHT HIP, INITIAL ENCOUNTER (3) Closed intertrochanteric fracture of right femur with malunion Current Visit: Yes Status: Acute Code(s): S72.141P - DISPLACED INTERTROCH FX R FEMUR, SUBS FOR CLOS FX W MALUNION (4) Post-traumatic osteoarthritis of right hip Current Visit: Yes Status: Acute Code(s): M16.51 - UNILATERAL POST-TRAUMATIC OSTEOARTHRITIS, RIGHT HIP
[2024-01-30] MEDS ORDERED: DIPRIVAN 200 MG/20 ML IV ONE ×2 (10:14→10:32)
[2024-01-30] MEDS ORDERED: Xylocaine-Mpf 2% 5 Ml Vial ONE (10:23)
[2024-01-30] MEDS ORDERED: Lactated Ringers 1,000 ML IV ONE (10:23)
--- NOTE | 2024-01-30 10:39 | XRAY ---
CLINICAL HISTORY: post op rsa COMPARISON: X-ray dated 01/28/2024 was reviewed. TECHNIQUE: Xray right shoulder showing 3 views: 2 AP internal rotation, and lateral views. FINDINGS: Status post right shoulder arthroplasty following proximal humeral fracture showing well-centralization and no evidence of loosening (adequate cement apposition). The joint interface is not clearly delineated in the submitted projections. No fractures are noted. Osteopenia. IMPRESSION: 1. Status post right shoulder arthroplasty following proximal humeral fracture showing no immediate postoperative complications. 2. Osteopenic bone texture. DISCLAIMER:A subtle bone abnormality or fracture may not be readily apparent on x-rays, thus clinical correlation and further imaging including follow up CT, MRI, or follow up x-rays are advised as needed. Electronically Signed by: Fay Zhang MD. (01/30/2024 10:35:18 EDT)
[2024-01-30] MEDS: MAGNESIUM SULF 2 G/50 ML BAG 2 GM/50 ML PIGGYBACK IV SCH (12:09)
[2024-01-30] MEDS: FEOSOL 325 MG PO SCH (12:10)
[2024-01-30] MEDS: Protonix 40MG Tablet PO SCH (12:10)
--- NOTE | 2024-01-30 12:43 | PCM.NOTE ---
Date and Time: 01/30/24 1227 Subjective Assessment: 01/28/24 is a 68 year old female with PMHX of hyperlipidemia, Vitamin B12 def, type II DM, depression, chronic pain, peripheral neuropathy, TIA, cataracts, DVT, HTN, asthma, COPD, emphysema, hypothyroidism, and GERD. She presented to the hospital to check in for her scheduled outpatient surgery of her right shoulder with ortho today. Patient was feeling kind of weak and she fell onto her right shoulder which is the shoulder she will be undergoing a replacement surgery per her report. Patient did not lose consciousness. Patient did not hit her head. She has no headache and she has no neck pain. Patient last consumed oral intake at approximately 10 PM last evening. after reviweing labs Hgb was found to be 5.5 and 2 units ordered. Repeat hgb before blood given was 6.1. Yesterday her pre- surgical workup hgb was 8. She denies dark or tarry stools. She denies hematuria or hematemesis. Unknown cause of blood loss. Will consult GS for further evaluation. Start Protonix IV. CT abd shows no concerning findings. She does have quit a bit of bruising of right shoulder. She denies CP, SOB, abd. pain, N/V/D. 01/29/24 Pt resting in bed. She is quite a bit of pain today in right shoulder and right hip, pain 8/10 and constant. She is scheduled for right shoulder surgery today with ortho this morning. Ortho also addressed the need for possible right hip replacement d/t hardware causing pain. Reviewed ortho note and agree with plan of care. Hgb 9.9 today, yesterday she received 2 units of blood. She is having some tachycardia today and most likely r/t pain. Corrected Ca+ is 8.0 could be r/t blood transfusions yesterday, will continue to monitor. Mg+ 1.1 and replaced. Still awaiting GS recs for low hgb eval. Anemia panel ordered. Pt denies any known blood loss. She denies CP, SOB, abd. pain, N/V/D. 01/29 Pt sitting up in bed. Hgb stable at 9.4 today. She was to have and EGD and colonoscopy today for further evaluation of anemia. However she was unable to get clear stools despite overnight bowel prep and enemas. EGD was completed by GS today and they found GERD, mild gastritis, a hital hernia, thrush with Diflucan started, and presbyesophagus. All morning meds were found intact and stuck when EGD completed. Will order barium swallow for tomorrow with ST eval. Right arm swollen today post right shoulder surgery yesterday, ortho evaluated with recs. Midline placed by anesthesia in OR as unable to get iV and last one went bad this morning. She continues to be unable to bear weight on RLE. per otho note pt to return in 3 weeks for further eval Op. Pt most likely to need rehab placement. Mg+ and K+ replaced. VIT D and Iron replacement started. She denies CP, SOB, abd pain, N/V. - Review of Systems Constitutional: No Fever, No Chills Eyes: No Symptoms Ears, Nose, & Throat: No Symptoms, Other (difficulty swallowing- feels like meds and food are getting stuck often) Respiratory: No Cough, No Short Of Breath Cardiac: No Chest Pain, No Edema, No Syncope Abdominal/Gastrointestinal: No Abdominal Pain, No Nausea, No Vomiting, No Diarrhea Genitourinary Symptoms: No Dysuria Musculoskeletal: Injury, Joint Pain (right shoulder and right hip with decreased ROM), No Back Pain, No Neck Pain Skin: No Rash Neurological: No Dizziness, No Focal Weakness, No Sensory Changes Psychological: No Symptoms Endocrine: No Symptoms Hematologic/Lymphatic: No Symptoms Immunological/Allergic: No Symptoms Objective Exam General Appearance: no apparent distress, alert Neurologic Exam: alert, oriented x 3, cooperative, normal mood/affect, nml cerebellar function, sensation nml, No motor deficits Skin Exam: normal color, warm, dry Eye Exam: PERRL, EOMI, eyes nml inspection Ears, Nose, Throat Exam: normal ENT inspection, pharynx normal, moist mucous membranes Neck Exam: normal inspection, non-tender, supple, full range of motion Respiratory Exam: normal breath sounds, lungs clear, No respiratory distress Cardiovascular Exam: regular rate/rhythm, normal heart sounds Gastrointestinal/Abdomen Exam: soft, No tenderness, No mass Extremity Exam: limited range of motion (right shoulder and right hip, unable to bear weight on right leg), swelling (right arm), tenderness (Right arm edema from right shoudler surgery yesterday) Back Exam: normal inspection, normal range of motion, No CVA tenderness, No vertebral tenderness Pelvic Exam: deferred Rectal Exam: deferred Objective Data Vital Signs: Vital Signs - 24 hr Temp Pulse Resp BP Pulse Ox 01/30/24 11:59 97.1 F 92 H 16 158/67 94 L 01/30/24 09:43 97.6 F 16 L 94 H 138/64 93 L 01/30/24 07:44 93 L 01/30/24 07:17 97.6 F 94 H 16 138/64 95 01/30/24 07:02 96 H 16 94 L 01/30/24 04:00 98.1 F 100 H 14 142/63 92 L 01/30/24 00:00 97.9 F 94 H 18 141/67 98 01/29/24 20:00 98.0 F 97 H 18 128/65 99 01/29/24 19:05 97 01/29/24 16:00 97.3 F 101 H 16 115/60 94 L 01/29/24 12:58 93 L Pain Assessment - Last Documented Pain Intensity 8 Pain Scale Used 0-10 Pain Scale Intake and Output: Intake & Output 01/28/24 01/29/24 01/30/24 01/31/24 11:59 11:59 11:59 11:59 Intake Total 3496 4000 Output Total 300 Balance 3496 3700 Weight 59.5 kg 59.5 kg 59.5 kg Lab Results: Lab Results-Last 24 Hours 01/29/24 01/29/24 01/29/24 Range/Units 12:34 16:30 20:11 WBC (4.0-10.5) x10^3/uL RBC (4.1-5.4) x10^6/uL Hgb (12.0-16.0) g/dL Hct (35-47) % MCV (78-100) fL MCH (26-32) pg MCHC (32-36) g/dL RDW (11.5-14.0) % Plt Count (150-450) x10^3/uL MPV (7.5-11.0) fL Reticulocyte % (Auto) (0.6-2.6) % Retic Hgb Content (28-38) pg Sodium (135-145) mmol/L Potassium (3.5-5.1) mmol/L Chloride (98-107) mmol/L Carbon Dioxide (22-30) mmol/L Anion Gap (5-15) MEQ/L BUN (7-17) mg/dL Creatinine (0.52-1.04) mg/dL Estimated GFR ML/MIN Glucose (74-106) mg/dL POC Glucometer 190 H 333 H 259 H (74 to 106) mg/dL Calcium (8.4-10.2) mg/dL Magnesium (1.6-2.3) mg/dL Ferritin (11.1-264) ng/mL Vitamin B12 (239-931) pg/mL Folic Acid 01/29/24 01/30/24 01/30/24 Range/Units Unknown 00:04 04:41 WBC (4.0-10.5) x10^3/uL RBC (4.1-5.4) x10^6/uL Hgb (12.0-16.0) g/dL Hct (35-47) % MCV (78-100) fL MCH (26-32) pg MCHC (32-36) g/dL RDW (11.5-14.0) % Plt Count (150-450) x10^3/uL MPV (7.5-11.0) fL Reticulocyte % (Auto) (0.6-2.6) % Retic Hgb Content (28-38) pg Sodium (135-145) mmol/L Potassium (3.5-5.1) mmol/L Chloride (98-107) mmol/L Carbon Dioxide (22-30) mmol/L Anion Gap (5-15) MEQ/L BUN (7-17) mg/dL Creatinine (0.52-1.04) mg/dL Estimated GFR ML/MIN Glucose (74-106) mg/dL POC Glucometer 147 H 107 H (74 to 106) mg/dL Calcium (8.4-10.2) mg/dL Magnesium (1.6-2.3) mg/dL Ferritin 219 (11.1-264) ng/mL Vitamin B12 > 961 H (239-931) pg/mL Folic Acid Cancelled 01/30/24 01/30/24 01/30/24 Range/Units 07:00 07:00 07:00 WBC 6.9 (4.0-10.5) x10^3/uL RBC 3.24 L (4.1-5.4) x10^6/uL Hgb 9.4 L (12.0-16.0) g/dL Hct 27.9 L (35-47) % MCV 86.1 (78-100) fL MCH 29.0 (26-32) pg MCHC 33.7 (32-36) g/dL RDW 13.8 (11.5-14.0) % Plt Count 154 (150-450) x10^3/uL MPV 10.1 (7.5-11.0) fL Reticulocyte % (Auto) 2.9 H (0.6-2.6) % Retic Hgb Content 31.5 (28-38) pg Sodium 140 (135-145) mmol/L Potassium 3.3 L (3.5-5.1) mmol/L Chloride 107 (98-107) mmol/L Carbon Dioxide 23 (22-30) mmol/L Anion Gap 13.3 (5-15) MEQ/L BUN 13 (7-17) mg/dL Creatinine 0.64 (0.52-1.04) mg/dL Estimated GFR 96.8 ML/MIN Glucose 124 H (74-106) mg/dL POC Glucometer (74 to 106) mg/dL Calcium 7.3 L (8.4-10.2) mg/dL Magnesium 1.1 L (1.6-2.3) mg/dL Ferritin (11.1-264) ng/mL Vitamin B12 (239-931) pg/mL Folic Acid 8.03 01/30/24 01/30/24 Range/Units 07:50 11:25 WBC (4.0-10.5) x10^3/uL RBC (4.1-5.4) x10^6/uL Hgb (12.0-16.0) g/dL Hct (35-47) % MCV (78-100) fL MCH (26-32) pg MCHC (32-36) g/dL RDW (11.5-14.0) % Plt Count (150-450) x10^3/uL MPV (7.5-11.0) fL Reticulocyte % (Auto) (0.6-2.6) % Retic Hgb Content (28-38) pg Sodium (135-145) mmol/L Potassium (3.5-5.1) mmol/L Chloride (98-107) mmol/L Carbon Dioxide (22-30) mmol/L Anion Gap (5-15) MEQ/L BUN (7-17) mg/dL Creatinine (0.52-1.04) mg/dL Estimated GFR ML/MIN Glucose (74-106) mg/dL POC Glucometer 121 H 116 H (74 to 106) mg/dL Calcium (8.4-10.2) mg/dL Magnesium (1.6-2.3) mg/dL Ferritin (11.1-264) ng/mL Vitamin B12 (239-931) pg/mL Folic Acid Radiology Exams: Radiology Procedures Category Date Time Status HIP UNI (2V) INCL PEL IF DONE Stat Exams 01/28/24 13:04 Completed SHOULDER Urgent Exams 01/30/24 09:26 Completed Multi-Disciplinary Progress Notes: Multi-Disciplinary Progress Notes 01/29/24 17:09 Occupational Therapy Note by Cindy Osborne Occupational Therapy evaluation completed this afternoon. See eval for further details on transfers, assist levels, and discharge recommendation. Initialized on 01/29/24 17:09 - END OF NOTE 01/29/24 17:07 OT Plan of Care Note by Cindy Osborne OT Eval OT Inpatient Eval and POC Start: 01/29/24 15:23 Freq: ONCE Status: Complete Protocol: Created 01/29/24 15:25 AW (Rec: 01/29/24 15:25 AW [id number]) Document 01/29/24 16:43 KA (Rec: 01/29/24 17:07 KA [id number]) OT Evaluation Subjective Dasha agreed to OT evaluation and funcitonal transfers this date. Granddaughter, Echo, present throughout entire session. Pertinent Past Medical History DM type II, GERD, anxiety, depression, COPD, former smoker PSH: right hip repair in 2020, appendectomy, cholecystectomy , cesarian, hysterectomy Prior Level of Function Baseline: Dasha lives with family including daughter, son -in-law, and grandchildren in 1 level home with ramp entrance. She was independent with dressing, toileting, and requiring assist for tub t/fs, bathing, laundry, meals, and all transportation. Dasha reports being sedentary and family encouraging her to go outside the home. Dasha has had several falls in past several months. Equipment at Home Prior to Admission Shower Chair,Other (enter in comment) Home Setup Bathtub Only Comment Owns a rollator but the wheels are broke. Granddaughter reports that they do not have any equipment at home. Date 01/29/24 Feeding WFL Comment SBA (currently on clear liquid diet and will undergo colonoscopy on 01/30/24) Grooming Impaired Comment Min assist Bathing Impaired Comment Max assist Dressing Impaired Comment Max assist Toileting Impaired Comment Dependent IADLS (If indicated) Homemaking,etc Impaired Bed Mobility Impaired Comment Moderate assist Toilet Transfers Impaired Comment Min assist Functional Transfers Impaired Comment Stand-pivot t/f only requiring min assist. Unable to ambulate due to right hip pain and instability following shoulder SX and recent fall. Range of Motion Impaired Comment Right UE: nerve block with surgery but able to actively move wrist and digits (minimal limitations). Increased edema throughout forearm and elbow noted. Left UE: WFL Coordination Right UE: impaired due to surgical procedure and nerve block Left UE: WFL Functional Strength Unable to assess right UE Left UE general MMT of 4-/5 ( weakness s/p SX) General LB assessment with ability to tolerate WB. Education provided on ankle pumps while at rest. Functional Endurance Poor (-): Dasha tolerates standing for approximately 3 minutes for toileting hygiene and stand-pivot t/f, but repors increased fatigue and pain in right hip. Cognition Alert and oriented x 4 (mild confusion noted on remembering the day of recent fall). Pain No reported pain in BUE ( including surgical arm), 8/10 pain reported in right hip. Dasha feels the pain is worse now then before the fall on Wednesday morning. Objective Data/Standardized Assessment(s Lazcano Index of independence in ) ADLs. score: 2 out of 6 indicating poor level of independence and increased assistance required from hospital staff + family. 6-click assessment: indicating 54% impairment with functional transfers which relates to high fall risk. Comment Poor safety insight and acknowledgement to deficits noted. Vitals at rest: 115/60, HR 115 , O2 at 95% on 2 LPM supplemental (no O2 at baseline) Vitals post activity: 128/62, HR 105, O2- 94% on 2LPM OT Plan Of Care Date of Evaluation 01/29/24 Treatment Diagnosis Anemia; R shoulder fracture PROM, 45 F/ERX/ABD, 30 ER Teaching Recipient Patient,Family Patient is Aware of Diagnosis and Yes Prognosis Patient is receptive to Plan of Care and Yes contributory towards OT goals Comment Unable to address R shoulder Exercises, focus on ADLS and functional transfers. OT provided recommendation of adpative equipment including bedside commode, tub transfer bench, long handled shower hose, wheelchair, and quad cane. Functional Problem List Dasha presents with generalized weakness, R shoulder immobolization, R hip pain, instability, and decreased activity tolerance limiting safety and independence with ADLs and functional transfers. Therapuetic Interventions ADLs, therapeutic activity, manual therapy, therapeutic exercise, functional transfers . Functional Goals of Treatment 1) Within 1 week, Dasha and family with demonstrate independence with HEP and all discharge instructions to facilitate safe d/c. 2) Within 1 week, Dasha will complete functional transfers including toilet t/f with SBA in order to ensure safe d/c. 3) Within 1 week, Dasha will engage in HEP of R shoulder exercises in order to improve ROM, swelling, and pain control. 4) Within 1 week, Dasha will complete grooming tasks with SBA in order to facilitate safe d/c home. Frequency/Duration 5x/week Rehabilitation Potential for Goals/ Good Barriers to Progress Discharge Recommendations/Plan OT recommends subacute rehab such as SNF to ensure appropriate nursing assist and skilled therapy to facilitate independence with ADLs and functional transfers, prevent falls, and ensure safe d/c home. Patient declining rehab stay at this time; therefore, OT recommends HHT Including PT, OT, and nurse aid to ensure home set up, appropriate hygiene, and fall prevention prior to follow up in OP therapy. Patient may require w /c and quad cane as well as bedside commode prior to d/c. Initialized on 01/29/24 17:07 - END OF NOTE Assessment/Plan (1) Anemia Current Visit: Yes Status: Acute Code(s): D64.9 - ANEMIA, UNSPECIFIED (2) Humeral head fracture Current Visit: Yes Status: Acute Code(s): S42.293A - OTH DISP FX OF UPPER END OF UNSP HUMERUS, INIT FOR CLOS FX (3) Acute kidney failure Current Visit: Yes Status: Acute (4) HTN (hypertension) Current Visit: Yes Status: Chronic Code(s): I10 - ESSENTIAL (PRIMARY) HYPERTENSION (5) Hyperlipidemia Current Visit: Yes Status: Chronic Code(s): E78.5 - HYPERLIPIDEMIA, UNSPECIFIED (6) Diabetes mellitus Current Visit: No Status: Chronic Qualifiers: Diabetes mellitus type: type 2 Diabetes mellitus intermediate insulin use: without roasterman use Diabetes mellitus complication status: without complication Qualified Code(s): E11.9 - Type 2 diabetes mellitus without complications Code(s): E11.9 - TYPE 2 DIABETES MELLITUS WITHOUT COMPLICATIONS (7) Right hip pain Current Visit: Yes Status: Acute Code(s): M25.551 - PAIN IN RIGHT HIP (8) Hypomagnesemia Current Visit: Yes Status: Acute Assessment & Plan: (1) Anemia Current Visit: Yes Status: Acute Assessment & Plan: - Tele - unknown cause - CT abd/pelvis: 01/27- negative for acute concern - surgery consult - yesterday hgb 8, on admission 5.5, repeat lab 6.1- 2 units of PRBC ordered - Protonix IV - + hx of B12 def. 01/28 - anemia panel - Hgb 9.9 01/29 - EGD with GS surgery found: EGD was completed by today and they found GERD, mild gastritis, a hital hernia, thrush with Diflucan started, and presbyesophagus. All morning meds were found intact and stuck when EGD completed. Code(s): D64.9 - ANEMIA, UNSPECIFIED (2) Humeral head fracture Current Visit: Yes Status: Acute Assessment & Plan: - was scheduled for OP surgery today - narcotic pain meds PRN - Fell in registration today on right shoulder again- 2:2 low hgb - No LOC - Ortho awaiting Hgb to improve to do surgery. - ice pack PRN - Oral narcotic pain meds - Sling - XR right shoulder: 01/28/24 3 view right shoulder demonstrates grossly stable comminuted, impacted, and angulated humeral head/neck fracture without obvious callus formation. Again chronic findings including osteopenia, mild AC degenerative changes, T7 vertebroplasty, and right lung base subsegmental atelectasis/scarring. No new abnormalities. 01/28 - NPO - scheduled for surgery today 01/29 - POD #1 - Right arm swollen- elevate to heart level, ice pack - Sling - PT/OT - rehab placement - reviewed ortho note and agree with plan of care. Code(s): S42.293A - OTH DISP FX OF UPPER END OF UNSP HUMERUS, INIT FOR CLOS FX (3) Acute kidney failure Current Visit: Yes Status: Acute Assessment & Plan: - Creat 1.16- BL WNL - IVF - Trend - hold lisinopril and statin 01/28 - resolved (4) HTN (hypertension) Current Visit: Yes Status: Chronic Assessment & Plan: - BP stable Code(s): I10 - ESSENTIAL (PRIMARY) HYPERTENSION (5) Hyperlipidemia Current Visit: Yes Status: Chronic Assessment & Plan: - Continue statin Code(s): E78.5 - HYPERLIPIDEMIA, UNSPECIFIED (6) Diabetes mellitus Current Visit: No Status: Chronic Qualifiers: Diabetes mellitus type: type 2 Diabetes mellitus roasterman insulin use: without roasterman use Diabetes mellitus complication status: without complication Qualified Code(s): E11.9 - Type 2 diabetes mellitus without complications Assessment & Plan: - A1C - accuchecks ac/hs - humalog s/s - hold metformin - carb controlled diet Code(s): E11.9 - TYPE 2 DIABETES MELLITUS WITHOUT COMPLICATIONS (7) Right hip pain Current Visit: Yes Status: Acute Assessment & Plan: - acute on chronic - pt reports pain after fall- increased - follows Dr. Cat with pain management for chronic pain of right hip - XR right hip 01/28/24 Dynamic hip screw noted, and well aligned. Signs of osteoarthritis noted with narrowing of the hip joint space, sclerosis and irregularity of the femoral and acetabular articular surfaces. Preserved fat planes, no signs of joint effusion. Unremarkable soft tissues. No bony lesion at the scanned bones. IMPRESSION: Signs of osteoarthritis, no acute osseous injury. - Ortho aware and reviewed. Per ortho note also will consider right hip replacement d/t current hardware related pain 01/29 - f/u in 3 weeks OP per ortho - PT/OT - Will need rehab placement. Code(s): M25.551 - PAIN IN RIGHT HIP (8) Hypomagnesemia Current Visit: Yes Status: Acute Assessment & Plan: - Mg+ 1.1 replaced- trend 01/29 - Mg+ 1.1- replaced- trend Code(s): E83.42 - HYPOMAGNESEMIA (9) Thrush of mouth and esophagus Current Visit: Yes Status: Acute Assessment & Plan: - Diflucan started by GS Code(s): B37.81 - CANDIDAL ESOPHAGITIS; B37.0 - CANDIDAL STOMATITIS (10) Presbyesophagus Current Visit: Yes Status: Acute Assessment & Plan: - seen on EGD per - Will order barium swallow for tomorrow with ST eval. Code(s): K22.89 - OTHER SPECIFIED DISEASE OF ESOPHAGUS (11) Hypokalemia Current Visit: Yes Status: Acute Assessment & Plan: - K+ 3.3 replaced- trend VTE: SCD PPI: protonix Next of KIN: Claire Smith [phone] Code status: Full D/C plan: 1-2 days Code(s): E87.6 - HYPOKALEMIA
[2024-01-30] MEDS: Diflucan 100 MG PO SCH (13:50)
[2024-01-30] MEDS: Zestril 5 MG PO SCH (13:51)
[2024-01-30 16:34] LABS: MAGNESIUM 2.4 mg/dL (1.6-2.3)
[2024-01-30 16:41] LABS: Potassium 4.1 mmol/L (3.5-5.1)
[2024-01-30] MEDS: ZOCOR 20MG PO SCH (22:25)
[2024-01-31 04:57] LABS: Hematocrit 25.5 % (35-47); Hemoglobin 8.2 g/dL (12.0-16.0); Mean Cell Volume 89.2 fL (78-100); Mean Corpuscular Hemoglobin 28.7 pg (26-32); Mean Corpuscular Hgb Concent. 32.2 g/dL (32-36); Mean Platelet Volume 10.1 fL (7.5-11.0); Platelet Count 154 x10^3/uL (150-450); Red Blood Count 2.86 x10^6/uL (4.1-5.4); Red Cell Distribution Width 14.1 % (11.5-14.0); White Blood Count 5.3 x10^3/uL (4.0-10.5)
[2024-01-31 05:17] LABS: ALBUMIN 2.9 g/dL (3.5-5.0); ANION GAP 9.6 MEQ/L (5-15); BILIRUBIN,TOTAL 0.6 mg/dL (0.2-1.3); Calcium 7.7 mg/dL (8.4-10.2); Creatinine 1 0.7 mg/dL (0.52-1.04); EST GLOMERULAR FILTRATION RATE 94.7 ML/MIN; PHOSPHOROUS 1.9 mg/dL (2.5-4.5); Potassium 4.6 mmol/L (3.5-5.1); Total Protein 5.5 g/dL (6.3-8.2)
--- NOTE | 2024-01-31 05:44 | PCM.NOTE ---
Date and Time: 01/31/24 0537 Subjective Assessment: Ms. Cleaning is a 68 year old female who presented for her OP scheduled right reverse shoulder arthroplasty four four-part fracture on 01/29/24 when she fell reinjuring her right shoulder most likely secondary to symptomatic anemia as she was found to have a hgb of 5.5 on arrival. Patient has received 2 units of blood during hospital course and hemoglobin has remained stable. Cause of blood loss is unknown. GERD, mild gastritis, a hital hernia, thrush with Diflucan started, and presbyesophagus. Barium swallow with ST ordered for today. CT of the abdomen with no acute findings. She denies dark/tarry stools, hematuria, or hematemesis. EGD She is s/p surgery of her right shoulder performed 01/29/24. She continues to be unable to bear weight on RLE. per otho note pt to return in 3 weeks for further eval Op. Pt most likely to need rehab placement. 01/30: Met and examined patient bedside. Pain in right shoulder is 7/10 on numerical scale today, swelling has improved. Discussed Plan for barrium swallow today and colonoscopy tomorrow for which patient is agreeable. She states she does have trouble swallowing at times. She is agreeable to rehab on discharge. - Review of Systems Constitutional: No Symptoms Eyes: No Symptoms Ears, Nose, & Throat: No Symptoms Respiratory: No Symptoms Cardiac: Edema (RUE secondary to surgery, in sling) Abdominal/Gastrointestinal: No Symptoms Genitourinary Symptoms: No Symptoms Musculoskeletal: Joint Pain, Other (right hip pain NWB) Skin: Other (RUE surgical incision) Neurological: No Symptoms Psychological: No Symptoms Endocrine: No Symptoms Hematologic/Lymphatic: No Symptoms Immunological/Allergic: No Symptoms Objective Exam General Appearance: no apparent distress Neurologic Exam: alert, oriented x 3, cooperative Skin Exam: normal color, other (Mulitple areas of bruising and edema to RUE, drainage, in sling) Eye Exam: PERRL Ears, Nose, Throat Exam: normal ENT inspection Neck Exam: normal inspection Respiratory Exam: normal breath sounds, lungs clear Cardiovascular Exam: regular rate/rhythm, normal heart sounds Gastrointestinal/Abdomen Exam: soft, normal bowel sounds Extremity Exam: limited range of motion (RUE/RLE), swelling (RUE s/p surgery) Back Exam: normal inspection Pelvic Exam: deferred Rectal Exam: deferred Objective Data Vital Signs: Vital Signs - 24 hr Temp Pulse Resp BP Pulse Ox 01/31/24 04:00 98.0 F 97 H 17 104/55 94 L 01/31/24 00:00 98.6 F 97 H 17 118/58 95 01/30/24 20:00 98.1 F 97 H 16 107/55 94 L 01/30/24 18:44 94 L 01/30/24 14:51 97.2 F 90 16 96/51 94 L 01/30/24 11:59 97.1 F 92 H 16 158/67 94 L 01/30/24 09:43 97.6 F 94 H 16 138/64 93 L 01/30/24 07:44 93 L 01/30/24 07:17 97.6 F 94 H 16 138/64 95 01/30/24 07:02 96 H 16 94 L Pain Assessment - Last Documented Pain Intensity 7 Pain Scale Used 0-10 Pain Scale Intake and Output: Intake & Output 01/28/24 01/29/24 01/30/24 01/31/24 11:59 11:59 11:59 11:59 Intake Total 3496 4000 3251 Output Total 300 Balance 3496 3700 3251 Weight 59.5 kg 59.5 kg 59.5 kg Lab Results: Lab Results-Last 24 Hours 01/29/24 01/30/24 01/30/24 Range/Units Unknown 07:00 07:00 WBC 6.9 (4.0-10.5) x10^3/uL RBC 3.24 L (4.1-5.4) x10^6/uL Hgb 9.4 L (12.0-16.0) g/dL Hct 27.9 L (35-47) % MCV 86.1 (78-100) fL MCH 29.0 (26-32) pg MCHC 33.7 (32-36) g/dL RDW 13.8 (11.5-14.0) % Plt Count 154 (150-450) x10^3/uL MPV 10.1 (7.5-11.0) fL Reticulocyte % (Auto) 2.9 H (0.6-2.6) % Retic Hgb Content 31.5 (28-38) pg Sodium 140 (135-145) mmol/L Potassium 3.3 L (3.5-5.1) mmol/L Chloride 107 (98-107) mmol/L Carbon Dioxide 23 (22-30) mmol/L Anion Gap 13.3 (5-15) MEQ/L BUN 13 (7-17) mg/dL Creatinine 0.64 (0.52-1.04) mg/dL Estimated GFR 96.8 ML/MIN Glucose 124 H (74-106) mg/dL POC Glucometer (74 to 106) mg/dL Calcium 7.3 L (8.4-10.2) mg/dL Phosphorus (2.5-4.5) mg/dL Magnesium 1.1 L (1.6-2.3) mg/dL Total Bilirubin (0.2-1.3) mg/dL AST (14-36) U/L ALT (0-35) U/L Alkaline Phosphatase (38-126) U/L Serum Total Protein (6.3-8.2) g/dL Albumin (3.5-5.0) g/dL Folic Acid (2.76 - >20) ng/mL PTH Intact Whole Molec 35 (15-65) pg/mL 01/30/24 01/30/24 01/30/24 Range/Units 07:00 07:50 11:25 WBC (4.0-10.5) x10^3/uL RBC (4.1-5.4) x10^6/uL Hgb (12.0-16.0) g/dL Hct (35-47) % MCV (78-100) fL MCH (26-32) pg MCHC (32-36) g/dL RDW (11.5-14.0) % Plt Count (150-450) x10^3/uL MPV (7.5-11.0) fL Reticulocyte % (Auto) (0.6-2.6) % Retic Hgb Content (28-38) pg Sodium (135-145) mmol/L Potassium (3.5-5.1) mmol/L Chloride (98-107) mmol/L Carbon Dioxide (22-30) mmol/L Anion Gap (5-15) MEQ/L BUN (7-17) mg/dL Creatinine (0.52-1.04) mg/dL Estimated GFR ML/MIN Glucose (74-106) mg/dL POC Glucometer 121 H 116 H (74 to 106) mg/dL Calcium (8.4-10.2) mg/dL Phosphorus (2.5-4.5) mg/dL Magnesium (1.6-2.3) mg/dL Total Bilirubin (0.2-1.3) mg/dL AST (14-36) U/L ALT (0-35) U/L Alkaline Phosphatase (38-126) U/L Serum Total Protein (6.3-8.2) g/dL Albumin (3.5-5.0) g/dL Folic Acid 8.03 (2.76 - >20) ng/mL PTH Intact Whole Molec (15-65) pg/mL 01/30/24 01/30/24 01/30/24 Range/Units 16:15 16:38 21:03 WBC (4.0-10.5) x10^3/uL RBC (4.1-5.4) x10^6/uL Hgb (12.0-16.0) g/dL Hct (35-47) % MCV (78-100) fL MCH (26-32) pg MCHC (32-36) g/dL RDW (11.5-14.0) % Plt Count (150-450) x10^3/uL MPV (7.5-11.0) fL Reticulocyte % (Auto) (0.6-2.6) % Retic Hgb Content (28-38) pg Sodium (135-145) mmol/L Potassium 4.1 D (3.5-5.1) mmol/L Chloride (98-107) mmol/L Carbon Dioxide (22-30) mmol/L Anion Gap (5-15) MEQ/L BUN (7-17) mg/dL Creatinine (0.52-1.04) mg/dL Estimated GFR ML/MIN Glucose (74-106) mg/dL POC Glucometer 220 H 115 H (74 to 106) mg/dL Calcium (8.4-10.2) mg/dL Phosphorus (2.5-4.5) mg/dL Magnesium 2.4 H (1.6-2.3) mg/dL Total Bilirubin (0.2-1.3) mg/dL AST (14-36) U/L ALT (0-35) U/L Alkaline Phosphatase (38-126) U/L Serum Total Protein (6.3-8.2) g/dL Albumin (3.5-5.0) g/dL Folic Acid (2.76 - >20) ng/mL PTH Intact Whole Molec (15-65) pg/mL 01/31/24 01/31/24 01/31/24 Range/Units 04:50 04:50 04:50 WBC 5.3 (4.0-10.5) x10^3/uL RBC 2.86 L (4.1-5.4) x10^6/uL Hgb 8.2 L (12.0-16.0) g/dL Hct 25.5 L (35-47) % MCV 89.2 (78-100) fL MCH 28.7 (26-32) pg MCHC 32.2 (32-36) g/dL RDW 14.1 H (11.5-14.0) % Plt Count 154 (150-450) x10^3/uL MPV 10.1 (7.5-11.0) fL Reticulocyte % (Auto) (0.6-2.6) % Retic Hgb Content (28-38) pg Sodium 138 (135-145) mmol/L Potassium 4.6 (3.5-5.1) mmol/L Chloride 109 H (98-107) mmol/L Carbon Dioxide 24 (22-30) mmol/L Anion Gap 9.6 (5-15) MEQ/L BUN 8 (7-17) mg/dL Creatinine 0.70 (0.52-1.04) mg/dL Estimated GFR 94.7 ML/MIN Glucose 113 H (74-106) mg/dL POC Glucometer (74 to 106) mg/dL Calcium 7.7 L (8.4-10.2) mg/dL Phosphorus 1.9 L (2.5-4.5) mg/dL Magnesium 1.8 (1.6-2.3) mg/dL Total Bilirubin 0.60 (0.2-1.3) mg/dL AST 36 (14-36) U/L ALT 22 (0-35) U/L Alkaline Phosphatase 47 (38-126) U/L Serum Total Protein 5.5 L (6.3-8.2) g/dL Albumin 2.9 L (3.5-5.0) g/dL Folic Acid (2.76 - >20) ng/mL PTH Intact Whole Molec (15-65) pg/mL Radiology Exams: Radiology Procedures Category Date Time Status BARIUM ENEMA Urgent Exams 02/01/24 08:00 Ordered BARIUM SWALLOW ESOPHOGRAM Routine Exams 01/31/24 09:00 Ordered SHOULDER Urgent Exams 01/30/24 09:26 Completed Assessment/Plan (1) Anemia Current Visit: Yes Status: Acute Assessment & Plan: - Tele - unknown cause - CT abd/pelvis: 01/27- negative for acute concern - surgery consult - yesterday hgb 8, on admission 5.5, repeat lab 6.1- 2 units of PRBC ordered - Protonix IV - + hx of B12 def. 01/28 - anemia panel - Hgb 9.9 01/29 - EGD with [facility] surgery found: EGD was completed by [facility] today and they found GERD, mild gastritis, a hital hernia, thrush with Diflucan started, and presbyesophagus. All morning meds were found intact and stuck when EGD completed. Code(s): D64.9 - ANEMIA, UNSPECIFIED 01/30: -Barium study pending -Colonoscopy to be performed tomorrow -Hgb at 8.2 today, will continue to monitor -Iron sat at 16%, will order Iron infusion Code(s): D64.9 - ANEMIA, UNSPECIFIED (2) Acute kidney failure Current Visit: Yes Status: Acute Assessment & Plan: - Creat 1.16- BL WNL - IVF - Trend - hold lisinopril and statin 01/28 - resolved (3) Humeral head fracture Current Visit: Yes Status: Acute Assessment & Plan: - was scheduled for OP surgery today - narcotic pain meds PRN - Fell in registration today on right shoulder again- 2:2 low hgb - No LOC - Ortho awaiting Hgb to improve to do surgery. - ice pack PRN - Oral narcotic pain meds - Sling - XR right shoulder: 01/28/24 3 view right shoulder demonstrates grossly stable comminuted, impacted, and angulated humeral head/neck fracture without obvious callus formation. Again chronic findings including osteopenia, mild AC degenerative changes, T7 vertebroplasty, and right lung base subsegmental atelectasis/scarring. No new abnormalities. 01/28 - NPO - scheduled for surgery today 01/29 - POD #1 - Right arm swollen- elevate to heart level, ice pack - Sling - PT/OT - rehab placement - reviewed ortho note and agree with plan of care. Code(s): S42.293A - OTH DISP FX OF UPPER END OF UNSP HUMERUS, INIT FOR CLOS FX Code(s): S42.293A - OTH DISP FX OF UPPER END OF UNSP HUMERUS, INIT FOR CLOS FX (4) Hypomagnesemia Current Visit: Yes Status: Acute Assessment & Plan: -Resolved Code(s): E83.42 - HYPOMAGNESEMIA (5) Right hip pain Current Visit: Yes Status: Acute Assessment & Plan: - acute on chronic - pt reports pain after fall- increased - follows Dr. Cat with pain management for chronic pain of right hip - XR right hip 01/28/24 Dynamic hip screw noted, and well aligned. Signs of osteoarthritis noted with narrowing of the hip joint space, sclerosis and irregularity of the femoral and acetabular articular surfaces. Preserved fat planes, no signs of joint effusion. Unremarkable soft tissues. No bony lesion at the scanned bones. IMPRESSION: Signs of osteoarthritis, no acute osseous injury. - Ortho aware and reviewed. Per ortho note also will consider right hip replacement d/t current hardware related pain 01/29 - f/u in 3 weeks OP per ortho - PT/OT - Will need rehab placement. Code(s): M25.551 - PAIN IN RIGHT HIP (6) HTN (hypertension) Current Visit: Yes Status: Chronic Assessment & Plan: -stable, continue home medications Code(s): I10 - ESSENTIAL (PRIMARY) HYPERTENSION (7) Hyperlipidemia Current Visit: Yes Status: Chronic Assessment & Plan: -continue statin Code(s): E78.5 - HYPERLIPIDEMIA, UNSPECIFIED (8) DM2 (diabetes mellitus, type 2) Current Visit: No Status: Acute Assessment & Plan: - A1C - accuchecks ac/hs - humalog s/s - hold metformin - carb controlled diet (9) Presbyesophagus Current Visit: Yes Status: Acute Assessment & Plan: - seen on EGD per - Will order barium swallow for tomorrow with ST karol 01/30: -barium swallow pending results. Code(s): K22.89 - OTHER SPECIFIED DISEASE OF ESOPHAGUS (10) Thrush of mouth and esophagus Current Visit: Yes Status: Acute Assessment & Plan: Diflucan started by [facility] Code(s): B37.81 - CANDIDAL ESOPHAGITIS; B37.0 - CANDIDAL STOMATITIS (11) Hypokalemia Current Visit: Yes Status: Acute Assessment & Plan: -replenished 01/29 -resolved Code(s): E87.6 - HYPOKALEMIA
[2024-01-31] MEDS: Neutra-Phos Packet PO ONE (07:53)
--- NOTE | 2024-01-31 08:12 | PCM.NOTE ---
ORTHO Progress Note - Progress Note ORTHO Progress Note: Postop day 2 from right reverse shoulder replacement for fracture.An EGD yesterday and getting colonoscopy today.Pain is moderate in the right shoulder. Still having right hip pain. Objective: Alert and oriented x 3 sitting up in bed. Decrease swelling in right hand. Moving fingers well.Dressing clean dry and intact Some blood on her sling from skin tear on elbow Hematocrit 26 X-ray right shoulder from yesterday showsAdequately positioned prosthesis. Assessment: Stable with right reverse shoulder arthroplasty Plan: Discharged to nursing facility when workup for anemia complete May continue weightbearing as tolerated on the right lower extremity. May consider conversion to a right total hip replacement in the future Stable removal right shoulder postop day 10 Return to see me 3 weeks postop
[2024-01-31] MEDS ORDERED: Neutra-Phos Packet PO ONE (10:00)
--- NOTE | 2024-01-31 11:07 | CONS ---
CONSULT DATE: 01/28/2024 REASON FOR CONSULT: Anemia probably GI. HISTORY: The patient is coming in Wednesday to have a right broken shoulder repair and then she fell. She went to the ER. She had hemoglobin that was 5. She had additionally broken the shoulder some more. She is having open reduction internal fixation tomorrow. She had two units of blood today. She is not having any obvious bleeding. She has not had any stool samples so we do not have a stool Hemoccult. IMPRESSION: I would think this is GI bleeding. She may have peptic ulcer disease or cecal tumor. She will require an EGD and colonoscopy. She is going to have her ortho tomorrow. The next day is Wednesday but she wants to stay in the hospital. We might be able to prep her for Wednesday. We will see how things go.
[2024-01-31] MEDS ORDERED: INJECTAFER 750 MG IV ONE (11:42)
[2024-01-31] MEDS ORDERED: Amidate 20 MG/10 ML IV ONE (12:12)
[2024-01-31] MEDS: INJECTAFER 750 MG 750 MG in Sodium Chloride 0.9% 250 ML 250 ML IV SCH (13:09)
--- NOTE | 2024-01-31 13:27 | OP ---
DATE OF PROCEDURE: 01/29/2024 0906 PREOPERATIVE DIAGNOSIS: Right four-part proximal humerus fracture. POSTOPERATIVE DIAGNOSIS: Right four-part proximal humerus fracture. PROCEDURE: Right reverse shoulder arthroplasty. ATTENDING PHYSICIAN: Paul Mc M.D. ANESTHESIA: General, interscalene block by Justyn Agarwal CRNA. ASSIST: Roxana Kay. FINDINGS: Displaced four-part fracture QUANTITATIVE BLOOD LOSS: 100 cc. FLUIDS: Per anesthesia records. SPECIMEN: None. DRAIN: None. COMPLICATIONS: None. INDICATIONS FOR PROCEDURE: The patient is a 68-year-old white female who fell five days ago sustaining above mentioned fracture. Implants were Biomet cup reverse shoulder with a size 12 fracture stem with Refobacin cement with polyethylene liner. A mini base post 6 x 25 central screw nonlocking and then three peripheral 4.75 mm locking screws 20, 15 and 25 mm lengths. The base plate on the stem was 0. DESCRIPTION OF PROCEDURE: The patient is seen in the holding unit. Identified the right shoulder as correct. She had nerve block. She was given 2 gm of Kefzol and 1,000 mg tranexamic acid preoperatively. She consented for right shoulder reverse replacement. She is taken to the OR. She had general anesthesia. She had already had the nerve block. She is given eye protection, set up in a beach chair position at 45 degree angle. Her left arm on a padded An stand. She had a wedge and pillows behind her calves and thighs keeping pressure off of her heels. She had a kidney rest on the rightside. She had sterile prep and drape on the right upper extremity using hydrogen peroxide and chlorhexidine, ChloraPrep. The deltopectoral incision was marked, this was injected with 10 cc of 1% lidocaine with epinephrine. A 12 cm anterior incision was made. The cephalic vein was very atrophic that was retracted laterally. The deltopectoral interval was dissected bluntly. Tuberosity identified and tagged with 2.5 mm Broadband Shari suture tapes. The greater tuberosity was then tied with three similar sutures and a trial was done anteriorly and posteriorly exposing the heel head which was removed in pieces with rongeur. Retractors were placed at the 9:00, 6:00 and 3:00 positions on the glenoid and the glenoid labrum was excised staying on bone to avoid axillary nerve. The center point of the glenoid was marked with Bovie. The base plate guide was then placed which gave a 10 degree superior angle in the center of glenoid and this has been drilled reaming taking about 4 mm depth of bone at inferior edge of the glenoid. The osteophytes in labrum were removed with rongeur. Shoulder was irrigated and trialed. Base plate fit well. The true base plate was then packed and center screw was measured and placed and the three peripheral screws were placed at the 2:00, 10:00 and 8:00 positions. The humerus was then prepared with a straight reamer going up to size 14 with mild cortical contact. The 12 stem was tried and the location was marked with the dried handle with 30 degrees of retroversion and the height was marked. Trial stem is then placed again with a 0 base plate and 0 polyethylene with good range of motion and stability with tuberosities could be reduced. The stems were removed. Polyethylene plug was placed 1 cm distal to the stem and dried in the canal and then two batches of Shari cement were mixed and retrograde injected with cement nozzle. The stem was placed down the canal and the previous 30 degrees of retroversion with the height as the same height as before this was held place. A curette was used to trim off the cement. The cement was allowed to harden and trial reduction was done again with the same 0-0 with good stability of range of motion. The base plate was assembled on the back table and impacted onto the stem this was placed with about 2 mm with inferior shift to avoid notching of the scapula. The reduction was done with good range of motion stability. The tuberosity is then repaired back to the fins on the prosthesis and to each other. Additional #5 MaxBraid was then placed through drill hole in the lateral shaft was used to tie the tuberosity down to the shaft also. The biceps tendon was tenodesed to the soft tissue with a #2Nonabsorbable suture. Bone graft from head was placed around the tuberosity for additional healing. The shoulder was irrigated thoroughly. The subcu tissue was closed with 2-0 Vicryl and the skin with raul. She will have passive range of motion to about 45 degrees flexion, 45 degrees abduction, external rotation 30. She will not push off with the arm for six weeks. The patient will likely go to long-term. She will have 24 hours of IV antibiotics postoperative. Sterile dressing applied. The patient placed back in a sling with shoulder abducted about 10 degrees. Estimated blood loss is 100 cc. She will have Kefzol for 24 hours. She will have raul removed in ten days postoperative.
--- NOTE | 2024-01-31 13:41 | OP ---
SURGERY DATE/TIME: 01/30/2024 1013 PREOPERATIVE DIAGNOSIS: 1) Dysphagia. 2) Anemia. POSTOPERATIVE DIAGNOSES: 1) The patient has Presbyesophagus with no visible contractions. 2) The patient does have a slight stricture in the lower esophagus. 3) The patient has a nearly 2 inch hiatal hernia. 4) She has a little bit of gastritis. 5) She had an incomplete colon exam to 60 cm, limited for stool with no findings. PROCEDURES: 1) EGD. 2) Colonoscopy complete to cecum. SURGEON: Neftali Griffiths M.D. ANESTHESIA: MAC. COMPLICATIONS: None. CONDITION: Stable. DESCRIPTION OF PROCEDURE: Patient taken to endoscopy. MAC sedation provided. Scope introduced. Pharyngoesophageal junction normal. Esophagus normal down to 36 cm, very slight stricture about size 26. There was a 2 inch hiatal hernia. There was some gastroesophageal reflux disease. There were no contractions consistent with Presbyesophagus. There was mild gastritis. Pylorus normal. Duodenal bulb normal. Second portion normal. Scope withdrawn. She did also have a little bit of yeast Candidiasis esophagitis. She was given treatment for this. Anal digital examination there was stool. Scope introduced and advanced up to 50 cm at the most and it was just met by regular stool. The exam was aborted. A barium has been ordered for tomorrow.
--- NOTE | 2024-01-31 13:45 | XRAY ---
Indication: long-term placement. Comparison: October 01, 2022 Portable chest less inflated with new right base subsegmental atelectasis/scarring. Remaining lungs clear again with COPD and left base calcified granuloma. Heart not enlarged. Bony thorax intact with osteopenia, degenerative changes, T7 kyphoplasty, and new right shoulder arthroplasty. Impression: New right base subsegmental atelectasis and right shoulder arthroplasty. Again chronic findings including COPD, chronic bony findings, and old granulomatous disease.
--- NOTE | 2024-01-31 15:34 | XRAY ---
Indication: Abnormal EGD. GI bleed. Status post right shoulder arthroplasty and acute right pubic bone fractures limits patient mobility. Esophagram could only be performed in semi upright AP plane. Patient ingested barium without miss swallow or aspiration. Esophagus is normal in course and caliber. No focal stricture, obstruction, filling defect, or extravasation. Barium freely emptied into stomach. Small hiatal hernia present. Impression: Small hiatal hernia. Remaining limited esophagram is negative. Approximately 0.4 minute fluoroscopy used.
[2024-01-31] MEDS: CITROMA 296 ML PO ONE (16:13)
[2024-01-31 19:00] VITALS: RESP 16
[2024-02-01 05:16] LABS: Absolute Neutrophil Ct (ANC) 3.47 x10^3/uL (1.4-6.9); BASOPHIL % 0.2 % (0.0-0.4); Basophil (Absolute #) 0.01 x10^3/uL (0-0.4); Eosinophil % 1.9 % (0.00-5.0); Eosinophil (Absolute #) 0.11 x10^3/uL (0-0.5); Hematocrit 28.1 % (35-47); Hemoglobin 8.9 g/dL (12.0-16.0); IMMATURE GRAN # 0.02 x10^3u/L (0.00-0.03); IMMATURE GRAN % 0.4 % (0.00-0.4); Lymphocyte (Absolute #) 1.48 x10^3/uL (1.0-4.6); Lymphocytes % 26.1 % (24.0-44.0); Mean Cell Volume 89.2 fL (78-100); Mean Corpuscular Hemoglobin 28.3 pg (26-32); Mean Corpuscular Hgb Concent. 31.7 g/dL (32-36); Mean Platelet Volume 10.9 fL (7.5-11.0); Monocyte (Absolute #) 0.57 x10^3/uL (0.0-1.3); Monocytes % 10.1 % (0.0-12.0); Neutrophil % 61.3 % (36.0-66.0); Platelet Count 149 x10^3/uL (150-450); Red Blood Count 3.15 x10^6/uL (4.1-5.4); Red Cell Distribution Width 13.9 % (11.5-14.0); White Blood Count 5.7 x10^3/uL (4.0-10.5)
--- NOTE | 2024-02-01 05:27 | PCM.NOTE ---
Date and Time: 02/01/24 0526 Subjective Assessment: Ms. Cleaning is a 68 year old female who presented for her OP scheduled right reverse shoulder arthroplasty four four-part fracture on 01/29/24 when she fell reinjuring her right shoulder most likely secondary to symptomatic anemia as she was found to have a hgb of 5.5 on arrival. Patient has received 2 units of blood during hospital course and hemoglobin has remained stable. Cause of blood loss is unknown. EGD showed GERD, mild gastritis, a hital hernia, thrush with Diflucan started, and presbyesophagus. Barium swallow with ST ordered for today. CT of the abdomen with no acute findings. She denies dark/tarry stools, hematuria, or hematemesis. She is s/p surgery of her right shoulder performed 01/29/24. She continues to be unable to bear weight on RLE. per otho note pt to return in 3 weeks for further eval Op. Pt agreeable rehab placement on discharge. Colonoscopy will be performed as OP per surgery. Objective Data Vital Signs: Vital Signs - 24 hr Temp Pulse Resp BP Pulse Ox 02/01/24 04:00 98.4 F 110 H 16 119/76 94 L 02/01/24 00:00 97.6 F 101 H 16 121/59 96 01/31/24 19:02 105 H 16 94 L 01/31/24 19:00 97.6 F 122 H 16 102/66 94 L 01/31/24 16:00 97.8 F 104 H 20 165/65 97 01/31/24 12:00 97.6 F 106 H 20 128/59 94 L 01/31/24 08:00 97.6 F 106 H 20 128/59 94 L 01/31/24 07:22 96 H 16 92 L Pain Assessment - Last Documented Pain Intensity 8 Pain Scale Used 0-10 Pain Scale Intake and Output: Intake & Output 01/29/24 01/30/24 01/31/24 02/01/24 11:59 11:59 11:59 11:59 Intake Total 3496 4000 3901 360 Output Total 300 Balance 3496 3700 3901 360 Weight 59.5 kg 59.5 kg Lab Results: Lab Results-Last 24 Hours 01/31/24 01/31/24 01/31/24 Range/Units 04:50 04:50 07:56 WBC (4.0-10.5) x10^3/uL RBC (4.1-5.4) x10^6/uL Hgb (12.0-16.0) g/dL Hct (35-47) % MCV (78-100) fL MCH (26-32) pg MCHC (32-36) g/dL RDW (11.5-14.0) % Plt Count (150-450) x10^3/uL MPV (7.5-11.0) fL Gran % (36.0-66.0) % Immature Gran % (Auto) (0.00-0.4) % Nucleat RBC Rel Count (0.00-0.1) % Eos # (Auto) (0-0.5) x10^3/uL Immature Gran # (Auto) (0.00-0.03) x10^3u/L Absolute Lymphs (auto) (1.0-4.6) x10^3/uL Absolute Monos (auto) (0.0-1.3) x10^3/uL Absolute Nucleated RBC (0.00-0.01) x10^3u/L Lymphocytes % (24.0-44.0) % Monocytes % (0.0-12.0) % Eosinophils % (0.00-5.0) % Basophils % (0.0-0.4) % Absolute Granulocytes (1.4-6.9) x10^3/uL Basophils # (0-0.4) x10^3/uL Sodium 138 (135-145) mmol/L Potassium 4.6 (3.5-5.1) mmol/L Chloride 109 H (98-107) mmol/L Carbon Dioxide 24 (22-30) mmol/L Anion Gap 9.6 (5-15) MEQ/L BUN 8 (7-17) mg/dL Creatinine 0.70 (0.52-1.04) mg/dL Estimated GFR 94.7 ML/MIN Glucose 113 H (74-106) mg/dL POC Glucometer 113 H (74 to 106) mg/dL Calcium 7.7 L (8.4-10.2) mg/dL Phosphorus 1.9 L (2.5-4.5) mg/dL Magnesium 1.8 (1.6-2.3) mg/dL Total Bilirubin 0.60 (0.2-1.3) mg/dL AST 36 (14-36) U/L ALT 22 (0-35) U/L Alkaline Phosphatase 47 (38-126) U/L Serum Total Protein 5.5 L (6.3-8.2) g/dL Albumin 2.9 L (3.5-5.0) g/dL 01/31/24 01/31/24 01/31/24 Range/Units 11:39 15:38 21:32 WBC (4.0-10.5) x10^3/uL RBC (4.1-5.4) x10^6/uL Hgb (12.0-16.0) g/dL Hct (35-47) % MCV (78-100) fL MCH (26-32) pg MCHC (32-36) g/dL RDW (11.5-14.0) % Plt Count (150-450) x10^3/uL MPV (7.5-11.0) fL Gran % (36.0-66.0) % Immature Gran % (Auto) (0.00-0.4) % Nucleat RBC Rel Count (0.00-0.1) % Eos # (Auto) (0-0.5) x10^3/uL Immature Gran # (Auto) (0.00-0.03) x10^3u/L Absolute Lymphs (auto) (1.0-4.6) x10^3/uL Absolute Monos (auto) (0.0-1.3) x10^3/uL Absolute Nucleated RBC (0.00-0.01) x10^3u/L Lymphocytes % (24.0-44.0) % Monocytes % (0.0-12.0) % Eosinophils % (0.00-5.0) % Basophils % (0.0-0.4) % Absolute Granulocytes (1.4-6.9) x10^3/uL Basophils # (0-0.4) x10^3/uL Sodium (135-145) mmol/L Potassium (3.5-5.1) mmol/L Chloride (98-107) mmol/L Carbon Dioxide (22-30) mmol/L Anion Gap (5-15) MEQ/L BUN (7-17) mg/dL Creatinine (0.52-1.04) mg/dL Estimated GFR ML/MIN Glucose (74-106) mg/dL POC Glucometer 118 H 100 139 H (74 to 106) mg/dL Calcium (8.4-10.2) mg/dL Phosphorus (2.5-4.5) mg/dL Magnesium (1.6-2.3) mg/dL Total Bilirubin (0.2-1.3) mg/dL AST (14-36) U/L ALT (0-35) U/L Alkaline Phosphatase (38-126) U/L Serum Total Protein (6.3-8.2) g/dL Albumin (3.5-5.0) g/dL 02/01/24 Range/Units 05:04 WBC 5.7 (4.0-10.5) x10^3/uL RBC 3.15 L (4.1-5.4) x10^6/uL Hgb 8.9 L (12.0-16.0) g/dL Hct 28.1 L (35-47) % MCV 89.2 (78-100) fL MCH 28.3 (26-32) pg MCHC 31.7 L (32-36) g/dL RDW 13.9 (11.5-14.0) % Plt Count 149 L (150-450) x10^3/uL MPV 10.9 (7.5-11.0) fL Gran % 61.3 (36.0-66.0) % Immature Gran % (Auto) 0.4 (0.00-0.4) % Nucleat RBC Rel Count 0.0 (0.00-0.1) % Eos # (Auto) 0.11 (0-0.5) x10^3/uL Immature Gran # (Auto) 0.02 (0.00-0.03) x10^3u/L Absolute Lymphs (auto) 1.48 (1.0-4.6) x10^3/uL Absolute Monos (auto) 0.57 (0.0-1.3) x10^3/uL Absolute Nucleated RBC 0.00 (0.00-0.01) x10^3u/L Lymphocytes % 26.1 (24.0-44.0) % Monocytes % 10.1 (0.0-12.0) % Eosinophils % 1.9 (0.00-5.0) % Basophils % 0.2 (0.0-0.4) % Absolute Granulocytes 3.47 (1.4-6.9) x10^3/uL Basophils # 0.01 (0-0.4) x10^3/uL Sodium (135-145) mmol/L Potassium (3.5-5.1) mmol/L Chloride (98-107) mmol/L Carbon Dioxide (22-30) mmol/L Anion Gap (5-15) MEQ/L BUN (7-17) mg/dL Creatinine (0.52-1.04) mg/dL Estimated GFR ML/MIN Glucose (74-106) mg/dL POC Glucometer (74 to 106) mg/dL Calcium (8.4-10.2) mg/dL Phosphorus (2.5-4.5) mg/dL Magnesium (1.6-2.3) mg/dL Total Bilirubin (0.2-1.3) mg/dL AST (14-36) U/L ALT (0-35) U/L Alkaline Phosphatase (38-126) U/L Serum Total Protein (6.3-8.2) g/dL Albumin (3.5-5.0) g/dL Radiology Exams: Radiology Procedures Category Date Time Status BARIUM SWALLOW ESOPHOGRAM Urgent Exams 01/31/24 15:23 Completed CHEST 1 VIEW (PORTABLE) Urgent Exams 01/31/24 13:12 Completed SHOULDER Urgent Exams 01/30/24 09:26 Completed Multi-Disciplinary Progress Notes: Multi-Disciplinary Progress Notes 01/31/24 15:20 Case Management Note by Cailin Bartholomew FULL REFERRAL FAXED TO [facility] AT THIS TIME Initialized on 01/31/24 15:20 - END OF NOTE 01/31/24 15:08 Occupational Therapy Note by Chris(Johnathan#[id number])Jael Occupational Therapy Treatment Session ([id number]) Patient supine in bed with family members present upon OTR approach. Per patient and family, patient has esophogeal testing scheduled for this afternoon and was agreeable to treatment session until test. Dasha reported that she has been performing R wrist and hand AROM today. OTR educated patient/family on positioning, swelling, and importance of performing ex's as instructed including review of frequency, duration, and s/s to cease exercises. OTR assisted patient to upright positioning in bed with bed controls followed by PROM to R shoulder, elbow, wrist, and hand to tolerance, scapular ROM and stability ther ex's in 3 motions, R elbow AAROM with instruction provided for ROM arc with visual goals provided, R wrist AROM in all directions, and R hand pillow/blanket squeezes all A/AROM ex's performed 2 sets of 12 reps. OTR provided patient with written, illustrated handout for exercise progression and carryover. Patient daughter verbalized concerns re: sling and requested OTR to speak with nursing for replacement. Nursing aware. Patient supine in bed with head of bed elevated, call light within reach, sling in proper position, bed rails in place, and family at bedside at session end. Initialized on 01/31/24 15:08 - END OF NOTE 01/31/24 14:58 Case Management Note by Cailin Bartholomew PASRR AND LEVEL OF CARE STARTED AT THIS TIME Initialized on 01/31/24 14:58 - END OF NOTE 01/31/24 14:16 Case Management Note by Cailin Bartholomew/Jhonatan ALONSO WITH [facility]- THEY WILL REACH OUT TO PATIENTS' DAUGHTER TO SEE IF THEY CAN ASSIST PATIENT IN ANY WAY Initialized on 01/31/24 14:16 - END OF NOTE 01/31/24 13:06 Case Management Note by Cailin Bartholomew/Jhonatan PATIENT ABOUT PLANS FOR DC. SHE HAD INITIALLY PLANNED TO RETURN HOME WITH [facility]. PATIENT HAS SINCE DEVELOPED TROUBLE BEARING WEIGHT ON HIP. SHE IS NOW AGREEABLE TO GO TO A REHAB FACILITY FOR A SHORT TERM STAY. SHE WOULD LIKE TO GO TO [facility]. WILL START PASRR PAPERWORK AND SEND REFERRAL TO [facility] Initialized on 01/31/24 13:06 - END OF NOTE Assessment/Plan (1) Anemia Current Visit: Yes Status: Acute Code(s): D64.9 - ANEMIA, UNSPECIFIED (2) Acute kidney failure Current Visit: Yes Status: Acute (3) Humeral head fracture Current Visit: Yes Status: Acute Code(s): S42.293A - OTH DISP FX OF UPPER END OF UNSP HUMERUS, INIT FOR CLOS FX (4) Hypomagnesemia Current Visit: Yes Status: Acute Code(s): E83.42 - HYPOMAGNESEMIA (5) Right hip pain Current Visit: Yes Status: Acute Code(s): M25.551 - PAIN IN RIGHT HIP (6) HTN (hypertension) Current Visit: Yes Status: Chronic Code(s): I10 - ESSENTIAL (PRIMARY) HYPERTENSION (7) Hyperlipidemia Current Visit: Yes Status: Chronic Code(s): E78.5 - HYPERLIPIDEMIA, UNSPECIFIED (8) DM2 (diabetes mellitus, type 2) Current Visit: No Status: Acute (9) Presbyesophagus Current Visit: Yes Status: Acute Code(s): K22.89 - OTHER SPECIFIED DISEASE OF ESOPHAGUS (10) Thrush of mouth and esophagus Current Visit: Yes Status: Acute Code(s): B37.81 - CANDIDAL ESOPHAGITIS; B37.0 - CANDIDAL STOMATITIS (11) Hypokalemia Current Visit: Yes Status: Acute Code(s): E87.6 - HYPOKALEMIA
[2024-02-01 05:45] LABS: ANION GAP 9.6 MEQ/L (5-15); Calcium 8.6 mg/dL (8.4-10.2); Creatinine 1 0.79 mg/dL (0.52-1.04); EST GLOMERULAR FILTRATION RATE 81.9 ML/MIN; Potassium 4.5 mmol/L (3.5-5.1); Total Protein 5.9 g/dL (6.3-8.2)
[2024-02-01] MEDS ORDERED: MILK OF MAGNESIA 30 ML PO PRN (08:00)
[2024-02-01] MEDS ORDERED: VITAMIN D PO SCH (10:00)
[2024-02-01] MEDS: VITAMIN D2 PO SCH (10:44)
[2024-02-01 11:36] VITALS: BP 107/56; PULSE 116; TEMP 97.7; O2SAT 92
--- NOTE | 2024-02-01 12:37 | PCM.DS ---
Discharge Summary Date of Admission: 01/28/24 08:24 Date of Discharge: 02/01/24 Admitting Physician: MELVI ESTEVES MD Consults: Consults on Case 01/28/24 11:52 Consult Surgery ROUTINE 01/29/24 10:43 Consult Ortho ROUTINE Primary Care Provider: DESTINY FINNEGAN DO Allergies Allergies hydromorphone Allergy (Severe, Verified 01/27/24 15:28) Difficulty Breathing citalopram hydrobromide [From Celexa] Allergy (Mild, Verified 01/28/24 06:14) Hives escitalopram oxalate [From Lexapro] Allergy (Mild, Verified 01/28/24 06:14) Hives morphine Allergy (Mild, Verified 01/28/24 06:14) itching N&V Allergy to IV only Sulfa (Sulfonamide Antibiotics) [Sulfa(Sulfonamide Antibiotics)] Allergy (Mild, Verified 01/28/24 06:14) Hives codeine [Codeine] Allergy (Unknown, Verified 01/28/24 06:14) hallucinations COVID-19 (SARS-CoV-2) vaccine, brian Allergy (Verified 01/28/24 06:14) Hospital Summary - Hospital Course Hospital Course: Ms. Cleaning is a 68 year old female who presented for her OP scheduled right reverse shoulder arthroplasty four four-part fracture on 01/29/24 when she fell reinjuring her right shoulder most likely secondary to symptomatic anemia as she was found to have a hgb of 5.5 on arrival. Patient has received 2 units of blood during hospital course and hemoglobin has remained stable. Cause of blood loss is unknown. EGD showed GERD, mild gastritis, a hital hernia, thrush with Diflucan started, and presbyesophagus. Barium swallow with ST ordered showing small hiatal hernia. Remaining limited esophagram is negative. ST recommended pills to be taken whole with applesauce. CT of the abdomen with no acute findings. She is s/p surgery of her right shoulder performed 01/29/24. She continues to be unable to bear weight on RLE. per otho note pt to return in 3 weeks for further eval Op. Pt agreeable rehab placement on discharge. Colonoscopy will be performed as OP per surgery. Patient cleared for discharge to SNF for rehab. Discharge Note New Diagnosis: anemia/ s/p right reverse shoulder arthroplasty New Medications:percocet/difflucan Follow Up: Ortho, surgery, pcp Latest Assessment & Plan (1) Anemia Current Visit: Yes Status: Acute Assessment & Plan: - Tele - unknown cause - CT abd/pelvis: 01/27- negative for acute concern - surgery consult - yesterday hgb 8, on admission 5.5, repeat lab 6.1- 2 units of PRBC ordered - Protonix IV - + hx of B12 def. 01/28 - anemia panel - Hgb 9.9 01/29 - EGD with [facility] surgery found: EGD was completed by [facility] today and they found GERD, mild gastritis, a hital hernia, thrush with Diflucan started, and presbyesophagus. All morning meds were found intact and stuck when EGD completed. Code(s): D64.9 - ANEMIA, UNSPECIFIED 01/30: -Barium study pending -Colonoscopy to be performed tomorrow -Hgb at 8.2 today, will continue to monitor -Iron sat at 16%, will order Iron infusion 01/31: -Barium study with small hiatial hernia, recs from ST for pills to be swallowed with applesauce -follow up with surgery OP for colonoscopy -Hgb stable, will need monitored at rehab Code(s): D64.9 - ANEMIA, UNSPECIFIED (2) Acute kidney failure Current Visit: Yes Status: Acute Assessment & Plan: - Creat 1.16- BL WNL - IVF - Trend - hold lisinopril and statin 01/28 - resolved (3) Humeral head fracture Current Visit: Yes Status: Acute Assessment & Plan: - was scheduled for OP surgery today - narcotic pain meds PRN - Fell in registration today on right shoulder again- 2:2 low hgb - No LOC - Ortho awaiting Hgb to improve to do surgery. - ice pack PRN - Oral narcotic pain meds - Sling - XR right shoulder: 01/28/24 3 view right shoulder demonstrates grossly stable comminuted, impacted, and angulated humeral head/neck fracture without obvious callus formation. Again chronic findings including osteopenia, mild AC degenerative changes, T7 vertebroplasty, and right lung base subsegmental atelectasis/scarring. No new abnormalities. 01/28 - NPO - scheduled for surgery today 01/29 - POD #1 - Right arm swollen- elevate to heart level, ice pack - Sling - PT/OT - rehab placement - reviewed ortho note and agree with plan of care. Code(s): S42.293A - OTH DISP FX OF UPPER END OF UNSP HUMERUS, INIT FOR CLOS FX Code(s): S42.293A - OTH DISP FX OF UPPER END OF UNSP HUMERUS, INIT FOR CLOS FX (4) Hypomagnesemia Current Visit: Yes Status: Acute Assessment & Plan: -Resolved Code(s): E83.42 - HYPOMAGNESEMIA (5) Right hip pain Current Visit: Yes Status: Acute Assessment & Plan: - acute on chronic - pt reports pain after fall- increased - follows Dr. Cat with pain management for chronic pain of right hip - XR right hip 01/28/24 Dynamic hip screw noted, and well aligned. Signs of osteoarthritis noted with narrowing of the hip joint space, sclerosis and irregularity of the femoral and acetabular articular surfaces. Preserved fat planes, no signs of joint effusion. Unremarkable soft tissues. No bony lesion at the scanned bones. IMPRESSION: Signs of osteoarthritis, no acute osseous injury. - Ortho aware and reviewed. Per ortho note also will consider right hip replacement d/t current hardware related pain 01/29 - f/u in 3 weeks OP per ortho - PT/OT - Will need rehab placement. Code(s): M25.551 - PAIN IN RIGHT HIP (6) HTN (hypertension) Current Visit: Yes Status: Chronic Assessment & Plan: -stable, continue home medications Code(s): I10 - ESSENTIAL (PRIMARY) HYPERTENSION (7) Hyperlipidemia Current Visit: Yes Status: Chronic Assessment & Plan: -continue statin Code(s): E78.5 - HYPERLIPIDEMIA, UNSPECIFIED (8) DM2 (diabetes mellitus, type 2) Current Visit: No Status: Acute Assessment & Plan: - A1C - accuchecks ac/hs - humalog s/s - hold metformin - carb controlled diet (9) Presbyesophagus Current Visit: Yes Status: Acute Assessment & Plan: - seen on EGD per - Will order barium swallow for tomorrow with ST eval 01/30: -barium swallow pending results. 01/31: -Barium swallow with small hiatial hernia, st recs for pills to be swallowed whole with applesauce Code(s): K22.89 - OTHER SPECIFIED DISEASE OF ESOPHAGUS (10) Thrush of mouth and esophagus Current Visit: Yes Status: Acute Assessment & Plan: Diflucan started by Code(s): B37.81 - CANDIDAL ESOPHAGITIS; B37.0 - CANDIDAL STOMATITIS (11) Hypokalemia Current Visit: Yes Status: Acute Assessment & Plan: -replenished 01/29 -resolved I spent 35 minutes [id number] with the patient on the day of discharge performing discharge exam, discussing hospital stay and discharge instructions with patient and caregivers, preparation of discharge records, prescriptions & referral forms and addressing any questions/concerns the patient had as documented above. - Vitals & Intake/Output Vital Signs: Vital Signs Temperature 97.7 F 02/01/24 11:34 Pulse Rate 116 H 02/01/24 11:34 Respiratory Rate 16 02/01/24 11:34 Blood Pressure 107/56 02/01/24 11:34 O2 Sat by Pulse Oximetry 92 L 02/01/24 11:34 Intake & Output: Intake & Output 01/30/24 01/31/24 02/01/24 02/02/24 11:59 11:59 11:59 11:59 Intake Total 4000 3901 960 Output Total 300 700 Balance 3700 3901 260 Weight 59.5 kg - Lab Result Diagrams: 02/01/24 05:04 02/01/24 05:04 Lab Results-Last 24 Hrs: Lab Results-Last 24 Hours 01/29/24 01/31/24 01/31/24 Range/Units Unknown 15:38 21:32 WBC (4.0-10.5) x10^3/uL RBC (4.1-5.4) x10^6/uL Hgb (12.0-16.0) g/dL Hct Pending MCV (78-100) fL MCH (26-32) pg MCHC (32-36) g/dL RDW (11.5-14.0) % Plt Count (150-450) x10^3/uL MPV (7.5-11.0) fL Gran % (36.0-66.0) % Immature Gran % (Auto) (0.00-0.4) % Nucleat RBC Rel Count (0.00-0.1) % Eos # (Auto) (0-0.5) x10^3/uL Immature Gran # (Auto) (0.00-0.03) x10^3u/L Absolute Lymphs (auto) (1.0-4.6) x10^3/uL Absolute Monos (auto) (0.0-1.3) x10^3/uL Absolute Nucleated RBC (0.00-0.01) x10^3u/L Lymphocytes % (24.0-44.0) % Monocytes % (0.0-12.0) % Eosinophils % (0.00-5.0) % Basophils % (0.0-0.4) % Absolute Granulocytes (1.4-6.9) x10^3/uL Basophils # (0-0.4) x10^3/uL Haptoglobin 152 (37-355) mg/dL Sodium (135-145) mmol/L Potassium (3.5-5.1) mmol/L Chloride (98-107) mmol/L Carbon Dioxide (22-30) mmol/L Anion Gap (5-15) MEQ/L BUN (7-17) mg/dL Creatinine (0.52-1.04) mg/dL Estimated GFR ML/MIN Glucose (74-106) mg/dL POC Glucometer 100 139 H (74 to 106) mg/dL Calcium (8.4-10.2) mg/dL Phosphorus (2.5-4.5) mg/dL Total Bilirubin (0.2-1.3) mg/dL AST (14-36) U/L ALT (0-35) U/L Alkaline Phosphatase (38-126) U/L Serum Total Protein (6.3-8.2) g/dL Albumin (3.5-5.0) g/dL RBC Folate Hemolysate Pending RBC Folate Pending 02/01/24 02/01/24 02/01/24 Range/Units 05:04 05:04 05:17 WBC 5.7 (4.0-10.5) x10^3/uL RBC 3.15 L (4.1-5.4) x10^6/uL Hgb 8.9 L (12.0-16.0) g/dL Hct 28.1 L MCV 89.2 (78-100) fL MCH 28.3 (26-32) pg MCHC 31.7 L (32-36) g/dL RDW 13.9 (11.5-14.0) % Plt Count 149 L (150-450) x10^3/uL MPV 10.9 (7.5-11.0) fL Gran % 61.3 (36.0-66.0) % Immature Gran % (Auto) 0.4 (0.00-0.4) % Nucleat RBC Rel Count 0.0 (0.00-0.1) % Eos # (Auto) 0.11 (0-0.5) x10^3/uL Immature Gran # (Auto) 0.02 (0.00-0.03) x10^3u/L Absolute Lymphs (auto) 1.48 (1.0-4.6) x10^3/uL Absolute Monos (auto) 0.57 (0.0-1.3) x10^3/uL Absolute Nucleated RBC 0.00 (0.00-0.01) x10^3u/L Lymphocytes % 26.1 (24.0-44.0) % Monocytes % 10.1 (0.0-12.0) % Eosinophils % 1.9 (0.00-5.0) % Basophils % 0.2 (0.0-0.4) % Absolute Granulocytes 3.47 (1.4-6.9) x10^3/uL Basophils # 0.01 (0-0.4) x10^3/uL Haptoglobin (37-355) mg/dL Sodium 133 L (135-145) mmol/L Potassium 4.5 (3.5-5.1) mmol/L Chloride 106 (98-107) mmol/L Carbon Dioxide 23 (22-30) mmol/L Anion Gap 9.6 (5-15) MEQ/L BUN 10 (7-17) mg/dL Creatinine 0.79 (0.52-1.04) mg/dL Estimated GFR 81.9 ML/MIN Glucose 139 H (74-106) mg/dL POC Glucometer (74 to 106) mg/dL Calcium 8.6 (8.4-10.2) mg/dL Phosphorus 3.1 (2.5-4.5) mg/dL Total Bilirubin 1.00 (0.2-1.3) mg/dL AST 37 H (14-36) U/L ALT 28 (0-35) U/L Alkaline Phosphatase 62 (38-126) U/L Serum Total Protein 5.9 L (6.3-8.2) g/dL Albumin 3.0 L (3.5-5.0) g/dL RBC Folate Hemolysate RBC Folate 02/01/24 02/01/24 Range/Units 07:22 11:13 WBC (4.0-10.5) x10^3/uL RBC (4.1-5.4) x10^6/uL Hgb (12.0-16.0) g/dL Hct MCV (78-100) fL MCH (26-32) pg MCHC (32-36) g/dL RDW (11.5-14.0) % Plt Count (150-450) x10^3/uL MPV (7.5-11.0) fL Gran % (36.0-66.0) % Immature Gran % (Auto) (0.00-0.4) % Nucleat RBC Rel Count (0.00-0.1) % Eos # (Auto) (0-0.5) x10^3/uL Immature Gran # (Auto) (0.00-0.03) x10^3u/L Absolute Lymphs (auto) (1.0-4.6) x10^3/uL Absolute Monos (auto) (0.0-1.3) x10^3/uL Absolute Nucleated RBC (0.00-0.01) x10^3u/L Lymphocytes % (24.0-44.0) % Monocytes % (0.0-12.0) % Eosinophils % (0.00-5.0) % Basophils % (0.0-0.4) % Absolute Granulocytes (1.4-6.9) x10^3/uL Basophils # (0-0.4) x10^3/uL Haptoglobin (37-355) mg/dL Sodium (135-145) mmol/L Potassium (3.5-5.1) mmol/L Chloride (98-107) mmol/L Carbon Dioxide (22-30) mmol/L Anion Gap (5-15) MEQ/L BUN (7-17) mg/dL Creatinine (0.52-1.04) mg/dL Estimated GFR ML/MIN Glucose (74-106) mg/dL POC Glucometer 147 H 163 H (74 to 106) mg/dL Calcium (8.4-10.2) mg/dL Phosphorus (2.5-4.5) mg/dL Total Bilirubin (0.2-1.3) mg/dL AST (14-36) U/L ALT (0-35) U/L Alkaline Phosphatase (38-126) U/L Serum Total Protein (6.3-8.2) g/dL Albumin (3.5-5.0) g/dL RBC Folate Hemolysate RBC Folate Micro Results-Entire Visit: Accuchecks Date 02/01/24 Date 02/01/24 Date 01/31/24 Date 01/31/24 Time 11:36 Time 07:35 Time 16:24 - Radiology Exams Ordered Rad Exams-Entire Visit: Radiology Procedures Category Date Time Status BARIUM SWALLOW ESOPHOGRAM Urgent Exams 01/31/24 15:23 Completed CHEST 1 VIEW (PORTABLE) Urgent Exams 01/31/24 13:12 Completed - Procedures and Test Procedures and Tests throughout Hospitalization: Therapy Orders & Screens 01/28/24 10:09 OT Screen per Nursing Assess ONCE Comment: Protocol Order Physician Instructions: Greater than 3 points order OT Admission Screening Reason For Exam: Triggered on Admission Diagnosis: Anemia; fracture of right shoulder Open Wound/Cellutlitis/Pressure Ulcers: No Acute Fx/ORIF/Change in wt bearing status: No Severe MUSCULOSKELETAL pain: Yes ADL Dysfunction: Yes Acute CVA w/Hemiparesis/Hemiplegia: No Decreased Functional Mobility/Strength: Yes Sprain/Strain: No Acute Post-op Mobility Dysfunction: No Total Points: 9 PT Screen per Nursing Assess ONCE Comment: Protocol Order Physician Instructions: Greater than 3 points order PT Admission Screenin Reason For Exam: Triggered on Admission Diagnosis: Anemia; fracture of right shoulder Open Wound/Cellutlitis/Pressure Ulcers: No Acute Fx/ORIF/Change in wt bearing status: No Severe MUSCULOSKELETAL pain: Yes ADL Dysfunction: Yes Acute CVA w/Hemiparesis/Hemiplegia: No Decreased Functional Mobility/Strength: Yes Sprain/Strain: No Acute Post-op Mobility Dysfunction: No Total Points: 9 01/28/24 17:01 Oxygen NASAL CANNULA 2 lpm Comment: Diagnosis: Anemia; fracture of right shoulder 01/29/24 07:00 Respiratory Therapy Assessment DAILY Comment: Diagnosis: Anemia; fracture of right shoulder 01/29/24 12:13 Incentive Spirometry TID Comment: EVERY HOUR PERFORMED BY PATIENT Diagnosis: Anemia; fracture of right shoulder 01/29/24 13:00 PT Eval & Treat ( Order) ONCE Reason for Eval:: P7-PROM RIGHT SHOULDER 45 F/ERX/ABD 30 ER Diagnosis: Anemia; fracture of right shoulder 01/29/24 15:23 OT Eval and Treat ( Order) ONCE Comment: Physician Instructions: Reason For Exam: Diagnosis: Anemia; fracture of right shoulder 01/30/24 12:45 OT Eval and Treat (MD Order) ROUTINE Comment: Physician Instructions: recs for OP needs Reason For Exam: fx R shoulder, right hip pain Evaluate: Yes Treat: Yes Diagnosis: Anemia; fracture of right shoulder 01/30/24 14:20 ST Eval & Treat ( Order) .as ordered Comment: Physician Instructions: Reason For Exam: Evaluate: Yes Treat: Yes Reason for Eval: ST to eval Diagnosis: Anemia; fracture of right shoulder Discharge Exam General Appearance: no apparent distress Neurologic Exam: alert, oriented x 3, cooperative Eye Exam: PERRL Ears, Nose, Throat Exam: normal ENT inspection Neck Exam: normal inspection Respiratory Exam: normal breath sounds, lungs clear Cardiovascular Exam: regular rate/rhythm, normal heart sounds Gastrointestinal/Abdomen Exam: soft, normal bowel sounds Pelvic Exam: deferred Rectal Exam: deferred Back Exam: normal inspection Extremity Exam: limited range of motion (RUE/RLE RUE in sling) Skin Exam: other (RUE with surgical incision) Final Diagnosis/Problem List - Final Discharge Diagnosis/Problem (1) Anemia Current Visit: Yes Status: Acute Code(s): D64.9 - ANEMIA, UNSPECIFIED (2) Acute kidney failure Current Visit: Yes Status: Acute (3) Humeral head fracture Current Visit: Yes Status: Acute Code(s): S42.293A - OTH DISP FX OF UPPER END OF UNSP HUMERUS, INIT FOR CLOS FX (4) Hypomagnesemia Current Visit: Yes Status: Acute Code(s): E83.42 - HYPOMAGNESEMIA (5) Right hip pain Current Visit: Yes Status: Acute Code(s): M25.551 - PAIN IN RIGHT HIP (6) HTN (hypertension) Current Visit: Yes Status: Chronic Code(s): I10 - ESSENTIAL (PRIMARY) HYPERTENSION (7) Hyperlipidemia Current Visit: Yes Status: Chronic Code(s): E78.5 - HYPERLIPIDEMIA, UNSPECIFIED (8) DM2 (diabetes mellitus, type 2) Current Visit: No Status: Acute (9) Presbyesophagus Current Visit: Yes Status: Acute Code(s): K22.89 - OTHER SPECIFIED DISEASE OF ESOPHAGUS (10) Thrush of mouth and esophagus Current Visit: Yes Status: Acute Code(s): B37.81 - CANDIDAL ESOPHAGITIS; B37.0 - CANDIDAL STOMATITIS (11) Hypokalemia Current Visit: Yes Status: Acute Code(s): E87.6 - HYPOKALEMIA - Discharge Disposition: DC TO ANY "OTHER" PENITENTIARY Condition: Stable Prescriptions: New Fluconazole 100 mg [Diflucan 100 MG] 100 mg PO DAILY 7 Days #7 tablet Docusate Sodium 100 mg [Docusate Sodium 100 MG] 100 mg PO BIDPRN PRN cap PRN Reason: Constipation Ferrous Sulfate 325 mg [Feosol 325 mg] 325 mg PO DAILY tablet Magnesium Hydroxide 30 ml [Milk of Magnesia 30 ml] 30 ml PO ONCE PRN PRN Reason: Post procedure Oxycodone/APAP 5 mg/325 mg [Percocet Tablet 5/325Mg] 1.5 tab PO TIDPRN PRN 3 Days #13.5 tablet MDD 4.5 PRN Reason: Pain Ergocalciferol (Vitamin D2) [Vitamin D2] 50,000 unit PO MoFr cap Continue Metformin HCl 500 mg [Glucophage 500 MG] 1,000 mg PO BIDWM lisinopriL [Lisinopril] 2.5 mg PO DAILY Oxybutynin Chloride [Oxybutynin Chloride ER] 15 mg PO BID Rosuvastatin Calcium 20 mg PO HS PARoxetine HCL [Paroxetine HCl] 10 mg PO DAILY Ibandronate Sodium 150 mg PO UD Fluticasone Propionate [Flonase Allergy Relief] 1 spray NS DAILY PRN PRN PRN Reason: Allergies Albuterol Sulfate [Proair Respiclick] 2 puff IH Q4HPRN PRN PRN Reason: Shortness Of Breath/Wheezing Doxepin HCl 100 mg PO HS Cyanocobalamin (Vitamin B-12) [B-12] 1,000 mcg PO DAILY Ascorbic Acid 500 mg [Vitamin C 500 MG] 0 mg PO DAILY Tizanidine HCl 2 mg PO HS Discontinued Oxycodone HCl/Acetaminophen [Oxycodone-Acetaminophn 7.5-325] 1 tab PO TIDPRN PRN PRN Reason: Pain Additional Instructions: PENITENTIARY ORDERS: 2000 NADER ADA DIET ACHS ACCU CHECKS OXYGEN AT 2L/NC (DOES NOT WEAR AT HOME) FOLLOW UP WITH DR. VALENZUELA (ORTHO) ON February. WEAR SLING TO RIGHT ARM TOLERATED - MAY REMOVE FOR BATHING AND WHILE RESTING IN BED WITH PILLOW UNDER ARM. DRY GAUZE DRESSING PRN TO INCISION SITE. REMOVE TR ON 02/08/24. PT/OT EVAL & TREAT-SEE RESTRICTIONS PASSIVE RANGE OF MOTION OF RIGHT SHOULDER TO 45 DEGREES OF FLEXION, 45 DEGREES ABDUCTION, 30 DEGREES EXTERNAL ROTATION. NO ACTIVE WEIGHT BEARING THROUGH THE RIGHT SHOULDER WBAT TO RIGHT HIP. SEE ATTACHED MED LIST Follow up with: CHAN LOW FNP [ALLIED HEALTH PROFESSION STAFF] - 02/10/24 1:20 pm ORTHO - IRASEMA MARINO NP [NON-STAFF PHY W/O PRIVILEGES] - 02/17/24 2:30 pm
[2024-02-01 15:14] LABS: Hematocrit 26.2 % (34.0-46.6)
== END 2024-02-01 16:00 ==
LOC: ED 06:04 → MED SURG 08:24
PROVIDERS: ADMIT Internal Medicine; ATTEND Internal Medicine
DX: D64.9 Anemia, unspecified (principal); N17.9 Acute kidney failure, unspecified; S42.291A Other displaced fracture of upper end of right humerus, initial encounter for closed fracture; E83.42 Hypomagnesemia; S70.01XA Contusion of right hip, initial encounter; S72.141P Displaced intertrochanteric fracture of right femur, subsequent encounter for closed fracture with malunion; M16.51 Unilateral post-traumatic osteoarthritis, right hip; W19.XXXA Unspecified fall, initial encounter; M25.551 Pain in right hip; I10 Essential (primary) hypertension; E78.5 Hyperlipidemia, unspecified; E11.9 Type 2 diabetes mellitus without complications; K22.89 Other specified disease of esophagus; R13.10 Dysphagia, unspecified; B37.81 Candidal esophagitis; B37.0 Candidal stomatitis; E87.6 Hypokalemia; K22.2 Esophageal obstruction; K44.9 Diaphragmatic hernia without obstruction or gangrene; K29.70 Gastritis, unspecified, without bleeding; R00.0 Tachycardia, unspecified; Z79.899 Other long term (current) drug therapy
CPT/HCPCS: 00813; 23472; 36000; 36415; 36430; 43235; 45378; 71045; 73030; 73502; 74176; 74220; 80048; 80053; 82306; 82607; 82728; 82746; 82747; 82947; 83010; 83036; 83540; 83550; 83735; 83970; 84100; 84132; 84134; 85014; 85018; 85025; 85027; 85045; 85046; 86850; 86900; 86901; 86922; 93268; 94760; 94762; 97110; 97140; 97161; 97165; 97530; 99284; G0378; P9016; Q3014; 76937; 99221; C1713; C1776; J0690; J1100; J1439; J1817; J1885; J2250; J2405; J2704; J2795; J3010; J3475; A9270-GY

== ENCOUNTER 2025-02-09 13:46 | Emergency (ER) | payer MEDICARE, OTHER ==
--- NOTE | 2025-02-09 13:59 | ERPHSYRPT ---
- History of Present Illness Source: patient Exam Limitations: no limitations Physician History: Patient had a hip surgery done a few weeks ago. She had a pin removed yesterday and I guess it was bleeding. They put a dressing on there and there is a little bit of bleeding underneath the dressing site. The patient said it was oozing blood and wants us to change the dressing. She actually went to urgent care first and they said that they could not do it.I do not see any reason why we cannot do it. She has no other complaints at this time. Allergies/Adverse Reactions: hydromorphone Allergy (Severe, Verified 01/27/24 15:28) Difficulty Breathing citalopram hydrobromide [From Celexa] Allergy (Mild, Verified 01/28/24 06:14) Hives escitalopram oxalate [From Lexapro] Allergy (Mild, Verified 01/28/24 06:14) Hives morphine Allergy (Mild, Verified 01/28/24 06:14) itching N&V Allergy to IV only Sulfa (Sulfonamide Antibiotics) [Sulfa(Sulfonamide Antibiotics)] Allergy (Mild, Verified 01/28/24 06:14) Hives codeine [Codeine] Allergy (Unknown, Verified 01/28/24 06:14) hallucinations COVID-19 (SARS-CoV-2) vaccine, brian Allergy (Verified 01/28/24 06:14) Home Medications: Metformin HCl 500 mg [Glucophage 500 MG] 1,000 mg PO BIDWM 07/05/20 [History] lisinopriL [Lisinopril] 2.5 mg PO DAILY 12/10/22 [History] Oxybutynin Chloride [Oxybutynin Chloride ER] 15 mg PO BID 06/03/23 [History] Albuterol Sulfate [Proair Respiclick] 2 puff IH Q4HPRN PRN 01/27/24 [History] Cyanocobalamin (Vitamin B-12) [B-12] 1,000 mcg PO DAILY 01/27/24 [History] Doxepin HCl 100 mg PO HS 01/27/24 [History] Fluticasone Propionate [Flonase Allergy Relief] 1 spray NS DAILY PRN PRN 01/27/24 [History] Ibandronate Sodium 150 mg PO UD 01/27/24 [History] PARoxetine HCL [Paroxetine HCl] 10 mg PO DAILY 01/27/24 [History] Rosuvastatin Calcium 20 mg PO HS 01/27/24 [History] Ascorbic Acid 500 mg [Vitamin C 500 MG] 0 mg PO DAILY 01/28/24 [History] Tizanidine HCl 2 mg PO HS 01/28/24 [History] Hx Tetanus, Diphtheria Vaccination/Date Given: Yes Hx Influenza Vaccination/Date Given: Yes Hx Pneumococcal Vaccination/Date Given: Yes Travel Risk - Emerging Infectious Disease Are you exhibiting symptoms associated with any current EIDs: No - Review of Systems Constitutional: No Symptoms Musculoskeletal: No Symptoms - Past Medical History Pertinent Past Medical History: Yes Neurological History: Peripheral Neuropathy, TIA ENT History: Cataracts Cardiac History: Deep Vein Thrombosis, High Cholesterol, Hypertension Respiratory History: Asthma, COPD, Emphysema Endocrine Medical History: Diabetes Type II, Hypothyroidism Musculoskeletal History: Fractures GI Medical History: GERD History: Other Psycho-Social History: Anxiety, Depression Female Reproductive Disorders: No Pertinent History Other Medical History: anxiety, depression, COPD, over active bladder - Past Surgical History Past Surgical History: Yes Neuro Surgical History: No Pertinent History Cardiac: No Pertinent History Respiratory: No Pertinent History Gastrointestinal: Appendectomy, Cholecystectomy Genitourinary: No Pertinent History Musculoskeletal: Other Female Surgical History: Section, Hysterectomy Other Surgical History: R Hip repair in 1csection x 3 Significant Family History: diabetes, hypertension - Social History Smoking Status: Former smoker How long have you smoked: 50 years Exposure to second hand smoke: No Drug Use: none - Social Determinants of Health Will the patient participate in the screening: Yes Do you worry about a steady place to live?: No In the past 12 months,have you had to go without utilities?: No Transportation Issues: No Has anyone in your support network made you feel unsafe?: No Have you or anyone in your house had to go w/o enough food: No - Physical Exam Hips Exam: right: other (Right hip there is a dressing over the surgical site. There was some bleeding.It was well-controlled) - Course Nursing assessment & vital signs reviewed: Yes - Progress Progress: improved Progress Note: Procedure note We remove the old dressing and applied a new 1. There is no evidence of infection or any problems. Patient was discharged to home after that. 02/09/25 13:59 - Departure Departure Disposition: Home Clinical Impression: Dressing change or removal, surgical wound Condition: Stable Critical Care Time: No Referrals: KENDRA REYNOLDS MD [Primary Care Provider, [facility]] - Follow up/PCP as directed Instructions: Wound Care (DC) Additional Instructions: Follow-up with your orthopedic doctor as scheduled
[2025-02-09 14:05] VITALS: BP 126/71; PULSE 97; TEMP 97.8; O2SAT 100
== END 2025-02-09 14:18 | disposition home or self-care (01) ==
LOC: ED 13:46
DX: Z48.01 Encounter for change or removal of surgical wound dressing (principal); Z79.899 Other long term (current) drug therapy
CPT/HCPCS: 99281